=== PATIENT | male | born 1955 | race Caucasian/White ===

== ENCOUNTER → 2016-04-28 | Outpatient (CLI) | payer OTHER ==
[~2016-04-28] MED LIST: ASPI81TA28 PO; CHOL100010 PO; CYAN1LOZ2; METF-384 PO; RAMI10CA; SIMV-150; VTMB12
--- NOTE | 2016-04-28 14:16 | DIAGNOSTIC IMAGING REPORT ---
RIGHT UPPER EXTREMITY ULTRASOUND CLINICAL HISTORY: Right upper extremity mass. COMPARISON STUDY: Right upper extremity ultrasound January 06, 2014. FINDINGS: Note is made of an echogenic subcutaneous mass of the lateral aspect of the right upper arm which measures 5.1 x 1.4 x 4.2 cm. When allowing for measurement variability, this is similar to exam of January 06, 2014. The previously described adjacent lesion is not visualized on this examination. IMPRESSION: 5.1 x 1.4 x 4.2 cm echogenic subcutaneous mass of the right upper arm which is similar to exam of January 06, 2014. 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 Clinical follow up to ensure stability is recommended. Electronically signed by: Guevara Johnson M.D. 04/28/2016 2:15 PM Dictated Date/Time: 04/28/2016 2:12 PM
== END | disposition home or self-care (01) ==
LOC: C.ULTR 13:48
PROVIDERS: ATTEND Family Medicine
DX: R22.9 Localized swelling, mass and lump, unspecified (principal)

== ENCOUNTER → 2016-08-28 | Outpatient (CLI) | payer OTHER ==
[2016-08-28 13:48] LABS: ESTIMATED AVERAGE GLUCOSE 117 mg/dl; HA1C FLAG Normal (Normal)
[2016-08-28 14:05] LABS: ALT/SGPT 39 U/L (12-78); BLOOD UREA NITROGEN 15 mg/dl (7-18); BUN/CREATININE RATIO 15.7 (10-20); CARBON DIOXIDE 31 mmol/L (21-32); CHLORIDE 101 mmol/L (98-107); CHOLESTEROL 119 mg/dl (0-200); CREATININE 0.98 mg/dl (0.60-1.40); GLUCOSE 121 mg/dl (70-99); POTASSIUM 3.8 mmol/L (3.5-5.1); SODIUM 138 mmol/L (136-145); TRIGLYCERIDES 123 mg/dl (0-150); VERY LOW DENSITY LIPOPROT CALC 25 mg/dl
[2016-08-28 14:09] LABS: ALB/GLOB RATIO 1.3 (0.9-2); ALKALINE PHOSPHATASE 68 U/L (45-117); AST/SGOT 28 U/L (15-37); CHOLESTEROL/HDL RATIO 3.1; HDL CHOLESTEROL 38 mg/dl; LDL CHOLESTEROL CALCULATED 56 mg/dl
[2016-08-28 14:28] LABS: RATIO 8.8 mcg/mg (0-30.0)
--- NOTE | 2016-09-02 09:36 | CODING QUERY MEDICAL NECESSITY ---
SUPPORTING DIAGNOSIS NEEDED A supporting diagnosis is required for the test/procedure performed on this patient in order for us to be reimbursed by the patient's insurance. Please provide a supporting diagnosis for the following test/procedure listed below next to the test name along with your signature. *If there is no additional diagnosis for this patient that would support the following test/procedure please document that below next to the test/procedure. Test(s)/Procedure(s) that require a supporting diagnosis: * VITAMIN B12 DIAGNOSIS: Provider Signature: Date: Thank you Ellen [email or web address] Information [employer] Once completed, please kindly fax back to [phone] For questions please call [phone]
== END | disposition home or self-care (01) ==
LOC: C.LAB1850 11:41
PROVIDERS: ATTEND Internal Medicine
DX: E11.9 Type 2 diabetes mellitus without complications (principal); Z11.59 Encounter for screening for other viral diseases; Z12.5 Encounter for screening for malignant neoplasm of prostate; R80.9 Proteinuria, unspecified; E78.5 Hyperlipidemia, unspecified

== ENCOUNTER 2021-02-23 16:59 | Inpatient (IN) ==
[~2021-02-23 16:59] MED LIST changes: -ASPI81TA28 PO; +ASPIRIN 300 MG SUPP PR ONE; -CHOL100010 PO; -CYAN1LOZ2; -METF-384 PO; -RAMI10CA; -SIMV-150; -VTMB12
[2021-02-23] MEDS ORDERED: AMIODARONE 360MG / 200ML D5W IV ONE (17:05)
[2021-02-23] MEDS ORDERED: PROPOFOL IV EMULSION 10 MG/ML 100 ML VIAL IV ONE (17:06)
[2021-02-23] MEDS ORDERED: MIDAZOLAM HCL 1 MG/ML 2ML VIAL ONE (17:06)
[2021-02-23] MEDS ORDERED: HEPARIN (PORCINE) 1000 UNIT/ML 10 ML (CATH LAB USE ONLY) ONE (17:06)
[2021-02-23] MEDS ORDERED: niCARdipine HCL INJ 2.5 MG/ML 10 ML AMP ONE (17:06)
[2021-02-23] MEDS ORDERED: fentaNYL citrate 100 MCG/2 ML VIAL ONE (17:06)
[2021-02-23] MEDS ORDERED: NITROGLYCERIN/D5W 100MCG/ML 20ML SYR ONE (17:07)
[2021-02-23] MEDS ORDERED: STAT IV Infusion **Titration per Protocol STA ×4 (17:07→21:09)
[2021-02-23] MEDS ORDERED: AMIODARONE / D5W 360 MG/200 ML BAG IV SCH (17:15)
[2021-02-23] MEDS ORDERED: SODIUM CHLORIDE 0.9% 1000ML 1,000 ML IV ONE (17:17)
[2021-02-23 17:26] LABS: Basophils # (auto) 0.02 K/uL (0-0.2); Basophils % (auto) 0.2 %; Eosinophils # (auto) 0.24 K/uL (0-0.5); Eosinophils % (auto) 1.9 %; Hematocrit (blood only) 40.6 % (42-52); Hemoglobin 14.2 g/dL (14.0-18.0); Immature Granulocytes # (auto) 0.05 K/uL (0.00-0.02); Immature Granulocytes % (auto) 0.4 %; Lymphocytes # (auto) 3.17 K/uL (1.2-3.4); Lymphocytes % (auto) 25.7 %; Mean Corpuscular Hemoglobin 30.4 pg (25-34); Mean Corpuscular Volume 86.9 fL (80-100); Mean Platelet Volume 10.8 fL (7.4-10.4); Monocytes # (auto) 0.56 K/uL (0.11-0.59); Monocytes % (auto) 4.5 %; Neutrophils % (auto) 67.3 %; Platelet Count 296 K/uL (130-400); RDW Coefficient of Variation 12.6 % (11.5-14.5); Red Blood Count 4.67 M/uL (4.7-6.1); White Blood Count 12.34 K/uL (4.8-10.8)
[2021-02-23] MEDS ORDERED: OPTIRAY 320 125ml IV ONE (17:37)
[2021-02-23 17:41] LABS: Partial Thromboplastin Ratio 0.9; Partial Thromboplastin Time 23.2 Seconds (21.0-31.0); Prothrombin Time 10.3 Seconds (9.0-12.0)
--- NOTE | 2021-02-23 17:41 | XRay Report ---
SINGLE VIEW CHEST CLINICAL HISTORY: Atypical chest pain. FINDINGS: 2 AP, portable, supine chest radiographs are obtained. No prior studies are available for c omparison at the time of dictation. An endotracheal tube has been placed. This projects 4.5 cm above the anish on the second image. The heart is enlarged. The pulmonary vasculature is noncongested. The re is elevation of the right hemidiaphragm and bibasilar atelectasis. No airspace consolidation or la rge pleural effusion is identified. No pneumothorax is seen. The bony thorax is grossly intact. IMPRESSION: 1. An endotracheal tube has been placed as above. 2. Cardiomegaly without radiographic evidence of congestive failure. 3. No airspace consolidation or large pleural effusion is identified. ACT 112: Negative or not required by law. Electronically signed by: Nakul Jones M.D. 02/23/2021 5:39 PM
--- NOTE | 2021-02-23 17:43 | CT Scan Report ---
CT SCAN OF THE BRAIN WITHOUT IV CONTRAST CLINICAL HISTORY: Cardiac arrest. COMPARISON STUDY: No priors. TECHNIQUE: Unenhanced axial CT scan of the brain is performed from the vertex to the skull base. A d ose lowering technique was utilized adhering to the principles of ALARA. CT DOSE: 1464.58 mGy.cm FINDINGS: Brain parenchyma: The brain parenchyma is normal in appearance. There is no hemorrhage, mass effect, or evidence of acute territorial ischemia by CT criteria. Esteves-white matter differentiation is preser vazquez. No extra-axial fluid collection is seen. Ventricles, sulci, cisterns: Normal in configuration. Intracranial vasculature: There is atherosclerotic calcification of the cavernous carotid arteries. Calvarium: Unremarkable. Sinuses and mastoids: There is trace fluid within the sphenoid sinuses. Trace mucosal thickening is n oted in the frontal and ethmoid sinuses. The mastoid air cells are well pneumatized. Orbits: The bony orbits are grossly intact. IMPRESSION: There is no hemorrhage, mass effect, or evidence of acute territorial ischemia by CT vikki martell. ACT 112: Negative or not required by law. Electronically signed by: Nakul Jones M.D. 02/23/2021 5:42 PM
--- NOTE | 2021-02-23 17:44 | Emergency Department Note ---
Impression & Plan Cardiac arrest, Ventricular tachycardia, Acute hyperglycemia, Metabolic acidosis, Respiratory arrest, Abnormal EKG ED Provider Note NAME: RAMIN BENITES AGE: 65 SEX: M : 1955 ARRIVES VIA: Ambulance INFORMANT: EMS, the patient's sister ED PROVIDER(S): Yao Michel DO CHIEF COMPLAINT: Cardiac arrest HPI: The patient is a 65-year-old male who presented to the emergency department after having a full cardiac arrest. The patient was on the phone with his sister. She was on her way to pick him up. The patient had a full cardiac arrest which occurred unwitnessed. The patient's sister arrived and found him outside by a dumpster and he was not breathing. The patient's sister was going to pick him up to take him to [place] with her. A neighbor did see the patient and called 911. The patient received CPR by bystanders and also received defibrillation by the police. Upon arrival the EMS personnel intubated the radha ent. He received further CPR and advanced airway placement but then had spontaneous return of circulation. There was a witnessed episode of ventricular tachycardia for which the patient received a bolus of amiodarone. The patient arrived at the emergency department. He did have pulses and had a blood pressure. The patient was not able to give any history at all. His sister states that he was in his normal state of health and had no complaints of chest pain headache difficulty breathing or trauma. The patient has a history of hyperlipidemia as well as hypertension. According to his sister he was compliant with his outpatient medication regimen. He had multiple EKGs prior to arrival that did reveal diffuse ST segment abnormalities consistent with ischemia. He was made a heart alert prior to arrival. The patient's GCS was reportedly 3 by the prehospital personnel prior to intubation. ROS: See above HPI for pertinent positives & negatives. A total of 10 systems reviewed and were otherwise negative. PAST MEDICAL HISTORY: See Below PAST SURGICAL HISTORY: See Below FAMILY HISTORY: See Below SOCIAL HISTORY: See Below HOME MEDICATIONS: See Below ALLERGIES: See Below VITALS: See Below PHYSICAL EXAMINATION: GENERAL: The patient is intubated prior to arrival. He does not respond to verbal commands. EYES: The conjunctivae are clear. The pupils are midsize but minimally reactive. EARS, NOSE, MOUTH AND THROAT: The nose is without any evidence of any deformity. Endotracheal tube is in place. NECK: The neck is nontender and supple. RESPIRATORY: Respirations were noted with bagging only. The patient did have some spontaneous respirations which were ineffective and shallow. Diffuse rhonchi were noted throughout. CARDIOVASCULAR: Regular rate and rhythm noted there no murmurs rubs or gallops normal S1 normal S2. GASTROINTESTINAL: The abdomen is soft. Abdomen is nontender. MUSCULOSKELETAL/EXTREMITIES: There is no evidence of gross deformity full range of motion is noted in the hips and shoulders. SKIN: The skin was warm and dry. Pedal pulses were symmetric. NEUROLOGIC: The patient is not able to answer questions but does not follow c ommands. He does not localize pain at this time. GCS is 3 intubated. MEDICAL DECISION MAKING: The patient is a 65-year-old male who presented to the emergency department for an evaluation of cardiac arrest. The patient had [id number] cardiac arrest. He was attended to by bystanders as well as police. He did receive initial defibrillation by the police. Upon arrival the EMS personnel found the patient to be obtunded and not awake or alert. He did have a pulse. He had an episode of wide-complex tachycardia for which he received amiodarone. The patient was transported to our facility immediately. The patient was intubated prior to arrival. The patient had multiple prehospital EKGs which appear to be consistent with ischemia. He was made a heart alert prior to arrival. He was evaluated by the children's nursery assistant in the emergency department. He was felt to be a good candidate for post cardiac arrest cardiac catheterization. On route to the Visual Journalist he did have a CT of the head and chest. He was also given IV fluids and amiodarone drip and aspirin rectally in the emergency department. I discussed the patient's condition with his sister. She is aware how ill the patient is. Triage Nursing notes reviewed. Prior medical records reviewed Vital Signs: reviewed and remarkable for no significant abnormalities Differential diagnosis: Cardiac ischemia, aortic dissection, pulmonary embolism, electrolyte abnormality, acidosis, tension pneumothorax, hypothermia, hypovolemia, intracranial event, cardiac tamponade, as well as other pathologies. ER treatment provided: See below Diagnostics interpreted by me: ECG: EKG was obtained in the emergency department. My interpretation is sinus rhythm at 79 bpm. First-degree AV block was noted. Inferior and lateral ST depressions were noted. This is consistent with diffuse ischemia. No previous EKGs were available. Cardiac Monitoring: An order was placed for continuous cardiac monitoring. The monitor shows a rate of 77 bpm with sinus rhythm. Laboratory studies: As stated above and show below. Imaging studies: See below Consultation(s): I discussed this case with Dr. Jimenez who arrived to the emergency department to attend the patient for the cardiac heart alert. ED COURSE: Procedures: none PDMP:reviewed and no issues Critical Care: I have personally spent greater than 35 minutes of critical care time in the direct management of this patient. This includes bedside care, interpretation of diagnostic studies, and testing, discussion with consultants, patient, and family members, and other required patient management activities. This 35 minutes is in excess of all separately billable procedures. 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 Positive colorectal cancer screening using Cologuard test Positive colorectal cancer screening using Cologuard test Colonoscopy completed 2019- for follow-up/5 years recommended Schizophrenic disorder NO MEDS AT THIS TIME. 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 Surgical History History of colon surgery Hx of lipoma WITH REMOVAL FROM ARM Family History Father Hypertension Other Gallbladder disease Social History Smoking Status: Never smoker Second Hand Exposure: No; Hx Alcohol Use: No Hx Substance Use: No Preferred Language: Pakistani Communication Ability: Effective Oracle Erp Developer Required: No Beliefs That Will Affect Care: None marital status: Single Current Living Situation: Alone Current Living Situation Comment: [facility] current occupational status: unemployed Feels Safe at Home: Yes Seatbelt Use: always Assistive Devices: Glasses Allergies Allergies Allergy/AdvReac Type Severity Reaction Status Date / Time No Known Allergies Allergy Verified 02/23/21 17:21 Home Meds Home Medications Medication Instructions Recorded Confirmed aspirin 81 mg tablet,delayed 81 mg PO DAILY 08/16/18 02/23/21 release (Adult Aspirin Regimen) cholecalciferol (vitamin D3) 25 1,000 units PO DAILY 08/16/18 02/23/21 mcg (1,000 unit) capsule multivitamin 1 tab PO DAILY 12/08/18 02/23/21 Lactobacillus 1 cap PO .TAKE 1 CAPSULE Daily 06/17/19 02/23/21 acidophilus-Bifidobac.animalis 31 billion cell capsule Previous Rx's Medication Instructions Recorded mecobalamin (vitamin B12) 1,000 500 mcg SL DAILY #90 tab 04/27/20 mcg disintegrating tablet,sublingual lisinopril 40 mg tablet 40 mg PO DAILY #90 tab 05/08/20 simvastatin 10 mg tablet 10 mg PO DAILY #90 tab 05/21/20 amlodipine 5 mg tablet 5 mg PO DAILY #90 tab 12/11/20 metformin 1,000 mg tablet 1,000 mg PO BID #180 tab 12/12/20 lancets (OneTouch UltraSoft #300 ea 01/29/21 Lancets) Results & Data (ED) Vital Signs Vital Signs - 24 hr 02/23/21 16:52 02/23/21 17:06 02/23/21 17:09 Pulse Rate 82 78 Pulse Rate [Finger] Pulse Rate from SpO2 Sensor 75 Respiratory Rate 24 25 H Respiratory Depth Shallow Blood Pressure 155/83 H 155/83 H Blood Pressure [Right Arm] Blood Pressure Mean 107 107 Blood Pressure Mean [Right Arm] Pulse Oximetry 99 99 Oxygen Delivery Method Ambu-Bag Mechanical Vent Fraction of Inspired Oxygen Sepsis Recent Fever Within 48 Hours No Sepsis New/Unexplained Change in Mental Status N/A Sepsis Action Taken by Nursing No Action Required 02/23/21 17:10 02/23/21 17:15 02/23/21 17:20 Pulse Rate 79 75 Pulse Rate [Finger] 77 Pulse Rate from SpO2 Sensor 64 Respiratory Rate 23 25 H 20 Respiratory Depth Blood Pressure Blood Pressure [Right Arm] 123/60 Blood Pressure Mean Blood Pressure Mean [Right Arm] 81 Pulse Oximetry 98 99 96 Oxygen Delivery Method Mechanical Vent Fraction of Inspired Oxygen 60 Sepsis Recent Fever Within 48 Hours Sepsis New/Unexplained Change in Mental Status Sepsis Action Taken by Nursing 02/23/21 17:22 02/23/21 17:30 Pulse Rate Pulse Rate [Finger] Pulse Rate from SpO2 Sensor Respiratory Rate 14 Respiratory Depth Blood Pressure Blood Pressure [Right Arm] Blood Pressure Mean Blood Pressure Mean [Right Arm] Pulse Oximetry Oxygen Delivery Method Mechanical Vent Fraction of Inspired Oxygen Sepsis Recent Fever Within 48 Hours Sepsis New/Unexplained Change in Mental Status Sepsis Action Taken by [facility] Medications Current Medication List: was personally reviewed by me Laboratory Data Attestation: I reviewed the patient's lab results. Result diagrams: 02/23/21 16:55 02/23/21 16:55 Lab Results 02/23/21 02/23/21 02/23/21 Range/Units 16:55 16:55 16:55 WBC 12.34 H (4.8-10.8) K/uL RBC 4.67 L (4.7-6.1) M/uL Hgb 14.2 (14.0-18.0) g/dL Hct 40.6 L (42-52) % MCV 86.9 (80-100) fL MCH 30.4 (25-34) pg MCHC 35.0 (32-36) g/dL RDW Std Deviation 40.0 (36.4-46.3) fL RDW Coeff of Shanell 12.6 (11.5-14.5) % Plt Count 296 (130-400) K/uL MPV 10.8 H (7.4-10.4) fL Immature Gran % (Auto) 0.4 % Neut % (Auto) 67.3 % Lymph % (Auto) 25.7 % Stone % (Auto) 4.5 % Eos % (Auto) 1.9 % Baso % (Auto) 0.2 % Neut # (Auto) 8.30 H (1.4-6.5) K/uL Lymph # (Auto) 3.17 (1.2-3.4) K/uL Stone # (Auto) 0.56 (0.11-0.59) K/uL Eos # (Auto) 0.24 (0-0.5) K/uL Baso # (Auto) 0.02 (0-0.2) K/uL Immature Gran # (Auto) 0.05 H (0.00-0.02) K/uL PT 10.3 (9.0-12.0) Seconds INR 1.0 (0.9-1.1) APTT 23.2 (21.0-31.0) Seconds PTT Ratio 0.9 Sodium 136 (136-145) mmol/L Potassium 3.6 (3.5-5.1) mmol/L Chloride 100 (98-107) mmol/L Carbon Dioxide 19 L (21-32) mmol/L Anion Gap 17.0 H (3-11) BUN 22 H (7-18) mg/dl Creatinine 1.48 H (0.6-1.4) mg/dl Est Cr Clr Drug Dosing 53.8 ml/min Est GFR ( Amer) 55.9 ml/min Est GFR (Non-Af Amer) 48.3 ml/min BUN/Creatinine Ratio 14.8 (10-20) Glucose 355 H* (70-99) mg/dl Calcium 9.0 (8.5-10.1) mg/dl Total Bilirubin 0.9 (0.2-1) mg/dl AST 99 H (15-37) U/L ALT 109 H (12-78) Alkaline Phosphatase 87 (45-117) U/L Troponin I < 0.015 (0-0.045) ng/ml Total Protein 7.3 (6.4-8.2) gm/dl Albumin 3.8 (3.4-5.0) gm/dl Globulin 3.5 (2.5-4.0) gm/dl Albumin/Globulin Ratio 1.1 (0.9-2) Lipase 257 (73-393) U/L Beta-Hydroxybutyric Acd 2.26 (0.2-2.81) mg/dl SARS-CoV-2, RNA, NAAT (NEGATIVE) Blood Type Antibody Screen 02/23/21 02/23/21 Range/Units 16:55 17:20 WBC (4.8-10.8) K/uL RBC (4.7-6.1) M/uL Hgb (14.0-18.0) g/dL Hct (42-52) % MCV (80-100) fL MCH (25-34) pg MCHC (32-36) g/dL RDW Std Deviation (36.4-46.3) fL RDW Coeff of Shanell (11.5-14.5) % Plt Count (130-400) K/uL MPV (7.4-10.4) fL Immature Gran % (Auto) % Neut % (Auto) % Lymph % (Auto) % Stone % (Auto) % Eos % (Auto) % Baso % (Auto) % Neut # (Auto) (1.4-6.5) K/uL Lymph # (Auto) (1.2-3.4) K/uL Stone # (Auto) (0.11-0.59) K/uL Eos # (Auto) (0-0.5) K/uL Baso # (Auto) (0-0.2) K/uL Immature Gran # (Auto) (0.00-0.02) K/uL PT (9.0-12.0) Seconds INR (0.9-1.1) APTT (21.0-31.0) Seconds PTT Ratio Sodium (136-145) mmol/L Potassium (3.5-5.1) mmol/L Chloride (98-107) mmol/L Carbon Dioxide (21-32) mmol/L Anion Gap (3-11) BUN (7-18) mg/dl Creatinine (0.6-1.4) mg/dl Est Cr Clr Drug Dosing ml/min Est GFR ( Amer) ml/min Est GFR (Non-Af Amer) ml/min BUN/Creatinine Ratio (10-20) Glucose (70-99) mg/dl Calcium (8.5-10.1) mg/dl Total Bilirubin (0.2-1) mg/dl AST (15-37) U/L ALT (12-78) Alkaline Phosphatase (45-117) U/L Troponin I (0-0.045) ng/ml Total Protein (6.4-8.2) gm/dl Albumin (3.4-5.0) gm/dl Globulin (2.5-4.0) gm/dl Albumin/Globulin Ratio (0.9-2) Lipase (73-393) U/L Beta-Hydroxybutyric Acd (0.2-2.81) mg/dl SARS-CoV-2, RNA, NAAT NEGATIVE (NEGATIVE) Blood Type O Negative Antibody Screen NEGATIVE Administered Medications Discontinued Medications Ioversol (Optiray 320 125ml) 120 ml IV ONCE ONE Stop: 02/23/21 17:38 Last Admin: 02/23/21 17:37 Dose: 120 ml Documented by: [id number] Imaging Data Radiologist's Impression: Chest X-Ray 02/23/21 16:52 SINGLE VIEW CHEST CLINICAL HISTORY: Atypical chest pain. FINDINGS: 2 AP, portable, supine chest radiographs are obtained. No prior studies are available for comparison at the time of dictation. An endotracheal tube has been placed. This projects 4.5 cm above the anish on the second image. The heart is enlarged. The pulmonary vasculature is noncongested. There is elevation of the right hemidiaphragm and bibasilar atelectasis. No airspace consolidation or large pleural effusion is identified. No pneumothorax is seen. The bony thorax is grossly intact. IMPRESSION: 1. An endotracheal tube has been placed as above. 2. Cardiomegaly without radiographic evidence of congestive failure. 3. No airspace consolidation or large pleural effusion is identified. ACT 112: Negative or not required by law. Electronically signed by: Nakul Jones M.D. 02/23/2021 5:39 PM Chest CTA 02/23/21 17:03 CT ANGIOGRAM OF THE CHEST CLINICAL HISTORY: Cardiac arrest. COMPARISON STUDY: Chest x-ray dated 02/23/2021. TECHNIQUE: Following the IV administration of 120 cc of Optiray 320, CT angiogram of the chest was performed from the upper abdomen to the thoracic inlet utilizing the pulmonary embolus protocol. Images are reviewed in the axial, sagittal, and coronal planes. 3-D MIPS images are created and assessed. IV contrast was administered without complication. A dose lowering technique was utilized adhering to the principles of ALARA. The examination is compromised by motion artifact, as well as streak artifact from the arms which could not be elevated above the chest. FINDINGS: Thyroid: Normal in size and heterogeneous in attenuation. Thoracic aorta: The thoracic aorta is normal in caliber and demonstrates standard 3-vessel arch anatomy. No dissection is seen. Pulmonary vasculature: The pulmonary trunk is normal in caliber. There are no filling defects identified in main, lobar, or segmental pulmonary branches to suggest pulmonary embolus. Heart: The heart is mildly enlarged and without pericardial effusion. Lungs and pleural spaces: An endotracheal tube terminates above the anish. Minimal secretions are noted in the trachea. Right greater than left dependent consolidation likely represents segmental atelectasis. No pleural effusion is identified. There are scattered calcified granulomas. Mediastinum: A prevascular node measures up to 11 mm in short axis. Connie: Mildly enlarged hilar nodes measure up to 14 mm in short axis. Axillae: There is no axillary lymphadenopathy. Upper abdomen: There are numerous hepatic cysts which measure up to 3.8 cm. A 1.6 cm exophytic cyst arises from the upper pole of left kidney. Skeletal structures: No lytic or blastic bony lesions are seen. IMPRESSION: 1. Streak and motion compromised examination. 2. There is no evidence of pulmonary embolus in the main, lobar, or segmental pulmonary arteries. 3. Mild cardiomegaly. 4. Right greater than left dependent airspace consolidation likely represents segmental atelectasis. Correlate clinically for evidence of superimposed pneumonia. 5. Mildly enlarged mediastinal and hilar lymph nodes are nonspecific and may be reactive. 6. Additional findings as above. ACT 112: Negative or not required by law. Electronically signed by: Nakul Jones M.D. 02/23/2021 5:[address] 02/23/21 17:03 CT SCAN OF THE BRAIN WITHOUT IV CONTRAST CLINICAL HISTORY: Cardiac arrest. COMPARISON STUDY: No priors. TECHNIQUE: Unenhanced axial CT scan of the brain is performed from the vertex to the skull base. A dose lowering technique was utilized adhering to the principles of ALARA. CT DOSE: 1464.58 mGy.cm FINDINGS: Brain parenchyma: The brain parenchyma is normal in appearance. There is no hemorrhage, mass effect, or evidence of acute territorial ischemia by CT cri teria. Esteves-white matter differentiation is preserved. No extra-axial fluid collection is seen. Ventricles, sulci, cisterns: Normal in configuration. Intracranial vasculature: There is atherosclerotic calcification of the cavernous carotid arteries. Calvarium: Unremarkable. Sinuses and mastoids: There is trace fluid within the sphenoid sinuses. Trace mucosal thickening is noted in the frontal and ethmoid sinuses. The mastoid air cells are well pneumatized. Orbits: The bony orbits are grossly intact. IMPRESSION: There is no hemorrhage, mass effect, or evidence of acute territorial ischemia by CT criteria. ACT 112: Negative or not required by law. Electronically signed by: Nakul Jones M.D. 02/23/2021 5:42 PM Discharge Plan Visit Data Chief Complaint: Heart Alert ED Provider: [place] Discharge Problem: Cardiac arrest, Ventricular tachycardia, Acute hyperglycemia, Metabolic acidosis, Respiratory arrest, Abnormal EKG Discharge Instructions Interventions: ED Discharge Assessment Last Done: 02/23/21 17:30
--- NOTE | 2021-02-23 17:47 | Cardiology Consultation ---
Date of Consultation February 23, 2021 Assessment & Plan (1) Cardiac arrest: Patient here after out of hospital cardiac arrest with initial EKG suggestive of global ischemia. EKG changes resolved on arrival. Recommend further evaluation with cardiac catheterization to assess for obstructive CAD as potential etiology for arrest. No apparent contraindications to procedure. Discussed risks, benefits, alternatives of procedure with patient's sister. Further recommendations pending findings of coronary angiography. History of Present Illness History of Present Illness Mr. Maldonado is a 65year-old man seen in the ED after out of hospital arrest. Per report from patient's sister and Dr. Michel patient was in his usual state of health today and had been downtown drinking coffee. His sister called him on the phone before coming to pick him up to take him to mass. Endorsed no symptoms at that time. When she arrived (maybe 15 min later) he was lying on the ground outside. A bystander had already contacted EMS. Upon EMS arrival received defibrillation x1 and brief CPR before ROSC. Intubated in the field. En route ECGs showed sinus rhythm with diffuse ST depressions most notably inferiorly with subtle ST elevation in aVR, V1. ST segment changes resolved on hospital arrival. Hemodynamically stable off pressors. No response to command/painful stimuli. Noncontrast head CT unremarkable. Chest x-ray clear. Prior history remarkable for schizoaffective disorder with impaired ability to care for himself. Also with type 2 diabetes, dyslipidemia, hypertension and a history of premature CAD involving his father with an UT in his late 50s. Allergies Allergy/AdvReac Type Severity Reaction Status Date / Time No Known Allergies Allergy Verified 02/23/21 17:21 Home Medications Medication Instructions Recorded Confirmed Type aspirin 81 mg tablet,delayed 81 mg PO DAILY 08/16/18 02/23/21 History release (Adult Aspirin Regimen) cholecalciferol (vitamin D3) 25 1,000 units PO DAILY 08/16/18 02/23/21 History mcg (1,000 unit) capsule multivitamin 1 tab PO DAILY 12/08/18 02/23/21 History Lactobacillus 1 cap PO .TAKE 1 CAPSULE Daily 06/17/19 02/23/21 History acidophilus-Bifidobac.animalis 31 billion cell capsule mecobalamin (vitamin B12) 1,000 500 mcg SL DAILY #90 tab 04/27/20 02/23/21 Rx mcg disintegrating tablet,sublingual lisinopril 40 mg tablet 40 mg PO DAILY #90 tab 05/08/20 02/23/21 Rx simvastatin 10 mg tablet 10 mg PO DAILY #90 tab 05/21/20 02/23/21 Rx amlodipine 5 mg tablet 5 mg PO DAILY #90 tab 12/11/20 02/23/21 Rx metformin 1,000 mg tablet 1,000 mg PO BID #180 tab 12/12/20 02/23/21 Rx lancets (OneTouch UltraSoft #300 ea 01/29/21 02/23/21 Rx Lancets) Patient History Medical History (Updated 02/23/21 @ 18:28 by Yao Michel, DO) Diabetes mellitus NIDDM Foot pain Hyperlipidemia Hypertension Lt groin pain Not immune to hepatitis B virus Poor historian 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 Positive colorectal cancer screening using Cologuard test Positive colorectal cancer screening using Cologuard test Colonoscopy completed 2019- for follow-up/5 years recommended Schizophrenic disorder NO MEDS AT THIS TIME. 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 Surgical History History of colon surgery Hx of lipoma WITH REMOVAL FROM ARM Family History Father Hypertension Other Gallbladder disease Social History Smoking Status: Never smoker Second Hand Exposure: No; Hx Alcohol Use: No Hx Substance Use: No Preferred Language: Frisian Communication Ability: Effective Assistant Corporation Counsel Required: No Beliefs That Will Affect Care: None marital status: Single Current Living Situation: Alone Current [facility] Sit[facility] current occupational status: unemployed Feels Safe at Home: Yes Seatbelt Use: always Assistive Devices: Glasses Review of Systems Review of Systems: Unobtainable due to endotracheal tube Physical Exam Physical Exam: General: Intubated HEENT: Sclerae anicteric Lungs: Clear anteriorly Cardiac: Regular rate and rhythm, no murmurs. Vascular: 2+ radial Abdomen: Soft Extremities: Well perfused, no peripheral edema Neuro: No response to painful stimuli Results & Data ([facility]) Vital Signs (Past 12 Hours) Vital Signs Pulse Pulse Resp BP BP Pulse Ox 02/23/21 17:20 77 20 123/60 96 02/23/21 17:15 75 25 H 99 02/23/21 16:52 82 24 155/83 H 99 PG Care Time/CCT Total # of Minutes Spent Total Time Spent with Patient: Total time spent is greater than 50% in coordination of care (as documented) at patient's floor/unit and/or counseling patient: Coding Level of Care Code 18147 Initial Inpt Care Lvl 3 Diagnoses Cardiac arrest I46.9
--- NOTE | 2021-02-23 17:56 | CT Scan Report ---
CT ANGIOGRAM OF THE CHEST CLINICAL HISTORY: Cardiac arrest. COMPARISON STUDY: Chest x-ray dated 02/23/2021. TECHNIQUE: Following the IV administration of 120 cc of Optiray 320, CT angiogram of the chest was pe rformed from the upper abdomen to the thoracic inlet utilizing the pulmonary embolus protocol. Images are reviewed in the axial, sagittal, and coronal planes. 3-D MIPS images are created and assessed. I V contrast was administered without complication. A dose lowering technique was utilized adhering to the principles of ALARA. The examination is compromised by motion artifact, as well as streak artifa ct from the arms which could not be elevated above the chest. FINDINGS: Thyroid: Normal in size and heterogeneous in attenuation. Thoracic aorta: The thoracic aorta is normal in caliber and demonstrates standard 3-vessel arch anato my. No dissection is seen. Pulmonary vasculature: The pulmonary trunk is normal in caliber. There are no filling defects identif ied in main, lobar, or segmental pulmonary branches to suggest pulmonary embolus. Heart: The heart is mildly enlarged and without pericardial effusion. Lungs and pleural spaces: An endotracheal tube terminates above the anish. Minimal secretions are no linda in the trachea. Right greater than left dependent consolidation likely represents segmental atele ctasis. No pleural effusion is identified. There are scattered calcified granulomas. Mediastinum: A prevascular node measures up to 11 mm in short axis. Connie: Mildly enlarged hilar nodes measure up to 14 mm in short axis. Axillae: There is no axillary lymphadenopathy. Upper abdomen: There are numerous hepatic cysts which measure up to 3.8 cm. A 1.6 cm exophytic cyst a rises from the upper pole of left kidney. Skeletal structures: No lytic or blastic bony lesions are seen. IMPRESSION: 1. Streak and motion compromised examination. 2. There is no evidence of pulmonary embolus in the main, lobar, or segmental pulmonary arteries. 3. Mild cardiomegaly. 4. Right greater than left dependent airspace consolidation likely represents segmental atelectasis. Correlate clinically for evidence of superimposed pneumonia. 5. Mildly enlarged mediastinal and hilar lymph nodes are nonspecific and may be reactive. 6. Additional findings as above. ACT 112: Negative or not required by law. Electronically signed by: Nakul Jones M.D. 02/23/2021 5:55 PM
[2021-02-23 17:59] LABS: Alanine Aminotransferase 109 (12-78); Albumin Level 3.8 gm/dl (3.4-5.0); Aspartate Aminotransferase 99 U/L (15-37); BUN Creatinine Ratio 14.8 (10-20); Bilirubin,Total 0.9 mg/dl (0.2-1); Blood Urea Nitrogen 22 mg/dl (7-18); Carbon Dioxide 19 mmol/L (21-32); Chloride 100 mmol/L (98-107); Creatinine Clr Calc Pharmacy 53.8 ml/min; Est GFR (African American) 55.9 ml/min; Est GFR (Non-African American) 48.3 ml/min; Glucose 355 mg/dl (70-99); Lipase 257 U/L (73-393); Potassium 3.6 mmol/L (3.5-5.1); Sodium 136 mmol/L (136-145)
[2021-02-23 18:03] LABS: Albumin Globulin Ratio 1.1 (0.9-2); Alkaline Phosphatase 87 U/L (45-117); Globulin 3.5 gm/dl (2.5-4.0); Total Protein 7.3 gm/dl (6.4-8.2); Troponin I < 0.015 ng/ml (0-0.045)
[2021-02-23 18:10] LABS: Beta-Hydroxybutyrate 2.26 mg/dl (0.2-2.81)
[2021-02-23] MEDS ORDERED: ICU PROTOCOL FOR HYPERGLYCEMIA PRN (19:04)
--- NOTE | 2021-02-23 19:29 | Cardiac Catheterization ---
[facility] Data: Assistant Case Manager Cardiac Status Clinical evaluation leading to the procedure CAD Presenation: Sx unlikely to be ischemic Anginal Classification: No Symptoms Heart Failure: No Cardiogenic Shock within 24 Hours: No Cardiac Arrest within 24 Hours: Yes Imaging Studies Past 6 Months: No Stress Studies Past 6 Months: No Diagnostic Physicians Name: Jim Jimenez MD Status: Emergency Closure Device Percutaneous Entry Location: Radial Closure Device: Radial Band Recommendations: Medical Therapy and/or Counseling Intraprocedure Events Significant Disection: No Perforation: No Cardiac Cath Procedure Full Procedure Date February 23, 2021 Pre-Procedure Diagnosis Pre-Procedure Diagnosis: Cardiothoracic Symptom (Out of hospital cardiac arrest) AUC Score AUC Score: 8 Post-Procedure Diagnosis Post-Procedure Diagnosis: Moderate CAD and Normal Intracardiac Pressures Procedure(s) Performed Procedure(s) Performed: Coronary Angiography, Left Heart Cath, Ultrasound Guided Vascular Access, IVUS and Procedure (Central line placement (cooling catheter), radial A-line placement) Wastewater Treatment Operator Jim Jimenez MD Shift Foreman(s) Ivonne Estimated Blood Loss Estimated Blood Loss: 20 Medication(s) Medication(s): Heparin, Lidocaine 1%, Nicardipine and Nitroglycerin Medication(s): Propofol Summary of Findings Indication: Out of hospital cardiac arrest Access: 6 Fr right radial artery. Catheters: [place], pigtail, EBU 3.5 guide Findings: LM -normal caliber, no significant disease LAD -large caliber, 60% mid LAD stenosis, large distal vessel without significant disease and wraps around apex. JOE-3 flow throughout LAD Circumflex -medium caliber, gives off large high OM1 without significant disease. AV groove circumflex medium caliber without disease RCA -dominant, medium caliber, no significant disease LVEDP -13 LVEF 60% without wall motion abnormalities IVUS of mid LAD Left main cannulated with EBU 3.5 guide BMW wire passed across stenosis into distal LAD [place] IVUS catheter placed into latemid LAD Pullback of IVUS catheter revealed mildly calcified, 65% stenosis in mid LAD without significant associated thrombus. Wire and catheter removed. Post procedure angiography revealed no complications Arterial Closure: TR band Central line placement (cooling catheter) under ultrasound guidance to right common femoral vein. Radial A-line placed to left radial artery. Summary: 1. Moderate nonobstructive coronary artery disease -60 to 70% mid LAD stenosis with JOE-3 flow 2. Normal intracardiac filling pressure 3. Normal LV function Recommendations: Has borderline mid LAD disease but normal flow throughout coronary system. CAD unlikely to be cause of patient's out of hospital cardiac arrest. Trend troponin until peaks. Check echocardiogram in a.m. Pending clinical course may consider defibrillator Hemodynamics Rest Ao:: / Final Ao: /64 LV: 82/13 Recommendations Recommendations: Medical Therapy and/or Counseling Specimens Specimens: None Radiation Exposure (mGy) 908 Contrast (mls) 45 Fluids (cc crystalloids) Fluids (cc crystalloids): 350 Drains Drains: None Anesthesia Moderate 3927-7419 Procedural Complication(s) None Disposition ICU I attest to the content of the Intraoperative Record and any orders documented therein. Any exceptions are noted below. PicodeonG Card Cath Procedure Codes Cardiac Catheterization Procedure 1: Cardiovascular Cath Procedures: 23957 Coronaries and LHC (+/-LV) Therapeutic Services & Ancillary Proc Procedure 1: Cardiovascular Tx and Anc Procedures: 10835 IV Ultrasound (Coronary or Graft) Procedure 2: Cardiovascular Tx and Anc Procedures: 42879 Ultrasonic Guidance Vascular Access Procedure 3: Cardiovascular Tx and Anc Procedures: [address] Procedure 4: Cardiovascular Tx and Anc Procedures: 08164 Arterial Line Placement Moderate Sedation Procedure 1: Sedation/Anesthesia: 02606 Mod Sedation by the same physician;Init15 Min Child Age 5 & Up Procedure 2: Sedation/Anesthesia: 93120 Mod Sedation by the same physician; Ea [id number] Minutes PG Care Time/CCT Total # of Minutes Spent Total Time Spent with Patient: Total time spent is greater than 50% in coordination of care (as documented) at patient's floor/unit and/or counseling patient:
[2021-02-23] MEDS ORDERED: PHARMACY GLYCEMIC MGMT CONSULT PRN ×2 (19:34→20:08)
--- NOTE | 2021-02-23 19:39 | History & Physical Report ---
Date of Service February 23, 2021 Assessment & Plan (1) Cardiac arrest: Plan: 65 yo M Hx schizoaffective disorder, HTN, DM2, HLD admitted to ICU post-cardiac arrest. Cardiac arrest, ventricular tachycardia: With out of hospital arrest and ventricular tachycardia receiving brief CPR and defibrillation x1 before ROSC. Initial EKG with evidence of ischemia however with resolution of such by arrival to ER. Moderate nonobstructive disease on cardiac catheterization; no stents placed. Troponins to be trended; Cardiology to follow, and will consider stent should troponins continue to rise overnight. Echo in AM. Lipid panel and A1c in AM. Continue amiodarone drip. Anoxic brain injury: Poor neurological exam following ROSC after cardiac arrest. Currently on 24 hour hypothermia protocol. Will reevaluate neurological status once rewarmed. Intubated: Patient was intubated for airway support during cardiac arrest. Wean sedation and extubate as able. Transaminitis: AST and ALT with mild elevation on ER labs; moreso than on prior labwork. Suspect shock liver in the setting of cardiac arrest. Repeat CMP in AM. DM2: BSG range in mid-300s as of presentation to hospital. Normal BHB. Presented in metabolic acidosis, but suspected to be secondary to cardiac arrest. Holding outpatient metformin. A1c ordered. Insulin gtt with moderate stress dosing to be started now, with consideration for basal/bolus as patient's clinical condition improve. ICU hyperglycemia protocol initiated. HTN, HLD: Lipid panel ordered; LDL 29, total cholesterol 105. BP and HR on lower side at this time, holding antihypertensives. Schizoaffective disorder: History of, not on medications for such at home per EMR. Code Status: FULL CODE FEN/GI: NPO, daily IV PPI DVT ppx: SCDs Dispo: ICU (2) Schizoaffective disorder, bipolar type: (3) Hyperlipidemia: (4) Hypertension: (5) Diabetes mellitus: Admission and Anticipated Discharge Date Admission Date: February 23, 2021 History of Present Illness Chief Complaint: out of hospital cardiac arrest Primary Care Provider: Mariano Garcia MD 65 yo M Hx schizoaffective disorder, HTN, DM2, HLD presents following out of hospital arrest to ER. Patient was downtown at a local coffee shop and was waiting for pickup from his sister. On her arrival to pick him up, he was lying on the ground outside with EMS present. EMS performed defibrillation x1 and brief CPR before patient had ROSC. He was also intubated in the field. Initial EKG en route showed ST depressions with resolution of EKG changes on arrival to the ER. 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 Brought to ICU and hypothermia protocol was started. On my interview patient is not responsive to questions and is intubated. Allergies Allergy/AdvReac Type Severity Reaction Status Date / Time No Known Allergies Allergy Verified 02/23/21 17:21 Home Medications Medication Instructions Recorded Confirmed Type aspirin 81 mg tablet,delayed 81 mg PO DAILY 08/16/18 02/23/21 History release (Adult Aspirin Regimen) cholecalciferol (vitamin D3) 25 1,000 units PO DAILY 08/16/18 02/23/21 History mcg (1,000 unit) capsule multivitamin 1 tab PO DAILY 12/08/18 02/23/21 History Lactobacillus 1 cap PO .TAKE 1 CAPSULE Daily 06/17/19 02/23/21 History acidophilus-Bifidobac.animalis 31 billion cell capsule mecobalamin (vitamin B12) 1,000 500 mcg SL DAILY #90 tab 04/27/20 02/23/21 Rx mcg disintegrating tablet,sublingual lisinopril 40 mg tablet 40 mg PO DAILY #90 tab 05/08/20 02/23/21 Rx simvastatin 10 mg tablet 10 mg PO DAILY #90 tab 05/21/20 02/23/21 Rx amlodipine 5 mg tablet 5 mg PO DAILY #90 tab 12/11/20 02/23/21 Rx metformin 1,000 mg tablet 1,000 mg PO BID #180 tab 12/12/20 02/23/21 Rx lancets (OneTouch UltraSoft #300 ea 01/29/21 02/23/21 Rx Lancets) Past Med/Surg History Medical History Diabetes mellitus NIDDM Foot pain Hyperlipidemia Hypertension Lt groin pain Not immune to hepatitis B virus Poor historian 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 Positive colorectal cancer screening using Cologuard test Positive colorectal cancer screening using Cologuard test Colonoscopy completed 2019- for follow-up/5 years recommended Schizophrenic disorder NO MEDS AT THIS TIME. 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 marital status: Single Current Living Situation: Alone Current Living Situation Comment: Check-in's from [employer] reps, councilors, and family. current occupational status: unemployed Other Information That Helps Us Care for You: No Feels Safe at Home: Declines to Answer Seatbelt Use: always Assistive Devices: Oxygen - Continuous Review of Systems Review of Systems: Unobtainable due to cognitive status and Unobtainable due to endotracheal tube Physical Exam Constitutional: WD/WN, vitals as above Eyes: PERRL, conjunctivae normal, anicteric sclerae eye deviation upward and to the left ENMT: external ear and nose normal, oropharynx normal (intubated) Neck: thick neck Respiratory: normal respiratory effort, lungs clear to auscultation (intubated) Cardiovascular: RRR, no murmur, no edema Gastrointestinal (Abdomen): normal bowel sounds, soft, nondistended Musculoskeletal: no cyanosis or clubbing, extremities motor strength 5/5 Skin: no rashes, warm and dry Neurologic: The patient is intubated and sedated. Unable to assess speech, mood, memory, mentation. Patient's eye exam reveals deviation upward and to the left. Pupils equally round and reactive to light. Intermittent myoclonic-like jerks noted. Patient does not localize to pain, decerebrate posture. GCS 4. Results & Data Results & Data ([facility]) Vital Signs (Past 12 Hours) Vital Signs Pulse Pulse Resp BP BP Pulse Ox 02/23/21 17:22 14 12/18/21 17:20 77 20 123/60 96 02/23/21 17:15 75 25 H 99 02/23/21 17:10 79 23 98 02/23/21 17:06 78 25 H 155/83 H 99 02/23/21 16:52 82 24 155/83 H 99 Code Status & VTE Plan VTE Prophylaxis Plan VTE Prophylaxis will be ordered: Yes Critical Care Time 50 minutes Supervising Physician Co-Signing Physician Notes Attending addendum: I have physically seen this patient, have supervised the medical residents activities, and agree with the H&P unless as otherwise noted. Assessment and Plan: Cardiac arrest- Admission to ICU Ventilator settings and adjustment per ICU Serial CBC with differential, chemistry profile, troponins and ABG Hypothermic protocol 2D echocardiogram with Dopplers in the a.m. Continue amiodarone drip Consult cardiology Consult facility practice specialist Remaining orders and notations as noted Resident Activity Tracking Resident Involvement: Resident Care Provided Care Provided: Adult Hospital Medicine
[2021-02-23] MEDS ORDERED: ACETAMINOPHEN 650 MG SUPP PR PRN (19:45)
[2021-02-23] MEDS ORDERED: busPIRone 15 MG TAB NG PRN (19:45)
[2021-02-23] MEDS: PROPOFOL BOLUS FROM BAG IV PRN ×2 (19:45→20:15)
--- NOTE | 2021-02-23 19:53 | Critical Care Consultation ---
Date of Consultation February 23, 2021 Assessment & Plan (1) Cardiac arrest: Reason Critically Ill: 65-year-old male presents to the ICU following cardiac arrest. Patient underwent cath without intervention. Neurological exam poor following ROSC and currently mechanically ventilated. Patient to undergo 24-hour period of therapeutic hypothermia following presumed anoxic injury. Neuro - Anoxic injurypatient with poor neurological exam following ROSC after cardiac arrest. Prognosis currently guarded from neurological standpoint. -CT head without acute intracranial finding -We will proceed with 24-hour therapeutic hypothermia protocol. Will reevaluate neurological status once rewarmed. Schizoaffective disorder, bipolar disorderhold home meds for now Cardiac - Cardiac arrestpatient with ventricular dysrhythmia with cardiac arrest and received CPR by bystander and shock x1 by paramedics before ROSC achieved. -Currently hemodynamically stable without need for vasopressors or inotropes. -ST depressions on EKG and underwent emergent cardiac cath. Found to have 60 to 70% mid LAD stenosis but thought to be nonculprit and no intervention. Will trend troponins and EKGs. -Follow-up echo in a.m. -Continue amiodarone drip -Defibrillation pads on patient, continuous monitoring on telemetry. -Cardiology consulted, will follow recommendations HTN, HLDwe will hold home medications for now Respiratory - Mechanically ventilatedno significant hypoxia or acid-base disorder. Patient intubated for airway support following cardiac arrest. -Chest x-ray and ABG post intubation pending -Continuous CO2 and end-tidal CO2 monitor -No history of pulmonary disease -We will wean vent as tolerated GI - N.p.o. PPI Transaminitismild following cardiac arrest, suspect shock liver. Trend for now RENAL/LYTES - AKIcreatinine 1.48 with prior baseline 0.97. Suspect this is prerenal/ATN following cardiac arrest -Continue to trend creatinine and monitor BMPs every 6 hours per therapeutic hypothermia protocol. No electrolyte abnormalities as of now -Maintain maps greater than 65 -Avoid nephrotoxins and renally adjust medications -Monitor - Foleystrict I's and O's ENDO - DM type IIholding home Metformin. Currently on insulin drip -hemoglobin A1c pending -ICU hyperglycemic protocol HEME - H&H stable, monitor routine CBCs ID - Mild leukocytosis likely reactionary following cardiac arrest. No clear indication for antibiotics at this time. Monitor LINES/IV ACCESS - Cooling catheter right femoral vein, ET tube, OG tube DVT PROPHYLAXIS - SCDs I have personally spent 55 minutes of critical care time in the direct management of this patient. This is a life/limb threatening event. This includes time spent evaluating patient, direct bedside care, chart review, placing orders, interpretation of diagnostic studies, discussion with consultants, patient, and family members, as well as other required patient management activities. This time is exclusive of all separately billable procedures, and teaching time and separate from and in addition to any other critical care service time. Thank you for allowing us to participate in the care of this patient. Please refer to my attending physician's documentation for any further recommendations. (2) Anoxic brain injury: (3) Ventricular tachycardia: (4) Metabolic acidosis: (5) Schizoaffective disorder, bipolar type: (6) Hyperlipidemia: (7) Hypertension: (8) Diabetes mellitus: History of Present Illness Attending Physician: West Gamez MD History of Present Illness Patient is a 65-year-old male with past medical history of schizoaffective disorder, HTN, DM type II, HLD who presented to the emergency department earlier this evening following a cardiac arrest. Patient received CPR by bystander until EMS arrived and received defibrillation x1 with AED with achievement of ROSC. Patient was neurologically unresponsive following ROSC and was intubated in field. On arrival to the hospital his EKG showed ST depressions and he went for cardiac catheterization where he was found to have nonobstructive stenosis of the LAD, thought to be nonculprit and without intervention. CT head without acute intracranial findings. He is transferred to the ICU mechanically ventilated and to undergo therapeutic hypothermia as his neurological exam is poor and suspect he has significant anoxic brain injury. We will proceed with further management in ICU for now. Allergies Allergy/AdvReac Type Severity Reaction Status Date / Time No Known Allergies Allergy Verified 02/23/21 17:21 Home Medications Medication Instructions Recorded Confirmed Type aspirin 81 mg tablet,delayed 81 mg PO DAILY 08/16/18 02/23/21 History release (Adult Aspirin Regimen) cholecalciferol (vitamin D3) 25 1,000 units PO DAILY 08/16/18 02/23/21 History mcg (1,000 unit) capsule multivitamin 1 tab PO DAILY 12/08/18 02/23/21 History Lactobacillus 1 cap PO .TAKE 1 CAPSULE Daily 06/17/19 02/23/21 History acidophilus-Bifidobac.animalis 31 billion cell capsule mecobalamin (vitamin B12) 1,000 500 mcg SL DAILY #90 tab 04/27/20 02/23/21 Rx mcg disintegrating tablet,sublingual lisinopril 40 mg tablet 40 mg PO DAILY #90 tab 05/08/20 02/23/21 Rx simvastatin 10 mg tablet 10 mg PO DAILY #90 tab 05/21/20 02/23/21 Rx amlodipine 5 mg tablet 5 mg PO DAILY #90 tab 12/11/20 02/23/21 Rx metformin 1,000 mg tablet 1,000 mg PO BID #180 tab 12/12/20 02/23/21 Rx lancets (OneTouch UltraSoft #300 ea 01/29/21 02/23/21 Rx Lancets) Patient History Medical History Diabetes mellitus NIDDM Foot pain Hyperlipidemia Hypertension Lt groin pain Not immune to hepatitis B virus Poor historian 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 Positive colorectal cancer screening using Cologuard test Positive colorectal cancer screening using Cologuard test Colonoscopy completed 2019- for follow-up/5 years recommended Schizophrenic disorder NO MEDS AT THIS TIME. 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 ENMT: external ear and nose normal, oropharynx normal Neck: trachea midline, no thyromegaly Respiratory: normal respiratory effort, lungs clear to auscultation Symmetrical chest wall movement. Cardiovascular: RRR, no murmur, no edema Heart Sounds: normal S1 and normal S2; no murmur Vessels: no JVD Extremities: no edema Gastrointestinal (Abdomen): normal bowel sounds, soft, nontender, no hepatosplenomegaly Skin: no rashes, warm and dry Neurologic: Exam limited due to endotracheal tube. Patient is currently nonlocalizing to painful stimuli and questionable decerebrate posturing intermittently. Does not follow commands or display meaningful response. Cough gag corneal intact. PERRLA, upward deviated gaze. Has episodes of myoclonic jerking/convulsions. Psychiatric: Unable to assess Genitourinary: Indwelling Garcia catheter Results & Data Results & Data ([facility]) Vital Signs (Past 12 Hours) Vital Signs Pulse Pulse Resp BP BP Pulse Ox 02/23/21 17:22 14 02/23/21 17:20 77 20 123/60 96 02/23/21 17:15 75 25 H 99 02/23/21 17:10 79 23 98 02/23/21 17:06 78 25 H 155/83 H 99 02/23/21 16:52 82 24 155/83 H 99 Coding Level of Care Code Critical Care 1st 30-74 mins Diagnoses Anoxic brain injury G93.1 Cardiac arrest I46.9 Ventricular tachycardia I47.2 Metabolic acidosis E87.2 Schizoaffective disorder, bipolar type F25.0 Hyperlipidemia E78.5 Hypertension I10 Diabetes mellitus E11.9
[2021-02-23] MEDS ORDERED: CARBOHYDRATES FOR HYPOGLYCEMIA PO PRN (20:00)
[2021-02-23] MEDS ORDERED: GLUCOSE 40% GEL 15 GM TUBE PO PRN (20:00)
[2021-02-23] MEDS ORDERED: DEXTROSE 50% 50 ML SYRINGE IV PRN (20:00)
[2021-02-23] MEDS ORDERED: SEVERE STRESS LEVEL ONE (20:00)
[2021-02-23] MEDS ORDERED: GLUCOSE 10 TABS/TUBE PO PRN (20:00)
[2021-02-23] MEDS ORDERED: INSULIN REGULAR 250 UNITS in SODIUM CHLORIDE 0.9% 247.5 ML IV SCH (20:00)
[2021-02-23] MEDS ORDERED: INSULIN PROTOCOL GOAL RANGE ONE (20:00)
[2021-02-23] MEDS ORDERED: GLUCAGON FOR INJ 1 MG VIAL IM PRN (20:00)
[2021-02-23] MEDS ORDERED: MODERATE STRESS LEVEL ONE (20:08)
[2021-02-23 20:12] LABS: Chol HDL Ratio 3; Cholesterol 105 mg/dl (0-200); Creatine Kinase 267 U/L (39-308); HDL Cholesterol 36 mg/dl; LDL Cholesterol Calculated 29 mg/dl; Triglycerides 201 mg/dl (0-150); VLDL Cholesterol 40 mg/dl
[2021-02-23] MEDS ORDERED: NovoLIN-R BOLUS FROM BAG IV ONE ×2 (20:15→20:30)
--- NOTE | 2021-02-23 20:33 | XRay Report ---
SINGLE VIEW CHEST CLINICAL HISTORY: Enteric tube placement. FINDINGS: 2 AP, portable, semierect chest radiographs are compared to chest x-ray and chest CT perfor med earlier the same day 02/23/2021. An endotracheal tube is unchanged in position. An enteric tube h as been placed. The tip projects below the diaphragm over the mid stomach. The heart is enlarged. The re is mild pulmonary vascular congestion. Airspace opacities are seen at the lung bases. No large ple ural effusion or pneumothorax is seen. The bony thorax is grossly intact. IMPRESSION: 1. Lines and tubes as above. 2. Cardiomegaly. Mild pulmonary vascular congestion is new from previous. 3. Airspace opacities are now seen at the lung bases. This could present atelectasis versus a develop ing infectious/inflammatory pneumonitis. Clinical correlation will be required. ACT 112: Negative or not required by law. Electronically signed by: Nakul Jones M.D. 02/23/2021 8:32 PM
[2021-02-23] MEDS ORDERED: LORazepam 4 MG/8 ML VIAL IV STA (20:36)
[2021-02-23] MEDS ORDERED: LORazepam 2 MG/4 ML VIAL ONE (20:38)
[2021-02-23] MEDS: propofoL 1,000 MG/100 ML VIAL IV SCH (20:51)
[2021-02-23 21:13] LABS: iSTAT Art Bld Gas pCO2 Correct 47 mmHg (35-46); iSTAT Art Bld Gas pH Corrected 7.287 (7.35-7.45); iSTAT Arterial Blood Gas HCO3 23 meg/L (19-24); iSTAT Arterial Blood Gas pCO2 52 mmHg (35-46); iSTAT Arterial Blood Gas pH 7.25 (7.35-7.45); iSTAT Arterial Blood Gas pO2 131 mmHg (80-95); iSTAT Arterial Blood Gas pO2 C 117; iSTAT Carbon Dioxide 24 mmol/L (24-31); iSTAT FiO2 60 %; iSTAT Hematocrit 39 % (42-52); iSTAT Hemoglobin 13.3 g/dl (14.0-18.0); iSTAT Site R Brachial; iSTAT Sodium 137 mmol/L (135-144)
[2021-02-23] MEDS: INSULIN ASPART PER UNIT SC SCH (21:13)
[2021-02-23] MEDS: MIDAZOLAM HCL 1 MG/ML 2ML VIAL IV PRN (21:21)
[2021-02-23] MEDS: fentaNYL citrate 2,500 MCG/250 ML BAG IV SCH (21:21)
[2021-02-23] MEDS ORDERED: CALCIUM GLUCONATE 10% 1,000 MG in SODIUM CHLORIDE 0.9% 50 ML IV ONE (21:49)
[2021-02-23] MEDS: NORMOSOL-R 1,000 ML IV SCH (21:59)
[2021-02-23 22:07] LABS: Basophils # (auto) 0.02 K/uL (0-0.2); Basophils % (auto) 0.1 %; Eosinophils # (auto) 0.01 K/uL (0-0.5); Eosinophils % (auto) 0.1 %; Hematocrit (blood only) 38.7 % (42-52); Hemoglobin 13.3 g/dL (14.0-18.0); Immature Granulocytes # (auto) 0.06 K/uL (0.00-0.02); Immature Granulocytes % (auto) 0.4 %; Lymphocytes # (auto) 0.86 K/uL (1.2-3.4); Lymphocytes % (auto) 5.1 %; Mean Corpuscular Hemoglobin 29.8 pg (25-34); Mean Corpuscular Hgb Conc 34.4 g/dL (32-36); Mean Corpuscular Volume 86.8 fL (80-100); Mean Platelet Volume 10.7 fL (7.4-10.4); Monocytes % (auto) 4.8 %; Neutrophils # (auto) 15.06 K/uL (1.4-6.5); Neutrophils % (auto) 89.5 %; Platelet Count 259 K/uL (130-400); RDW Coefficient of Variation 12.5 % (11.5-14.5); RDW Standard Deviation 40.1 fL (36.4-46.3); Red Blood Count 4.46 M/uL (4.7-6.1); White Blood Count 16.81 K/uL (4.8-10.8)
[2021-02-23 23:22] LABS: Calcium 8.3 mg/dl (8.5-10.1); Creatinine Clr Calc Pharmacy 61.6 ml/min; Est GFR (African American) 66.7 ml/min; Est GFR (Non-African American) 57.5 ml/min; Magnesium 1.8 mg/dl (1.8-2.4); Phosphorus 3.8 mg/dl (2.5-4.9); Potassium 4.4 mmol/L (3.5-5.1)
[2021-02-23 23:33] LABS: Beta-Hydroxybutyrate 5.36 mg/dl (0.2-2.81)
[2021-02-24] MEDS: propofoL 1,000 MG/100 ML VIAL IV SCH ×9 (00:35→23:43)
[2021-02-24] MEDS: MEPERIDINE HCL 25 MG/ML CARP/VIAL IV PRN ×2 (00:35→03:51)
[2021-02-24] MEDS: AMIODARONE / D5W 360 MG/200 ML BAG IV SCH ×3 (00:36→22:37)
[2021-02-24 00:41] LABS: Troponin I 0.344 ng/ml (0-0.045)
[2021-02-24 02:22] LABS: Basophils # (auto) 0.01 K/uL (0-0.2); Basophils % (auto) 0.1 %; Hematocrit (blood only) 38.3 % (42-52); Hemoglobin 13.1 g/dL (14.0-18.0); Immature Granulocytes # (auto) 0.03 K/uL (0.00-0.02); Immature Granulocytes % (auto) 0.3 %; Lymphocytes # (auto) 0.37 K/uL (1.2-3.4); Lymphocytes % (auto) 3.9 %; Mean Corpuscular Hgb Conc 34.2 g/dL (32-36); Mean Corpuscular Volume 87.8 fL (80-100); Mean Platelet Volume 10.4 fL (7.4-10.4); Monocytes # (auto) 0.35 K/uL (0.11-0.59); Monocytes % (auto) 3.7 %; Platelet Count 187 K/uL (130-400); RDW Coefficient of Variation 12.8 % (11.5-14.5); Red Blood Count 4.36 M/uL (4.7-6.1); White Blood Count 9.56 K/uL (4.8-10.8)
[2021-02-24 02:38] LABS: INR 1.1 (0.9-1.1); Partial Thromboplastin Time 25.5 Seconds (21.0-31.0); Prothrombin Time 10.7 Seconds (9.0-12.0)
[2021-02-24 02:40] LABS: Albumin Level 3.5 gm/dl (3.4-5.0); BUN Creatinine Ratio 19.8 (10-20); Calcium 8.6 mg/dl (8.5-10.1); Creatinine Clr Calc Pharmacy 72.3 ml/min; Est GFR (Non-African American) 69.9 ml/min; Magnesium 1.8 mg/dl (1.8-2.4); Potassium 4.6 mmol/L (3.5-5.1)
[2021-02-24 02:52] LABS: Albumin Globulin Ratio 1.1 (0.9-2); Bilirubin Direct 0.2 mg/dl (0-0.2); Bilirubin,Total 0.6 mg/dl (0.2-1); Globulin 3.1 gm/dl (2.5-4.0); Phosphorus 2.9 mg/dl (2.5-4.9); Total Protein 6.6 gm/dl (6.4-8.2)
[2021-02-24 03:23] LABS: iSTAT Allen Test Pass; iSTAT Art Bld Gas pCO2 Correct 38 mmHg (35-46); iSTAT Arterial Blood Gas HCO3 25 meg/L (19-24); iSTAT Arterial Blood Gas pCO2 47 mmHg (35-46); iSTAT Arterial Blood Gas pH 7.33 (7.35-7.45); iSTAT Arterial Blood Gas pO2 99 mmHg (80-95); iSTAT Arterial Blood Gas pO2 C 74; iSTAT Carbon Dioxide 26 mmol/L (24-31); iSTAT FiO2 40 %; iSTAT Hematocrit 35 % (42-52); iSTAT Hemoglobin 11.9 g/dl (14.0-18.0); iSTAT Potassium 4.1 mmol/L (3.3-5.0); iSTAT Site R Brachial; iSTAT Sodium 139 mmol/L (135-144)
[2021-02-24] MEDS: PROPOFOL BOLUS FROM BAG IV PRN ×6 (03:50→23:12)
[2021-02-24] MEDS: MIDAZOLAM HCL 1 MG/ML 2ML VIAL IV PRN ×3 (05:00→22:39)
[2021-02-24] MEDS: NORMOSOL-R 1,000 ML IV SCH ×3 (05:06→21:00)
--- NOTE | 2021-02-24 06:48 | Electrocardiogram Report ---
Test Reason : Blood Pressure : / mmHG Vent. Rate : 079 BPM Atrial Rate : 079 BPM P-R Int : 228 ms QRS Dur : 072 ms QT Int : 308 ms P-R-T Axes : 000 001 262 degrees QTc Int : 353 ms Poor data quality, interpretation may be adversely affected Sinus rhythm with 1st degree A-V block Nonspecific ST and T wave abnormality Abnormal ECG No previous ECGs available Confirmed by Alex Norwood ([id number]) on 02/24/2021 6:48:08 AM Referred By: REFERRED SELF Confirmed By:Alex Norwood
--- NOTE | 2021-02-24 06:57 | Electrocardiogram Report ---
Test Reason : Blood Pressure : / mmHG Vent. Rate : 057 BPM Atrial Rate : 057 BPM P-R Int : 220 ms QRS Dur : 086 ms QT Int : 374 ms P-R-T Axes : 067 000 -48 degrees QTc Int : 364 ms Sinus bradycardia with 1st degree A-V block with Premature atrial complexes Nonspecific T wave abnormality Abnormal ECG When compared with ECG of 23-FEB-2021 17:09, ST no longer depressed in Inferior leads Premature atrial complexes are now Present Confirmed by Alex Norwood ([id number]) on 02/24/2021 6:56:52 AM Referred By: REFERRED SELF Confirmed By:Alex Norwood
--- NOTE | 2021-02-24 07:12 | Hospitalist Progress Note ---
Date of Service February 24, 2021 Assessment & Plan (1) Cardiac arrest: Plan: 65 yo M Hx schizoaffective disorder, HTN, DM2, HLD admitted to ICU post-cardiac arrest. Cardiac arrest, ventricular tachycardia: -Initial EKG with evidence of ischemia however with resolution of such by arrival to ER. -Moderate nonobstructive disease on cardiac catheterization; no stents placed. -Ischemia possibly due to heart block vs QT prolongation vs other etiology. -Troponin 0.344 last night, 0.177 this AM; Cardiology consulted. -Echo 02/24: EF 55-60%, mild pulmonary hypertension, trace pericardial effusion, left atrium mildly dilated. -Triglycerides 201 otherwise lipid panel within normal limits, A1c pending. -Continue amiodarone drip. Anoxic brain injury: -Poor neurological exam following ROSC after cardiac arrest. -Patient with fasciculations resolved with propofol bolus. -Likely seizures 2/2 anoxic brain injury. -EEG ordered. -24 hour hypothermia protocol upon admission to ICU. Rewarming started. -Continue to monitor neurologic function. Intubated: -Patient was intubated for airway support during cardiac arrest. -Wean sedation for spontaneous trials of breathing as able. Transaminitis: -AST and ALT with mild elevation on ER labs; more so than on prior labwork. -Suspect shock liver in the setting of cardiac arrest. -Repeat CMP in AM. DM2: -BSG range in mid-300s as of presentation to hospital. BHB mildly elevated. Presented in metabolic acidosis, but suspected to be secondary to cardiac arrest. -Holding outpatient metformin. -A1c pending. -Insulin gtt with moderate stress dosing started upon admission, with consideration for basal/bolus as patient's clinical condition improve. -ICU hyperglycemia protocol initiated. Pharmacy consulted. HTN, HLD: -LDL 29, total cholesterol 105, triglycerides 201. -BP and HR on lower side at this time, holding antihypertensives. Schizoaffective disorder: -History of, not on medications for such at home per EMR. Code Status: FULL CODE FEN/GI: NPO, daily IV PPI DVT ppx: SCDs Dispo: ICU (2) Schizoaffective disorder, bipolar type: (3) Hyperlipidemia: (4) Hypertension: (5) Diabetes mellitus: Admission and Anticipated Discharge Date Admission Date: February 23, 2021 Supervising Physician Co-Signing Physician Notes Resident Physician Supervision Note: I independently interviewed and examined the patient and verified the mack history and physical, reviewed labs and image studies and agree with resident Dr. Verma findings and care plan. Subjective Patient seen at bedside this morning. Intubated and sedated. Physical Exam Constitutional: + ill appearing and + mechanically ventilated Respiratory: On mechanical ventilation, clear to auscultation bilaterally. Cardiovascular: RRR, no murmur, no edema Gastrointestinal (Abdomen): normal bowel sounds, soft, nontender, no hepatosplenomegaly Results & Data Results & Data ([facility]) Vital Signs (Past 12 Hours) Vital Signs Temp Temp Pulse Pulse Resp BP BP 02/24/21 06:30 32.1 C L 50 L 17 96/54 L 02/24/21 06:15 32.1 C L 46 L 17 100/58 L 02/24/21 06:00 32.1 C L 32.1 C L 46 L 20 102/62 02/24/21 05:45 32.3 C L 44 L 18 95/63 L 02/24/21 05:30 32.3 C L 46 L 17 97/64 L 02/24/21 05:15 32.4 C L 47 L 18 94/59 L 02/24/21 05:00 32.4 C L 32.4 C L 50 L 18 104/65 02/24/21 04:45 32.4 C L 54 L 19 105/82 02/24/21 04:30 32.4 C L 62 14 120/55 L 02/24/21 04:15 32.4 C L 53 L 21 113/64 02/24/21 04:00 32.3 C L 32.3 C L 52 L 18 111/63 02/24/21 03:45 32.1 C L 53 L 17 02/24/21 03:30 32.1 C L 46 L 18 105/65 02/24/21 03:15 32.1 C L 48 L 18 99/53 L 02/24/21 03:00 32.1 C L 32.1 C L 46 L 17 96/63 L 02/24/21 02:48 47 L 20 02/24/21 02:45 32.1 C L 46 L 18 96/62 L 02/24/21 02:30 32.1 C L 47 L 17 97/62 L 02/24/21 02:15 32.1 C L 46 L 20 98/59 L 02/24/21 02:00 32.1 C L 32.1 C L 47 L 18 104/61 02/24/21 01:45 32.2 C L 49 L 17 102/66 02/24/21 01:30 32.2 C L 52 L 21 113/65 02/24/21 01:15 32.3 C L 49 L 18 102/64 02/24/21 01:00 32.4 C L 32.1 C L 53 L 18 109/70 02/24/21 00:50 32.4 C L 52 L 20 106/66 02/24/21 00:40 32.5 C L 52 L 20 02/24/21 00:30 32.6 C L 54 L 18 102/63 02/24/21 00:20 32.8 C L 55 L 20 99/69 L 02/24/21 00:10 32.9 C L 53 L 20 02/24/21 00:00 33.0 C L 33 C L 52 L 17 104/61 02/23/21 23:50 33.0 C L 55 L 20 106/65 02/23/21 23:40 33.2 C L 56 L 20 02/23/21 23:30 33.2 C L 57 L 18 108/69 02/23/21 23:20 33.3 C L 56 L 20 02/23/21 23:15 33.4 C L 58 L 18 115/64 02/23/21 23:05 20 02/23/21 23:00 33.5 C L 33.5 C L 58 L 18 114/66 02/23/21 22:45 33.6 C L 63 24 125/65 02/23/21 22:30 33.8 C L 65 24 122/69 02/23/21 22:15 34.0 C L 70 20 125/71 02/23/21 22:00 34.2 C L 34 C L 71 20 116/76 02/23/21 21:45 34.4 C L 72 22 110/64 02/23/21 21:44 36.0 C L 60 12 140/79 02/23/21 21:30 34.5 C L 105 H 39 H 119/93 02/23/21 21:15 34.4 C L 96 H 35 H 134/91 02/23/21 21:06 20 02/23/21 21:00 34.6 C L 34.6 C L 81 31 H 124/74 02/23/21 20:45 34.8 C L 76 21 126/73 02/23/21 20:30 35.2 C L 69 24 141/73 H 02/23/21 20:15 35.5 C L 63 26 H 124/88 02/23/21 20:00 35.5 C L 36 C L 64 24 152/76 H 152/76 H 02/23/21 19:45 68 30 H 141/71 H 02/23/21 19:30 61 18 02/23/21 19:16 52 L 21 140/79 Pulse Ox 02/24/21 06:30 100 02/24/21 06:15 100 02/24/21 06:00 100 02/24/21 05:45 100 02/24/21 05:30 100 02/24/21 05:15 100 02/24/21 05:00 100 02/24/21 04:45 100 02/24/21 04:30 100 02/24/21 04:15 100 02/24/21 04:00 100 02/24/21 03:45 100 02/24/21 03:30 100 02/24/21 03:15 100 02/24/21 03:00 100 02/24/21 02:48 94 02/24/21 02:45 100 02/24/21 02:30 100 02/24/21 02:15 100 02/24/21 02:00 100 02/24/21 01:45 99 02/24/21 01:30 100 02/24/21 01:15 100 02/24/21 01:00 100 02/24/21 00:50 100 02/24/21 00:40 100 02/24/21 00:30 99 02/24/21 00:20 98 02/24/21 00:10 99 02/24/21 00:00 99 02/23/21 23:50 98 02/23/21 23:40 99 02/23/21 23:30 98 02/23/21 23:20 98 02/23/21 23:15 98 02/23/21 23:05 95 02/23/21 23:00 98 02/23/21 22:45 98 02/23/21 22:30 98 02/23/21 22:15 97 02/23/21 22:00 95 02/23/21 21:45 98 02/23/21 21:44 97 02/23/21 21:30 92 02/23/21 21:15 92 02/23/21 21:06 02/23/21 21:00 100 02/23/21 20:45 100 02/23/21 20:30 96 02/23/21 20:15 100 02/23/21 20:00 96 02/23/21 19:45 96 02/23/21 19:30 98 02/23/21 19:16 97 Resident Activity Tracking Resident Involvement: Resident Care Provided Care Provided: Adult Hospital Medicine
[2021-02-24] MEDS: levETIRAcetam 500 MG in 0.9 % SODIUM CHLORIDE 100 ML IV SCH ×2 (07:43→21:00)
[2021-02-24] MEDS: INSULIN ASPART PER UNIT SC SCH ×4 (07:43→21:01)
[2021-02-24 08:30] LABS: Hematocrit (blood only) 36.8 % (42-52); Hemoglobin 12.7 g/dL (14.0-18.0); Immature Granulocytes # (auto) 0.01 K/uL (0.00-0.02); Immature Granulocytes % (auto) 0.1 %; Lymphocytes % (auto) 8.4 %; Mean Corpuscular Hemoglobin 30.1 pg (25-34); Mean Corpuscular Hgb Conc 34.5 g/dL (32-36); Mean Corpuscular Volume 87.2 fL (80-100); Mean Platelet Volume 10.4 fL (7.4-10.4); Monocytes # (auto) 0.22 K/uL (0.11-0.59); Monocytes % (auto) 2.1 %; Neutrophils # (auto) 9.58 K/uL (1.4-6.5); Neutrophils % (auto) 89.4 %; Platelet Count 186 K/uL (130-400); RDW Coefficient of Variation 12.7 % (11.5-14.5); RDW Standard Deviation 40.7 fL (36.4-46.3); Red Blood Count 4.22 M/uL (4.7-6.1); White Blood Count 10.71 K/uL (4.8-10.8)
[2021-02-24 08:40] LABS: Partial Thromboplastin Time 26.2 Seconds (21.0-31.0); Prothrombin Time 10.5 Seconds (9.0-12.0)
--- NOTE | 2021-02-24 08:42 | Critical Care Progress Note ---
Date of Service February 24, 2021 Assessment & Plan (1) Cardiac arrest: (2) Anoxic brain injury: (3) Ventricular tachycardia: (4) Metabolic acidosis: (5) Status epilepticus: Plan: Impression: 65-year-old male presents to the ICU following cardiac arrest. Patient underwent cath without intervention. Neurological exam poor following ROSC and currently mechanically ventilated. Patient to undergo 24-hour period of therapeutic hypothermia following presumed anoxic injury. 24-hour events: Patient suffered an unwitnessed cardiac arrest. Initially we were told that this was witnessed and that his downtime was less than 10 minutes however on review of his entire chart it appears that this was an unwitnessed arrest and his downtime was unknown. Cardiac catheterization was completed showing nonobstructive coronary disease. Based on the initial information available that this was a witnessed cardiac arrest with a short downtime, the patient was initiated on therapeutic temperature management. He has had decorticate and decerebrate posturing overnight and this morning is having rhythmic fasciculations and muscle twitching which resolved with bolus of propofol, highly suggestive of underlying seizure activity. Recommendations Neuro -probable anoxic injury due to out of hospital cardiac arrest. His initial CT was unrevealing. Given that this was an unwitnessed event and that the patient appears to be having signs consistent with poor neurological outcome, there is no indication for continuing targeted temperature management the patient will be rewarmed at this point time. We will increase his propofol. We will request spot EEG. Continue Keppra. If the patient is manifesting a seizure activity in the setting of a cardiac arrest, this is a very poor prognostic indicator. Neurology consultation not available until Thursday morning. Cardiac -out of hospital cardiac arrest. Unclear if [employer] or QT prolongation could have been contributing. Hemodynamically stable currently. Await formal echocardiogram. Additional recommendations per cardiology. Given his the severity of illness, may be reasonable to not pursue additional CPR or ACLS in the event of an additional cardiac arrest. Attempted to contact sister by phone but went to voicemail. Respiratory -continue mechanical ventilation pending discussions with family or improvement in the patient's neurological status. GI -maintain n.p.o. status. PPI in place. Trend liver function test RENAL/LYTES -patient presented with mixed metabolic and respiratory acidosis. Follow-up labs pending this morning. Urine output has improved overnight - Foleystrict I's and O's ENDO -glycemic control per ICU protocol HEME - H&H stable, monitor routine CBCs ID - Mild leukocytosis likely reactionary following cardiac arrest. No clear indication for antibiotics at this time. Monitor LINES/IV ACCESS - Cooling catheter right femoral vein, ET tube, OG tube DVT PROPHYLAXIS - SCDs Attempted to contact sister by phone this morning but only went to voicemail. I think additional CPR is unlikely to be beneficial in this patient manifesting signs of anoxic brain injury. We will try and update them later this morning. I have personally spent 50 minutes of critical care time in the direct management of this patient. This is a life/limb threatening event. This includes time spent evaluating patient, direct bedside care, chart review, placing orders, interpretation of diagnostic studies, discussion with consultants, patient, and family members, as well as other required patient management activities. This time is exclusive of all separately billable procedures, and teaching time and separate from and in addition to any other critical care service time. Admission and Anticipated Discharge Date Admission Date: February 23, 2021 Subjective intubated and sedated Review of Systems Review of Systems: Unobtainable due to endotracheal tube Physical Exam Constitutional: Intubated and sedated. The patient has rhythmic movements of the quadriceps muscles bilaterally which resolved with bolus of propofol highly suggestive of seizure activity Neck: trachea midline, no thyromegaly Respiratory: normal respiratory effort, lungs clear to auscultation Cardiovascular: RRR, no murmur, no edema Gastrointestinal (Abdomen): normal bowel sounds, soft, nontender, no hepatosplenomegaly Musculoskeletal: Extremities: extremities normal to inspection Skin: no rashes, warm and dry Neurologic: Pupils are pinpoint bilaterally. He sedated but does not have response to verbal tactile or painful stimulus. Lymphatic: no cervical lymphadenopathy Results & Data Results & Data ([facility]) Vital Signs (Past 12 Hours) Vital Signs Temp Temp Pulse Pulse Resp BP BP 02/24/21 06:30 32.1 C L 50 L 17 96/54 L 02/24/21 06:15 32.1 C L 46 L 17 100/58 L 02/24/21 06:00 32.1 C L 32.1 C L 46 L 20 102/62 02/24/21 05:45 32.3 C L 44 L 18 95/63 L 02/24/21 05:30 32.3 C L 46 L 17 97/64 L 02/24/21 05:15 32.4 C L 47 L 18 94/59 L 02/24/21 05:00 32.4 C L 32.4 C L 50 L 18 104/65 02/24/21 04:45 32.4 C L 54 L 19 105/82 02/24/21 04:30 32.4 C L 62 14 120/55 L 02/24/21 04:15 32.4 C L 53 L 21 113/64 02/24/21 04:00 32.3 C L 32.3 C L 52 L 18 111/63 02/24/21 03:45 32.1 C L 53 L 17 02/24/21 03:30 32.1 C L 46 L 18 105/65 02/24/21 03:15 32.1 C L 48 L 18 99/53 L 02/24/21 03:00 32.1 C L 32.1 C L 46 L 17 96/63 L 02/24/21 02:48 47 L 20 02/24/21 02:45 32.1 C L 46 L 18 96/62 L 02/24/21 02:30 32.1 C L 47 L 17 97/62 L 02/24/21 02:15 32.1 C L 46 L 20 98/59 L 02/24/21 02:00 32.1 C L 32.1 C L 47 L 18 104/61 02/24/21 01:45 32.2 C L 49 L 17 102/66 02/24/21 01:30 32.2 C L 52 L 21 113/65 02/24/21 01:15 32.3 C L 49 L 18 102/64 02/24/21 01:00 32.4 C L 32.1 C L 53 L 18 109/70 02/24/21 00:50 32.4 C L 52 L 20 106/66 02/24/21 00:40 32.5 C L 52 L 20 02/24/21 00:30 32.6 C L 54 L 18 102/63 02/24/21 00:20 32.8 C L 55 L 20 99/69 L 02/24/21 00:10 32.9 C L 53 L 20 02/24/21 00:00 33.0 C L 33 C L 52 L 17 104/61 02/23/21 23:50 33.0 C L 55 L 20 106/65 02/23/21 23:40 33.2 C L 56 L 20 02/23/21 23:30 33.2 C L 57 L 18 108/69 02/23/21 23:20 33.3 C L 56 L 20 02/23/21 23:15 33.4 C L 58 L 18 115/64 02/23/21 23:05 20 02/23/21 23:00 33.5 C L 33.5 C L 58 L 18 114/66 02/23/21 22:45 33.6 C L 63 24 125/65 02/23/21 22:30 33.8 C L 65 24 122/69 02/23/21 22:15 34.0 C L 70 20 125/71 02/23/21 22:00 34.2 C L 34 C L 71 20 116/76 02/23/21 21:45 34.4 C L 72 22 110/64 02/23/21 21:44 36.0 C L 60 12 140/79 02/23/21 21:30 34.5 C L 105 H 39 H 119/93 02/23/21 21:15 34.4 C L 96 H 35 H 134/91 02/23/21 21:06 20 02/23/21 21:00 34.6 C L 34.6 C L 81 31 H 124/74 02/23/21 20:45 34.8 C L 76 21 126/73 Pulse Ox 02/24/21 06:30 100 02/24/21 06:15 100 02/24/21 06:00 100 02/24/21 05:45 100 02/24/21 05:30 100 02/24/21 05:15 100 02/24/21 05:00 100 02/24/21 04:45 100 02/24/21 04:30 100 02/24/21 04:15 100 02/24/21 04:00 100 02/24/21 03:45 100 02/24/21 03:30 100 02/24/21 03:15 100 02/24/21 03:00 100 02/24/21 02:48 94 02/24/21 02:45 100 02/24/21 02:30 100 02/24/21 02:15 100 02/24/21 02:00 100 02/24/21 01:45 99 02/24/21 01:30 100 02/24/21 01:15 100 02/24/21 01:00 100 02/24/21 00:50 100 02/24/21 00:40 100 02/24/21 00:30 99 02/24/21 00:20 98 02/24/21 00:10 99 02/24/21 00:00 99 02/23/21 23:50 98 02/23/21 23:40 99 02/23/21 23:30 98 02/23/21 23:20 98 02/23/21 23:15 98 02/23/21 23:05 95 02/23/21 23:00 98 02/23/21 22:45 98 02/23/21 22:30 98 02/23/21 22:15 97 02/23/21 22:00 95 02/23/21 21:45 98 02/23/21 21:44 97 02/23/21 21:30 92 02/23/21 21:15 92 02/23/21 21:06 02/23/21 21:00 100 02/23/21 20:45 100 Critical Care Results & Data Vital Signs (Past 12 Hours) Vital Signs Temp Temp Pulse Pulse Resp BP BP 02/24/21 06:30 32.1 C L 50 L 17 96/54 L 02/24/21 06:15 32.1 C L 46 L 17 100/58 L 02/24/21 06:00 32.1 C L 32.1 C L 46 L 20 102/62 02/24/21 05:45 32.3 C L 44 L 18 95/63 L 02/24/21 05:30 32.3 C L 46 L 17 97/64 L 02/24/21 05:15 32.4 C L 47 L 18 94/59 L 02/24/21 05:00 32.4 C L 32.4 C L 50 L 18 104/65 02/24/21 04:45 32.4 C L 54 L 19 105/82 02/24/21 04:30 32.4 C L 62 14 120/55 L 02/24/21 04:15 32.4 C L 53 L 21 113/64 02/24/21 04:00 32.3 C L 32.3 C L 52 L 18 111/63 02/24/21 03:45 32.1 C L 53 L 17 02/24/21 03:30 32.1 C L 46 L 18 105/65 02/24/21 03:15 32.1 C L 48 L 18 99/53 L 02/24/21 03:00 32.1 C L 32.1 C L 46 L 17 96/63 L 02/24/21 02:48 47 L 20 02/24/21 02:45 32.1 C L 46 L 18 96/62 L 02/24/21 02:30 32.1 C L 47 L 17 97/62 L 02/24/21 02:15 32.1 C L 46 L 20 98/59 L 02/24/21 02:00 32.1 C L 32.1 C L 47 L 18 104/61 02/24/21 01:45 32.2 C L 49 L 17 102/66 02/24/21 01:30 32.2 C L 52 L 21 113/65 02/24/21 01:15 32.3 C L 49 L 18 102/64 02/24/21 01:00 32.4 C L 32.1 C L 53 L 18 109/70 02/24/21 00:50 32.4 C L 52 L 20 106/66 02/24/21 00:40 32.5 C L 52 L 20 02/24/21 00:30 32.6 C L 54 L 18 102/63 02/24/21 00:20 32.8 C L 55 L 20 99/69 L 02/24/21 00:10 32.9 C L 53 L 20 02/24/21 00:00 33.0 C L 33 C L 52 L 17 104/61 02/23/21 23:50 33.0 C L 55 L 20 106/65 02/23/21 23:40 33.2 C L 56 L 20 02/23/21 23:30 33.2 C L 57 L 18 108/69 02/23/21 23:20 33.3 C L 56 L 20 02/23/21 23:15 33.4 C L 58 L 18 115/64 02/23/21 23:05 20 02/23/21 23:00 33.5 C L 33.5 C L 58 L 18 114/66 02/23/21 22:45 33.6 C L 63 24 125/65 02/23/21 22:30 33.8 C L 65 24 122/69 02/23/21 22:15 34.0 C L 70 20 125/71 02/23/21 22:00 34.2 C L 34 C L 71 20 116/76 02/23/21 21:45 34.4 C L 72 22 110/64 02/23/21 21:44 36.0 C L 60 12 140/79 02/23/21 21:30 34.5 C L 105 H 39 H 119/93 02/23/21 21:15 34.4 C L 96 H 35 H 134/91 02/23/21 21:06 20 02/23/21 21:00 34.6 C L 34.6 C L 81 31 H 124/74 02/23/21 20:45 34.8 C L 76 21 126/73 Pulse Ox 02/24/21 06:30 100 02/24/21 06:15 100 02/24/21 06:00 100 02/24/21 05:45 100 02/24/21 05:30 100 02/24/21 05:15 100 02/24/21 05:00 100 02/24/21 04:45 100 02/24/21 04:30 100 02/24/21 04:15 100 02/24/21 04:00 100 02/24/21 03:45 100 02/24/21 03:30 100 02/24/21 03:15 100 02/24/21 03:00 100 02/24/21 02:48 94 02/24/21 02:45 100 02/24/21 02:30 100 02/24/21 02:15 100 02/24/21 02:00 100 02/24/21 01:45 99 02/24/21 01:30 100 02/24/21 01:15 100 02/24/21 01:00 100 02/24/21 00:50 100 02/24/21 00:40 100 02/24/21 00:30 99 02/24/21 00:20 98 02/24/21 00:10 99 02/24/21 00:00 99 02/23/21 23:50 98 02/23/21 23:40 99 02/23/21 23:30 98 02/23/21 23:20 98 02/23/21 23:15 98 02/23/21 23:05 95 02/23/21 23:00 98 02/23/21 22:45 98 02/23/21 22:30 98 02/23/21 22:15 97 02/23/21 22:00 95 02/23/21 21:45 98 02/23/21 21:44 97 02/23/21 21:30 92 02/23/21 21:15 92 02/23/21 21:06 02/23/21 21:00 100 02/23/21 20:45 100 Lab & Micro Results (Past 24 Hours) RBC 4.22 M/uL (4.7-6.1) L 02/24/21 WBC 10.71 K/uL (4.8-10.8) 02/24/21 Hgb 12.7 g/dL (14.0-18.0) L 02/24/21 Hct 36.8 % (42-52) L 02/24/21 MCV 87.2 fL (80-100) 02/24/21 MCH 30.1 pg (25-34) 02/24/21 MCHC 34.5 g/dL (32-36) 02/24/21 RDW Standard Deviation 40.7 fL (36.4-46.3) 02/24/21 RDW Coefficient of Variation 12.7 % (11.5-14.5) 02/24/21 Plt Count 186 K/uL (130-400) 02/24/21 MPV 10.4 fL (7.4-10.4) 02/24/21 Neutrophils (%) (Auto) 89.4 % 02/24/21 Lymphocytes (%) (Auto) 8.4 % 02/24/21 Monocytes # (Auto) 0.22 K/uL (0.11-0.59) 02/24/21 Eosinophils # (Auto) 0.00 K/uL (0-0.5) 02/24/21 Immature Granulocyte % (Auto) 0.1 % 02/24/21 Neutrophils # (Auto) 9.58 K/uL (1.4-6.5) H 02/24/21 Lymphocytes # (Auto) 0.90 K/uL (1.2-3.4) L 02/24/21 Monocytes # (Auto) 0.22 K/uL (0.11-0.59) 02/24/21 Eosinophils # (Auto) 0.00 K/uL (0-0.5) 02/24/21 Basophils # (Auto) 0.00 K/uL (0-0.2) 02/24/21 Immature Granulocyte # (Auto) 0.01 K/uL (0.00-0.02) 02/24/21 Na 137 mmol/L (136-145) 02/24/21 K 4.6 mmol/L (3.5-5.1) 02/24/21 Cl 105 mmol/L (98-107) 02/24/21 CO2 28 mmol/L (21-32) 02/24/21 Anion Gap 4.0 (3-11) 02/24/21 BUN 22 mg/dl (7-18) H 02/24/21 Creatinine 1.09 mg/dl (0.6-1.4) 02/24/21 Estimated GFR ( Amer) 81.0 ml/min 02/24/21 Estimated GFR (Non-Af Amer) 69.9 ml/min 02/24/21 BUN/Creatinine Ratio 19.8 (10-20) 02/24/21 Glu 215 mg/dl (70-99) H 02/24/21 Ca 8.6 mg/dl (8.5-10.1) 02/24/21 Phosphorus Level 2.9 mg/dl (2.5-4.9) 02/24/21 Total Bilirubin 0.6 mg/dl (0.2-1) 02/24/21 Direct Bilirubin 0.2 mg/dl (0-0.2) 02/24/21 AST 65 U/L (15-37) H 02/24/21 ALT 101 (12-78) H 02/24/21 Alkaline Phosphatase 65 U/L (45-117) 02/24/21 TP 6.6 gm/dl (6.4-8.2) 02/24/21 Albumin 3.5 gm/dl (3.4-5.0) 02/24/21 Globulin 3.1 gm/dl (2.5-4.0) 02/24/21 Albumin/Globulin Ratio 1.1 (0.9-2) 12/19/21 Mg 1.8 mg/dl (1.8-2.4) 02/24/21 02:07 02/24/21 Calcium Level 8.6 mg/dl (8.5-10.1) 02/24/21 02:07 02/24/21 Ionized Calcium 1.13 mmol/L (1.12-1.32) 02/24/21 02:07 02/24/21 Prothromb Time International Ratio 1.1 (0.9-1.1) 02/24/21 02:07 02/24/21 Refugio Test Pass 02/24/21 03:10 02/24/21 Diagnostic Findings (Past 24 Hours) Chest X-Ray 02/23/21 16:52 SINGLE VIEW CHEST CLINICAL HISTORY: Atypical chest pain. FINDINGS: 2 AP, portable, supine chest radiographs are obtained. No prior studies are available for comparison at the time of dictation. An endotracheal tube has been placed. This projects 4.5 cm above the anish on the second image. The heart is enlarged. The pulmonary vasculature is noncongested. There is elevation of the right hemidiaphragm and bibasilar atelectasis. No airspace co nsolidation or large pleural effusion is identified. No pneumothorax is seen. The bony thorax is grossly intact. IMPRESSION: 1. An endotracheal tube has been placed as above. 2. Cardiomegaly without radiographic evidence of congestive failure. 3. No airspace consolidation or large pleural effusion is identified. ACT 112: Negative or not required by law. Electronically signed by: Nakul Jones M.D. 02/23/2021 5:39 PM Chest CTA 02/23/21 17:03 CT ANGIOGRAM OF THE CHEST CLINICAL HISTORY: Cardiac arrest. COMPARISON STUDY: Chest x-ray dated 02/23/2021. TECHNIQUE: Following the IV administration of 120 cc of Optiray 320, CT angiogram of the chest was performed from the upper abdomen to the thoracic inlet utilizing the pulmonary embolus protocol. Images are reviewed in the axial, sagittal, and coronal planes. 3-D MIPS images are created and assessed. IV contrast was administered without complication. A dose lowering technique was utilized adhering to the principles of ALARA. The examination is compromised by motion artifact, as well as streak artifact from the arms which could not be elevated above the chest. FINDINGS: Thyroid: Normal in size and heterogeneous in attenuation. Thoracic aorta: The thoracic aorta is normal in caliber and demonstrates standard 3-vessel arch anatomy. No dissection is seen. Pulmonary vasculature: The pulmonary trunk is normal in caliber. There are no filling defects identified in main, lobar, or segmental pulmonary branches to suggest pulmonary embolus. Heart: The heart is mildly enlarged and without pericardial effusion. Lungs and pleural spaces: An endotracheal tube terminates above the anish. Minimal secretions are noted in the trachea. Right greater than left dependent consolidation likely represents segmental atelectasis. No pleural effusion is identified. There are scattered calcified granulomas. Mediastinum: A prevascular node measures up to 11 mm in short axis. Connie: Mildly enlarged hilar nodes measure up to 14 mm in short axis. Axillae: There is no axillary lymphadenopathy. Upper abdomen: There are numerous hepatic cysts which measure up to 3.8 cm. A 1.6 cm exophytic cyst arises from the upper pole of left kidney. Skeletal structures: No lytic or blastic bony lesions are seen. IMPRESSION: 1. Streak and motion compromised examination. 2. There is no evidence of pulmonary embolus in the main, lobar, or segmental pulmonary arteries. 3. Mild cardiomegaly. 4. Right greater than left dependent airspace consolidation likely represents segmental atelectasis. Correlate clinically for evidence of superimposed pneumonia. 5. Mildly enlarged mediastinal and hilar lymph nodes are nonspecific and may be reactive. 6. Additional findings as above. ACT 112: Negative or not required by law. Electronically signed by: Nakul Jones M.D. 02/23/2021 5:[address] 02/23/21 17:03 CT SCAN OF THE BRAIN WITHOUT IV CONTRAST CLINICAL HISTORY: Cardiac arrest. COMPARISON STUDY: No priors. TECHNIQUE: Unenhanced axial CT scan of the brain is performed from the vertex to the skull base. A dose lowering technique was utilized adhering to the principles of ALARA. CT DOSE: 1464.58 mGy.cm FINDINGS: Brain parenchyma: The brain parenchyma is normal in appearance. There is no he morrhage, mass effect, or evidence of acute territorial ischemia by CT criteria. Esteves-white matter differentiation is preserved. No extra-axial fluid collection is seen. Ventricles, sulci, cisterns: Normal in configuration. Intracranial vasculature: There is atherosclerotic calcification of the cavernous carotid arteries. Calvarium: Unremarkable. Sinuses and mastoids: There is trace fluid within the sphenoid sinuses. Trace mucosal thickening is noted in the frontal and ethmoid sinuses. The mastoid air cells are well pneumatized. Orbits: The bony orbits are grossly intact. IMPRESSION: There is no hemorrhage, mass effect, or evidence of acute territorial ischemia by CT criteria. ACT 112: Negative or not required by law. Electronically signed by: Nakul Jones M.D. 02/23/2021 5:42 PM Chest X-Ray 02/23/21 19:52 SINGLE VIEW CHEST CLINICAL HISTORY: Enteric tube placement. FINDINGS: 2 AP, portable, semierect chest radiographs are compared to chest x- ray and chest CT performed earlier the same day 02/23/2021. An endotracheal tube is unchanged in position. An enteric tube has been placed. The tip projects below the diaphragm over the mid stomach. The heart is enlarged. There is mild pulmonary vascular congestion. Airspace opacities are seen at the lung bases. No large pleural effusion or pneumothorax is seen. The bony thorax is grossly intact. IMPRESSION: 1. Lines and tubes as above. 2. Cardiomegaly. Mild pulmonary vascular congestion is new from previous. 3. Airspace opacities are now seen at the lung bases. This could present atelectasis versus a developing infectious/inflammatory pneumonitis. Clinical correlation will be required. ACT 112: Negative or not required by law. Electronically signed by: Nakul Jones M.D. 02/23/2021 8:32 PM I & O Totals 24 Hours 02/23/21 02/24/21 02/25/21 06:59 06:59 06:59 Intake Total 1857.885 / 1857.885 2.513 / 2.513 Output Total 1675 / 1675 Balance 182.885 / 182.885 2.513 / 2.513 Cumulative 02/23/21 16:44 thru 02/24/21 07:44 Intake Total 1860.398 Output Total 1675 Balance 185.398 RT Ventilator Mngmt (Last Documented) Ventilator Ordered Settings Ventilator Support Mode Assist Control 02/24/21 04:00 Respiratory Rate 17 02/24/21 06:30 Ventilator Tidal Volume 500 02/24/21 04:00 Setting Minute Ventilation 10 02/24/21 02:48 Ventilator Positive Pressure 10 02/23/21 19:10 Support Setting Positive End Expiratory 5 02/24/21 04:00 Pressure Fraction of Inspired Oxygen 40 02/24/21 05:15 Machine Comment RN titrated fio2 down to 40% 02/24/21 02:48 Ventilator - PT Measurements Respiratory Rate 17 Exhaled Tidal Volume 500 Minute Ventilation 10 Peak Inspiratory Airway 17 Pressure Plateau Pressure 14 Respiratory Cycle Inspiratory: 1:3.0 Expiratory Ratio Inspiratory Phase Time 0.85 End-Tidal CO2 34 Static Lung Compliance 55.67 Dynamic Lung Compliance 41.67 Normal Static Lung Compliance 48.00 Patient Measurements Comment patient shivering Coding Level of Care Code Critical Care 1st 30-74 mins Diagnoses Cardiac arrest I46.9 Anoxic brain injury G93.1 Ventricular tachycardia I47.2 Metabolic acidosis E87.2 Status epilepticus G40.901 Time Spent (min) 50
[2021-02-24 09:03] LABS: BUN Creatinine Ratio 19.4 (10-20); Calcium 8.3 mg/dl (8.5-10.1); Creatinine Clr Calc Pharmacy 78.1 ml/min; Est GFR (African American) 88.8 ml/min; Est GFR (Non-African American) 76.6 ml/min; Phosphorus 3.4 mg/dl (2.5-4.9); Potassium 4.2 mmol/L (3.5-5.1)
[2021-02-24 09:33] LABS: iSTAT Allen Test Pass; iSTAT Art Bld Gas pCO2 Correct 33 mmHg (35-46); iSTAT Art Bld Gas pH Corrected 7.487 (7.35-7.45); iSTAT Arterial Blood Gas HCO3 26 meg/L (19-24); iSTAT Arterial Blood Gas pCO2 40 mmHg (35-46); iSTAT Arterial Blood Gas pH 7.42 (7.35-7.45); iSTAT Arterial Blood Gas pO2 85 mmHg (80-95); iSTAT Arterial Blood Gas pO2 C 63; iSTAT Carbon Dioxide 27 mmol/L (24-31); iSTAT FiO2 30 %; iSTAT Hematocrit 33 % (42-52); iSTAT Hemoglobin 11.2 g/dl (14.0-18.0); iSTAT Potassium 3.7 mmol/L (3.3-5.0); iSTAT Site L Radial; iSTAT Sodium 138 mmol/L (135-144)
[2021-02-24] MEDS: PANTOprazole 40 MG in SYRINGE 0 ML IV SCH (10:54)
--- NOTE | 2021-02-24 12:47 | Pharmacy Report ---
Pharmacy Glycemic Short Note 2 - Date of Service February 24, 2021 - Glycemic Short BSG Results (Last 24 hours): 02/23/21 02/23/21 02/23/21 16:55 19:52 22:15 Glucose 355 H* POC Glucose 362 H* POC Glucose (other) 330 H 02/23/21 02/23/21 02/24/21 22:21 23:12 00:13 Glucose 320 H* POC Glucose POC Glucose (other) 306 H 284 H 02/24/21 02/24/21 02/24/21 01:11 02:07 02:14 Glucose 215 H POC Glucose POC Glucose (other) 257 H 219 H 02/24/21 02/24/21 02/24/21 03:16 04:14 05:13 Glucose POC Glucose POC Glucose (other) 191 H 168 H 137 H 02/24/21 02/24/21 02/24/21 06:19 07:29 07:59 Glucose POC Glucose POC Glucose (other) 122 H 103 H 179 H 02/24/21 02/24/21 02/24/21 08:12 09:03 10:11 Glucose 154 H POC Glucose POC Glucose (other) 140 H 152 H 02/24/21 02/24/21 11:14 12:02 Glucose POC Glucose POC Glucose (other) 133 H 121 H OUTPATIENT ANTIDIABETIC REGIMEN: * metformin 1 gm PO BID ASSESSMENT: * Mr Nieevs is a 65 y/o M with a PMH of T2DM on one oral medication who presents s/p unwitnessed cardiac arrest. * Patient was undergoing hypothermia protocol but this has been discontinued. * Patient initiated on insulin infusion due to critical illness. Will continue this for now. PLAN FOR INPATIENT GLYCEMIC CONTROL: * Insulin infusion per protocol PLAN FOR DISCHARGE: * TBD
--- NOTE | 2021-02-24 13:12 | Electroencephalogram ---
EEG Procedure Note Date of Service February 24, 2021 Start / End Times Start Time: 1010 End Time: [address] Jones History Post cardiac arrest and hypothermia now emerging from code [place] with occasional twitching movements of extremities question seizures Home Medication List Medication Instructions Recorded Confirmed Type aspirin 81 mg tablet,delayed 81 mg PO DAILY 08/16/18 02/23/21 History release (Adult Aspirin Regimen) cholecalciferol (vitamin D3) 25 1,000 units PO DAILY 08/16/18 02/23/21 History mcg (1,000 unit) capsule multivitamin 1 tab PO DAILY 12/08/18 02/23/21 History Lactobacillus 1 cap PO .TAKE 1 CAPSULE Daily 06/17/19 02/23/21 History acidophilus-Bifidobac.animalis 31 billion cell capsule mecobalamin (vitamin B12) 1,000 500 mcg SL DAILY #90 tab 04/27/20 02/23/21 Rx mcg disintegrating tablet,sublingual lisinopril 40 mg tablet 40 mg PO DAILY #90 tab 05/08/20 02/23/21 Rx simvastatin 10 mg tablet 10 mg PO DAILY #90 tab 05/21/20 02/23/21 Rx amlodipine 5 mg tablet 5 mg PO DAILY #90 tab 12/11/20 02/23/21 Rx metformin 1,000 mg tablet 1,000 mg PO BID #180 tab 12/12/20 02/23/21 Rx lancets (OneTouch UltraSoft #300 ea 01/29/21 02/23/21 Rx Lancets) Inpatient Medication List Buspirone HCl (Buspirone 15 Mg Tab) 60 mg NG ONCE PRN PRN Reason: For Shivering x 1 dose Stop: 03/25/21 19:44 Last Admin: 02/23/21 21:22 Dose: 60 mg Documented by: [id number] Dextrose (Dextrose 50% 50 Ml Syringe) 25 - 50 ml IV UD PRN; Protocol PRN Reason: Hypoglycemia Protocol Stop: 03/25/21 19:59 Last Admin: 02/24/21 07:43 Dose: 25 ml Documented by: [id number] Fentanyl Citrate (Fentanyl Bolus From Bag) 50 mcg IV Q60M PRN PRN Reason: Pain or Agitation Stop: 03/09/21 21:08 Last Admin: 02/24/21 05:01 Dose: 50 mcg Documented by: [id number] Admin: 02/23/21 21:30 Dose: 50 mcg Documented by: [id number] Amiodarone HCl/Dextrose (Nexterone / D5w) 360 mg in 200 mls @ 16.667 mls/hr IV .Q12H [facility] Stop: 03/25/21 23:14 Last Admin: 02/24/21 10:54 Dose: 0.5 mg/min, 16.7 mls/hr Documented by: [id number] Cosigned by: [id number] Infusion: 02/24/21 10:54 Dose: 0.5 mg/min, 16.7 mls/hr Documented by: [id number] Cosigned by: [id number] Infusion: 02/24/21 06:46 Dose: 0.5 mg/min, 16.7 mls/hr Documented by: [id number] Cosigned by: [id number] Admin: 02/24/21 00:36 Dose: 0.5 mg/min, 16.7 mls/hr Documented by: [id number] Cosigned by: [id number] Propofol (Diprivan) 1,000 mg in 100 mls @ 28.17 mls/hr IV .Q3H33M [facility]; Protocol Stop: 02/26/21 17:14 Last Titration: 02/24/21 11:15 Dose: 50 mcg/kg/min, 28.2 mls/hr Documented by: [id number] Admin: 02/24/21 11:00 Dose: Not Given Documented by: [id number] Cosigned by: [id number] Admin: 02/24/21 10:54 Dose: 25 mcg/kg/min, 14.1 mls/hr Documented by: [id number] Cosigned by: [id number] Titration: 02/24/21 10:54 Dose: 30 mcg/kg/min, 16.9 mls/hr Documented by: [id number] Cosigned by: [id number] Titration: 02/24/21 09:39 Dose: 30 mcg/kg/min, 16.9 mls/hr Documented by: [id number] Titration: 02/24/21 08:30 Dose: 40 mcg/kg/min, 22.5 mls/hr Documented by: [id number] Titration: 02/24/21 06:46 Dose: 30 mcg/kg/min, 16.9 mls/hr Documented by: [id number] Cosigned by: [id number] Admin: 02/24/21 06:23 Dose: 30 mcg/kg/min, 16.9 mls/hr Documented by: [id number] Cosigned by: [id number] Titration: 02/24/21 05:06 Dose: 40 mcg/kg/min, 22.5 mls/hr Documented by: [id number] Cosigned by: [id number] Titration: 02/24/21 03:50 Dose: 40 mcg/kg/min, 22.5 mls/hr Documented by: [id number] Titration: 02/24/21 03:26 Dose: 30 mcg/kg/min, 16.9 mls/hr Documented by: [id number] Titration: 02/24/21 00:43 Dose: 40 mcg/kg/min, 22.5 mls/hr Documented by: [id number] Admin: 02/24/21 00:35 Dose: 50 mcg/kg/min, 28.2 mls/hr Documented by: [id number] Cosigned by: [id number] Titration: 02/24/21 00:24 Dose: 50 mcg/kg/min, 28.2 mls/hr Documented by: [id number] Cosigned by: [id number] Admin: 02/23/21 20:51 Dose: 50 mcg/kg/min, 28.2 mls/hr Documented by: [id number] Cosigned by: [id number] Pantoprazole Sodium 40 mg/ (Syringe) 10 mls @ 5 mls/min IV DAILY@1100 [facility] Stop: 03/26/21 10:59 Last Admin: 02/24/21 10:54 Dose: 5 mls/min Documented by: [id number] Insulin Human Regular 250 (units/ Sodium Chloride) 250 mls @ 1 mls/hr IV .Q24H [facility]; Protocol Stop: 03/25/21 19:59 Last Titration: 02/24/21 12:00 Dose: 1 units/hr, 1 mls/hr Documented by: [id number] Cosigned by: [id number] Titration: 02/24/21 11:00 Dose: 1.3 units/hr, 1.3 mls/hr Documented by: [id number] Cosigned by: [id number] Titration: 02/24/21 10:00 Dose: 1.6 units/hr, 1.6 mls/hr Documented by: [id number] Cosigned by: [id number] Titration: 02/24/21 09:00 Dose: 1.6 units/hr, 1.6 mls/hr Documented by: [id number] Cosigned by: [id number] Titration: 02/24/21 08:00 Dose: 2 units/hr, 2 mls/hr Documented by: [id number] Cosigned by: [id number] Titration: 02/24/21 07:44 Dose: 0 units/hr, 0 mls/hr Documented by: [id number] Cosigned by: [id number] Titration: 02/24/21 06:46 Dose: 2.6 units/hr, 2.6 mls/hr Documented by: [id number] Cosigned by: [id number] Titration: 02/24/21 06:15 Dose: 2.6 units/hr, 2.6 mls/hr Documented by: [id number] Cosigned by: [id number] Titration: 02/24/21 05:10 Dose: 3.3 units/hr, 3.3 mls/hr Documented by: [id number] Cosigned by: [id number] Titration: 02/24/21 04:10 Dose: 4.1 units/hr, 4.1 mls/hr Documented by: [id number] Cosigned by: [id number] Titration: 02/24/21 03:10 Dose: 4.1 units/hr, 4.1 mls/hr Documented by: [id number] Cosigned by: [id number] Titration: 02/24/21 02:10 Dose: 4.1 units/hr, 4.1 mls/hr Documented by: [id number] Cosigned by: [id number] Titration: 02/24/21 01:10 Dose: 4.1 units/hr, 4.1 mls/hr Documented by: [id number] Cosigned by: [id number] Titration: 02/24/21 00:15 Dose: 4.1 units/hr, 4.1 mls/hr Documented by: [id number] Cosigned by: [id number] Titration: 02/23/21 23:15 Dose: 3.4 units/hr, 3.4 mls/hr Documented by: [id number] Cosigned by: [id number] Titration: 02/23/21 22:15 Dose: 2.8 units/hr, 2.8 mls/hr Documented by: [id number] Cosigned by: [id number] Admin: 02/23/21 20:46 Dose: 2.3 units/hr, 2.3 mls/hr Documented by: [id number] Cosigned by: [id number] Levetiracetam 500 mg/ Sodium (Chloride) 105 mls @ 420 mls/hr IV Q12H [facility] Stop: 03/26/21 08:59 Last Infusion: 02/24/21 08:42 Dose: 0 mls/hr Documented by: [id number] Admin: 02/24/21 07:43 Dose: 420 mls/hr Documented by: [id number] Fentanyl Citrate (Fentanyl Citrate) 2,500 mcg in 250 mls @ 2.5 mls/hr IV .Q96H [facility]; Protocol Stop: 03/09/21 21:14 Last Titration: 02/24/21 09:39 Dose: 25 mcg/hr, 2.5 mls/hr Documented by: [id number] Cosigned by: [id number] Titration: 02/24/21 06:46 Dose: 75 mcg/hr, 7.5 mls/hr Documented by: [id number] Cosigned by: [id number] Titration: 02/24/21 05:01 Dose: 75 mcg/hr, 7.5 mls/hr Documented by: [id number] Cosigned by: [id number] Titration: 02/23/21 22:00 Dose: 50 mcg/hr, 5 mls/hr Documented by: [id number] Cosigned by: [id number] Admin: 02/23/21 21:21 Dose: 25 mcg/hr, 2.5 mls/hr Documented by: [id number] Cosigned by: [id number] Parenteral Electrolytes (Normosol-R) 1,000 mls @ 125 mls/hr IV .Q8H [facility] Stop: 03/25/21 21:44 Last Admin: 02/24/21 12:52 Dose: 125 mls/hr Documented by: [id number] Infusion: 02/24/21 12:52 Dose: 125 mls/hr Documented by: [id number] Admin: 02/24/21 05:06 Dose: 125 mls/hr Documented by: [id number] Infusion: 02/24/21 05:06 Dose: 125 mls/hr Documented by: [id number] Admin: 02/23/21 21:59 Dose: 125 mls/hr Documented by: [id number] Insulin Aspart (Insulin Aspart Per Unit) 0 units SC ACHS [facility] Stop: 03/25/21 20:59 Last Admin: 02/24/21 10:55 Dose: Not Given Documented by: [id number] Cosigned by: [id number] Admin: 02/24/21 07:43 Dose: Not Given Documented by: [id number] Cosigned by: [id number] Admin: 02/23/21 21:13 Dose: Not Given Documented by: [id number] Midazolam HCl (Midazolam Hcl 1 Mg/Ml 2ml Vial) 2 mg IV Q2H PRN PRN Reason: Agitation Stop: 03/25/21 21:08 Last Admin: 02/24/21 11:15 Dose: 2 mg Documented by: [id number] Admin: 02/24/21 05:00 Dose: 2 mg Documented by: [id number] Admin: 02/23/21 21:21 Dose: 2 mg Documented by: [id number] Propofol (Propofol Bolus From Bag) 20 mg IV Q5M PRN PRN Reason: Sedation Stop: 02/26/21 17:06 Last Admin: 02/24/21 03:50 Dose: 20 mg Documented by: [id number] Cosigned by: [id number] Admin: 02/23/21 20:15 Dose: 20 mg Documented by: [id number] Cosigned by: [id number] Admin: 02/23/21 19:45 Dose: 20 mg Documented by: [id number] Cosigned by: [id number] Discontinued Medications Amiodarone HCl/Dextrose (Amiodarone 360mg / 200ml D5w) Confirm Administered Dose 360 mg IV .STK-MED ONE Stop: 02/23/21 17:06 Last Admin: 02/23/21 21:12 Dose: Not Given Documented by: [id number] Aspirin (Aspirin 300 Mg Supp) 300 mg [place] ONE ONE Stop: 02/23/21 16:55 Last Admin: 02/23/21 21:26 Dose: 300 mg Documented by: [id number] Fentanyl Citrate (Fentanyl Citrate 100 Mcg/2 Ml Vial) Confirm Administered Dose 100 mcg .ROUTE .STK-MED ONE Stop: 02/23/21 17:07 Last Admin: 02/23/21 20:13 Dose: Not Given Documented by: [id number] Heparin Sodium (Porcine) (Heparin (Porcine) 1000 Unit/Ml 10 Ml (Sandblast Operator Use Only)) Confirm Administered Dose 10,000 units .ROUTE .STK-MED ONE Stop: 02/23/21 17:07 Last Admin: 02/23/21 20:23 Dose: Not Given Documented by: [id number] Heparin Sodium/Sodium Chloride (Heparin In Nss Infusion 1000 Unit/500 Ml (2 U/Ml) Bag) Confirm Administered Dose 3,000 units IV .STK-MED ONE Stop: 02/23/21 17:08 Last Admin: 02/23/21 20:24 Dose: Not Given Documented by: [id number] Amiodarone HCl/Dextrose (Nexterone / D5w) 360 mg in 200 mls @ 33.333 mls/hr IV .Q6H [facility] Stop: 02/23/21 23:14 Last Infusion: 02/24/21 00:36 Dose: 0 mg/min, 0 mls/hr Documented by: [id number] Cosigned by: [id number] Admin: 02/23/21 20:52 Dose: 1 mg/min, 33.3 mls/hr Documented by: [id number] Cosigned by: [id number] Sodium Chloride (Nss 1000ml) 1,000 mls @ 999 mls/hr IV .Q1H1M ONE Stop: 02/23/21 18:17 Last Admin: 02/23/21 20:26 Dose: Not Given Documented by: [id number] Lorazepam (Ativan) 4 mg in 8 mls @ 4 mls/min IV NOW STA Stop: 02/23/21 20:37 Last Admin: 02/23/21 21:13 Dose: Not Given Documented by: [id number] Levetiracetam 2,000 mg/ Sodium (Chloride) 270 mls @ 999 mls/hr IV NOW STA Stop: 02/23/21 21:24 Last Infusion: 02/23/21 21:37 Dose: 0 mls/hr Documented by: [id number] Admin: 02/23/21 21:20 Dose: 999 mls/hr Documented by: [id number] Calcium Gluconate 1,000 mg/ (Sodium Chloride) 60 mls @ 240 mls/hr IV NOW ONE Stop: 02/23/21 22:03 Last Infusion: 02/23/21 22:29 Dose: 0 mls/hr Documented by: [id number] Admin: 02/23/21 22:14 Dose: 240 mls/hr Documented by: [id number] Insulin Human Regular (Novolin-R Bolus From Bag) 2.5 units IV ONE ONE Stop: 02/23/21 20:31 Last Admin: 02/23/21 20:53 Dose: 2.5 units Documented by: [id number] Cosigned by: [id number] Ioversol (Optiray 320 125ml) 120 ml IV ONCE ONE Stop: 02/23/21 17:38 Last Admin: 02/23/21 17:37 Dose: 120 ml Documented by: [id number] Lorazepam (Lorazepam 2 Mg/4 Ml Vial) Confirm Administered Dose 4 mg .ROUTE .STK- MED ONE Stop: 02/23/21 20:39 Last Admin: 02/23/21 20:50 Dose: 4 mg Documented by: [id number] Meperidine HCl (Meperidine Hcl 25 Mg/Ml Carp/Vial) 25 mg IV Q2H PRN PRN Reason: Shivering Stop: 03/09/21 19:44 Last Admin: 02/24/21 03:51 Dose: 25 mg Documented by: [id number] Admin: 02/24/21 00:35 Dose: 25 mg Documented by: [id number] Midazolam HCl (Midazolam Hcl 1 Mg/Ml 2ml Vial) Confirm Administered Dose 2 mg .ROUTE .STK-MED ONE Stop: 02/23/21 17:07 Last Admin: 02/23/21 20:23 Dose: Not Given Documented by: [id number] Miscellaneous (Stat Iv Infusion Titration Per Protocol) 1 ea N/A NOW STA Stop: 02/23/21 17:08 Last Admin: 02/23/21 20:25 Dose: Not Given Documented by: [id number] Misrayaneous (Insulin Protocol Goal Range ) 1 ea N/A ONE ONE Stop: 02/23/21 20:01 Last Admin: 02/23/21 21:12 Dose: 1 ea Documented by: [id number] Miscellaneous (Moderate Stress Level ) 1 ea N/A ONE ONE Stop: 02/23/21 20:09 Last Admin: 02/23/21 21:13 Dose: 1 ea Documented by: [id number] Nicardipine HCl (Nicardipine Hcl Inj 2.5 Mg/Ml 10 Ml Amp) Confirm Administered Dose 25 mg .ROUTE .STK-MED ONE Stop: 02/23/21 17:07 Last Admin: 02/23/21 20:23 Dose: Not Given Documented by: [id number] Nitroglycerin/Dextrose (Nitroglycerin/D5w 100mcg/Ml 20ml Syr) Confirm Administered Dose 2,000 mcg .ROUTE .STK-MED ONE Stop: 02/23/21 17:08 Last Admin: 02/23/21 20:24 Dose: Not Given Documented by: [id number] Propofol (Propofol Iv Emulsion 10 Mg/Ml 100 Ml Vial) Confirm Administered Dose 1,000 mg IV .STK-MED ONE Stop: 02/23/21 17:07 Last Admin: 02/23/21 20:24 Dose: Not Given Documented by: [id number] Description This is a 21 electrode EEG with a single channel dedicated to limited EKG. The electrodes were placed in accordance with the International 10-20 system. This is an abnormal EEG revealing evidence for very low amplitude monotonous background rhythm of very high frequency which is seen of all head regions, does not react to external stimuli, and is not associated with any paroxysmal discharges in the theta delta range and without any paroxysmal sharp waves or indeed any other significant abnormalities which would suggest underlying brain irritability Interpretation This is a severely abnormal EEG with very low amplitude unreactive cerebral activity and no evidence for spontaneous potentially epileptogenic discharges or any other pattern suggestive of post anoxic encephalopathy Clinical Correlation This EEG suggests evidence for a severe generalized disorder of cortical neuronal function and likely structure and is not truely isoelectric but is approaching this status If clinically indicated a repeat EEG in 24 hours may be of more prognostic value but the current study would suggest 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
[2021-02-24 14:03] LABS: Basophils # (auto) 0.01 K/uL (0-0.2); Basophils % (auto) 0.1 %; Eosinophils # (auto) 0.01 K/uL (0-0.5); Eosinophils % (auto) 0.1 %; Hematocrit (blood only) 32.7 % (42-52); Hemoglobin 11.4 g/dL (14.0-18.0); Immature Granulocytes # (auto) 0.01 K/uL (0.00-0.02); Immature Granulocytes % (auto) 0.1 %; Lymphocytes # (auto) 0.37 K/uL (1.2-3.4); Mean Corpuscular Hemoglobin 29.7 pg (25-34); Mean Corpuscular Hgb Conc 34.9 g/dL (32-36); Mean Corpuscular Volume 85.2 fL (80-100); Mean Platelet Volume 10.5 fL (7.4-10.4); Monocytes # (auto) 0.34 K/uL (0.11-0.59); Monocytes % (auto) 4.6 %; Neutrophils % (auto) 90.1 %; Platelet Count 165 K/uL (130-400); RDW Coefficient of Variation 12.5 % (11.5-14.5); RDW Standard Deviation 38.4 fL (36.4-46.3); Red Blood Count 3.84 M/uL (4.7-6.1); White Blood Count 7.44 K/uL (4.8-10.8)
[2021-02-24 14:14] LABS: Partial Thromboplastin Ratio 0.9; Partial Thromboplastin Time 23.4 Seconds (21.0-31.0); Prothrombin Time 10.3 Seconds (9.0-12.0)
--- NOTE | 2021-02-24 14:18 | Electrocardiogram Report ---
Test Reason : Blood Pressure : / mmHG Vent. Rate : 057 BPM Atrial Rate : 065 BPM P-R Int : 000 ms QRS Dur : 076 ms QT Int : 422 ms P-R-T Axes : 000 -24 103 degrees QTc Int : 410 ms Poor data quality, interpretation may be adversely affected Sinus bradycardia with a first degree AVB RSR' or QR pattern in V1 suggests right ventricular conduction delay Nonspecific T wave abnormality Abnormal ECG When compared with ECG of 23-FEB-2021 19:10, (unconfirmed) Nonspecific T wave abnormality, worse in Lateral leads Confirmed by Gurinder Lunsford ([id number]) on 02/24/2021 2:18:04 PM Referred By: REFERRED SELF Confirmed By:Gurinder Lunsford
--- NOTE | 2021-02-24 14:21 | Electrocardiogram Report ---
Test Reason : Blood Pressure : / mmHG Vent. Rate : 053 BPM Atrial Rate : 047 BPM P-R Int : 000 ms QRS Dur : 100 ms QT Int : 414 ms P-R-T Axes : 000 -14 108 degrees QTc Int : 388 ms Poor data quality, interpretation may be adversely affected Sinus bradycardia with a first degree AVB RSR' or QR pattern in V1 suggests right ventricular conduction delay Nonspecific ST and T wave abnormality Abnormal ECG When compared with ECG of 24-FEB-2021 00:05, (unconfirmed) No significant change was found Confirmed by Gurinder Lunsford ([id number]) on 02/24/2021 2:20:44 PM Referred By: REFERRED SELF Confirmed By:Gurinder Lunsford
--- NOTE | 2021-02-24 14:25 | Electrocardiogram Report ---
Test Reason : Blood Pressure : / mmHG Vent. Rate : 050 BPM Atrial Rate : 049 BPM P-R Int : 000 ms QRS Dur : 092 ms QT Int : 430 ms P-R-T Axes : 000 -03 -45 degrees QTc Int : 392 ms Poor data quality, interpretation may be adversely affected Sinus bradycardia with a First degree AVB Nonspecific T wave abnormality Abnormal ECG When compared with ECG of 24-FEB-2021 04:04, (unconfirmed) No significant change was found Confirmed by Gurinder Lunsford ([id number]) on 02/24/2021 2:25:09 PM Referred By: REFERRED SELF Confirmed By:Gurinder Lunsford
[2021-02-24 15:04] LABS: BUN Creatinine Ratio 18.1 (10-20); Calcium 7.8 mg/dl (8.5-10.1); Creatinine Clr Calc Pharmacy 80.4 ml/min; Est GFR (African American) 92.1 ml/min; Est GFR (Non-African American) 79.5 ml/min; Magnesium 1.8 mg/dl (1.8-2.4); Potassium 3.4 mmol/L (3.5-5.1)
[2021-02-24 15:05] LABS: Phosphorus 2.6 mg/dl (2.5-4.9)
[2021-02-24 15:27] LABS: iSTAT Allen Test Pass; iSTAT Art Bld Gas pCO2 Correct 37 mmHg (35-46); iSTAT Art Bld Gas pH Corrected 7.433 (7.35-7.45); iSTAT Arterial Blood Gas HCO3 25 meg/L (19-24); iSTAT Arterial Blood Gas pCO2 40 mmHg (35-46); iSTAT Arterial Blood Gas pH 7.41 (7.35-7.45); iSTAT Arterial Blood Gas pO2 64 mmHg (80-95); iSTAT Arterial Blood Gas pO2 C 57; iSTAT Carbon Dioxide 26 mmol/L (24-31); iSTAT FiO2 30 %; iSTAT Hematocrit 32 % (42-52); iSTAT Hemoglobin 10.9 g/dl (14.0-18.0); iSTAT Potassium 3.8 mmol/L (3.3-5.0); iSTAT Site L Radial; iSTAT Sodium 137 mmol/L (135-144)
--- NOTE | 2021-02-24 21:48 | Billing Data ---
Date of Service February 24, 2021 Coding Level of Care Code Critical Care 1st - mins
[2021-02-25] MEDS: propofoL 1,000 MG/100 ML VIAL IV SCH ×8 (00:04→21:50)
[2021-02-25] MEDS: INSULIN ASPART PER UNIT SC SCH ×6 (00:06→20:04)
[2021-02-25] MEDS: ACETAMINOPHEN 1,000 MG/100 ML VIAL IV PRN ×3 (00:36→18:14)
[2021-02-25 04:00] LABS: iSTAT Allen Test Pass; iSTAT Arterial Blood Gas HCO3 24 meg/L (19-24); iSTAT Arterial Blood Gas pCO2 36 mmHg (35-46); iSTAT Arterial Blood Gas pH 7.43 (7.35-7.45); iSTAT Arterial Blood Gas pO2 74 mmHg (80-95); iSTAT Carbon Dioxide 25 mmol/L (24-31); iSTAT FiO2 30 %; iSTAT Site R Brachial
[2021-02-25] MEDS: NORMOSOL-R 1,000 ML IV SCH ×3 (04:35→20:10)
[2021-02-25] MEDS: PROPOFOL BOLUS FROM BAG IV PRN ×5 (04:55→16:25)
[2021-02-25 05:19] LABS: Prothrombin Time 10.4 Seconds (9.0-12.0)
[2021-02-25 05:26] LABS: Eosinophils # (auto) 0.02 K/uL (0-0.5); Eosinophils % (auto) 0.2 %; Hematocrit (blood only) 37.2 % (42-52); Hemoglobin 12.4 g/dL (14.0-18.0); Immature Granulocytes # (auto) 0.01 K/uL (0.00-0.02); Immature Granulocytes % (auto) 0.1 %; Lymphocytes # (auto) 0.98 K/uL (1.2-3.4); Lymphocytes % (auto) 9.8 %; Mean Corpuscular Hemoglobin 29.6 pg (25-34); Mean Corpuscular Hgb Conc 33.3 g/dL (32-36); Mean Corpuscular Volume 88.8 fL (80-100); Mean Platelet Volume 10.7 fL (7.4-10.4); Monocytes # (auto) 0.76 K/uL (0.11-0.59); Monocytes % (auto) 7.6 %; Neutrophils # (auto) 8.27 K/uL (1.4-6.5); Neutrophils % (auto) 82.3 %; Platelet Count 213 K/uL (130-400); RDW Standard Deviation 42.3 fL (36.4-46.3); Red Blood Count 4.19 M/uL (4.7-6.1); White Blood Count 10.04 K/uL (4.8-10.8)
[2021-02-25 05:35] LABS: Albumin Level 3.2 gm/dl (3.4-5.0); BUN Creatinine Ratio 13.9 (10-20); Creatinine Clr Calc Pharmacy 82.7 ml/min; Est GFR (African American) 94.4 ml/min; Est GFR (Non-African American) 81.5 ml/min; Potassium 3.8 mmol/L (3.5-5.1)
[2021-02-25 05:38] LABS: Albumin Globulin Ratio 1.1 (0.9-2); Bilirubin,Total 0.7 mg/dl (0.2-1); Globulin 2.9 gm/dl (2.5-4.0); Phosphorus 3.1 mg/dl (2.5-4.9); Total Protein 6.1 gm/dl (6.4-8.2)
[2021-02-25] MEDS ORDERED: POTASSIUM CHLORIDE / WTR 20 MEQ/100 ML PLCT IV ONE (06:45)
[2021-02-25 07:12] LABS: Estimated Average Glucose 174 mg/dl; Hemoglobin A1C 7.7 % (4.5-5.6)
--- NOTE | 2021-02-25 07:44 | Electroencephalogram ---
EEG Procedure Note Date of Service February 25, 2021 Start / End Times Start Time: 704 End Time: 724 Referring Physician JASMINE Bennett History 65-year-old post cardiopulmonary arrest (uncertain time ), now in unresponsive state on propofol. Home Medication List Medication Instructions Recorded Confirmed Type aspirin 81 mg tablet,delayed 81 mg PO DAILY 08/16/18 02/23/21 History release (Adult Aspirin Regimen) cholecalciferol (vitamin D3) 25 1,000 units PO DAILY 08/16/18 02/23/21 History mcg (1,000 unit) capsule multivitamin 1 tab PO DAILY 12/08/18 02/23/21 History Lactobacillus 1 cap PO .TAKE 1 CAPSULE Daily 06/17/19 02/23/21 History acidophilus-Bifidobac.animalis 31 billion cell capsule mecobalamin (vitamin B12) 1,000 500 mcg SL DAILY #90 tab 04/27/20 02/23/21 Rx mcg disintegrating tablet,sublingual lisinopril 40 mg tablet 40 mg PO DAILY #90 tab 05/08/20 02/23/21 Rx simvastatin 10 mg tablet 10 mg PO DAILY #90 tab 05/21/20 02/23/21 Rx amlodipine 5 mg tablet 5 mg PO DAILY #90 tab 12/11/20 02/23/21 Rx metformin 1,000 mg tablet 1,000 mg PO BID #180 tab 12/12/20 02/23/21 Rx lancets (OneTouch UltraSoft #300 ea 01/29/21 02/23/21 Rx Lancets) Inpatient Medication List Acetaminophen (Acetaminophen 650 Mg Supp) 650 mg MN ONE PRN PRN Reason: Rebound Hyperthermia x 1 dose Stop: 03/25/21 19:44 Last Admin: 02/24/21 21:00 Dose: 650 mg Documented by: [id number] Buspirone HCl (Buspirone 15 Mg Tab) 60 mg NG ONCE PRN PRN Reason: For Shivering x 1 dose Stop: 03/25/21 19:44 Last Admin: 02/23/21 21:22 Dose: 60 mg Documented by: [id number] Dextrose (Dextrose 50% 50 Ml Syringe) 25 - 50 ml IV UD PRN; Protocol PRN Reason: Hypoglycemia Protocol Stop: 03/25/21 19:59 Last Admin: 02/24/21 07:43 Dose: 25 ml Documented by: [id number] Fentanyl Citrate (Fentanyl Bolus From Bag) 50 mcg IV Q60M PRN PRN Reason: Pain or Agitation Stop: 03/09/21 21:08 Last Admin: 02/24/21 22:38 Dose: 50 mcg Documented by: [id number] Admin: 02/24/21 22:12 Dose: 50 mcg Documented by: [id number] Admin: 02/24/21 05:01 Dose: 50 mcg Documented by: [id number] Admin: 02/23/21 21:30 Dose: 50 mcg Documented by: [id number] Amiodarone HCl/Dextrose (Nexterone / D5w) 360 mg in 200 mls @ 16.667 mls/hr IV .Q12H JEYSON Stop: 03/25/21 23:14 Last Infusion: 02/25/21 07:16 Dose: 0.5 mg/min, 16.7 mls/hr Documented by: [id number] Cosigned by: [id number] Admin: 02/24/21 22:37 Dose: 0.5 mg/min, 16.7 mls/hr Documented by: [id number] Cosigned by: [id number] Infusion: 02/24/21 22:37 Dose: 0.5 mg/min, 16.7 mls/hr Documented by: [id number] Cosigned by: [id number] Infusion: 02/24/21 18:59 Dose: 0.5 mg/min, 16.7 mls/hr Documented by: [id number] Cosigned by: [id number] Admin: 02/24/21 10:54 Dose: 0.5 mg/min, 16.7 mls/hr Documented by: [id number] Cosigned by: [id number] Infusion: 02/24/21 10:54 Dose: 0.5 mg/min, 16.7 mls/hr Documented by: [id number] Cosigned by: [id number] Infusion: 02/24/21 06:46 Dose: 0.5 mg/min, 16.7 mls/hr Documented by: [id number] Cosigned by: [id number] Admin: 02/24/21 00:36 Dose: 0.5 mg/min, 16.7 mls/hr Documented by: [id number] Cosigned by: [id number] Propofol (Diprivan) 1,000 mg in 100 mls @ 28.17 mls/hr IV .Q3H33M JEYSON; Protocol Stop: 02/26/21 17:14 Last Titration: 02/25/21 07:16 Dose: 50 mcg/kg/min, 28.2 mls/hr Documented by: [id number] Cosigned by: [id number] Admin: 02/25/21 06:16 Dose: Not Given Documented by: [id number] Titration: 02/25/21 05:25 Dose: 50 mcg/kg/min, 28.2 mls/hr Documented by: [id number] Titration: 02/25/21 05:15 Dose: 40 mcg/kg/min, 22.5 mls/hr Documented by: [id number] Admin: 02/25/21 04:34 Dose: 30 mcg/kg/min, 16.9 mls/hr Documented by: [id number] Cosigned by: [id number] Titration: 02/25/21 04:34 Dose: 30 mcg/kg/min, 16.9 mls/hr Documented by: [id number] Cosigned by: [id number] Titration: 02/25/21 02:53 Dose: 30 mcg/kg/min, 16.9 mls/hr Documented by: [id number] Admin: 02/25/21 00:04 Dose: 40 mcg/kg/min, 22.5 mls/hr Documented by: [id number] Cosigned by: [id number] Titration: 02/25/21 00:04 Dose: 40 mcg/kg/min, 22.5 mls/hr Documented by: [id number] Cosigned by: [id number] Admin: 02/24/21 23:43 Dose: Not Given Documented by: [id number] Titration: 02/24/21 22:36 Dose: 40 mcg/kg/min, 22.5 mls/hr Documented by: [id number] Admin: 02/24/21 21:52 Dose: Not Given Documented by: [id number] Admin: 02/24/21 21:52 Dose: Not Given Documented by: [id number] Admin: 02/24/21 21:01 Dose: 30 mcg/kg/min, 16.9 mls/hr Documented by: [id number] Cosigned by: [id number] Titration: 02/24/21 18:59 Dose: 30 mcg/kg/min, 16.9 mls/hr Documented by: [id number] Cosigned by: [id number] Admin: 02/24/21 17:25 Dose: Not Given Documented by: [id number] Admin: 02/24/21 15:03 Dose: 50 mcg/kg/min, 28.2 mls/hr Documented by: [id number] Cosigned by: [id number] Titration: 02/24/21 14:38 Dose: 50 mcg/kg/min, 28.2 mls/hr Documented by: [id number] Cosigned by: [id number] Titration: 02/24/21 11:15 Dose: 50 mcg/kg/min, 28.2 mls/hr Documented by: [id number] Admin: 02/24/21 11:00 Dose: Not Given Documented by: [id number] Cosigned by: [id number] Admin: 02/24/21 10:54 Dose: 25 mcg/kg/min, 14.1 mls/hr Documented by: [id number] Cosigned by: [id number] Titration: 02/24/21 10:54 Dose: 30 mcg/kg/min, 16.9 mls/hr Documented by: [id number] Cosigned by: [id number] Titration: 02/24/21 09:39 Dose: 30 mcg/kg/min, 16.9 mls/hr Documented by: [id number] Titration: 02/24/21 08:30 Dose: 40 mcg/kg/min, 22.5 mls/hr Documented by: [id number] Titration: 02/24/21 06:46 Dose: 30 mcg/kg/min, 16.9 mls/hr Documented by: [id number] Cosigned by: [id number] Admin: 02/24/21 06:23 Dose: 30 mcg/kg/min, 16.9 mls/hr Documented by: [id number] Cosigned by: [id number] Titration: 02/24/21 05:06 Dose: 40 mcg/kg/min, 22.5 mls/hr Documented by: [id number] Cosigned by: [id number] Titration: 02/24/21 03:50 Dose: 40 mcg/kg/min, 22.5 mls/hr Documented by: [id number] Titration: 02/24/21 03:26 Dose: 30 mcg/kg/min, 16.9 mls/hr Documented by: [id number] Titration: 02/24/21 00:43 Dose: 40 mcg/kg/min, 22.5 mls/hr Documented by: [id number] Admin: 02/24/21 00:35 Dose: 50 mcg/kg/min, 28.2 mls/hr Documented by: [id number] Cosigned by: [id number] Titration: 02/24/21 00:24 Dose: 50 mcg/kg/min, 28.2 mls/hr Documented by: [id number] Cosigned by: [id number] Admin: 02/23/21 20:51 Dose: 50 mcg/kg/min, 28.2 mls/hr Documented by: [id number] Cosigned by: [id number] Pantoprazole Sodium 40 mg/ (Syringe) 10 mls @ 5 mls/min IV DAILY@1100 JEYSON Stop: 03/26/21 10:59 Last Admin: 02/24/21 10:54 Dose: 5 mls/min Documented by: [id number] Insulin Human Regular 250 (units/ Sodium Chloride) 250 mls @ 0 mls/hr IV .Q0M JEYSON; Protocol Stop: 03/25/21 19:59 Last Titration: 02/24/21 19:00 Dose: 0 units/hr, 0 mls/hr Documented by: [id number] Cosigned by: [id number] Titration: 02/24/21 18:59 Dose: 0 units/hr, 0 mls/hr Documented by: [id number] Cosigned by: [id number] Titration: 02/24/21 16:30 Dose: 0 units/hr, 0 mls/hr Documented by: [id number] Cosigned by: [id number] Titration: 02/24/21 15:00 Dose: 1.2 units/hr, 1.2 mls/hr Documented by: [id number] Cosigned by: [id number] Titration: 02/24/21 14:00 Dose: 1.2 units/hr, 1.2 mls/hr Documented by: [id number] Cosigned by: [id number] Titration: 02/24/21 13:00 Dose: 1 units/hr, 1 mls/hr Documented by: [id number] Cosigned by: [id number] Titration: 02/24/21 12:00 Dose: 1 units/hr, 1 mls/hr Documented by: [id number] Cosigned by: [id number] Titration: 02/24/21 11:00 Dose: 1.3 units/hr, 1.3 mls/hr Documented by: [id number] Cosigned by: [id number] Titration: 02/24/21 10:00 Dose: 1.6 units/hr, 1.6 mls/hr Documented by: [id number] Cosigned by: [id number] Titration: 02/24/21 09:00 Dose: 1.6 units/hr, 1.6 mls/hr Documented by: [id number] Cosigned by: [id number] Titration: 02/24/21 08:00 Dose: 2 units/hr, 2 mls/hr Documented by: [id number] Cosigned by: [id number] Titration: 02/24/21 07:44 Dose: 0 units/hr, 0 mls/hr Documented by: [id number] Cosigned by: [id number] Titration: 02/24/21 06:46 Dose: 2.6 units/hr, 2.6 mls/hr Documented by: [id number] Cosigned by: [id number] Titration: 02/24/21 06:15 Dose: 2.6 units/hr, 2.6 mls/hr Documented by: [id number] Cosigned by: [id number] Titration: 02/24/21 05:10 Dose: 3.3 units/hr, 3.3 mls/hr Documented by: [id number] Cosigned by: [id number] Titration: 02/24/21 04:10 Dose: 4.1 units/hr, 4.1 mls/hr Documented by: [id number] Cosigned by: [id number] Titration: 02/24/21 03:10 Dose: 4.1 units/hr, 4.1 mls/hr Documented by: [id number] Cosigned by: [id number] Titration: 02/24/21 02:10 Dose: 4.1 units/hr, 4.1 mls/hr Documented by: [id number] Cosigned by: [id number] Titration: 02/24/21 01:10 Dose: 4.1 units/hr, 4.1 mls/hr Documented by: [id number] Cosigned by: [id number] Titration: 02/24/21 00:15 Dose: 4.1 units/hr, 4.1 mls/hr Documented by: [id number] Cosigned by: [id number] Titration: 02/23/21 23:15 Dose: 3.4 units/hr, 3.4 mls/hr Documented by: [id number] Cosigned by: [id number] Titration: 02/23/21 22:15 Dose: 2.8 units/hr, 2.8 mls/hr Documented by: [id number] Cosigned by: [id number] Admin: 02/23/21 20:46 Dose: 2.3 units/hr, 2.3 mls/hr Documented by: [id number] Cosigned by: [id number] Levetiracetam 500 mg/ Sodium (Chloride) 105 mls @ 420 mls/hr IV Q12H JEYSON Stop: 03/26/21 08:59 Last Infusion: 02/24/21 21:15 Dose: 0 mls/hr Documented by: [id number] Admin: 02/24/21 21:00 Dose: 420 mls/hr Documented by: [id number] Infusion: 02/24/21 08:42 Dose: 0 mls/hr Documented by: [id number] Admin: 02/24/21 07:43 Dose: 420 mls/hr Documented by: [id number] Fentanyl Citrate (Fentanyl Citrate) 2,500 mcg in 250 mls @ 2.5 mls/hr IV .Q96H JEYSON; Protocol Stop: 03/09/21 21:14 Last Titration: 02/25/21 07:16 Dose: 75 mcg/hr, 7.5 mls/hr Documented by: [id number] Cosigned by: [id number] Titration: 02/24/21 22:38 Dose: 75 mcg/hr, 7.5 mls/hr Documented by: [id number] Cosigned by: [id number] Titration: 02/24/21 18:59 Dose: 50 mcg/hr, 5 mls/hr Documented by: [id number] Cosigned by: [id number] Titration: 02/24/21 09:39 Dose: 25 mcg/hr, 2.5 mls/hr Documented by: [id number] Cosigned by: [id number] Titration: 02/24/21 06:46 Dose: 75 mcg/hr, 7.5 mls/hr Documented by: [id number] Cosigned by: [id number] Titration: 02/24/21 05:01 Dose: 75 mcg/hr, 7.5 mls/hr Documented by: [id number] Cosigned by: [id number] Titration: 02/23/21 22:00 Dose: 50 mcg/hr, 5 mls/hr Documented by: [id number] Cosigned by: [id number] Admin: 02/23/21 21:21 Dose: 25 mcg/hr, 2.5 mls/hr Documented by: [id number] Cosigned by: [id number] Parenteral Electrolytes (Normosol-R) 1,000 mls @ 125 mls/hr IV .Q8H JEYSON Stop: 03/25/21 21:44 Last Admin: 02/25/21 04:35 Dose: 125 mls/hr Documented by: [id number] Infusion: 02/25/21 04:35 Dose: 125 mls/hr Documented by: [id number] Admin: 02/24/21 21:00 Dose: 125 mls/hr Documented by: [id number] Infusion: 02/24/21 20:52 Dose: 125 mls/hr Documented by: [id number] Admin: 02/24/21 12:52 Dose: 125 mls/hr Documented by: [id number] Infusion: 02/24/21 12:52 Dose: 125 mls/hr Documented by: [id number] Admin: 02/24/21 05:06 Dose: 125 mls/hr Documented by: [id number] Infusion: 02/24/21 05:06 Dose: 125 mls/hr Documented by: [id number] Admin: 02/23/21 21:59 Dose: 125 mls/hr Documented by: [id number] Acetaminophen (Ofirmev) 1,000 mg in 100 mls @ 400 mls/hr IV Q8H PRN PRN Reason: Fever Stop: 02/28/21 00:21 Last Infusion: 02/25/21 00:51 Dose: 0 mls/hr Documented by: [id number] Admin: 02/25/21 00:36 Dose: 400 mls/hr Documented by: [id number] Insulin Aspart (Insulin Aspart Per Unit) 0 units SC ACHS JEYSON Stop: 03/25/21 20:59 Last Admin: 02/24/21 21:01 Dose: Not Given Documented by: [id number] Admin: 02/24/21 15:03 Dose: Not Given Documented by: [id number] Cosigned by: [id number] Admin: 02/24/21 10:55 Dose: Not Given Documented by: [id number] Cosigned by: [id number] Admin: 02/24/21 07:43 Dose: Not Given Documented by: [id number] Cosigned by: [id number] Admin: 02/23/21 21:13 Dose: Not Given Documented by: [id number] Insulin Aspart (Insulin Aspart Per Unit) 0 units SC Q4 JEYSON Stop: 03/27/21 00:00 Last Admin: 02/25/21 04:35 Dose: Not Given Documented by: [id number] Admin: 02/25/21 00:06 Dose: Not Given Documented by: [id number] Midazolam HCl (Midazolam Hcl 1 Mg/Ml 2ml Vial) 2 mg IV Q2H PRN PRN Reason: Agitation Stop: 03/25/21 21:08 Last Admin: 02/24/21 22:39 Dose: 2 mg Documented by: [id number] Admin: 02/24/21 11:15 Dose: 2 mg Documented by: [id number] Admin: 02/24/21 05:00 Dose: 2 mg Documented by: [id number] Admin: 02/23/21 21:21 Dose: 2 mg Documented by: [id number] Propofol (Propofol Bolus From Bag) 20 mg IV Q5M PRN PRN Reason: Sedation Stop: 02/26/21 17:06 Last Admin: 02/25/21 05:36 Dose: 20 mg Documented by: [id number] Cosigned by: [id number] Admin: 02/25/21 05:05 Dose: 20 mg Documented by: [id number] Cosigned by: [id number] Admin: 02/25/21 04:55 Dose: 20 mg Documented by: [id number] Cosigned by: [id number] Admin: 02/24/21 23:12 Dose: 20 mg Documented by: [id number] Cosigned by: [id number] Admin: 02/24/21 22:38 Dose: 20 mg Documented by: [id number] Cosigned by: [id number] Admin: 02/24/21 22:14 Dose: 20 mg Documented by: [id number] Cosigned by: [id number] Admin: 02/24/21 22:05 Dose: 20 mg Documented by: [id number] Cosigned by: [id number] Admin: 02/24/21 22:00 Dose: 20 mg Documented by: [id number] Cosigned by: [id number] Admin: 02/24/21 03:50 Dose: 20 mg Documented by: [id number] Cosigned by: [id number] Admin: 02/23/21 20:15 Dose: 20 mg Documented by: [id number] Cosigned by: [id number] Admin: 02/23/21 19:45 Dose: 20 mg Documented by: [id number] Cosigned by: [id number] Discontinued Medications Amiodarone HCl/Dextrose (Amiodarone 360mg / 200ml D5w) Confirm Administered Dose 360 mg IV .STK-MED ONE Stop: 02/23/21 17:06 Last Admin: 02/23/21 21:12 Dose: Not Given Documented by: [id number] Aspirin (Aspirin 300 Mg Supp) 300 mg MN ONE ONE Stop: 02/23/21 16:55 Last Admin: 02/23/21 21:26 Dose: 300 mg Documented by: [id number] Fentanyl Citrate (Fentanyl Citrate 100 Mcg/2 Ml Vial) Confirm Administered Dose 100 mcg .ROUTE .STK-MED ONE Stop: 02/23/21 17:07 Last Admin: 02/23/21 20:13 Dose: Not Given Documented by: [id number] Heparin Sodium (Porcine) (Heparin (Porcine) 1000 Unit/Ml 10 Ml ([employer] Use Only)) Confirm Administered Dose 10,000 units .ROUTE .STK-MED ONE Stop: 02/23/21 17:07 Last Admin: 02/23/21 20:23 Dose: Not Given Documented by: [id number] Heparin Sodium/Sodium Chloride (Heparin In Nss Infusion 1000 Unit/500 Ml (2 U/Ml) Bag) Confirm Administered Dose 3,000 units IV .STK-MED ONE Stop: 02/23/21 17:08 Last Admin: 02/23/21 20:24 Dose: Not Given Documented by: [id number] Amiodarone HCl/Dextrose (Nexterone / D5w) 360 mg in 200 mls @ 33.333 mls/hr IV .Q6H JEYSON Stop: 02/23/21 23:14 Last Infusion: 02/24/21 00:36 Dose: 0 mg/min, 0 mls/hr Documented by: [id number] Cosigned by: [id number] Admin: 02/23/21 20:52 Dose: 1 mg/min, 33.3 mls/hr Documented by: [id number] Cosigned by: [id number] Sodium Chloride (Nss 1000ml) 1,000 mls @ 999 mls/hr IV .Q1H1M ONE Stop: 02/23/21 18:17 Last Admin: 02/23/21 20:26 Dose: Not Given Documented by: [id number] Lorazepam (Ativan) 4 mg in 8 mls @ 4 mls/min IV NOW STA Stop: 02/23/21 20:37 Last Admin: 02/23/21 21:13 Dose: Not Given Documented by: [id number] Levetiracetam 2,000 mg/ Sodium (Chloride) 270 mls @ 999 mls/hr IV NOW STA Stop: 02/23/21 21:24 Last Infusion: 02/23/21 21:37 Dose: 0 mls/hr Documented by: [id number] Admin: 02/23/21 21:20 Dose: 999 mls/hr Documented by: [id number] Calcium Gluconate 1,000 mg/ (Sodium Chloride) 60 mls @ 240 mls/hr IV NOW ONE Stop: 02/23/21 22:03 Last Infusion: 02/23/21 22:29 Dose: 0 mls/hr Documented by: [id number] Admin: 02/23/21 22:14 Dose: 240 mls/hr Documented by: [id number] Insulin Human Regular (Novolin-R Bolus From Bag) 2.5 units IV ONE ONE Stop: 02/23/21 20:31 Last Admin: 02/23/21 20:53 Dose: 2.5 units Documented by: [id number] Cosigned by: [id number] Ioversol (Optiray 320 125ml) 120 ml IV ONCE ONE Stop: 02/23/21 17:38 Last Admin: 02/23/21 17:37 Dose: 120 ml Documented by: [id number] Lorazepam (Lorazepam 2 Mg/4 Ml Vial) Confirm Administered Dose 4 mg .ROUTE .STK- MED ONE Stop: 02/23/21 20:39 Last Admin: 02/23/21 20:50 Dose: 4 mg Documented by: [id number] Meperidine HCl (Meperidine Hcl 25 Mg/Ml Carp/Vial) 25 mg IV Q2H PRN PRN Reason: Shivering Stop: 03/09/21 19:44 Last Admin: 02/24/21 03:51 Dose: 25 mg Documented by: [id number] Admin: 02/24/21 00:35 Dose: 25 mg Documented by: [id number] Midazolam HCl (Midazolam Hcl 1 Mg/Ml 2ml Vial) Confirm Administered Dose 2 mg .ROUTE .STK-MED ONE Stop: 02/23/21 17:07 Last Admin: 02/23/21 20:23 Dose: Not Given Documented by: [id number] Miscellaneous (Stat Iv Infusion Titration Per Protocol) 1 ea N/A NOW STA Stop: 02/23/21 17:08 Last Admin: 02/23/21 20:25 Dose: Not Given Documented by: [id number] Miscellaneous (Insulin Protocol Goal Range ) 1 ea N/A ONE ONE Stop: 02/23/21 20:01 Last Admin: 02/23/21 21:12 Dose: 1 ea Documented by: [id number] Miscellaneous (Moderate Stress Level ) 1 ea N/A ONE ONE Stop: 02/23/21 20:09 Last Admin: 02/23/21 21:13 Dose: 1 ea Documented by: [id number] Nicardipine HCl (Nicardipine Hcl Inj 2.5 Mg/Ml 10 Ml Amp) Confirm Administered Dose 25 mg .ROUTE .STK-MED ONE Stop: 02/23/21 17:07 Last Admin: 02/23/21 20:23 Dose: Not Given Documented by: [id number] Nitroglycerin/Dextrose (Nitroglycerin/D5w 100mcg/Ml 20ml Syr) Confirm Administered Dose 2,000 mcg .ROUTE .STK-MED ONE Stop: 02/23/21 17:08 Last Admin: 02/23/21 20:24 Dose: Not Given Documented by: [id number] Propofol (Propofol Iv Emulsion 10 Mg/Ml 100 Ml Vial) Confirm Administered Dose 1,000 mg IV .[employer]-MED ONE Stop: 02/23/21 17:07 Last Admin: 02/23/21 20:24 Dose: Not Given Documented by: [id number] Description This is a 21 electrode EEG with a single channel dedicated to limited EKG. The electrodes were placed in accordance with the International 10-20 system. Interpretation The predominant background activity consists of and alternating burst suppression pattern. there will be a medium amplitude sharply contorted waveform followed by some irregular 5-6 hertz activity of low to medium amplitude lasting anywhere from 0.5-2 seconds, followed by a generalized suppression of all background activity lasting anywhere from 0.5-1.5 seconds. This alternated consistently in an irregular fashion every 1-2 seconds throughout the entire recording. On some occasions there were some periods of higher amplitude more sharply contorted sharp waves but most of the time these sharp waves were of low to medium amplitude , and occurred as isolated transients (during the initial "burst" ) and always followed by some generalized slower activity. There were no spike and wave or repetitive potentially epileptogenic discharges seen. Photic stimulation was performed and elicited no change in the background activity and no abnormal responses were seen. Hyperventilation was not performed. There was no significant muscle, movement, or other artifact activity throughout this recording. In summary, this EEG was Severely abnormal and showed a generalized burst-suppression pattern, which can be typically seen after a post anoxic, ischemic event and carries a relatively poor prognosis. The sharply contoured waveforms are theoretically potentially epileptogenic, but this is not an EEG consistent with "status epilepticus". Clinical Correlation Since the sharply contorted waveforms are the erratically potentially epi leptogenic clinical correlation is necessary however with the presence of propofol no seizure activity clinically would be able to be noted. I spoke with the ICU physician, Dr. Nicole, and have recommended initiating a loading dose of valproic acid, in addition to the levetiracetam. The previous EEG recording of February 24 Revealed a severe generalized suppression of all background activity with no potentially epileptogenic discharges. This EEG show some burst suppression activity which, although carries a poor prognosis for, is actually an improvement compared to yesterday's recording. [facility] [place] Procedure Codes Indication for Procedure (1) Anoxic brain injury: Neurology Neurology: [id number] EEG include record awake & drowsy
--- NOTE | 2021-02-25 07:51 | Cardiology Progress Note ---
Date of Service February 25, 2021 Assessment & Plan (1) Cardiac arrest: Plan: There is concern for significant anoxic brain injury. Has remained hemodynamically and electrically stable. No signs of heart failure. LV function preserved on echo. Minimal troponin elevation. No apparent access site complications. From a cardiac standpoint continue supportive care. Fine to continue amiodarone infusion. Admission and Anticipated Discharge Date Admission Date: February 23, 2021 Subjective Patient has been rewarmed, intermittently febrile. Continues to posture with seizure-like activity. Hemodynamically stable off pressors. Telemetry reviewedno events Review of Systems Review of Systems: Unobtainable due to cognitive status and Unobtainable due to endotracheal tube Physical Exam Physical Exam: General: Intubated HEENT: Sclerae anicteric Lungs: Clear anteriorly Cardiac: Regular rate and rhythm, no murmurs. Vascular: 2+ radial Abdomen: Soft Extremities: Well perfused, no peripheral edema Neuro: No response to painful stimuli Results & Data ([facility]) Vital Signs (Past 12 Hours) Vital Signs Temp Pulse Resp BP Pulse Ox 02/25/21 06:00 101.1 F H 77 18 109/50 L 94 02/25/21 05:00 99.3 F 88 37 H 148/64 H 92 02/25/21 04:30 98.8 F 76 19 128/66 97 02/25/21 04:00 98.8 F 65 18 101/52 L 97 02/25/21 03:30 98.8 F 65 18 103/54 L 97 02/25/21 03:00 98.8 F 67 18 114/60 97 02/25/21 02:50 67 18 96 02/25/21 02:30 99.0 F 71 18 116/64 98 02/25/21 02:00 99.3 F 59 L 18 90/49 L 99 02/25/21 01:30 100.0 F H 61 18 87/48 L 97 02/25/21 01:00 100.4 F H 68 18 95/49 L 98 02/25/21 00:30 100.9 F H 72 18 106/55 L 97 02/25/21 00:00 100.9 F H 84 19 133/63 96 02/24/21 23:30 101.1 F H 88 25 H 145/77 H 95 02/24/21 23:15 100.4 F H 93 H 24 91 02/24/21 23:00 99.9 F H 97 H 23 149/80 H 84 L 02/24/21 22:45 100.0 F H 92 H 23 89 L 02/24/21 22:31 94 H 46 H 95 02/24/21 22:30 100.4 F H 90 27 H 139/93 100 02/24/21 22:15 101.3 F H 80 19 96 02/24/21 22:00 101.5 F H 86 19 149/75 H 96 02/24/21 21:45 101.3 F H 80 18 95 02/24/21 21:30 101.1 F H 81 18 145/71 H 96 02/24/21 21:15 100.9 F H 79 19 96 02/24/21 21:10 100.9 F H 83 19 95 02/24/21 21:00 100.9 F H 81 19 145/72 H 96 02/24/21 20:50 100.8 F H 82 22 96 02/24/21 20:40 100.4 F H 82 19 96 02/24/21 20:30 100.2 F H 82 18 96 02/24/21 20:20 100.2 F H 86 19 96 02/24/21 20:10 100.0 F H 84 16 94 02/24/21 20:00 99.9 F H 85 16 158/77 H 94 02/24/21 19:58 87 24 95 02/24/21 19:50 99.7 F H 85 20 93 PG Care Time/CCT Total # of Minutes Spent Total Time Spent with Patient: Total time spent is greater than 50% in coordination of care (as documented) at patient's floor/unit and/or counseling patient: Coding Level of Care Code 04047 Subseq Hosp Care Lvl 3 Diagnoses Cardiac arrest I46.9
[2021-02-25] MEDS ORDERED: VALPROIC ACID SOLN 500 MG/10 ML UDC PO ONE (08:00)
--- NOTE | 2021-02-25 08:14 | Hospitalist Progress Note ---
Date of Service February 25, 2021 Assessment & Plan (1) Cardiac arrest: Plan: 65 yo M Hx schizoaffective disorder, HTN, DM2, HLD admitted to ICU post-cardiac arrest. Cardiac arrest, ventricular tachycardia: -Initial EKG with evidence of ischemia however with resolution of such by arrival to ER. -Moderate nonobstructive disease on cardiac catheterization; no stents placed. -Ischemia possibly due to heart block vs QT prolongation vs other etiology. -Troponin 0.344 on admit, downtrending 0.177 -Echo 02/24: EF 55-60%, mild pulmonary hypertension, trace pericardial effusion, left atrium mildly dilated. -Triglycerides 201 otherwise lipid panel within normal limits, A1c 7.7. -Cardiology consulted, hemodynamically stable continue amiodarone drip Anoxic brain injury: -Poor neurological exam following ROSC after cardiac arrest. -Patient with fasciculations resolved with propofol bolus. -Likely seizures 2/2 anoxic brain injury. -24 hour hypothermia protocol upon admission to ICU. Rewarming started. -EEG ordered --> burst suppression pattern which goes with very poor prognosis likely from underlying anoxic brain injury Keppra increased to 1000 every 12 Depakote 1 g bolus followed by 250 mg every 6 hours. Given 1 dose Lasix -Continue to monitor neurologic function. -breathing trial on hold, continue propofol due to seizure-like activity -Palliative care consulted -patient's sister contacted, Ezequiel Kidd [phone], Code status updated to conditional DNR. Awaiting further discussion with family. Intubated: -Patient was intubated for airway support during cardiac arrest. -Wean sedation for spontaneous trials of breathing as able. -breathing trial on hold, continue propofol due to seizure-like activity Leukocytosis -likely reactive to cardiac arrest, WBC 10.04 -Patient is spiking fever this also seems to be central, max 38.7 C not responsive to tylenol Transaminitis: -AST and ALT with mild elevation on ER labs; moreso than on prior labwork. -Suspect shock liver in the setting of cardiac arrest. -downtrending, continue to monitor DM2: -BSG range in mid-300s as of presentation to hospital. BHB mildly elevated. Presented in metabolic acidosis, but suspected to be secondary to cardiac arrest. -Holding outpatient metformin. -A1c 7.7 -Insulin gtt with moderate stress dosing started upon admission, with consideration for basal/bolus as patient's clinical condition improve. -ICU hyperglycemia protocol initiated. Pharmacy consulted. HTN, HLD: -LDL 29, total cholesterol 105, triglycerides 201. -BP and HR on lower side at this time, holding antihypertensives. Schizoaffective disorder: -History of, not on medications for such at home per EMR. Code Status: conditional code DNR FEN/GI: NPO, daily IV PPI DVT ppx: SCDs Dispo: ICU (2) Schizoaffective disorder, bipolar type: (3) Hyperlipidemia: (4) Hypertension: (5) Diabetes mellitus: Admission and Anticipated Discharge Date Admission Date: February 23, 2021 Supervising Physician Co-Signing Physician Notes Patient seen and examined, chart reviewed, case discussed with Dr. Hernandez and I agree with the assessment and plan as above except as otherwise noted Patient is a 65-year-old male who presented with cardiac arrest, initially reported was observed but with unclear downtime prior on further history. EEG showing pattern consistent with an anoxic brain injury, extremely poor prognosis.? Fasciculations and evidence of seizure-like activity, propofol drip and valproic acid IV continued. Patient remains on amiodarone drip, Keppra, and rewarmed following hypothermia protocol under ICU care. palliative consulted. Per ICU discussion patient now conditional code, no additional chest compressions if additional cardiac arrest and further family discussions pending.No escalation of care at this time. At bedside assessment patient with regular rate and rhythm, obtunded, does not withdraw to thumb pinch, symmetrical chest rise. Subjective 65yo Male seen at bedside, intubated. Garcia present, rewarming. Review of Systems Review of Systems: Unobtainable due to reduced consciousness Physical Exam Constitutional: + mechanically ventilated Eyes: b/l eyes 2mm diameter pupils, left eye beat downwards regularly Respiratory: Auscultation: lungs clear to auscultation bilaterally Cardiovascular: RRR, no murmur, no edema Heart Sounds: normal S1 and normal S2 Gastrointestinal (Abdomen): normal bowel sounds, soft, nontender, no hepatosplenomegaly Musculoskeletal: b/l feet plantarflexed at regular beat Skin: no rashes, warm and dry Neurologic: Comatose Patient: + response to noxious stimuli absent Results & Data Results & Data ([place]) Vital Signs (Past 12 Hours) Vital Signs Temp Pulse Resp BP Pulse Ox 12/20/21 06:00 38.4 C H 77 18 109/50 L 94 02/25/21 05:00 37.4 C 88 37 H 148/64 H 92 02/25/21 04:30 37.1 C 76 19 128/66 97 02/25/21 04:00 37.1 C 65 18 101/52 L 97 02/25/21 03:30 37.1 C 65 18 103/54 L 97 02/25/21 03:00 37.1 C 67 18 114/60 97 02/25/21 02:50 67 18 96 02/25/21 02:30 37.2 C 71 18 116/64 98 02/25/21 02:00 37.4 C 59 L 18 90/49 L 99 02/25/21 01:30 37.8 C H 61 18 87/48 L 97 02/25/21 01:00 38.0 C H 68 18 95/49 L 98 02/25/21 00:30 38.3 C H 72 18 106/55 L 97 02/25/21 00:00 38.3 C H 84 19 133/63 96 02/24/21 23:30 38.4 C H 88 25 H 145/77 H 95 02/24/21 23:15 38.0 C H 93 H 24 91 02/24/21 23:00 37.7 C H 97 H 23 149/80 H 84 L 02/24/21 22:45 37.8 C H 92 H 23 89 L 02/24/21 22:31 94 H 46 H 95 02/24/21 22:30 38.0 C H 90 27 H 139/93 100 02/24/21 22:15 38.5 C H 80 19 96 02/24/21 22:00 38.6 C H 86 19 149/75 H 96 02/24/21 21:45 38.5 C H 80 18 95 02/24/21 21:30 38.4 C H 81 18 145/71 H 96 02/24/21 21:15 38.3 C H 79 19 96 02/24/21 21:10 38.3 C H 83 19 95 02/24/21 21:00 38.3 C H 81 19 145/72 H 96 02/24/21 20:50 38.2 C H 82 22 96 02/24/21 20:40 38.0 C H 82 19 96 02/24/21 20:30 37.9 C H 82 18 96 02/24/21 20:20 37.9 C H 86 19 96 Laboratory Results 02/25/21 02/25/21 02/25/21 Range/Units 12:06 08:24 04:58 WBC (4.8-10.8) K/uL RBC (4.7-6.1) M/uL Hgb (14.0-18.0) g/dL Hct (42-52) % MCV (80-100) fL MCH (25-34) pg MCHC (32-36) g/dL RDW Std Deviation (36.4-46.3) fL RDW Coeff of Shanell (11.5-14.5) % Plt Count (130-400) K/uL MPV (7.4-10.4) fL Immature Gran % (Auto) % Neut % (Auto) % Lymph % (Auto) % [place] % (Auto) % Eos % (Auto) % Baso % (Auto) % Neut # (Auto) (1.4-6.5) K/uL Lymph # (Auto) (1.2-3.4) K/uL [place] # (Auto) (0.11-0.59) K/uL Eos # (Auto) (0-0.5) K/uL Baso # (Auto) (0-0.2) K/uL Immature Gran # (Auto) (0.00-0.02) K/uL PT (9.0-12.0) Seconds INR (0.9-1.1) Sample Site POC pH (7.35-7.45) POC pCO2 (35-46) mmHg POC pO2 (80-95) mmHg POC HCO3 (19-24) tayla/L POC Total CO2 (24-31) mmol/L POC Base Excess (-9-1.8) tayla/L POC ABG O2 Sat (90-95) % Refugio Test O2 Delivery Device POC O2 Rate POC FiO2 % Tidal Volume PEEP Sodium 139 (136-145) mmol/L Potassium 3.8 (3.5-5.1) mmol/L Chloride 105 (98-107) mmol/L Carbon Dioxide 29 (21-32) mmol/L Anion Gap 5.0 (3-11) BUN 13 (7-18) mg/dl Creatinine 0.96 (0.6-1.4) mg/dl Est Cr Clr Drug Dosing 82.7 ml/min Est GFR ( Amer) 94.4 ml/min Est GFR (Non-Af Amer) 81.5 ml/min BUN/Creatinine Ratio 13.9 (10-20) Glucose 158 H (70-99) mg/dl POC Glucose 147 H 139 H (70-99) mg/dl Estimat Average Glucose mg/dl Hemoglobin A1c (4.5-5.6) % Calcium 8.0 L (8.5-10.1) mg/dl Phosphorus 3.1 (2.5-4.9) mg/dl Magnesium 2.0 (1.8-2.4) mg/dl Total Bilirubin 0.7 (0.2-1) mg/dl AST 57 H (15-37) U/L ALT 84 H (12-78) Alkaline Phosphatase 53 (45-117) U/L Total Protein 6.1 L (6.4-8.2) gm/dl Albumin 3.2 L (3.4-5.0) gm/dl Globulin 2.9 (2.5-4.0) gm/dl Albumin/Globulin Ratio 1.1 (0.9-2) 02/25/21 02/25/21 02/25/21 Range/Units 04:58 04:58 04:27 WBC 10.04 (4.8-10.8) K/uL RBC 4.19 L (4.7-6.1) M/uL Hgb 12.4 L (14.0-18.0) g/dL Hct 37.2 L (42-52) % MCV 88.8 (80-100) fL MCH 29.6 (25-34) pg MCHC 33.3 (32-36) g/dL RDW Std Deviation 42.3 (36.4-46.3) fL RDW Coeff of Shanell 13.0 (11.5-14.5) % Plt Count 213 (130-400) K/uL MPV 10.7 H (7.4-10.4) fL Immature Gran % (Auto) 0.1 % Neut % (Auto) 82.3 % Lymph % (Auto) 9.8 % [place] % (Auto) 7.6 % Eos % (Auto) 0.2 % Baso % (Auto) 0.0 % Neut # (Auto) 8.27 H (1.4-6.5) K/uL Lymph # (Auto) 0.98 L (1.2-3.4) K/uL [place] # (Auto) 0.76 H (0.11-0.59) K/uL Eos # (Auto) 0.02 (0-0.5) K/uL Baso # (Auto) 0.00 (0-0.2) K/uL Immature Gran # (Auto) 0.01 (0.00-0.02) K/uL PT 10.4 (9.0-12.0) Seconds INR 1.0 (0.9-1.1) Sample Site POC pH (7.35-7.45) POC pCO2 (35-46) mmHg POC pO2 (80-95) mmHg POC HCO3 (19-24) tayla/L POC Total CO2 (24-31) mmol/L POC Base Excess (-9-1.8) tayla/L POC ABG O2 Sat (90-95) % Refugio Test O2 Delivery Device POC O2 Rate POC FiO2 % Tidal Volume PEEP Sodium (136-145) mmol/L Potassium (3.5-5.1) mmol/L Chloride (98-107) mmol/L Carbon Dioxide (21-32) mmol/L Anion Gap (3-11) BUN (7-18) mg/dl Creatinine (0.6-1.4) mg/dl Est Cr Clr Drug Dosing ml/min Est GFR ( Amer) ml/min Est GFR (Non-Af Amer) ml/min BUN/Creatinine Ratio (10-20) Glucose (70-99) mg/dl POC Glucose 121 H (70-99) mg/dl Estimat Average Glucose mg/dl Hemoglobin A1c (4.5-5.6) % Calcium (8.5-10.1) mg/dl Phosphorus (2.5-4.9) mg/dl Magnesium (1.8-2.4) mg/dl Total Bilirubin (0.2-1) mg/dl AST (15-37) U/L ALT (12-78) Alkaline Phosphatase (45-117) U/L Total Protein (6.4-8.2) gm/dl Albumin (3.4-5.0) gm/dl Globulin (2.5-4.0) gm/dl Albumin/Globulin Ratio (0.9-2) 02/25/21 02/25/21 02/24/21 Range/Units 03:48 00:06 23:08 WBC (4.8-10.8) K/uL RBC (4.7-6.1) M/uL Hgb (14.0-18.0) g/dL Hct (42-52) % MCV (80-100) fL MCH (25-34) pg MCHC (32-36) g/dL RDW Std Deviation (36.4-46.3) fL RDW Coeff of Shanell (11.5-14.5) % Plt Count (130-400) K/uL MPV (7.4-10.4) fL Immature Gran % (Auto) % Neut % (Auto) % Lymph % (Auto) % [place] % (Auto) % Eos % (Auto) % Baso % (Auto) % Neut # (Auto) (1.4-6.5) K/uL Lymph # (Auto) (1.2-3.4) K/uL [place] # (Auto) (0.11-0.59) K/uL Eos # (Auto) (0-0.5) K/uL Baso # (Auto) (0-0.2) K/uL Immature Gran # (Auto) (0.00-0.02) K/uL PT (9.0-12.0) Seconds INR (0.9-1.1) Sample Site R Brachial POC pH 7.43 (7.35-7.45) POC pCO2 36 (35-46) mmHg POC pO2 74 L (80-95) mmHg POC HCO3 24 (19-24) tayla/L POC Total CO2 25 (24-31) mmol/L POC Base Excess -1.0 (-9-1.8) tayla/L POC ABG O2 Sat 95.0 (90-95) % Refugio Test Pass O2 Delivery Device Ventilator POC O2 Rate 18 POC FiO2 30 % Tidal Volume 500 PEEP 5 Sodium (136-145) mmol/L Potassium (3.5-5.1) mmol/L Chloride (98-107) mmol/L Carbon Dioxide (21-32) mmol/L Anion Gap (3-11) BUN (7-18) mg/dl Creatinine (0.6-1.4) mg/dl Est Cr Clr Drug Dosing ml/min Est GFR ( Amer) ml/min Est GFR (Non-Af Amer) ml/min BUN/Creatinine Ratio (10-20) Glucose (70-99) mg/dl POC Glucose 127 H 122 H (70-99) mg/dl Estimat Average Glucose mg/dl Hemoglobin A1c (4.5-5.6) % Calcium (8.5-10.1) mg/dl Phosphorus (2.5-4.9) mg/dl Magnesium (1.8-2.4) mg/dl Total Bilirubin (0.2-1) mg/dl AST (15-37) U/L ALT (12-78) Alkaline Phosphatase (45-117) U/L Total Protein (6.4-8.2) gm/dl Albumin (3.4-5.0) gm/dl Globulin (2.5-4.0) gm/dl Albumin/Globulin Ratio (0.9-2) 02/24/21 02/24/21 02/24/21 Range/Units 20:30 19:35 19:17 WBC (4.8-10.8) K/uL RBC (4.7-6.1) M/uL Hgb (14.0-18.0) g/dL Hct (42-52) % MCV (80-100) fL MCH (25-34) pg MCHC (32-36) g/dL RDW Std Deviation (36.4-46.3) fL RDW Coeff of Shanell (11.5-14.5) % Plt Count (130-400) K/uL MPV (7.4-10.4) fL Immature Gran % (Auto) % Neut % (Auto) % Lymph % (Auto) % [place] % (Auto) % Eos % (Auto) % Baso % (Auto) % Neut # (Auto) (1.4-6.5) K/uL Lymph # (Auto) (1.2-3.4) K/uL [place] # (Auto) (0.11-0.59) K/uL Eos # (Auto) (0-0.5) K/uL Baso # (Auto) (0-0.2) K/uL Immature Gran # (Auto) (0.00-0.02) K/uL PT (9.0-12.0) Seconds INR (0.9-1.1) Sample Site POC pH (7.35-7.45) POC pCO2 (35-46) mmHg POC pO2 (80-95) mmHg POC HCO3 (19-24) tayla/L POC Total CO2 (24-31) mmol/L POC Base Excess (-9-1.8) tayla/L POC ABG O2 Sat (90-95) % Refugio Test O2 Delivery Device POC O2 Rate POC FiO2 % Tidal Volume PEEP Sodium (136-145) mmol/L Potassium (3.5-5.1) mmol/L Chloride (98-107) mmol/L Carbon Dioxide (21-32) mmol/L Anion Gap (3-11) BUN (7-18) mg/dl Creatinine (0.6-1.4) mg/dl Est Cr Clr Drug Dosing ml/min Est GFR ( Amer) ml/min Est GFR (Non-Af Amer) ml/min BUN/Creatinine Ratio (10-20) Glucose (70-99) mg/dl POC Glucose 108 H 109 H 110 H (70-99) mg/dl Estimat Average Glucose mg/dl Hemoglobin A1c (4.5-5.6) % Calcium (8.5-10.1) mg/dl Phosphorus (2.5-4.9) mg/dl Magnesium (1.8-2.4) mg/dl Total Bilirubin (0.2-1) mg/dl AST (15-37) U/L ALT (12-78) Alkaline Phosphatase (45-117) U/L Total Protein (6.4-8.2) gm/dl Albumin (3.4-5.0) gm/dl Globulin (2.5-4.0) gm/dl Albumin/Globulin Ratio (0.9-2) 02/24/21 02/24/21 02/24/21 Range/Units 19:04 18:45 18:31 WBC (4.8-10.8) K/uL RBC (4.7-6.1) M/uL Hgb (14.0-18.0) g/dL Hct (42-52) % MCV (80-100) fL MCH (25-34) pg MCHC (32-36) g/dL RDW Std Deviation (36.4-46.3) fL RDW Coeff of Shanell (11.5-14.5) % Plt Count (130-400) K/uL MPV (7.4-10.4) fL Immature Gran % (Auto) % Neut % (Auto) % Lymph % (Auto) % [place] % (Auto) % Eos % (Auto) % Baso % (Auto) % Neut # (Auto) (1.4-6.5) K/uL Lymph # (Auto) (1.2-3.4) K/uL [place] # (Auto) (0.11-0.59) K/uL Eos # (Auto) (0-0.5) K/uL Baso # (Auto) (0-0.2) K/uL Immature Gran # (Auto) (0.00-0.02) K/uL PT (9.0-12.0) Seconds INR (0.9-1.1) Sample Site POC pH (7.35-7.45) POC pCO2 (35-46) mmHg POC pO2 (80-95) mmHg POC HCO3 (19-24) tayla/L POC Total CO2 (24-31) mmol/L POC Base Excess (-9-1.8) tayla/L POC ABG O2 Sat (90-95) % Refugio Test O2 Delivery Device POC O2 Rate POC FiO2 % Tidal Volume PEEP Sodium (136-145) mmol/L Potassium (3.5-5.1) mmol/L Chloride (98-107) mmol/L Carbon Dioxide (21-32) mmol/L Anion Gap (3-11) BUN (7-18) mg/dl Creatinine (0.6-1.4) mg/dl Est Cr Clr Drug Dosing ml/min Est GFR ( Amer) ml/min Est GFR (Non-Af Amer) ml/min BUN/Creatinine Ratio (10-20) Glucose (70-99) mg/dl POC Glucose 124 H 101 H 100 H (70-99) mg/dl Estimat Average Glucose mg/dl Hemoglobin A1c (4.5-5.6) % Calcium (8.5-10.1) mg/dl Phosphorus (2.5-4.9) mg/dl Magnesium (1.8-2.4) mg/dl Total Bilirubin (0.2-1) mg/dl AST (15-37) U/L ALT (12-78) Alkaline Phosphatase (45-117) U/L Total Protein (6.4-8.2) gm/dl Albumin (3.4-5.0) gm/dl Globulin (2.5-4.0) gm/dl Albumin/Globulin Ratio (0.9-2) 02/24/21 02/24/21 02/24/21 Range/Units 18:09 17:42 17:23 WBC (4.8-10.8) K/uL RBC (4.7-6.1) M/uL Hgb (14.0-18.0) g/dL Hct (42-52) % MCV (80-100) fL MCH (25-34) pg MCHC (32-36) g/dL RDW Std Deviation (36.4-46.3) fL RDW Coeff of Shanell (11.5-14.5) % Plt Count (130-400) K/uL MPV (7.4-10.4) fL Immature Gran % (Auto) % Neut % (Auto) % Lymph % (Auto) % [place] % (Auto) % Eos % (Auto) % Baso % (Auto) % Neut # (Auto) (1.4-6.5) K/uL Lymph # (Auto) (1.2-3.4) K/uL [place] # (Auto) (0.11-0.59) K/uL Eos # (Auto) (0-0.5) K/uL Baso # (Auto) (0-0.2) K/uL Immature Gran # (Auto) (0.00-0.02) K/uL PT (9.0-12.0) Seconds INR (0.9-1.1) Sample Site POC pH (7.35-7.45) POC pCO2 (35-46) mmHg POC pO2 (80-95) mmHg POC HCO3 (19-24) tayla/L POC Total CO2 (24-31) mmol/L POC Base Excess (-9-1.8) tayla/L POC ABG O2 Sat (90-95) % Refugio Test O2 Delivery Device POC O2 Rate POC FiO2 % Tidal Volume PEEP Sodium (136-145) mmol/L Potassium (3.5-5.1) mmol/L Chloride (98-107) mmol/L Carbon Dioxide (21-32) mmol/L Anion Gap (3-11) BUN (7-18) mg/dl Creatinine (0.6-1.4) mg/dl Est Cr Clr Drug Dosing ml/min Est GFR ( Amer) ml/min Est GFR (Non-Af Amer) ml/min BUN/Creatinine Ratio (10-20) Glucose (70-99) mg/dl POC Glucose 104 H 108 H 105 H (70-99) mg/dl Estimat Average Glucose mg/dl Hemoglobin A1c (4.5-5.6) % Calcium (8.5-10.1) mg/dl Phosphorus (2.5-4.9) mg/dl Magnesium (1.8-2.4) mg/dl Total Bilirubin (0.2-1) mg/dl AST (15-37) U/L ALT (12-78) Alkaline Phosphatase (45-117) U/L Total Protein (6.4-8.2) gm/dl Albumin (3.4-5.0) gm/dl Globulin (2.5-4.0) gm/dl Albumin/Globulin Ratio (0.9-2) 02/24/21 02/24/21 02/23/21 Range/Units 17:10 16:35 20:16 WBC (4.8-10.8) K/uL RBC (4.7-6.1) M/uL Hgb (14.0-18.0) g/dL Hct (42-52) % MCV (80-100) fL MCH (25-34) pg MCHC (32-36) g/dL RDW Std Deviation (36.4-46.3) fL RDW Coeff of Shanell (11.5-14.5) % Plt Count (130-400) K/uL MPV (7.4-10.4) fL Immature Gran % (Auto) % Neut % (Auto) % Lymph % (Auto) % [place] % (Auto) % Eos % (Auto) % Baso % (Auto) % Neut # (Auto) (1.4-6.5) K/uL Lymph # (Auto) (1.2-3.4) K/uL [place] # (Auto) (0.11-0.59) K/uL Eos # (Auto) (0-0.5) K/uL Baso # (Auto) (0-0.2) K/uL Immature Gran # (Auto) (0.00-0.02) K/uL PT (9.0-12.0) Seconds INR (0.9-1.1) Sample Site POC pH (7.35-7.45) POC pCO2 (35-46) mmHg POC pO2 (80-95) mmHg POC HCO3 (19-24) tayla/L POC Total CO2 (24-31) mmol/L POC Base Excess (-9-1.8) tayla/L POC ABG O2 Sat (90-95) % Refugio Test O2 Delivery Device POC O2 Rate POC FiO2 % Tidal Volume PEEP Sodium (136-145) mmol/L Potassium (3.5-5.1) mmol/L Chloride (98-107) mmol/L Carbon Dioxide (21-32) mmol/L Anion Gap (3-11) BUN (7-18) mg/dl Creatinine (0.6-1.4) mg/dl Est Cr Clr Drug Dosing ml/min Est GFR ( Amer) ml/min Est GFR (Non-Af Amer) ml/min BUN/Creatinine Ratio (10-20) Glucose (70-99) mg/dl POC Glucose 113 H 133 H (70-99) mg/dl Estimat Average Glucose 174 mg/dl Hemoglobin A1c 7.7 H (4.5-5.6) % Calcium (8.5-10.1) mg/dl Phosphorus (2.5-4.9) mg/dl Magnesium (1.8-2.4) mg/dl Total Bilirubin (0.2-1) mg/dl AST (15-37) U/L ALT (12-78) Alkaline Phosphatase (45-117) U/L Total Protein (6.4-8.2) gm/dl Albumin (3.4-5.0) gm/dl Globulin (2.5-4.0) gm/dl Albumin/Globulin Ratio (0.9-2) Diagnostic Findings Chest CTA 02/23/21 17:03 CT ANGIOGRAM OF THE CHEST CLINICAL HISTORY: Cardiac arrest. COMPARISON STUDY: Chest x-ray dated 02/23/2021. TECHNIQUE: Following the IV administration of 120 cc of Optiray 320, CT an giogram of the chest was performed from the upper abdomen to the thoracic inlet utilizing the pulmonary embolus protocol. Images are reviewed in the axial, sagittal, and coronal planes. 3-D MIPS images are created and assessed. IV contrast was administered without complication. A dose lowering technique was utilized adhering to the principles of ALARA. The examination is compromised by motion artifact, as well as streak artifact from the arms which could not be elevated above the chest. FINDINGS: Thyroid: Normal in size and heterogeneous in attenuation. Thoracic aorta: The thoracic aorta is normal in caliber and demonstrates standard 3-vessel arch anatomy. No dissection is seen. Pulmonary vasculature: The pulmonary trunk is normal in caliber. There are no filling defects identified in main, lobar, or segmental pulmonary branches to suggest pulmonary embolus. Heart: The heart is mildly enlarged and without pericardial effusion. Lungs and pleural spaces: An endotracheal tube terminates above the anish. Minimal secretions are noted in the trachea. Right greater than left dependent consolidation likely represents segmental atelectasis. No pleural effusion is identified. There are scattered calcified granulomas. Mediastinum: A prevascular node measures up to 11 mm in short axis. Connie: Mildly enlarged hilar nodes measure up to 14 mm in short axis. Axillae: There is no axillary lymphadenopathy. Upper abdomen: There are numerous hepatic cysts which measure up to 3.8 cm. A 1.6 cm exophytic cyst arises from the upper pole of left kidney. Skeletal structures: No lytic or blastic bony lesions are seen. IMPRESSION: 1. Streak and motion compromised examination. 2. There is no evidence of pulmonary embolus in the main, lobar, or segmental pulmonary arteries. 3. Mild cardiomegaly. 4. Right greater than left dependent airspace consolidation likely represents segmental atelectasis. Correlate clinically for evidence of superimposed pneumonia. 5. Mildly enlarged mediastinal and hilar lymph nodes are nonspecific and may be reactive. 6. Additional findings as above. ACT 112: Negative or not required by law. Electronically signed by: Nakul Jones M.D. 02/23/2021 5:[address] 02/23/21 17:03 CT SCAN OF THE BRAIN WITHOUT IV CONTRAST CLINICAL HISTORY: Cardiac arrest. COMPARISON STUDY: No priors. TECHNIQUE: Unenhanced axial CT scan of the brain is performed from the vertex to the skull base. A dose lowering technique was utilized adhering to the principles of ALARA. CT DOSE: 1464.58 mGy.cm FINDINGS: Brain parenchyma: The brain parenchyma is normal in appearance. There is no hemorrhage, mass effect, or evidence of acute territorial ischemia by CT criteria. Esteves-white matter differentiation is preserved. No extra-axial fluid collection is seen. Ventricles, sulci, cisterns: Normal in configuration. Intracranial vasculature: There is atherosclerotic calcification of the cav ernous carotid arteries. Calvarium: Unremarkable. Sinuses and mastoids: There is trace fluid within the sphenoid sinuses. Trace mucosal thickening is noted in the frontal and ethmoid sinuses. The mastoid air cells are well pneumatized. Orbits: The bony orbits are grossly intact. IMPRESSION: There is no hemorrhage, mass effect, or evidence of acute territorial ischemia by CT criteria. ACT 112: Negative or not required by law. Electronically signed by: Nakul Jones M.D. 02/23/2021 5:42 PM Chest X-Ray 02/25/21 07:00 XR chest 1V portable HISTORY: 65 years-old Male Resp failure acute respiratory failure COMPARISON: Chest radiograph 02/23/2021 TECHNIQUE: Portable AP view of the chest FINDINGS: Endotracheal tube overlies the midline, 2.4 cm superior to the anish. Enteric tube courses below the diaphragm with distal tip outside the [id number]. There is no pneumothorax. Trace pleural effusions with mild bibasilar opacities. Pulmonary vascular congestion. Degenerative changes of the shoulders and spine. IMPRESSION: 1. Lines and tubes as above. 2. Cardiomegaly with pulmonary vascular congestion and interstitial coarsening suggestive of pulmonary edema. 3. Trace pleural effusions with persistent bibasilar opacities. ACT 112: Negative or not required by law. The above report was generated using voice recognition software. It may contain grammatical, syntax or spelling errors. Electronically signed by: Junior Waterman M.D. 02/25/2021 8:30 AM Medications Administered Current Inpatient Medications Acetaminophen (Acetaminophen 650 Mg Supp) 650 mg [place] ONE PRN PRN Reason: Rebound Hyperthermia x 1 dose Stop: 03/25/21 19:44 Last Admin: 02/24/21 21:00 Dose: 650 mg Documented by: Buspirone HCl (Buspirone 15 Mg Tab) 60 mg NG ONCE PRN PRN Reason: For Shivering x 1 dose Stop: 03/25/21 19:44 Last Admin: 02/23/21 21:22 Dose: 60 mg Documented by: Dextrose (Dextrose 50% 50 Ml Syringe) 25 - 50 ml IV UD PRN; Protocol PRN Reason: Hypoglycemia Protocol Stop: 03/25/21 19:59 Last Admin: 02/24/21 07:43 Dose: 25 ml Documented by: Fentanyl Citrate (Fentanyl Bolus From Bag) 50 mcg IV Q60M PRN PRN Reason: Pain or Agitation Stop: 03/09/21 21:08 Last Admin: 02/24/21 22:38 Dose: 50 mcg Documented by: Fentanyl Citrate (Fentanyl Citrate 100 Mcg/2 Ml Vial) 50 mcg IV Q2H PRN PRN Reason: Pain Stop: 03/11/21 11:21 Glucagon (Glucagon For Inj 1 Mg Vial) 1 mg IM UD PRN; Protocol PRN Reason: Hypoglycemia Protocol Stop: 03/25/21 19:59 Glucose (Glucose 40% Gel 15 Gm Tube) 15 - 30 gm PO UD PRN; Protocol PRN Reason: Hypoglycemia Protocol Stop: 03/25/21 19:59 Glucose (Glucose 10 Tabs/Tube) 4 - 8 tabs PO UD PRN; Protocol PRN Reason: Hypoglycemia Protocol Stop: 03/25/21 19:59 Amiodarone HCl/Dextrose (Nexterone / D5w) 360 mg in 200 mls @ 16.667 mls/hr IV .Q12H JEYSON Stop: 03/25/21 23:14 Last Admin: 02/25/21 11:23 Dose: 0.5 mg/min, 16.7 mls/hr Documented by: Propofol (Diprivan) 1,000 mg in 100 mls @ 28.17 mls/hr IV .Q3H33M JEYSON; Protocol Stop: 02/26/21 17:14 Last Admin: 02/25/21 15:10 Dose: 50 mcg/kg/min, 28.2 mls/hr Documented by: Pantoprazole Sodium 40 mg/ (Syringe) 10 mls @ 5 mls/min IV DAILY@1100 JEYSON Stop: 03/26/21 10:59 Last Admin: 02/25/21 11:24 Dose: 5 mls/min Documented by: Insulin Human Regular 250 (units/ Sodium Chloride) 250 mls @ 0 mls/hr IV .Q0M JEYSON; Protocol Stop: 03/25/21 19:59 Last Titration: 02/24/21 19:00 Dose: Infused Documented by: Parenteral Electrolytes (Normosol-R) 1,000 mls @ 125 mls/hr IV .Q8H JEYSON Stop: 03/25/21 21:44 Last Admin: 02/25/21 12:43 Dose: 125 mls/hr Documented by: Acetaminophen (Ofirmev) 1,000 mg in 100 mls @ 400 mls/hr IV Q8H PRN PRN Reason: Fever Stop: 02/28/21 00:21 Last Infusion: 02/25/21 10:03 Dose: Infused Documented by: Levetiracetam 1,000 mg/ Sodium (Chloride) 110 mls @ 440 mls/hr IV Q12 [facility] Stop: 03/27/21 20:59 Valproic Acid 250 mg/ Dextrose 52.5 mls @ 55 mls/hr IV Q6H [facility] Stop: 03/27/21 15:59 Insulin Aspart (Insulin Aspart Per Unit) 0 units SC ACHS [facility] Stop: 03/25/21 20:59 Last Admin: 02/24/21 21:01 Dose: Not Given Documented by: Insulin Aspart (Insulin Aspart Per Unit) 0 units SC Q4 [facility] Stop: 03/27/21 00:00 Last Admin: 02/25/21 12:08 Dose: Not Given Documented by: Midazolam HCl (Midazolam Hcl 1 Mg/Ml 2ml Vial) 2 mg IV Q2H PRN PRN Reason: Agitation Stop: 03/25/21 21:08 Last Admin: 02/25/21 15:10 Dose: 2 mg Documented by: Miscellaneous (Icu Protocol For Hyperglycemia) 1 ea N/A PRN PRN; Protocol PRN Reason: Hyperglycemia Protocol Stop: 02/25/21 19:03 Miscellaneous (Carbohydrates For Hypoglycemia ) 15 - 30 gm PO UD PRN PRN Reason: Hypoglycemia Treatment Stop: 03/25/21 19:59 Miscellaneous Information (Pharmacy Glycemic Mgmt Consult) 1 ea N/A UD PRN PRN Reason: Consult Stop: 03/25/21 19:33 Propofol (Propofol Bolus From Bag) 20 mg IV Q5M PRN PRN Reason: Sedation Stop: 02/26/21 17:06 Last Admin: 02/25/21 05:36 Dose: 20 mg Documented by: Resident Activity Tracking Resident Involvement: Resident Care Provided Care Provided: Adult Hospital Medicine
--- NOTE | 2021-02-25 08:31 | XRay Report ---
XR chest 1V portable HISTORY: 65 years-old Male Resp failure acute respiratory failure COMPARISON: Chest radiograph 02/23/2021 TECHNIQUE: Portable AP view of the chest FINDINGS: Endotracheal tube overlies the midline, 2.4 cm superior to the anish. Enteric tube courses below the diaphragm with distal tip outside the [id number]. There is no pneumothorax. Trace pleural effusio ns with mild bibasilar opacities. Pulmonary vascular congestion. Degenerative changes of the shoulder s and spine. IMPRESSION: 1. Lines and tubes as above. 2. Cardiomegaly with pulmonary vascular congestion and interstitial coarsening suggestive of pulmonar y edema. 3. Trace pleural effusions with persistent bibasilar opacities. ACT 112: Negative or not required by law. The above report was generated using voice recognition software. It may contain grammatical, syntax o r spelling errors. Electronically signed by: Junior Waterman M.D. 02/25/2021 8:30 AM
[2021-02-25] MEDS: fentaNYL citrate 2,500 MCG/250 ML BAG IV SCH (08:35)
[2021-02-25] MEDS: levETIRAcetam 500 MG in 0.9 % SODIUM CHLORIDE 100 ML IV SCH (08:48)
[2021-02-25] MEDS ORDERED: FUROSEMIDE 40 MG/4 ML VIAL IV ONE (09:46)
[2021-02-25] MEDS ORDERED: fentaNYL citrate 100 MCG/2 ML VIAL IV PRN (11:22)
[2021-02-25] MEDS: AMIODARONE / D5W 360 MG/200 ML BAG IV SCH ×2 (11:23→21:51)
[2021-02-25] MEDS: PANTOprazole 40 MG in SYRINGE 0 ML IV SCH (11:24)
--- NOTE | 2021-02-25 11:53 | Critical Care Progress Note ---
Date of Service February 25, 2021 Assessment & Plan (1) Cardiac arrest: (2) Anoxic brain injury: (3) Ventricular tachycardia: (4) Metabolic acidosis: (5) Status epilepticus: Plan: Impression: 65-year-old male presents to the ICU following cardiac arrest. Patient underwent cath without intervention. Neurological exam poor following ROSC and currently mechanically ventilated. Patient to undergo 24-hour period of therapeutic hypothermia following presumed anoxic injury. 24-hour events: P patient had another EEG done today which showed burst suppression pattern. Patient seems to be having seizure-like activity. Recommendations Neuro - --Anoxic brain injury due to out of hospital cardiac arrest. Initial head CT was unrevealing EEG 02/25/2021 shows diffuse burst suppression pattern with generalized slowing going with anoxic brain injury --Seizure-like activity Secondary to above Cardiac - --Cardiac arrest out of hospital cardiac arrest. Status post cardiac cath, no intervention was done Hemodynamically stable currently. Continue with amiodarone drip Respiratory - -- VDRF Secondary to cardiac arrest Continue with ventilatory support GI - --Transaminitis Trending down Continue to monitor RENAL/LYTES - --NATHAN Improved Continue to monitor BUNs/creatinine - Foleystrict I's and O's ENDO -ICU hyperglycemia protocol HEME - H&H stable, monitor routine CBCs ID - Leukocytosis likely reactive to cardiac arrest Patient is spiking fever this also seems to be central --Prophylaxis VTE: Heparin GI: Protonix Lines: Right femoral cooling catheter, positive Garcia Diet: N.p.o. Plan: In/out: +2957, urine output 1405 EEG shows burst suppression pattern which goes with very poor prognosis likely from underlying anoxic brain injury Increase Keppra to 1000 every 12 We will start the patient on Depakote 1 g bolus followed by 250 mg every 6 hours. Case was discussed with Dr. Jefferson We will give him a dose of Lasix. Overall prognosis is very poor. I do think comfort measures should be pursued. We will get palliative care involved. Continue with amiodarone drip. Hold fentanyl. I would like to see if the patient is breathing over the vent but unfortunately as the patient is having continued seizure-like activity would like to continue with propofol. Patient Sister Eezquiel Kidd [phone] was called and updated regarding patient's poor prognosis. She understands and she is okay to have no more chest compression if there is future demise/cardiac arrest. Rest of the medical care we will continue till she has talk with the family and then decide to do course. I have personally spent 44 minutes of critical care time in the direct management of this patient. This is a life/limb threatening event. This includes time spent evaluating patient, direct bedside care, chart review, placing orders, interpretation of diagnostic studies, discussion with consultants, patient, and family members, as well as other required patient management activities. This time is exclusive of all separately billable procedures, and teaching time and separate from and in addition to any other critical care service time. Please note the above document was generated using voice recognition software. It may contain grammatical, syntax or spelling errors. Admission and Anticipated Discharge Date Admission Date: February 23, 2021 Subjective Patient seen and examined at bedside. Patient is actively having seizures. He is on propofol and fentanyl. Is also getting Keppra Patient is spiking fever T-max 38.4 Patient had EEG done today Review of Systems Review of Systems: Unobtainable due to endotracheal tube Physical Exam Physical Exam: Constitutional: No acute distress HEENT: PERRLA Respiratory system: Air entry bilaterally, no wheeze, no rhonchi, positive crackles bilateral CVS: S1-S2 positive, no murmurs or gallops Abdomen: Soft, nontender, nondistended, positive bowel sounds x4 Extremities: +2 pulses bilaterally radialis/ dorsalis pedis, no cyanosis, no edema Neuro: Actively seizing, breathing with the vent Psych: Unable to assess G/U: Positive Garcia Skin: no rashes, warm and dry Lymphatic: no cervical or axillary lymphadenopathy Results & Data Results & [facility]) Vital Signs (Past 12 Hours) Vital Signs Temp Pulse Resp BP Pulse Ox 02/25/21 10:35 63 18 97 02/25/21 10:30 38.4 C H 62 18 83/42 L 97 02/25/21 10:00 38.7 C H 66 18 80/38 L 96 02/25/21 09:30 38.7 C H 78 18 115/56 L 95 02/25/21 09:00 38.7 C H 84 18 139/69 95 02/25/21 08:30 38.3 C H 77 18 125/70 97 02/25/21 08:00 38.1 C H 67 18 114/60 98 02/25/21 07:45 73 19 97 02/25/21 07:30 38.0 C H 70 18 116/60 97 02/25/21 07:00 38.1 C H 66 18 106/49 L 96 02/25/21 06:00 38.4 C H 77 18 109/50 L 94 02/25/21 05:00 37.4 C 88 37 H 148/64 H 92 02/25/21 04:30 37.1 C 76 19 128/66 97 02/25/21 04:00 37.1 C 65 18 101/52 L 97 02/25/21 03:30 37.1 C 65 18 103/54 L 97 02/25/21 03:00 37.1 C 67 18 114/60 97 02/25/21 02:50 67 18 96 02/25/21 02:30 37.2 C 71 18 116/64 98 02/25/21 02:00 37.4 C 59 L 18 90/49 L 99 02/25/21 01:30 37.8 C H 61 18 87/48 L 97 02/25/21 01:00 38.0 C H 68 18 95/49 L 98 02/25/21 00:30 38.3 C H 72 18 106/55 L 97 02/25/21 00:00 38.3 C H 84 19 133/63 96 Coding Level of Care Code Critical Care 1st 30-74 mins Diagnoses Cardiac arrest I46.9 Anoxic brain injury G93.1 Ventricular tachycardia I47.2 Metabolic acidosis E87.2 Status epilepticus G40.901 Time Spent (min) 44
--- NOTE | 2021-02-25 12:50 | Palliative Care Consultation ---
Date of Consultation February 25, 2021 Assessment & Plan (1) Palliative care encounter: Mr. Nieves is a 65 year old male who presented to the ICU s/p cardiac arrest with unknown downtime. A heart catheterization was performed with any additional intervention performed. He underwent the therapeutic hypothermia protocol but has an anoxic brain injury. EEG was performed and he has active seizure like activity. Lengthy conversation held with family by the system technologist and ultimately he was changed to a DNR with no CPR. Palliative Medicine was consulted to discuss overall goals of care and likely transition to comfort measures. Patient is intubated and sedated with Propofol. He is not able to participate in any meaningful interaction or goals of care conversations. EEG 02/25/2021 shows diffuse burst suppression pattern with generalized slowing going with anoxic brain injury, which he has now had continuation of his Propofol and Keppra. I talked with the patients sister, Marti, at [phone] and reviewed her conversation with Dr. Nicole. She is understanding that his condition is likely futile. She explained that she has a lot of family to discuss this with and would like a day or two to get organized. For now, confirmed NO escalation in his care in the event of further decline, meaning no additional pressors, hemodialysis, CPR. Would like to continue current care for another 24-48 hours. Patient sister clear that she does not want [facility] to be involved, but understands the process and is willing to talk with them. Palliative will follow. (2) Anoxic brain injury: (3) Cardiac arrest: (4) Febrile: (5) Seizures: History of Present Illness Reason for Consultation: goals of care Requesting Physician: Dr. Nicole Attending Physician: Albino Cook MD History of Present Illness Mr. Nieves is a 65 year old male who presented to the ICU s/p cardiac arrest with unknown downtime. A heart catheterization was performed with any additional intervention performed. He underwent the therapeutic hypothermia protocol but has an anoxic brain injury. EEG was performed and he has active seizure like activity. Lengthy conversation held with family by the intensivit and ultimately he was changed to a DNR with no CPR. Palliative Medicine was consulted to discuss overall goals of care and likely transition to comfort measures. Please see A/P for further details. Thanks for involving palliative medicine with this patient. Allergies Allergy/AdvReac Type Severity Reaction Status Date / Time No Known Allergies Allergy Verified 02/23/21 17:21 Home Medications Medication Instructions Recorded Confirmed Type aspirin 81 mg tablet,delayed 81 mg PO DAILY 08/16/18 02/23/21 History release (Adult Aspirin Regimen) cholecalciferol (vitamin D3) 25 1,000 units PO DAILY 08/16/18 02/23/21 History mcg (1,000 unit) capsule multivitamin 1 tab PO DAILY 12/08/18 02/23/21 History Lactobacillus 1 cap PO .TAKE 1 CAPSULE Daily 06/17/19 02/23/21 History acidophilus-Bifidobac.animalis 31 billion cell capsule mecobalamin (vitamin B12) 1,000 500 mcg SL DAILY #90 tab 04/27/20 02/23/21 Rx mcg disintegrating tablet,sublingual lisinopril 40 mg tablet 40 mg PO DAILY #90 tab 05/08/20 02/23/21 Rx simvastatin 10 mg tablet 10 mg PO DAILY #90 tab 05/21/20 02/23/21 Rx amlodipine 5 mg tablet 5 mg PO DAILY #90 tab 12/11/20 02/23/21 Rx metformin 1,000 mg tablet 1,000 mg PO BID #180 tab 12/12/20 02/23/21 Rx lancets (OneTouch UltraSoft #300 ea 01/29/21 02/23/21 Rx Lancets) Patient History Medical History (Updated 02/25/21 @ 12:49 by JASMINE Eugene) Diabetes mellitus NIDDM Febrile Foot pain Hyperlipidemia Hypertension Lt groin pain 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 Positive colorectal cancer screening using Cologuard test Positive colorectal cancer screening using Cologuard test Colonoscopy completed 2019- for follow-up/5 years recommended Schizophrenic disorder NO MEDS AT THIS TIME. 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 marital status: Single Current Living Situation: Alone Current Living Situation Comment: Check-in's from [employer] reps, councilors, and family. current occupational status: unemployed Other Information That Helps Us Care for You: No Feels Safe at Home: Declines to Answer Seatbelt Use: always Assistive Devices: Oxygen - Continuous Review of Systems Review of Systems: Unobtainable due to endotracheal tube Physical Exam ENMT: Mouth: + dry oral mucous membranes Cardiovascular: Rate/Rhythm: regular rate and regular rhythm Extremities: normal capillary refill; no edema Gastrointestinal (Abdomen): Inspection/Auscultation: abdomen normal to inspection Neurologic: + obtunded Results & Data ([facility]) Vital Signs (Past 12 Hours) Vital Signs Temp Pulse Resp BP Pulse Ox 02/25/21 10:35 63 18 97 02/25/21 10:30 38.4 C H 62 18 83/42 L 97 02/25/21 10:00 38.7 C H 66 18 80/38 L 96 02/25/21 09:30 38.7 C H 78 18 115/56 L 95 02/25/21 09:00 38.7 C H 84 18 139/69 95 02/25/21 08:30 38.3 C H 77 18 125/70 97 02/25/21 08:00 38.1 C H 67 18 114/60 98 02/25/21 07:45 73 19 97 02/25/21 07:30 38.0 C H 70 18 116/60 97 02/25/21 07:00 38.1 C H 66 18 106/49 L 96 02/25/21 06:00 38.4 C H 77 18 109/50 L 94 02/25/21 05:00 37.4 C 88 37 H 148/64 H 92 02/25/21 04:30 37.1 C 76 19 128/66 97 02/25/21 04:00 37.1 C 65 18 101/52 L 97 02/25/21 03:30 37.1 C 65 18 103/54 L 97 02/25/21 03:00 37.1 C 67 18 114/60 97 02/25/21 02:50 67 18 96 02/25/21 02:30 37.2 C 71 18 116/64 98 02/25/21 02:00 37.4 C 59 L 18 90/49 L 99 02/25/21 01:30 37.8 C H 61 18 87/48 L 97 02/25/21 01:00 38.0 C H 68 18 95/49 L 98 PG Care Time/CCT Total # of Minutes Spent Total Time Spent with Patient: Total time spent is greater than 50% in coordination of care (as documented) at patient's floor/unit and/or counseling patient: 100 minutes Coding Level of Care Code 74760 Inpt Consult Level 3 Diagnoses Palliative care encounter Z51.5 Anoxic brain injury G93.1 Cardiac arrest I46.9 Febrile R50.9 Seizures R56.9 Time Spent (min) 100
[2021-02-25] MEDS ORDERED: DIVALPROEX EXTENDED RELEASE 250 MG TABCR PO SCH (14:00)
--- NOTE | 2021-02-25 14:01 | Pharmacy Report ---
Pharmacy Glycemic Short Note 2 - Date of Service February 25, 2021 - Glycemic Short BSG Results (Last 24 hours): 02/24/21 02/24/21 02/24/21 13:47 13:59 15:13 Glucose 176 H POC Glucose POC Glucose (other) 180 H 184 H 02/24/21 02/24/21 02/24/21 16:35 17:10 17:23 Glucose POC Glucose 133 H 113 H 105 H POC Glucose (other) 02/24/21 02/24/21 02/24/21 17:42 18:09 18:31 Glucose POC Glucose 108 H 104 H 100 H POC Glucose (other) 02/24/21 02/24/21 02/24/21 18:45 19:04 19:17 Glucose POC Glucose 101 H 124 H 110 H POC Glucose (other) 02/24/21 02/24/21 02/24/21 19:35 20:30 23:08 Glucose POC Glucose 109 H 108 H 122 H POC Glucose (other) 02/25/21 02/25/21 02/25/21 00:06 04:27 04:58 Glucose 158 H POC Glucose 127 H 121 H POC Glucose (other) 02/25/21 02/25/21 08:24 12:06 Glucose POC Glucose 139 H 147 H POC Glucose (other) OUTPATIENT ANTIDIABETIC REGIMEN: * metformin 1 gm PO BID ASSESSMENT: 02/25: * Patient was successfully transitioned off of insulin infusion and currently is maintained on novolog only. * Patient remains NPO 02/24 * Mr Nieves is a 65 y/o M with a PMH of T2DM on one oral medication who presents s/p unwitnessed cardiac arrest. * Patient was undergoing hypothermia protocol but this has been discontinued. * Patient initiated on insulin infusion due to critical illness. Will continue this for now. PLAN FOR INPATIENT GLYCEMIC CONTROL: * Correctional Insulin: Novolog Correction per scale q4 Goal Range: Low 120 mg/dL - High 150 mg/dL Correction Factor: 25 mg/dL/unit * Prandial insulin: Per carb ratio of 1 unit per 8 grams CHO consumed PLAN FOR DISCHARGE: * TBD
[2021-02-25] MEDS: MIDAZOLAM HCL 1 MG/ML 2ML VIAL IV PRN (15:10)
[2021-02-25] MEDS: VALPROATE SOD 250 MG in DEXTROSE 5% 50 ML IV SCH ×2 (17:14→21:49)
[2021-02-25] MEDS: levETIRAcetam 1,000 MG in 0.9 % SODIUM CHLORIDE 100 ML IV SCH (20:10)
[2021-02-26] MEDS: INSULIN ASPART PER UNIT SC SCH ×5 (00:01→18:04)
[2021-02-26] MEDS: ACETAMINOPHEN 1,000 MG/100 ML VIAL IV PRN ×3 (01:33→19:56)
[2021-02-26] MEDS: propofoL 1,000 MG/100 ML VIAL IV SCH ×9 (01:33→21:30)
[2021-02-26] MEDS: VALPROATE SOD 250 MG in DEXTROSE 5% 50 ML IV SCH ×2 (03:16→09:33)
[2021-02-26] MEDS: NORMOSOL-R 1,000 ML IV SCH ×3 (04:28→21:24)
[2021-02-26 04:52] LABS: iSTAT Art Bld Gas pCO2 Correct 33 mmHg (35-46); iSTAT Art Bld Gas pH Corrected 7.546 (7.35-7.45); iSTAT Arterial Blood Gas HCO3 29 meg/L (19-24); iSTAT Arterial Blood Gas pCO2 32 mmHg (35-46); iSTAT Arterial Blood Gas pH 7.56 (7.35-7.45); iSTAT Arterial Blood Gas pO2 80 mmHg (80-95); iSTAT Arterial Blood Gas pO2 C 86; iSTAT Carbon Dioxide 30 mmol/L (24-31); iSTAT FiO2 30 %; iSTAT Hematocrit 27 % (42-52); iSTAT Hemoglobin 9.2 g/dl (14.0-18.0); iSTAT Potassium 2.8 mmol/L (3.3-5.0); iSTAT Site L Brachial; iSTAT Sodium 138 mmol/L (135-144)
[2021-02-26 05:22] LABS: Eosinophils # (auto) 0.09 K/uL (0-0.5); Eosinophils % (auto) 1.1 %; Hematocrit (blood only) 34.3 % (42-52); Hemoglobin 11.6 g/dL (14.0-18.0); Immature Granulocytes # (auto) 0.01 K/uL (0.00-0.02); Immature Granulocytes % (auto) 0.1 %; Lymphocytes # (auto) 1.14 K/uL (1.2-3.4); Lymphocytes % (auto) 13.8 %; Mean Corpuscular Hgb Conc 33.8 g/dL (32-36); Mean Corpuscular Volume 88.6 fL (80-100); Mean Platelet Volume 10.6 fL (7.4-10.4); Monocytes # (auto) 0.58 K/uL (0.11-0.59); Neutrophils # (auto) 6.43 K/uL (1.4-6.5); Platelet Count 172 K/uL (130-400); RDW Coefficient of Variation 12.9 % (11.5-14.5); RDW Standard Deviation 41.2 fL (36.4-46.3); Red Blood Count 3.87 M/uL (4.7-6.1); White Blood Count 8.25 K/uL (4.8-10.8)
[2021-02-26 05:38] LABS: Prothrombin Time 10.6 Seconds (9.0-12.0)
[2021-02-26 05:50] LABS: Albumin Globulin Ratio 0.9 (0.9-2); Albumin Level 2.8 gm/dl (3.4-5.0); BUN Creatinine Ratio 10.9 (10-20); Bilirubin,Total 0.5 mg/dl (0.2-1); Calcium 7.9 mg/dl (8.5-10.1); Creatinine Clr Calc Pharmacy 84.5 ml/min; Est GFR (African American) 96.8 ml/min; Est GFR (Non-African American) 83.6 ml/min; Globulin 3.1 gm/dl (2.5-4.0); Magnesium 2.1 mg/dl (1.8-2.4); Phosphorus 2.5 mg/dl (2.5-4.9); Total Protein 5.9 gm/dl (6.4-8.2)
[2021-02-26] MEDS ORDERED: POTASSIUM CHLORIDE 20 MEQ/15 ML UDC PO STA (06:26)
--- NOTE | 2021-02-26 06:44 | Electrocardiogram Report ---
Test Reason : Blood Pressure : / mmHG Vent. Rate : 053 BPM Atrial Rate : 055 BPM P-R Int : 000 ms QRS Dur : 086 ms QT Int : 322 ms P-R-T Axes : 000 -08 -29 degrees QTc Int : 302 ms Poor data quality, interpretation may be adversely affected Cannot determine rhythm due to baseline artifact (sinus bradycardia vs junctional) Nonspecific ST and T wave abnormality Abnormal ECG When compared with ECG of 24-FEB-2021 07:58, No significant change Confirmed by Alex Norwood ([id number]) on 02/26/2021 6:44:46 AM Referred By: REFERRED SELF Confirmed By:Alex Norwood
[2021-02-26] MEDS: POTASSIUM CHLORIDE / WTR 20 MEQ/100 ML PLCT IV SCH ×2 (07:54→10:02)
--- NOTE | 2021-02-26 07:54 | XRay Report ---
XR chest 1V portable CLINICAL HISTORY: Resp failure TECHNIQUE: Single frontal radiograph of the chest was obtained. Comparison: Comparison is made to chest one view 02/25/2021 FINDINGS: Endotracheal tube has been withdrawn and is now 4 cm above the anish. Enteric tube is stable in posi tion. Cardiomegaly is noted. Bilateral lower lung predominant airspace opacities are seen. No evidenc e of pleural effusion or pneumothorax. IMPRESSION: 1. Bilateral lower lung predominant airspace opacities which may represent atelectasis, pneumonia, a nd/or aspiration. 2. Interval improvement in pulmonary edema. ACT 112: Negative or not required by law. Electronically signed by: Richie Hunter M.D. 02/26/2021 7:52 AM
[2021-02-26] MEDS: PROPOFOL BOLUS FROM BAG IV PRN (08:10)
[2021-02-26] MEDS: levETIRAcetam 1,000 MG in 0.9 % SODIUM CHLORIDE 100 ML IV SCH ×2 (08:14→20:13)
[2021-02-26] MEDS: MIDAZOLAM HCL 1 MG/ML 2ML VIAL IV PRN (08:32)
--- NOTE | 2021-02-26 09:49 | Electroencephalogram ---
EEG Procedure Note Date of Service February 26, 2021 Start / End Times Start Time: 843 End Time: 903 Referring Physician JASMINE Bennett History 65-year-old post cardiopulmonary arrest for uncertain amount of time now in an unresponsive state with seizure-like activity. Home Medication List Medication Instructions Recorded Confirmed Type aspirin 81 mg tablet,delayed 81 mg PO DAILY 08/16/18 02/23/21 History release (Adult Aspirin Regimen) cholecalciferol (vitamin D3) 25 1,000 units PO DAILY 08/16/18 02/23/21 History mcg (1,000 unit) capsule multivitamin 1 tab PO DAILY 12/08/18 02/23/21 History Lactobacillus 1 cap PO .TAKE 1 CAPSULE Daily 06/17/19 02/23/21 History acidophilus-Bifidobac.animalis 31 billion cell capsule mecobalamin (vitamin B12) 1,000 500 mcg SL DAILY #90 tab 04/27/20 02/23/21 Rx mcg disintegrating tablet,sublingual lisinopril 40 mg tablet 40 mg PO DAILY #90 tab 05/08/20 02/23/21 Rx simvastatin 10 mg tablet 10 mg PO DAILY #90 tab 05/21/20 02/23/21 Rx amlodipine 5 mg tablet 5 mg PO DAILY #90 tab 12/11/20 02/23/21 Rx metformin 1,000 mg tablet 1,000 mg PO BID #180 tab 12/12/20 02/23/21 Rx lancets (OneTouch UltraSoft #300 ea 01/29/21 02/23/21 Rx Lancets) Inpatient Medication List Acetaminophen (Acetaminophen 650 Mg Supp) 650 mg [place] ONE PRN PRN Reason: Rebound Hyperthermia x 1 dose Stop: 03/25/21 19:44 Last Admin: 02/24/21 21:00 Dose: 650 mg Documented by: [id number] Buspirone HCl (Buspirone 15 Mg Tab) 60 mg NG ONCE PRN PRN Reason: For Shivering x 1 dose Stop: 03/25/21 19:44 Last Admin: 02/23/21 21:22 Dose: 60 mg Documented by: [id number] Dextrose (Dextrose 50% 50 Ml Syringe) 25 - 50 ml IV UD PRN; Protocol PRN Reason: Hypoglycemia Protocol Stop: 03/25/21 19:59 Last Admin: 02/24/21 07:43 Dose: 25 ml Documented by: [id number] Fentanyl Citrate (Fentanyl Bolus From Bag) 50 mcg IV Q60M PRN PRN Reason: Pain or Agitation Stop: 03/09/21 21:08 Last Admin: 02/24/21 22:38 Dose: 50 mcg Documented by: [id number] Admin: 02/24/21 22:12 Dose: 50 mcg Documented by: [id number] Admin: 02/24/21 05:01 Dose: 50 mcg Documented by: [id number] Admin: 02/23/21 21:30 Dose: 50 mcg Documented by: [id number] Amiodarone HCl/Dextrose (Nexterone / D5w) 360 mg in 200 mls @ 16.667 mls/hr IV .Q12H [facility] Stop: 03/25/21 23:14 Last Infusion: 02/26/21 07:14 Dose: 0.5 mg/min, 16.7 mls/hr Documented by: [id number] Cosigned by: [id number] Admin: 02/25/21 21:51 Dose: 0.5 mg/min, 16.7 mls/hr Documented by: [id number] Cosigned by: [id number] Infusion: 02/25/21 21:51 Dose: 0.5 mg/min, 16.7 mls/hr Documented by: [id number] Cosigned by: [id number] Infusion: 02/25/21 19:06 Dose: 0.5 mg/min, 16.7 mls/hr Documented by: [id number] Cosigned by: [id number] Admin: 02/25/21 11:23 Dose: 0.5 mg/min, 16.7 mls/hr Documented by: [id number] Cosigned by: [id number] Infusion: 02/25/21 10:36 Dose: 0.5 mg/min, 16.7 mls/hr Documented by: [id number] Cosigned by: [id number] Infusion: 02/25/21 07:16 Dose: 0.5 mg/min, 16.7 mls/hr Documented by: [id number] Cosigned by: [id number] Admin: 02/24/21 22:37 Dose: 0.5 mg/min, 16.7 mls/hr Documented by: [id number] Cosigned by: [id number] Infusion: 02/24/21 22:37 Dose: 0.5 mg/min, 16.7 mls/hr Documented by: [id number] Cosigned by: [id number] Infusion: 02/24/21 18:59 Dose: 0.5 mg/min, 16.7 mls/hr Documented by: [id number] Cosigned by: [id number] Admin: 02/24/21 10:54 Dose: 0.5 mg/min, 16.7 mls/hr Documented by: [id number] Cosigned by: [id number] Infusion: 02/24/21 10:54 Dose: 0.5 mg/min, 16.7 mls/hr Documented by: [id number] Cosigned by: [id number] Infusion: 02/24/21 06:46 Dose: 0.5 mg/min, 16.7 mls/hr Documented by: [id number] Cosigned by: [id number] Admin: 02/24/21 00:36 Dose: 0.5 mg/min, 16.7 mls/hr Documented by: [id number] Cosigned by: [id number] Propofol (Diprivan) 1,000 mg in 100 mls @ 22.536 mls/hr IV .Q4H27M [facility]; Protocol Stop: 02/26/21 17:14 Last Titration: 02/26/21 07:14 Dose: 40 mcg/kg/min, 22.5 mls/hr Documented by: [id number] Cosigned by: [id number] Admin: 02/26/21 07:10 Dose: Not Given Documented by: [id number] Admin: 02/26/21 07:10 Dose: Not Given Documented by: [id number] Admin: 02/26/21 07:09 Dose: Not Given Documented by: [id number] Admin: 02/26/21 07:09 Dose: Not Given Documented by: [id number] Admin: 02/26/21 07:09 Dose: Not Given Documented by: [id number] Admin: 02/26/21 07:09 Dose: Not Given Documented by: [id number] Admin: 02/26/21 07:09 Dose: Not Given Documented by: [id number] Admin: 02/26/21 05:22 Dose: 40 mcg/kg/min, 22.5 mls/hr Documented by: [id number] Cosigned by: [id number] Titration: 02/26/21 05:17 Dose: 40 mcg/kg/min, 22.5 mls/hr Documented by: [id number] Cosigned by: [id number] Titration: 02/26/21 04:23 Dose: 40 mcg/kg/min, 22.5 mls/hr Documented by: [id number] Admin: 02/26/21 01:33 Dose: 50 mcg/kg/min, 28.2 mls/hr Documented by: [id number] Cosigned by: [id number] Titration: 02/26/21 01:23 Dose: 50 mcg/kg/min, 28.2 mls/hr Documented by: [id number] Cosigned by: [id number] Admin: 02/25/21 21:50 Dose: 50 mcg/kg/min, 28.2 mls/hr Documented by: [id number] Cosigned by: [id number] Titration: 02/25/21 21:48 Dose: 50 mcg/kg/min, 28.2 mls/hr Documented by: [id number] Cosigned by: [id number] Titration: 02/25/21 19:06 Dose: 50 mcg/kg/min, 28.2 mls/hr Documented by: [id number] Cosigned by: [id number] Admin: 02/25/21 18:15 Dose: 50 mcg/kg/min, 28.2 mls/hr Documented by: [id number] Cosigned by: [id number] Titration: 02/25/21 18:15 Dose: 50 mcg/kg/min, 28.2 mls/hr Documented by: [id number] Cosigned by: [id number] Admin: 02/25/21 15:10 Dose: 50 mcg/kg/min, 28.2 mls/hr Documented by: [id number] Cosigned by: [id number] Titration: 02/25/21 14:59 Dose: 50 mcg/kg/min, 28.2 mls/hr Documented by: [id number] Cosigned by: [id number] Admin: 02/25/21 11:26 Dose: 50 mcg/kg/min, 28.2 mls/hr Documented by: [id number] Cosigned by: [id number] Titration: 02/25/21 11:26 Dose: 50 mcg/kg/min, 28.2 mls/hr Documented by: [id number] Cosigned by: [id number] Admin: 02/25/21 08:40 Dose: 50 mcg/kg/min, 28.2 mls/hr Documented by: [id number] Cosigned by: [id number] Titration: 02/25/21 08:26 Dose: 50 mcg/kg/min, 28.2 mls/hr Documented by: [id number] Cosigned by: [id number] Titration: 02/25/21 07:16 Dose: 50 mcg/kg/min, 28.2 mls/hr Documented by: [id number] Cosigned by: [id number] Admin: 02/25/21 06:16 Dose: Not Given Documented by: [id number] Titration: 02/25/21 05:25 Dose: 50 mcg/kg/min, 28.2 mls/hr Documented by: [id number] Titration: 02/25/21 05:15 Dose: 40 mcg/kg/min, 22.5 mls/hr Documented by: [id number] Admin: 02/25/21 04:34 Dose: 30 mcg/kg/min, 16.9 mls/hr Documented by: [id number] Cosigned by: [id number] Titration: 02/25/21 04:34 Dose: 30 mcg/kg/min, 16.9 mls/hr Documented by: [id number] Cosigned by: [id number] Titration: 02/25/21 02:53 Dose: 30 mcg/kg/min, 16.9 mls/hr Documented by: [id number] Admin: 02/25/21 00:04 Dose: 40 mcg/kg/min, 22.5 mls/hr Documented by: [id number] Cosigned by: [id number] Titration: 02/25/21 00:04 Dose: 40 mcg/kg/min, 22.5 mls/hr Documented by: [id number] Cosigned by: [id number] Admin: 02/24/21 23:43 Dose: Not Given Documented by: [id number] Titration: 02/24/21 22:36 Dose: 40 mcg/kg/min, 22.5 mls/hr Documented by: [id number] Admin: 02/24/21 21:52 Dose: Not Given Documented by: [id number] Admin: 02/24/21 21:52 Dose: Not Given Documented by: [id number] Admin: 02/24/21 21:01 Dose: 30 mcg/kg/min, 16.9 mls/hr Documented by: [id number] Cosigned by: [id number] Titration: 02/24/21 18:59 Dose: 30 mcg/kg/min, 16.9 mls/hr Documented by: [id number] Cosigned by: [id number] Admin: 02/24/21 17:25 Dose: Not Given Documented by: [id number] Admin: 02/24/21 15:03 Dose: 50 mcg/kg/min, 28.2 mls/hr Documented by: [id number] Cosigned by: [id number] Titration: 02/24/21 14:38 Dose: 50 mcg/kg/min, 28.2 mls/hr Documented by: [id number] Cosigned by: [id number] Titration: 02/24/21 11:15 Dose: 50 mcg/kg/min, 28.2 mls/hr Documented by: [id number] Admin: 02/24/21 11:00 Dose: Not Given Documented by: [id number] Cosigned by: [id number] Admin: 02/24/21 10:54 Dose: 25 mcg/kg/min, 14.1 mls/hr Documented by: [id number] Cosigned by: [id number] Titration: 02/24/21 10:54 Dose: 30 mcg/kg/min, 16.9 mls/hr Documented by: [id number] Cosigned by: [id number] Titration: 02/24/21 09:39 Dose: 30 mcg/kg/min, 16.9 mls/hr Documented by: [id number] Titration: 02/24/21 08:30 Dose: 40 mcg/kg/min, 22.5 mls/hr Documented by: [id number] Titration: 02/24/21 06:46 Dose: 30 mcg/kg/min, 16.9 mls/hr Documented by: [id number] Cosigned by: [id number] Admin: 02/24/21 06:23 Dose: 30 mcg/kg/min, 16.9 mls/hr Documented by: [id number] Cosigned by: [id number] Titration: 02/24/21 05:06 Dose: 40 mcg/kg/min, 22.5 mls/hr Documented by: [id number] Cosigned by: [id number] Titration: 02/24/21 03:50 Dose: 40 mcg/kg/min, 22.5 mls/hr Documented by: [id number] Titration: 02/24/21 03:26 Dose: 30 mcg/kg/min, 16.9 mls/hr Documented by: [id number] Titration: 02/24/21 00:43 Dose: 40 mcg/kg/min, 22.5 mls/hr Documented by: [id number] Admin: 02/24/21 00:35 Dose: 50 mcg/kg/min, 28.2 mls/hr Documented by: [id number] Cosigned by: [id number] Titration: 02/24/21 00:24 Dose: 50 mcg/kg/min, 28.2 mls/hr Documented by: [id number] Cosigned by: [id number] Admin: 02/23/21 20:51 Dose: 50 mcg/kg/min, 28.2 mls/hr Documented by: [id number] Cosigned by: [id number] Pantoprazole Sodium 40 mg/ (Syringe) 10 mls @ 5 mls/min IV DAILY@1100 [facility] Stop: 03/26/21 10:59 Last Admin: 02/25/21 11:24 Dose: 5 mls/min Documented by: [id number] Admin: 02/24/21 10:54 Dose: 5 mls/min Documented by: [id number] Parenteral Electrolytes (Normosol-R) 1,000 mls @ 125 mls/hr IV .Q8H [facility] Stop: 03/25/21 21:44 Last Admin: 02/26/21 04:28 Dose: 125 mls/hr Documented by: [id number] Infusion: 02/26/21 04:10 Dose: 125 mls/hr Documented by: [id number] Admin: 02/25/21 20:10 Dose: 125 mls/hr Documented by: [id number] Infusion: 02/25/21 20:10 Dose: 125 mls/hr Documented by: [id number] Infusion: 02/25/21 19:06 Dose: 125 mls/hr Documented by: [id number] Admin: 02/25/21 12:43 Dose: 125 mls/hr Documented by: [id number] Infusion: 02/25/21 12:35 Dose: 125 mls/hr Documented by: [id number] Admin: 02/25/21 04:35 Dose: 125 mls/hr Documented by: [id number] Infusion: 02/25/21 04:35 Dose: 125 mls/hr Documented by: [id number] Admin: 02/24/21 21:00 Dose: 125 mls/hr Documented by: [id number] Infusion: 02/24/21 20:52 Dose: 125 mls/hr Documented by: [id number] Admin: 02/24/21 12:52 Dose: 125 mls/hr Documented by: [id number] Infusion: 02/24/21 12:52 Dose: 125 mls/hr Documented by: [id number] Admin: 02/24/21 05:06 Dose: 125 mls/hr Documented by: [id number] Infusion: 02/24/21 05:06 Dose: 125 mls/hr Documented by: [id number] Admin: 02/23/21 21:59 Dose: 125 mls/hr Documented by: [id number] Acetaminophen (Ofirmev) 1,000 mg in 100 mls @ 400 mls/hr IV Q8H PRN PRN Reason: Fever Stop: 02/28/21 00:21 Last Infusion: 02/26/21 01:48 Dose: 0 mls/hr Documented by: [id number] Admin: 02/26/21 01:33 Dose: 400 mls/hr Documented by: [id number] Infusion: 02/25/21 18:41 Dose: 0 mls/hr Documented by: [id number] Admin: 02/25/21 18:14 Dose: 400 mls/hr Documented by: [id number] Infusion: 02/25/21 10:03 Dose: 0 mls/hr Documented by: [id number] Admin: 02/25/21 08:54 Dose: 400 mls/hr Documented by: [id number] Infusion: 02/25/21 00:51 Dose: 0 mls/hr Documented by: [id number] Admin: 02/25/21 00:36 Dose: 400 mls/hr Documented by: [id number] Levetiracetam 1,000 mg/ Sodium (Chloride) 110 mls @ 440 mls/hr IV Q12 [facility] Stop: 03/27/21 20:59 Last Infusion: 02/26/21 08:37 Dose: 0 mls/hr Documented by: [id number] Admin: 02/26/21 08:14 Dose: 440 mls/hr Documented by: [id number] Infusion: 02/25/21 20:25 Dose: 0 mls/hr Documented by: [id number] Admin: 02/25/21 20:10 Dose: 440 mls/hr Documented by: [id number] Valproic Acid 250 mg/ Dextrose 52.5 mls @ 55 mls/hr IV Q6H [facility] Stop: 03/27/21 15:59 Last Infusion: 12/21/21 04:14 Dose: 0 mls/hr Documented by: [id number] Admin: 02/26/21 03:16 Dose: 55 mls/hr Documented by: [id number] Infusion: 02/25/21 22:47 Dose: 0 mls/hr Documented by: [id number] Admin: 02/25/21 21:49 Dose: 55 mls/hr Documented by: [id number] Infusion: 02/25/21 18:30 Dose: 0 mls/hr Documented by: [id number] Admin: 02/25/21 17:14 Dose: 55 mls/hr Documented by: [id number] Potassium Chloride (K Florian / Wtr) 20 meq in 100 mls @ 50 mls/hr IV Q2H [facility]; Protocol Stop: 02/26/21 10:59 Last Admin: 02/26/21 07:54 Dose: 50 mls/hr Documented by: [id number] Insulin Aspart (Insulin Aspart Per Unit) 0 units SC ACHS [facility] Stop: 03/25/21 20:59 Last Admin: 02/24/21 21:01 Dose: Not Given Documented by: [id number] Admin: 02/24/21 15:03 Dose: Not Given Documented by: [id number] Cosigned by: [id number] Admin: 02/24/21 10:55 Dose: Not Given Documented by: [id number] Cosigned by: [id number] Admin: 02/24/21 07:43 Dose: Not Given Documented by: [id number] Cosigned by: [id number] Admin: 02/23/21 21:13 Dose: Not Given Documented by: [id number] Insulin Aspart (Insulin Aspart Per Unit) 0 units SC Q4 [facility] Stop: 03/27/21 00:00 Last Admin: 02/26/21 08:12 Dose: Not Given Documented by: [id number] Cosigned by: [id number] Admin: 02/26/21 04:23 Dose: Not Given Documented by: [id number] Admin: 02/26/21 00:01 Dose: Not Given Documented by: [id number] Admin: 02/25/21 20:04 Dose: Not Given Documented by: [id number] Admin: 02/25/21 16:24 Dose: Not Given Documented by: [id number] Cosigned by: [id number] Admin: 02/25/21 12:08 Dose: Not Given Documented by: [id number] Cosigned by: [id number] Admin: 02/25/21 08:34 Dose: Not Given Documented by: [id number] Cosigned by: [id number] Admin: 02/25/21 04:35 Dose: Not Given Documented by: [id number] Admin: 02/25/21 00:06 Dose: Not Given Documented by: [id number] Midazolam HCl (Midazolam Hcl 1 Mg/Ml 2ml Vial) 2 mg IV Q2H PRN PRN Reason: Agitation Stop: 03/25/21 21:08 Last Admin: 02/26/21 08:32 Dose: 2 mg Documented by: [id number] Admin: 02/25/21 15:10 Dose: 2 mg Documented by: [id number] Admin: 02/24/21 22:39 Dose: 2 mg Documented by: [id number] Admin: 02/24/21 11:15 Dose: 2 mg Documented by: [id number] Admin: 02/24/21 05:00 Dose: 2 mg Documented by: [id number] Admin: 02/23/21 21:21 Dose: 2 mg Documented by: [id number] Propofol (Propofol Bolus From Bag) 20 mg IV Q5M PRN PRN Reason: Sedation Stop: 02/26/21 17:06 Last Admin: 02/25/21 16:25 Dose: 20 mg Documented by: [id number] Cosigned by: [id number] Admin: 02/25/21 08:30 Dose: 20 mg Documented by: [id number] Cosigned by: [id number] Admin: 02/25/21 05:36 Dose: 20 mg Documented by: [id number] Cosigned by: [id number] Admin: 02/25/21 05:05 Dose: 20 mg Documented by: [id number] Cosigned by: [id number] Admin: 02/25/21 04:55 Dose: 20 mg Documented by: [id number] Cosigned by: [id number] Admin: 02/24/21 23:12 Dose: 20 mg Documented by: [id number] Cosigned by: [id number] Admin: 02/24/21 22:38 Dose: 20 mg Documented by: [id number] Cosigned by: [id number] Admin: 02/24/21 22:14 Dose: 20 mg Documented by: [id number] Cosigned by: [id number] Admin: 02/24/21 22:05 Dose: 20 mg Documented by: [id number] Cosigned by: [id number] Admin: 02/24/21 22:00 Dose: 20 mg Documented by: [id number] Cosigned by: [id number] Admin: 02/24/21 03:50 Dose: 20 mg Documented by: [id number] Cosigned by: [id number] Admin: 02/23/21 20:15 Dose: 20 mg Documented by: [id number] Cosigned by: [id number] Admin: 02/23/21 19:45 Dose: 20 mg Documented by: [id number] Cosigned by: [id number] Discontinued Medications Amiodarone HCl/Dextrose (Amiodarone 360mg / 200ml D5w) Confirm Administered Dose 360 mg IV .STK-MED ONE Stop: 02/23/21 17:06 Last Admin: 02/23/21 21:12 Dose: Not Given Documented by: [id number] Aspirin (Aspirin 300 Mg Supp) 300 mg [place] ONE ONE Stop: 02/23/21 16:55 Last Admin: 02/23/21 21:26 Dose: 300 mg Documented by: [id number] Fentanyl Citrate (Fentanyl Citrate 100 Mcg/2 Ml Vial) Confirm Administered Dose 100 mcg .ROUTE .STK-MED ONE Stop: 02/23/21 17:07 Last Admin: 02/23/21 20:13 Dose: Not Given Documented by: [id number] Furosemide (Furosemide 40 Mg/4 Ml Vial) 40 mg IV ONE ONE Stop: 02/25/21 09:47 Last Admin: 02/25/21 11:24 Dose: 40 mg Documented by: [id number] Heparin Sodium (Porcine) (Heparin (Porcine) 1000 Unit/Ml 10 Ml (Vending Machine Filler Use Only)) Confirm Administered Dose 10,000 units .ROUTE .STK-MED ONE Stop: 02/23/21 17:07 Last Admin: 02/23/21 20:23 Dose: Not Given Documented by: [id number] Heparin Sodium/Sodium Chloride (Heparin In Nss Infusion 1000 Unit/500 Ml (2 U/Ml) Bag) Confirm Administered Dose 3,000 units IV .STK-MED ONE Stop: 02/23/21 17:08 Last Admin: 02/23/21 20:24 Dose: Not Given Documented by: [id number] Amiodarone HCl/Dextrose (Nexterone / D5w) 360 mg in 200 mls @ 33.333 mls/hr IV .Q6H [facility] Stop: 02/23/21 23:14 Last Infusion: 12/19/21 00:36 Dose: 0 mg/min, 0 mls/hr Documented by: [id number] Cosigned by: [id number] Admin: 02/23/21 20:52 Dose: 1 mg/min, 33.3 mls/hr Documented by: [id number] Cosigned by: [id number] Sodium Chloride (Nss 1000ml) 1,000 mls @ 999 mls/hr IV .Q1H1M ONE Stop: 02/23/21 18:17 Last Admin: 02/23/21 20:26 Dose: Not Given Documented by: [id number] Insulin Human Regular 250 (units/ Sodium Chloride) 250 mls @ 0 mls/hr IV .Q0M [facility]; Protocol Stop: 03/25/21 19:59 Last Titration: 02/24/21 19:00 Dose: 0 units/hr, 0 mls/hr Documented by: [id number] Cosigned by: [id number] Titration: 02/24/21 18:59 Dose: 0 units/hr, 0 mls/hr Documented by: [id number] Cosigned by: [id number] Titration: 02/24/21 16:30 Dose: 0 units/hr, 0 mls/hr Documented by: [id number] Cosigned by: [id number] Titration: 02/24/21 15:00 Dose: 1.2 units/hr, 1.2 mls/hr Documented by: [id number] Cosigned by: [id number] Titration: 02/24/21 14:00 Dose: 1.2 units/hr, 1.2 mls/hr Documented by: [id number] Cosigned by: [id number] Titration: 02/24/21 13:00 Dose: 1 units/hr, 1 mls/hr Documented by: [id number] Cosigned by: [id number] Titration: 02/24/21 12:00 Dose: 1 units/hr, 1 mls/hr Documented by: [id number] Cosigned by: [id number] Titration: 02/24/21 11:00 Dose: 1.3 units/hr, 1.3 mls/hr Documented by: [id number] Cosigned by: [id number] Titration: 02/24/21 10:00 Dose: 1.6 units/hr, 1.6 mls/hr Documented by: [id number] Cosigned by: [id number] Titration: 02/24/21 09:00 Dose: 1.6 units/hr, 1.6 mls/hr Documented by: [id number] Cosigned by: [id number] Titration: 02/24/21 08:00 Dose: 2 units/hr, 2 mls/hr Documented by: [id number] Cosigned by: [id number] Titration: 02/24/21 07:44 Dose: 0 units/hr, 0 mls/hr Documented by: [id number] Cosigned by: [id number] Titration: 02/24/21 06:46 Dose: 2.6 units/hr, 2.6 mls/hr Documented by: [id number] Cosigned by: [id number] Titration: 02/24/21 06:15 Dose: 2.6 units/hr, 2.6 mls/hr Documented by: [id number] Cosigned by: [id number] Titration: 02/24/21 05:10 Dose: 3.3 units/hr, 3.3 mls/hr Documented by: [id number] Cosigned by: [id number] Titration: 02/24/21 04:10 Dose: 4.1 units/hr, 4.1 mls/hr Documented by: [id number] Cosigned by: [id number] Titration: 02/24/21 03:10 Dose: 4.1 units/hr, 4.1 mls/hr Documented by: [id number] Cosigned by: [id number] Titration: 02/24/21 02:10 Dose: 4.1 units/hr, 4.1 mls/hr Documented by: [id number] Cosigned by: [id number] Titration: 02/24/21 01:10 Dose: 4.1 units/hr, 4.1 mls/hr Documented by: [id number] Cosigned by: [id number] Titration: 02/24/21 00:15 Dose: 4.1 units/hr, 4.1 mls/hr Documented by: [id number] Cosigned by: [id number] Titration: 02/23/21 23:15 Dose: 3.4 units/hr, 3.4 mls/hr Documented by: [id number] Cosigned by: [id number] Titration: 02/23/21 22:15 Dose: 2.8 units/hr, 2.8 mls/hr Documented by: [id number] Cosigned by: [id number] Admin: 02/23/21 20:46 Dose: 2.3 units/hr, 2.3 mls/hr Documented by: [id number] Cosigned by: [id number] Lorazepam (Ativan) 4 mg in 8 mls @ 4 mls/min IV NOW STA Stop: 02/23/21 20:37 Last Admin: 02/23/21 21:13 Dose: Not Given Documented by: [id number] Levetiracetam 2,000 mg/ Sodium (Chloride) 270 mls @ 999 mls/hr IV NOW STA Stop: 02/23/21 21:24 Last Infusion: 02/23/21 21:37 Dose: 0 mls/hr Documented by: [id number] Admin: 02/23/21 21:20 Dose: 999 mls/hr Documented by: [id number] Levetiracetam 500 mg/ Sodium (Chloride) 105 mls @ 420 mls/hr IV Q12H [facility] Stop: 03/26/21 08:59 Last Infusion: 02/25/21 09:30 Dose: 0 mls/hr Documented by: [id number] Admin: 02/25/21 08:48 Dose: 420 mls/hr Documented by: [id number] Infusion: 02/24/21 21:15 Dose: 0 mls/hr Documented by: [id number] Admin: 02/24/21 21:00 Dose: 420 mls/hr Documented by: [id number] Infusion: 02/24/21 08:42 Dose: 0 mls/hr Documented by: [id number] Admin: 02/24/21 07:43 Dose: 420 mls/hr Documented by: [id number] Fentanyl Citrate (Fentanyl Citrate) 2,500 mcg in 250 mls @ 2.5 mls/hr IV .Q96H [facility]; Protocol Stop: 03/09/21 21:14 Last Titration: 02/25/21 10:00 Dose: 0 mcg/hr, 0 mls/hr Documented by: [id number] Cosigned by: [id number] Admin: 02/25/21 08:35 Dose: 75 mcg/hr, 7.5 mls/hr Documented by: [id number] Cosigned by: [id number] Titration: 02/25/21 08:35 Dose: 75 mcg/hr, 7.5 mls/hr Documented by: [id number] Cosigned by: [id number] Titration: 02/25/21 07:16 Dose: 75 mcg/hr, 7.5 mls/hr Documented by: [id number] Cosigned by: [id number] Titration: 02/24/21 22:38 Dose: 75 mcg/hr, 7.5 mls/hr Documented by: [id number] Cosigned by: [id number] Titration: 02/24/21 18:59 Dose: 50 mcg/hr, 5 mls/hr Documented by: [id number] Cosigned by: [id number] Titration: 02/24/21 09:39 Dose: 25 mcg/hr, 2.5 mls/hr Documented by: [id number] Cosigned by: [id number] Titration: 02/24/21 06:46 Dose: 75 mcg/hr, 7.5 mls/hr Documented by: [id number] Cosigned by: [id number] Titration: 02/24/21 05:01 Dose: 75 mcg/hr, 7.5 mls/hr Documented by: [id number] Cosigned by: [id number] Titration: 02/23/21 22:00 Dose: 50 mcg/hr, 5 mls/hr Documented by: [id number] Cosigned by: [id number] Admin: 02/23/21 21:21 Dose: 25 mcg/hr, 2.5 mls/hr Documented by: [id number] Cosigned by: [id number] Calcium Gluconate 1,000 mg/ (Sodium Chloride) 60 mls @ 240 mls/hr IV NOW ONE Stop: 02/23/21 22:03 Last Infusion: 02/23/21 22:29 Dose: 0 mls/hr Documented by: [id number] Admin: 02/23/21 22:14 Dose: 240 mls/hr Documented by: [id number] Potassium Chloride (K Florian / Wtr) 20 meq in 100 mls @ 50 mls/hr IV ONE ONE; Protocol Stop: 02/25/21 08:44 Last Infusion: 02/25/21 10:34 Dose: 0 mls/hr Documented by: [id number] Admin: 02/25/21 08:34 Dose: 50 mls/hr Documented by: [id number] Insulin Human Regular (Novolin-R Bolus From Bag) 2.5 units IV ONE ONE Stop: 02/23/21 20:31 Last Admin: 02/23/21 20:53 Dose: 2.5 units Documented by: [id number] Cosigned by: [id number] Ioversol (Optiray 320 125ml) 120 ml IV ONCE ONE Stop: 02/23/21 17:38 Last Admin: 02/23/21 17:37 Dose: 120 ml Documented by: [id number] Lorazepam (Lorazepam 2 Mg/4 Ml Vial) Confirm Administered Dose 4 mg .ROUTE .STK- MED ONE Stop: 02/23/21 20:39 Last Admin: 02/23/21 20:50 Dose: 4 mg Documented by: [id number] Meperidine HCl (Meperidine Hcl 25 Mg/Ml Carp/Vial) 25 mg IV Q2H PRN PRN Reason: Shivering Stop: 03/09/21 19:44 Last Admin: 02/24/21 03:51 Dose: 25 mg Documented by: [id number] Admin: 02/24/21 00:35 Dose: 25 mg Documented by: [id number] Midazolam HCl (Midazolam Hcl 1 Mg/Ml 2ml Vial) Confirm Administered Dose 2 mg . ROUTE .STK-MED ONE Stop: 02/23/21 17:07 Last Admin: 02/23/21 20:23 Dose: Not Given Documented by: [id number] Misrayaneous (Stat Iv Infusion Titration Per Protocol) 1 ea N/A NOW STA Stop: 02/23/21 17:08 Last Admin: 02/23/21 20:25 Dose: Not Given Documented by: [id number] Monserrat (Insulin Protocol Goal Range ) 1 ea N/A ONE ONE Stop: 02/23/21 20:01 Last Admin: 02/23/21 21:12 Dose: 1 ea Documented by: [id number] Miscellaneous (Moderate Stress Level ) 1 ea N/A ONE ONE Stop: 02/23/21 20:09 Last Admin: 02/23/21 21:13 Dose: 1 ea Documented by: [id number] Nicardipine HCl (Nicardipine Hcl Inj 2.5 Mg/Ml 10 Ml Amp) Confirm Administered Dose 25 mg .ROUTE .STK-MED ONE Stop: 02/23/21 17:07 Last Admin: 02/23/21 20:23 Dose: Not Given Documented by: [id number] Nitroglycerin/Dextrose (Nitroglycerin/D5w 100mcg/Ml 20ml Syr) Confirm Administered Dose 2,000 mcg .ROUTE .STK-MED ONE Stop: 02/23/21 17:08 Last Admin: 02/23/21 20:24 Dose: Not Given Documented by: [id number] Potassium Chloride (Potassium Chloride 20 Meq/15 Ml Udc) 40 meq PO NOW STA Stop: 02/26/21 06:27 Last Admin: 02/26/21 07:54 Dose: 40 meq Documented by: [id number] Propofol (Propofol Iv Emulsion 10 Mg/Ml 100 Ml Vial) Confirm Administered Dose 1,000 mg IV .STK-MED ONE Stop: 02/23/21 17:07 Last Admin: 02/23/21 20:24 Dose: Not Given Documented by: [id number] Valproic Acid (Valproic Acid Soln 500 Mg/10 Ml Udc) 1,000 mg PO 0800 ONE Stop: 02/25/21 08:01 Last Admin: 02/25/21 08:56 Dose: 1,000 mg Documented by: [id number] Description This is a 21 electrode EEG with a single channel dedicated to limited EKG. The electrodes were placed in accordance with the International 10-20 system. Interpretation The predominant background activity consists of an irregular burst-suppression patterned activity. The suppression episodes were less than of 2nd and occurred every 1-5 seconds. The burst activity lasted anywhere from 1 second to 5 seconds and consisted of an irregular low to medium amplitude 5-6 hertz activity. there were sharply contoured waveforms initiating the bursts with a bifrontal maximum. This burst suppression activity is overall of low to medium amplitude. Patient had considerable jerking movements of the head and body. Photic stimulation and hyperventilation were not performed. A minimal amount of muscle and movement artifact activity contaminated the recording and did not hinder interpretation to any significant degree. Throughout this recording, I did not see any discrete focal abnormalities (the slowing was generalized) or any repetitive / pattern spike and wave discharges. This study is severely abnormal and shows a burst suppression activity similar to the EEG recording of February 25 but of a little more irregular nature and a little lower amplitude. Also the pattern of frequent sharp waves and clinical jerking suggest a form of status epilepticus. Clinical Correlation The sharply contoured waveforms are theoretically potentially epileptogenic. Overall this pattern signifies a relatively poor prognosis. [facility] EEG Procedure Codes Indication for Procedure (1) Status epilepticus: (2) Anoxic brain injury: Neurology Neurology: 52884 EEG include record awake & drowsy
--- NOTE | 2021-02-26 09:54 | Hospitalist Progress Note ---
Date of Service February 26, 2021 Assessment & Plan (1) Cardiac arrest: Plan: 65 yo M Hx schizoaffective disorder, HTN, DM2, HLD admitted to ICU post-cardiac arrest. Cardiac arrest, ventricular tachycardia: -Initial EKG with evidence of ischemia however with resolution of such by arrival to ER. -Moderate nonobstructive disease on cardiac catheterization; no stents placed. -Ischemia possibly due to heart block vs QT prolongation vs other etiology. -Troponin 0.344 on admit, downtrending 0.177 -Echo 02/24: EF 55-60%, mild pulmonary hypertension, trace pericardial effusion, left atrium mildly dilated. -Triglycerides 201 otherwise lipid panel within normal limits, A1c 7.7. -Cardiology consulted, hemodynamically stable continue amiodarone drip Anoxic brain injury: -Poor neurological exam following ROSC after cardiac arrest. -Patient with fasciculations resolved with propofol bolus. -Likely seizures 2/2 anoxic brain injury. -24 hour hypothermia protocol upon admission to ICU. Rewarming started. -EEG ordered --> burst suppression pattern which goes with very poor prognosis likely from underlying anoxic brain injury Keppra increased to 1000 every 12 Depakote 1 g bolus followed by 250 mg every 6 hours. Given 1 dose Lasix -Continue to monitor neurologic function. -breathing trial on hold, continue propofol due to seizure-like activity -Palliative care consulted -Neurology consulted, found patient in Status Epilepticus, awaiting Depakote level, Keppra level -patient's sister contacted, Marti, Ezequiel [phone], Code status updated to conditional DNR. Family denied gift of life. Awaiting further discussion with family. -tube feeding started 02/26 Intubated: -Patient was intubated for airway support during cardiac arrest. -Wean sedation for spontaneous trials of breathing as able. -breathing trial on hold, continue propofol due to seizure-like activity Leukocytosis -likely reactive to cardiac arrest, WBC 10.04 -Patient is spiking fever this also seems to be central, max 38.7 C not responsive to tylenol Transaminitis: -AST and ALT with mild elevation on ER labs; moreso than on prior labwork. -Suspect shock liver in the setting of cardiac arrest. -downtrending, continue to monitor DM2: -BSG range in mid-300s as of presentation to hospital. BHB mildly elevated. Presented in metabolic acidosis, but suspected to be secondary to cardiac arrest. -Holding outpatient metformin. -A1c 7.7 -Insulin gtt with moderate stress dosing started upon admission, with consideration for basal/bolus should patient's clinical condition improve. -ICU hyperglycemia protocol initiated. Pharmacy consulted. HTN, HLD: -LDL 29, total cholesterol 105, triglycerides 201. -BP and HR on lower side at this time, holding antihypertensives. Schizoaffective disorder: -History of, not on medications for such at home per EMR. Code Status: conditional code DNR FEN/GI: feeding tube, daily IV PPI DVT ppx: SCDs, Lovenox Dispo: ICU (2) Schizoaffective disorder, bipolar type: (3) Hyperlipidemia: (4) Hypertension: (5) Diabetes mellitus: Admission and Anticipated Discharge Date Admission Date: February 23, 2021 Supervising Physician Co-Signing Physician Notes Patient seen and examined, chart reviewed, case discussed with Dr. Hernandez and I agree with the assessment and plan as above except as otherwise noted Patient is a 65-year-old male who presented with cardiac arrest, initially reported was observed but with unclear downtime prior on further history. At bedside patient is obtunded, ventilated with symmetrical chest rise, warm to the touch, and appears chronically ill. Radial pulse intact, regular rate. Showing pattern consistent with an anoxic brain injury, extremely poor prognosis. Remains on propofol, valproic acid, Keppra. EEG with burst pattern poor prognosis, ?underlyin status epilepticus. valproic acid level low goal [id number] being followed by neurology. Breathing over the vent but with increasing oxygen requirements. Family discussing goals of care, however do not want escalation of care and no additional pressors/dialysis/CPR. Subjective 65yo Male seen at bedside, intubated, arrived post cardiac arrest resuscitation. PMH schizoaffective disorder, HTN, DM2, HLD. Garcia present. Patient unresponsive to name or noxious stimuli. Review of Systems Review of Systems: Unobtainable due to reduced consciousness Physical Exam Constitutional: + mechanically ventilated Respiratory: + tachypneic Auscultation: lungs clear to auscultation bilaterally Cardiovascular: RRR, no murmur, no edema Heart Sounds: normal S1 and normal S2 Gastrointestinal (Abdomen): normal bowel sounds, soft, nontender, no hepatosplenomegaly Skin: no rashes, warm and dry Neurologic: Comatose Patient: + response to noxious stimuli absent Results & Data Results & Data ([facility]) Vital Signs (Past 12 Hours) Vital Signs Temp Pulse Resp BP Pulse Ox 02/26/21 08:03 71 30 H 93 02/26/21 06:00 38.4 C H 68 29 H 128/64 92 02/26/21 05:30 38.4 C H 69 30 H 128/64 89 L 02/26/21 05:00 38.1 C H 75 31 H 135/63 91 02/26/21 04:30 37.9 C H 59 L 14 125/60 98 02/26/21 04:00 37.9 C H 60 18 98 02/26/21 03:48 64 18 98 02/26/21 03:30 38.1 C H 59 L 18 117/56 L 98 02/26/21 03:00 38.3 C H 60 18 116/55 L 98 02/26/21 02:30 38.4 C H 63 18 98 02/26/21 02:00 38.5 C H 66 18 111/53 L 97 02/26/21 01:30 38.5 C H 63 18 97 02/26/21 01:00 38.5 C H 64 18 119/57 L 97 02/26/21 00:30 38.4 C H 65 18 97 02/26/21 00:00 38.4 C H 63 18 115/53 L 97 02/25/21 23:30 38.3 C H 62 18 97 02/25/21 23:14 65 02/25/21 23:03 65 18 97 02/25/21 23:00 38.1 C H 65 16 131/69 98 02/25/21 22:30 37.8 C H 65 16 131/68 98 02/25/21 22:00 37.8 C H 58 L 18 101/48 L 97 Laboratory Results 02/26/21 02/26/21 02/26/21 Range/Units 11:47 11:47 10:56 WBC (4.8-10.8) K/uL RBC (4.7-6.1) M/uL Hgb (14.0-18.0) g/dL POC Hgb (14.0-18.0) g/dl Hct (42-52) % POC Hct (42-52) % MCV (80-100) fL MCH (25-34) pg MCHC (32-36) g/dL RDW Std Deviation (36.4-46.3) fL RDW Coeff of Shanell (11.5-14.5) % Plt Count (130-400) K/uL MPV (7.4-10.4) fL Immature Gran % (Auto) % Neut % (Auto) % Lymph % (Auto) % Labette % (Auto) % Eos % (Auto) % Baso % (Auto) % Neut # (Auto) (1.4-6.5) K/uL Lymph # (Auto) (1.2-3.4) K/uL Labette # (Auto) (0.11-0.59) K/uL Eos # (Auto) (0-0.5) K/uL Baso # (Auto) (0-0.2) K/uL Immature Gran # (Auto) (0.00-0.02) K/uL PT (9.0-12.0) Seconds INR (0.9-1.1) Sample Site POC pH (7.35-7.45) POC pCO2 (35-46) mmHg POC pO2 (80-95) mmHg POC HCO3 (19-24) tayla/L POC Total CO2 (24-31) mmol/L POC Base Excess (-9-1.8) tayla/L ABG pH (Temp Correct) (7.35-7.45) ABG pCO2 (Temp Corrct (35-46) mmHg POC ABG pO2 at Pt Temp POC ABG O2 Sat (90-95) % Refugio Test O2 Delivery Device POC O2 Rate Minute Ventilation POC FiO2 % Tidal Volume PEEP POC Sodium (135-144) mmol/L Sodium (136-145) mmol/L POC Potassium (3.3-5.0) mmol/L Potassium (3.5-5.1) mmol/L Chloride (98-107) mmol/L Carbon Dioxide (21-32) mmol/L Anion Gap (3-11) BUN (7-18) mg/dl Creatinine (0.6-1.4) mg/dl Est Cr Clr Drug Dosing ml/min Est GFR ( Amer) ml/min Est GFR (Non-Af Amer) ml/min BUN/Creatinine Ratio (10-20) Glucose (70-99) mg/dl POC Glucose 146 H (70-99) mg/dl Calcium (8.5-10.1) mg/dl Phosphorus (2.5-4.9) mg/dl Magnesium (1.8-2.4) mg/dl Total Bilirubin (0.2-1) mg/dl AST (15-37) U/L ALT (12-78) Alkaline Phosphatase (45-117) U/L Total Protein (6.4-8.2) gm/dl Albumin (3.4-5.0) gm/dl Globulin (2.5-4.0) gm/dl Albumin/Globulin Ratio (0.9-2) Valproic Acid 48 L (50-100) mcg/ml Levetiracetam Pending 02/26/21 02/26/21 02/26/21 Range/Units 09:54 08:11 05:04 WBC (4.8-10.8) K/uL RBC (4.7-6.1) M/uL Hgb (14.0-18.0) g/dL POC Hgb (14.0-18.0) g/dl Hct (42-52) % POC Hct (42-52) % MCV (80-100) fL MCH (25-34) pg MCHC (32-36) g/dL RDW Std Deviation (36.4-46.3) fL RDW Coeff of Shanell (11.5-14.5) % Plt Count (130-400) K/uL MPV (7.4-10.4) fL Immature Gran % (Auto) % Neut % (Auto) % Lymph % (Auto) % Labette % (Auto) % Eos % (Auto) % Baso % (Auto) % Neut # (Auto) (1.4-6.5) K/uL Lymph # (Auto) (1.2-3.4) K/uL Labette # (Auto) (0.11-0.59) K/uL Eos # (Auto) (0-0.5) K/uL Baso # (Auto) (0-0.2) K/uL Immature Gran # (Auto) (0.00-0.02) K/uL PT (9.0-12.0) Seconds INR (0.9-1.1) Sample Site POC pH (7.35-7.45) POC pCO2 (35-46) mmHg POC pO2 (80-95) mmHg POC HCO3 (19-24) tayla/L POC Total CO2 (24-31) mmol/L POC Base Excess (-9-1.8) tayla/L ABG pH (Temp Correct) (7.35-7.45) ABG pCO2 (Temp Corrct (35-46) mmHg POC ABG pO2 at Pt Temp POC ABG O2 Sat (90-95) % Refugio Test O2 Delivery Device POC O2 Rate Minute Ventilation POC FiO2 % Tidal Volume PEEP POC Sodium (135-144) mmol/L Sodium 140 (136-145) mmol/L POC Potassium (3.3-5.0) mmol/L Potassium 3.0 L D (3.5-5.1) mmol/L Chloride 104 (98-107) mmol/L Carbon Dioxide 30 (21-32) mmol/L Anion Gap 6.0 (3-11) BUN 10 (7-18) mg/dl Creatinine 0.94 (0.6-1.4) mg/dl Est Cr Clr Drug Dosing 84.5 ml/min Est GFR ( Amer) 96.8 ml/min Est GFR (Non-Af Amer) 83.6 ml/min BUN/Creatinine Ratio 10.9 (10-20) Glucose 122 H (70-99) mg/dl POC Glucose 129 H (70-99) mg/dl Calcium 7.9 L (8.5-10.1) mg/dl Phosphorus 2.5 (2.5-4.9) mg/dl Magnesium 2.1 (1.8-2.4) mg/dl Total Bilirubin 0.5 (0.2-1) mg/dl AST 38 H (15-37) U/L ALT 57 (12-78) Alkaline Phosphatase 50 (45-117) U/L Total Protein 5.9 L (6.4-8.2) gm/dl Albumin 2.8 L (3.4-5.0) gm/dl Globulin 3.1 (2.5-4.0) gm/dl Albumin/Globulin Ratio 0.9 (0.9-2) Valproic Acid 42 L (50-100) mcg/ml Levetiracetam 1202/26/21 02/26/21 Range/Units 05:04 05:04 04:21 WBC 8.25 (4.8-10.8) K/uL RBC 3.87 L (4.7-6.1) M/uL Hgb 11.6 L (14.0-18.0) g/dL POC Hgb (14.0-18.0) g/dl Hct 34.3 L (42-52) % POC Hct (42-52) % MCV 88.6 (80-100) fL MCH 30.0 (25-34) pg MCHC 33.8 (32-36) g/dL RDW Std Deviation 41.2 (36.4-46.3) fL RDW Coeff of Shanell 12.9 (11.5-14.5) % Plt Count 172 (130-400) K/uL MPV 10.6 H (7.4-10.4) fL Immature Gran % (Auto) 0.1 % Neut % (Auto) 78.0 % Lymph % (Auto) 13.8 % Labette % (Auto) 7.0 % Eos % (Auto) 1.1 % Baso % (Auto) 0.0 % Neut # (Auto) 6.43 (1.4-6.5) K/uL Lymph # (Auto) 1.14 L (1.2-3.4) K/uL Labette # (Auto) 0.58 (0.11-0.59) K/uL Eos # (Auto) 0.09 (0-0.5) K/uL Baso # (Auto) 0.00 (0-0.2) K/uL Immature Gran # (Auto) 0.01 (0.00-0.02) K/uL PT 10.6 (9.0-12.0) Seconds INR 1.0 (0.9-1.1) Sample Site POC pH (7.35-7.45) POC pCO2 (35-46) mmHg POC pO2 (80-95) mmHg POC HCO3 (19-24) tayla/L POC Total CO2 (24-31) mmol/L POC Base Excess (-9-1.8) tayla/L ABG pH (Temp Correct) (7.35-7.45) ABG pCO2 (Temp Corrct (35-46) mmHg POC ABG pO2 at Pt Temp POC ABG O2 Sat (90-95) % Refugio Test O2 Delivery Device POC O2 Rate Minute Ventilation POC FiO2 % Tidal Volume PEEP POC Sodium (135-144) mmol/L Sodium (136-145) mmol/L POC Potassium (3.3-5.0) mmol/L Potassium (3.5-5.1) mmol/L Chloride (98-107) mmol/L Carbon Dioxide (21-32) mmol/L Anion Gap (3-11) BUN (7-18) mg/dl Creatinine (0.6-1.4) mg/dl Est Cr Clr Drug Dosing ml/min Est GFR ( Amer) ml/min Est GFR (Non-Af Amer) ml/min BUN/Creatinine Ratio (10-20) Glucose (70-99) mg/dl POC Glucose 105 H (70-99) mg/dl Calcium (8.5-10.1) mg/dl Phosphorus (2.5-4.9) mg/dl Magnesium (1.8-2.4) mg/dl Total Bilirubin (0.2-1) mg/dl AST (15-37) U/L ALT (12-78) Alkaline Phosphatase (45-117) U/L Total Protein (6.4-8.2) gm/dl Albumin (3.4-5.0) gm/dl Globulin (2.5-4.0) gm/dl Albumin/Globulin Ratio (0.9-2) Valproic Acid (50-100) mcg/ml Levetiracetam 02/26/21 02/26/21 02/25/21 Range/Units 04:05 04:03 23:58 WBC (4.8-10.8) K/uL RBC (4.7-6.1) M/uL Hgb (14.0-18.0) g/dL POC Hgb 9.2 L (14.0-18.0) g/dl Hct (42-52) % POC Hct 27 L (42-52) % MCV (80-100) fL MCH (25-34) pg MCHC (32-36) g/dL RDW Std Deviation (36.4-46.3) fL RDW Coeff of Shanell (11.5-14.5) % Plt Count (130-400) K/uL MPV (7.4-10.4) fL Immature Gran % (Auto) % Neut % (Auto) % Lymph % (Auto) % Labette % (Auto) % Eos % (Auto) % Baso % (Auto) % Neut # (Auto) (1.4-6.5) K/uL Lymph # (Auto) (1.2-3.4) K/uL Labette # (Auto) (0.11-0.59) K/uL Eos # (Auto) (0-0.5) K/uL Baso # (Auto) (0-0.2) K/uL Immature Gran # (Auto) (0.00-0.02) K/uL PT (9.0-12.0) Seconds INR (0.9-1.1) Sample Site L Brachial POC pH 7.56 H* (7.35-7.45) POC pCO2 32 L (35-46) mmHg POC pO2 80 (80-95) mmHg POC HCO3 29 H (19-24) tayla/L POC Total CO2 30 (24-31) mmol/L POC Base Excess 6.0 H (-9-1.8) tayla/L ABG pH (Temp Correct) 7.546 H* (7.35-7.45) ABG pCO2 (Temp Corrct 33 L (35-46) mmHg POC ABG pO2 at Pt Temp 86 POC ABG O2 Sat 97.0 H (90-95) % Refugio Test NA O2 Delivery Device Ventilator POC O2 Rate 18 Minute Ventilation 9.0 POC FiO2 30 % Tidal Volume 500 PEEP 5 POC Sodium 138 (135-144) mmol/L Sodium (136-145) mmol/L POC Potassium 2.8 L (3.3-5.0) mmol/L Potassium (3.5-5.1) mmol/L Chloride (98-107) mmol/L Carbon Dioxide (21-32) mmol/L Anion Gap (3-11) BUN (7-18) mg/dl Creatinine (0.6-1.4) mg/dl Est Cr Clr Drug Dosing ml/min Est GFR ( Amer) ml/min Est GFR (Non-Af Amer) ml/min BUN/Creatinine Ratio (10-20) Glucose (70-99) mg/dl POC Glucose 112 H 89 (70-99) mg/dl Calcium (8.5-10.1) mg/dl Phosphorus (2.5-4.9) mg/dl Magnesium (1.8-2.4) mg/dl Total Bilirubin (0.2-1) mg/dl AST (15-37) U/L ALT (12-78) Alkaline Phosphatase (45-117) U/L Total Protein (6.4-8.2) gm/dl Albumin (3.4-5.0) gm/dl Globulin (2.5-4.0) gm/dl Albumin/Globulin Ratio (0.9-2) Valproic Acid (50-100) mcg/ml Levetiracetam 02/25/21 Range/Units 20:03 WBC (4.8-10.8) K/uL RBC (4.7-6.1) M/uL Hgb (14.0-18.0) g/dL POC Hgb (14.0-18.0) g/dl Hct (42-52) % POC Hct (42-52) % MCV (80-100) fL MCH (25-34) pg MCHC (32-36) g/dL RDW Std Deviation (36.4-46.3) fL RDW Coeff of Shanell (11.5-14.5) % Plt Count (130-400) K/uL MPV (7.4-10.4) fL Immature Gran % (Auto) % Neut % (Auto) % Lymph % (Auto) % Labette % (Auto) % Eos % (Auto) % Baso % (Auto) % Neut # (Auto) (1.4-6.5) K/uL Lymph # (Auto) (1.2-3.4) K/uL Labette # (Auto) (0.11-0.59) K/uL Eos # (Auto) (0-0.5) K/uL Baso # (Auto) (0-0.2) K/uL Immature Gran # (Auto) (0.00-0.02) K/uL PT (9.0-12.0) Seconds INR (0.9-1.1) Sample Site POC pH (7.35-7.45) POC pCO2 (35-46) mmHg POC pO2 (80-95) mmHg POC HCO3 (19-24) tayla/L POC Total CO2 (24-31) mmol/L POC Base Excess (-9-1.8) tayla/L ABG pH (Temp Correct) (7.35-7.45) ABG pCO2 (Temp Corrct (35-46) mmHg POC ABG pO2 at Pt Temp POC ABG O2 Sat (90-95) % Refugio Test O2 Delivery Device POC O2 Rate Minute Ventilation POC FiO2 % Tidal Volume PEEP POC Sodium (135-144) mmol/L Sodium (136-145) mmol/L POC Potassium (3.3-5.0) mmol/L Potassium (3.5-5.1) mmol/L Chloride (98-107) mmol/L Carbon Dioxide (21-32) mmol/L Anion Gap (3-11) BUN (7-18) mg/dl Creatinine (0.6-1.4) mg/dl Est Cr Clr Drug Dosing ml/min Est GFR ( Amer) ml/min Est GFR (Non-Af Amer) ml/min BUN/Creatinine Ratio (10-20) Glucose (70-99) mg/dl POC Glucose 137 H (70-99) mg/dl Calcium (8.5-10.1) mg/dl Phosphorus (2.5-4.9) mg/dl Magnesium (1.8-2.4) mg/dl Total Bilirubin (0.2-1) mg/dl AST (15-37) U/L ALT (12-78) Alkaline Phosphatase (45-117) U/L Total Protein (6.4-8.2) gm/dl Albumin (3.4-5.0) gm/dl Globulin (2.5-4.0) gm/dl Albumin/Globulin Ratio (0.9-2) Valproic Acid (50-100) mcg/ml Levetiracetam Diagnostic Findings Chest CTA 02/23/21 17:03 CT ANGIOGRAM OF THE CHEST CLINICAL HISTORY: Cardiac arrest. COMPARISON STUDY: Chest x-ray dated 02/23/2021. TECHNIQUE: Following the IV administration of 120 cc of Optiray 320, CT angiogram of the chest was performed from the upper abdomen to the thoracic inlet utilizing the pulmonary embolus protocol. Images are reviewed in the axial, sagittal, and coronal planes. 3-D MIPS images are created and assessed. IV contrast was administered without complication. A dose lowering technique was utilized adhering to the principles of ALARA. The examination is compromised by motion artifact, as well as streak artifact from the arms which could not be elevated above the chest. FINDINGS: Thyroid: Normal in size and heterogeneous in attenuation. Thoracic aorta: The thoracic aorta is normal in caliber and demonstrates standard 3-vessel arch anatomy. No dissection is seen. Pulmonary vasculature: The pulmonary trunk is normal in caliber. There are no filling defects identified in main, lobar, or segmental pulmonary branches to suggest pulmonary embolus. Heart: The heart is mildly enlarged and without pericardial effusion. Lungs and pleural spaces: An endotracheal tube terminates above the anish. Minimal secretions are noted in the trachea. Right greater than left dependent consolidation likely represents segmental atelectasis. No pleural effusion is identified. There are scattered calcified granulomas. Mediastinum: A prevascular node measures up to 11 mm in short axis. Connie: Mildly enlarged hilar nodes measure up to 14 mm in short axis. Axillae: There is no axillary lymphadenopathy. Upper abdomen: There are numerous hepatic cysts which measure up to 3.8 cm. A 1.6 cm exophytic cyst arises from the upper pole of left kidney. Skeletal structures: No lytic or blastic bony lesions are seen. IMPRESSION: 1. Streak and motion compromised examination. 2. There is no evidence of pulmonary embolus in the main, lobar, or segmental pulmonary arteries. 3. Mild cardiomegaly. 4. Right greater than left dependent airspace consolidation likely represents segmental atelectasis. Correlate clinically for evidence of superimposed pneumonia. 5. Mildly enlarged mediastinal and hilar lymph nodes are nonspecific and may be reactive. 6. Additional findings as above. ACT 112: Negative or not required by law. Electronically signed by: Nakul Jones M.D. 02/23/2021 5:[address] 02/23/21 17:03 CT SCAN OF THE BRAIN WITHOUT IV CONTRAST CLINICAL HISTORY: Cardiac arrest. COMPARISON STUDY: No priors. TECHNIQUE: Unenhanced axial CT scan of the brain is performed from the vertex to the skull base. A dose lowering technique was utilized adhering to the principles of ALARA. CT DOSE: 1464.58 mGy.cm FINDINGS: Brain parenchyma: The brain parenchyma is normal in appearance. There is no hemorrhage, mass effect, or evidence of acute territorial ischemia by CT criteria. Esteves-white matter differentiation is preserved. No extra-axial fluid collection is seen. Ventricles, sulci, cisterns: Normal in configuration. Intracranial vasculature: There is atherosclerotic calcification of the cavernous carotid arteries. Calvarium: Unremarkable. Sinuses and mastoids: There is trace fluid within the sphenoid sinuses. Trace mucosal thickening is noted in the frontal and ethmoid sinuses. The mastoid air cells are well pneumatized. Orbits: The bony orbits are grossly intact. IMPRESSION: There is no hemorrhage, mass effect, or evidence of acute territorial ischemia by CT criteria. ACT 112: Negative or not required by law. Electronically signed by: Nakul Jones M.D. 02/23/2021 5:42 PM Chest X-Ray 02/26/21 07:00 XR chest 1V portable CLINICAL HISTORY: Resp failure TECHNIQUE: Single frontal radiograph of the chest was obtained. Comparison: Comparison is made to chest one view 02/25/2021 FINDINGS: Endotracheal tube has been withdrawn and is now 4 cm above the anish. Enteric tube is stable in position. Cardiomegaly is noted. Bilateral lower lung predominant airspace opacities are seen. No evidence of pleural effusion or pneumothorax. IMPRESSION: 1. Bilateral lower lung predominant airspace opacities which may represent atelectasis, pneumonia, and/or aspiration. 2. Interval improvement in pulmonary edema. ACT 112: Negative or not required by law. Electronically signed by: Richie Hunter M.D. 02/26/2021 7:52 AM Medications Administered Current Inpatient Medications Acetaminophen (Acetaminophen 650 Mg Supp) 650 mg NV ONE PRN PRN Reason: Rebound Hyperthermia x 1 dose Stop: 03/25/21 19:44 Last Admin: 02/24/21 21:00 Dose: 650 mg Documented by: Buspirone HCl (Buspirone 15 Mg Tab) 60 mg NG ONCE PRN PRN Reason: For Shivering x 1 dose Stop: 03/25/21 19:44 Last Admin: 02/23/21 21:22 Dose: 60 mg Documented by: Dextrose (Dextrose 50% 50 Ml Syringe) 25 - 50 ml IV UD PRN; Protocol PRN Reason: Hypoglycemia Protocol Stop: 03/25/21 19:59 Last Admin: 02/24/21 07:43 Dose: 25 ml Documented by: Enoxaparin Sodium (Enoxaparin Inj 40 Mg/0.4 Ml Syr) 40 mg SQ QAM JEYSON Stop: 03/28/21 09:59 Last Admin: 02/26/21 10:45 Dose: 40 mg Documented by: Fentanyl Citrate (Fentanyl Bolus From Bag) 50 mcg IV Q60M PRN PRN Reason: Pain or Agitation Stop: 03/09/21 21:08 Last Admin: 02/24/21 22:38 Dose: 50 mcg Documented by: Fentanyl Citrate (Fentanyl Citrate 100 Mcg/2 Ml Vial) 50 mcg IV Q2H PRN PRN Reason: Pain Stop: 03/11/21 11:21 Last Admin: 02/26/21 09:29 Dose: 50 mcg Documented by: Glucagon (Glucagon For Inj 1 Mg Vial) 1 mg IM UD PRN; Protocol PRN Reason: Hypoglycemia Protocol Stop: 03/25/21 19:59 Glucose (Glucose 40% Gel 15 Gm Tube) 15 - 30 gm PO UD PRN; Protocol PRN Reason: Hypoglycemia Protocol Stop: 03/25/21 19:59 Glucose (Glucose 10 Tabs/Tube) 4 - 8 tabs PO UD PRN; Protocol PRN Reason: Hypoglycemia Protocol Stop: 03/25/21 19:59 Amiodarone HCl/Dextrose (Nexterone / D5w) 360 mg in 200 mls @ 16.667 mls/hr IV .Q12H [facility] Stop: 03/25/21 23:14 Last Admin: 02/26/21 10:21 Dose: 0.5 mg/min, 16.7 mls/hr Documented by: Propofol (Diprivan) 1,000 mg in 100 mls @ 28.17 mls/hr IV .Q3H33M [facility]; Protocol Stop: 02/26/21 17:14 Last Admin: 02/26/21 13:54 Dose: 50 mcg/kg/min, 28.2 mls/hr Documented by: Pantoprazole Sodium 40 mg/ (Syringe) 10 mls @ 5 mls/min IV DAILY@1100 [facility] Stop: 03/26/21 10:59 Last Admin: 02/26/21 10:20 Dose: 5 mls/min Documented by: Parenteral Electrolytes (Normosol-R) 1,000 mls @ 125 mls/hr IV .Q8H [facility] Stop: 03/25/21 21:44 Last Admin: 02/26/21 13:38 Dose: 125 mls/hr Documented by: Acetaminophen (Ofirmev) 1,000 mg in 100 mls @ 400 mls/hr IV Q8H PRN PRN Reason: Fever Stop: 02/28/21 00:21 Last Infusion: 02/26/21 10:54 Dose: Infused Documented by: Levetiracetam 1,000 mg/ Sodium (Chloride) 110 mls @ 440 mls/hr IV Q12 [facility] Stop: 03/27/21 20:59 Last Infusion: 02/26/21 08:37 Dose: Infused Documented by: Valproic Acid 500 mg/ Dextrose 55 mls @ 55 mls/hr IV Q6 [facility] Stop: 03/28/21 17:59 Insulin Aspart (Insulin Aspart Per Unit) 0 units SC ACHS [facility] Stop: 03/25/21 20:59 Last Admin: 02/24/21 21:01 Dose: Not Given Documented by: Insulin Aspart (Insulin Aspart Per Unit) 0 units SC Q6 [facility] Stop: 03/28/21 11:59 Last Admin: 02/26/21 10:56 Dose: Not Given Documented by: Midazolam HCl (Midazolam Hcl 1 Mg/Ml 2ml Vial) 2 mg IV Q2H PRN PRN Reason: Agitation Stop: 03/25/21 21:08 Last Admin: 02/26/21 08:32 Dose: 2 mg Documented by: Miscellaneous (Carbohydrates For Hypoglycemia ) 15 - 30 gm PO UD PRN PRN Reason: Hypoglycemia Treatment Stop: 03/25/21 19:59 Miscellaneous (Icu Electrolyte Replacement Protocol) 1 ea N/A BID@06,18 [facility]; Protocol Stop: 03/05/21 17:59 Miscellaneous Information (Pharmacy Glycemic Mgmt Consult) 1 ea N/A UD PRN PRN Reason: Consult Stop: 03/25/21 19:33 Nutritional Formula (Peptamen Intense Vhp 1.0 Saurabh 1,000 Ml Bag) 1,000 ml OG UD [facility]; Protocol Stop: 03/28/21 10:59 Last Admin: 02/26/21 13:36 Dose: 1,000 ml Documented by: Propofol (Propofol Bolus From Bag) 20 mg IV Q5M PRN PRN Reason: Sedation Stop: 02/26/21 17:06 Last Admin: 02/26/21 08:10 Dose: 20 mg Documented by: Sterile Water (Tube Feeding Water Flush) 150 ml OG Q4H [facility] Stop: 03/28/21 10:59 Last Admin: 02/26/21 14:49 Dose: 150 ml Documented by: Resident Activity Tracking Resident Involvement: Resident Care Provided Care Provided: Adult Hospital Medicine
[2021-02-26] MEDS: PANTOprazole 40 MG in SYRINGE 0 ML IV SCH (10:20)
[2021-02-26] MEDS: AMIODARONE / D5W 360 MG/200 ML BAG IV SCH ×2 (10:21→22:56)
[2021-02-26] MEDS: ENOXAPARIN INJ 40 MG/0.4 ML SYR SQ SCH (10:45)
--- NOTE | 2021-02-26 10:56 | Neurology Consultation ---
Date of Consultation February 26, 2021 Assessment & Plan (1) Status epilepticus: (2) Anoxic brain injury: Patient is post cardiac arrest being without pressure or pulse for uncertain amount of time. He was resuscitated. I believe he has suffered severe generalized anoxic brain injury and currently is in a form of status epilepticus. The burst suppression EEG pattern carries a poor prognosis. Recommendations: 1. obtain a stat Depakote level at noon today. I will adjust his Depakote to try and get his level somewhere between 100-120. 2. Obtain a Keppra level ( which will not come back for some time). 3. will make additional recommendations pending on his clinical course. Overall, I spent a total of 60 minutes with this case including review of records and direct evaluation the bedside. I have also discussed the case with the RN at bedside and Dr. Nicole. History of Present Illness Reason for Consultation: Patient is a 65-year-old, who I was asked to see at the request of Dr. Nicole, neurologic consultation regarding unresponsive state with status epilepticus. Requesting Physician: Dr. Nicole Attending Physician: Albino Cook MD History of Present Illness This patient has a history of hypertension, dyslipidemia, and type 2 diabetes. he also carries a diagnosis of schizoaffective disorder and depression. Apparently he no longer sees a psychiatrist. He has been followed closely by Dr. Hitchcock, last seeing him in September of this year and he was doing fairly well. Apparently his [place] (had talked to him on the phone earlier on the and he was fine) and found him outside unresponsive but dumpster. He was given CPR and the police did defibrillation. The EMS intubated him and did CPR. Gait witnessed V-tach and was given amiodarone. It is uncertain how long he was without pressure or pulse. He was taken to the emergency room and was not responsive to pain or voice. Pupils were midsize and had decreased reaction. CT scan of the head was unremarkable and labs were largely unremarkable. Cardiac catheterization by Dr. Jimenez showed moderate nonobstructive coronary artery disease He has been on propofol, intubated and this having twitching movements of the limbs and trunk. EEGs have been done on each day that he has been in the hospital. Yesterday and today he has had burst suppression activity with sharply contoured waveforms initiating the bursts. These burst suppression episodes are irregular and of variable duration. He has no focal abnormalities. Allergies Allergy/AdvReac Type Severity Reaction Status Date / Time No Known Allergies Allergy Verified 02/23/21 17:21 Home Medications Medication Instructions Recorded Confirmed Type aspirin 81 mg tablet,delayed 81 mg PO DAILY 08/16/18 02/23/21 History release (Adult Aspirin Regimen) cholecalciferol (vitamin D3) 25 1,000 units PO DAILY 08/16/18 02/23/21 History mcg (1,000 unit) capsule multivitamin 1 tab PO DAILY 12/08/18 02/23/21 History Lactobacillus 1 cap PO .TAKE 1 CAPSULE Daily 06/17/19 02/23/21 History acidophilus-Bifidobac.animalis 31 billion cell capsule mecobalamin (vitamin B12) 1,000 500 mcg SL DAILY #90 tab 04/27/20 02/23/21 Rx mcg disintegrating tablet,sublingual lisinopril 40 mg tablet 40 mg PO DAILY #90 tab 05/08/20 02/23/21 Rx simvastatin 10 mg tablet 10 mg PO DAILY #90 tab 05/21/20 02/23/21 Rx amlodipine 5 mg tablet 5 mg PO DAILY #90 tab 12/11/20 02/23/21 Rx metformin 1,000 mg tablet 1,000 mg PO BID #180 tab 12/12/20 02/23/21 Rx lancets (OneTouch UltraSoft #300 ea 01/29/21 02/23/21 Rx Lancets) Patient History Medical History Diabetes mellitus NIDDM Febrile Foot pain Hyperlipidemia Hypertension Lt groin pain Not immune to hepatitis B virus Palliative care encounter Poor historian 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 Positive colorectal cancer screening using Cologuard test Positive colorectal cancer screening using Cologuard test Colonoscopy completed 2019- for follow-up/5 years recommended Schizophrenic disorder NO MEDS AT THIS TIME. 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 marital status: Single Current Living Situation: Alone Current Living Situation Comment: Check-in's from [employer] reps, councilors, and family. current occupational status: unemployed Other Information That Helps Us Care for You: No Feels Safe at Home: Declines to Answer Seatbelt Use: always Assistive Devices: Oxygen - Continuous Review of Systems Review of Systems: Unobtainable due to cognitive status Patient is intubated and on propofol and is unable to answer questions. Exam (Neuro) Physical Exam: He is breathing at a rapid rate of approximately 40. His O2 saturation was 71 and on increasing the FiO2 and suctioning his O2 sat increase to the low 90s. Temperature was 38.4 blood pressure was 128/64. Pulse has been in the 70s. He takes vague Respiratory breaths, creating movement of the entire chest. There is abduction movements of the arms and legs during inspiration as well. He has no response to voice or pain and his limbs are flaccid with decreased tone. Pupils are 3 millimeters bilaterally and questionably reactive to light. Eyes are front. Results & Data ([facility]) Vital Signs (Past 12 Hours) Vital Signs Temp Pulse Resp BP Pulse Ox 02/26/21 08:03 71 30 H 93 02/26/21 06:00 38.4 C H 68 29 H 128/64 92 02/26/21 05:30 38.4 C H 69 30 H 128/64 89 L 02/26/21 05:00 38.1 C H 75 31 H 135/63 91 02/26/21 04:30 37.9 C H 59 L 14 125/60 98 02/26/21 04:00 37.9 C H 60 18 98 02/26/21 03:48 64 18 98 02/26/21 03:30 38.1 C H 59 L 18 117/56 L 98 02/26/21 03:00 38.3 C H 60 18 116/55 L 98 02/26/21 02:30 38.4 C H 63 18 98 02/26/21 02:00 38.5 C H 66 18 111/53 L 97 02/26/21 01:30 38.5 C H 63 18 97 02/26/21 01:00 38.5 C H 64 18 119/57 L 97 02/26/21 00:30 38.4 C H 65 18 97 02/26/21 00:00 38.4 C H 63 18 115/53 L 97 02/25/21 23:30 38.3 C H 62 18 97 02/25/21 23:14 65 02/25/21 23:03 65 18 97 02/25/21 23:00 38.1 C H 65 16 131/69 98 PG Care Time/CCT Total # of Minutes Spent Total Time Spent with Patient: Total time spent is greater than 50% in coordination of care (as documented) at patient's floor/unit and/or counseling patient: Coding Level of Care Code 28724 Inpt Consult Level 5 Diagnoses Status epilepticus G40.901 Anoxic brain injury G93.1 Time Spent (min) 60
[2021-02-26] MEDS ORDERED: PEPTAMEN INTENSE VHP 1.0 CAL 1,000 ML BAG OG SCH (11:00)
--- NOTE | 2021-02-26 11:44 | Critical Care Progress Note ---
Date of Service February 26, 2021 Assessment & Plan (1) Cardiac arrest: (2) Anoxic brain injury: (3) Ventricular tachycardia: (4) Metabolic acidosis: (5) Status epilepticus: Plan: Impression: 65-year-old male presents to the ICU following cardiac arrest. Patient underwent cath without intervention. Neurological exam poor following ROSC and currently mechanically ventilated. Patient to undergo 24-hour period of therapeutic hypothermia following presumed anoxic injury. 24-hour events: P patient had another EEG done today which showed burst suppression pattern. Patient seems to be having seizure-like activity. Recommendations Neuro - --Anoxic brain injury due to out of hospital cardiac arrest. Initial head CT was unrevealing EEG 02/25/2021 shows diffuse burst suppression pattern with generalized slowing going with anoxic brain injury Neurology on board. Will follow recommendations --Seizure-like activity Secondary to above Cardiac - --Cardiac arrest out of hospital cardiac arrest. Status post cardiac cath, no intervention was done Hemodynamically stable currently. Continue with amiodarone drip Respiratory - -- VDRF Secondary to cardiac arrest Continue with ventilatory support GI - --Transaminitis Trending down Continue to monitor RENAL/LYTES - --NATHAN Improved Continue to monitor BUNs/creatinine - Foleystrict I's and O's ENDO -ICU hyperglycemia protocol HEME - H&H stable, monitor routine CBCs ID - Leukocytosis likely reactive to cardiac arrest Patient is spiking fever this also seems to be central --Prophylaxis VTE: Lovenox GI: Protonix Lines: Right femoral cooling catheter, positive Garcia Diet: Tube feeds Plan: In/out: Positive 460, urine output 4320 AB.56/32/80 with tidal volume 500, PEEP of 5 and respirate of 18 Patient is breathing over the vent in the rate of 29. I went down tidal volume to 450. I think patient has central fever along with central tachypneic episodes. Continue with amiodarone drip. We will start the patient on tube feeds DVT prophylaxis with Lovenox Hypokalemia being replaced Patient Sister Ezequiel Kidd [phone] I have personally spent 36 minutes of critical care time in the direct management of this patient. This is a life/limb threatening event. This includes time spent evaluating patient, direct bedside care, chart review, placing orders, interpretation of diagnostic studies, discussion with consultants, patient, and family members, as well as other required patient management activities. This time is exclusive of all separately billable procedures, and teaching time and separate from and in addition to any other critical care service time. Please note the above document was generated using voice recognition software. It may contain grammatical, syntax or spelling errors. Admission and Anticipated Discharge Date Admission Date: February 23, 2021 Subjective Patient seen and family bedside. No acute distress, no results overnight Patient is still having bouts of seizures He is on propofol. He has been getting midazolam pushes Still spiking fever T-max 38.5 Whenever patient is started on cooling from the cooling catheter his seizure activity worsens Review of Systems Review of Systems: Unobtainable due to endotracheal tube Physical Exam Physical Exam: Constitutional: No acute distress HEENT: PERRLA, positive corneal. Respiratory system: Good air entry bilaterally, no wheeze, no rhonchi, positive crackles bilateral CVS: S1-S2 positive, no murmurs or gallops Abdomen: Soft, nontender, nondistended, positive bowel sounds x4 Extremities: +2 pulses bilaterally radialis/ dorsalis pedis, no cyanosis, no edema Neuro: Breathing over the vent, positive corneal, positive pupillary, no gag Psych: Unable to assess G/U: Positive Garcia Skin: no rashes, warm and dry Lymphatic: no cervical or axillary lymphadenopathy Results & Data Results & Data ([facility]) Vital Signs (Past 12 Hours) Vital Signs Temp Pulse Resp BP Pulse Ox 02/26/21 11:23 88 34 H 92 02/26/21 08:03 71 30 H 93 02/26/21 06:00 38.4 C H 68 29 H 128/64 92 02/26/21 05:30 38.4 C H 69 30 H 128/64 89 L 02/26/21 05:00 38.1 C H 75 31 H 135/63 91 02/26/21 04:30 37.9 C H 59 L 14 125/60 98 02/26/21 04:00 37.9 C H 60 18 98 02/26/21 03:48 64 18 98 02/26/21 03:30 38.1 C H 59 L 18 117/56 L 98 02/26/21 03:00 38.3 C H 60 18 116/55 L 98 02/26/21 02:30 38.4 C H 63 18 98 02/26/21 02:00 38.5 C H 66 18 111/53 L 97 02/26/21 01:30 38.5 C H 63 18 97 02/26/21 01:00 38.5 C H 64 18 119/57 L 97 02/26/21 00:30 38.4 C H 65 18 97 02/26/21 00:00 38.4 C H 63 18 115/53 L 97 02/26/21 05:04 02/26/21 05:04 Coding Level of Care Code Critical Care 1st 30-74 mins Diagnoses Cardiac arrest I46.9 Anoxic brain injury G93.1 Ventricular tachycardia I47.2 Metabolic acidosis E87.2 Status epilepticus G40.901 Time Spent (min) 36
--- NOTE | 2021-02-26 11:55 | Palliative Care Progress Note ---
Date of Service February 26, 2021 Assessment & Plan (1) Palliative care encounter: Plan: Patient continues to be intubated and sedated with Propofol. He is not able to participate in any meaningful interaction or goals of care conversations. EEG 02/25/2021 shows diffuse burst suppression pattern with generalized slowing going with anoxic brain injury, which he has now had continuation of his Propofol and Keppra. A repeat EEG was performed today and shows worsening epilepticus. I did call the patients sister, Marti at [phone] and left a VM initially, but was able to talk with her at length later in the day. Ultimately, the patient is now receiving an increased FIO2, now at 100%. As of yesterday, she was understanding that his condition is likely futile. She was hopeful to talk with her family and discuss overall goals of care. For now, continue with NO escalation in his care in the event of further decline, meaning no additional pressors, hemodialysis, CPR. Patient sister clear that she does not want [facility] to be involved, but understands the process and is willing to talk with them. When talking with the sister, she wants 'him to live until [place]'. I was clear that he is declining and has little to no chance of meaningful recovery. She said that she just wants to wait a few more days. I think it would be helpful to have Dr. Nicole discuss with her. I advised that we may end up doing more harm than good with continuing care. For now, continue with current treatment. Palliative will follow. (2) Anoxic brain injury: (3) Cardiac arrest: (4) Febrile: (5) Seizures: Admission and Anticipated Discharge Date Admission Date: February 23, 2021 Subjective Pt remains intubated and sedated for seizures. FiO2 worsened, now at 100% intermittently throughout the day related to seizures. Continued conversation with patient sister and POA necessary with an eventual plan to withdraw care. Review of Systems Review of Systems: Unobtainable due to endotracheal tube Physical Exam ENMT: Mouth: + dry oral mucous membranes Cardiovascular: Rate/Rhythm: regular rate and regular rhythm Extremities: normal capillary refill; no edema Gastrointestinal (Abdomen): Inspection/Auscultation: abdomen normal to inspection Neurologic: + obtunded Results & Data ([facility]) Vital Signs (Past 12 Hours) Vital Signs Temp Pulse Resp BP Pulse Ox 02/26/21 11:23 88 34 H 92 02/26/21 08:03 71 30 H 93 02/26/21 06:00 38.4 C H 68 29 H 128/64 92 02/26/21 05:30 38.4 C H 69 30 H 128/64 89 L 02/26/21 05:00 38.1 C H 75 31 H 135/63 91 02/26/21 04:30 37.9 C H 59 L 14 125/60 98 02/26/21 04:00 37.9 C H 60 18 98 02/26/21 03:48 64 18 98 02/26/21 03:30 38.1 C H 59 L 18 117/56 L 98 02/26/21 03:00 38.3 C H 60 18 116/55 L 98 02/26/21 02:30 38.4 C H 63 18 98 02/26/21 02:00 38.5 C H 66 18 111/53 L 97 02/26/21 01:30 38.5 C H 63 18 97 02/26/21 01:00 38.5 C H 64 18 119/57 L 97 02/26/21 00:30 38.4 C H 65 18 97 02/26/21 00:00 38.4 C H 63 18 115/53 L 97 PG Care Time/CCT Total # of Minutes Spent Total Time Spent with Patient: Total time spent is greater than 50% in coordination of care (as documented) at patient's floor/unit and/or counseling patient: 35 minutes Coding Level of Care Code 74395 Subseq Hosp Care Lvl 3 Diagnoses Palliative care encounter Z51.5 Anoxic brain injury G93.1 Cardiac arrest I46.9 Febrile R50.9 Seizures R56.9 Time Spent (min) 35
[2021-02-26] MEDS: TUBE FEEDING WATER FLUSH OG SCH ×3 (13:38→19:15)
[2021-02-26] MEDS ORDERED: VALPROATE SOD 500 MG in DEXTROSE 5% 50 ML IV STA (14:22)
[2021-02-26] MEDS ORDERED: VALPROATE SOD 500 MG in DEXTROSE 5% 50 ML IV SCH (16:00)
--- NOTE | 2021-02-26 16:41 | Billing Data ---
Date of Service February 26, 2021 Coding Level of Care Code 83458 Subseq Hosp Care Lvl 1
--- NOTE | 2021-02-26 16:41 | Billing Data ---
Date of Service February 25, 2021 Coding Level of Care Code 23568 Subseq Hosp Care Lvl 1
[2021-02-26] MEDS: VALPROATE SOD 500 MG in DEXTROSE 5% 50 ML IV SCH (17:59)
[2021-02-26] MEDS: ICU ELECTROLYTE REPLACEMENT PROTOCOL SCH (18:05)
[2021-02-26] MEDS ORDERED: PROPOFOL BOLUS FROM BAG IV PRN (21:29)
[2021-02-26] MEDS ORDERED: STAT IV Infusion **Titration per Protocol STA (21:29)
[2021-02-26] MEDS ORDERED: PROPOFOL IV EMULSION 10 MG/ML 100 ML VIAL IV ONE (21:38)
[2021-02-27] MEDS: propofoL 1,000 MG/100 ML VIAL IV SCH ×6 (00:40→21:48)
[2021-02-27] MEDS: VALPROATE SOD 500 MG in DEXTROSE 5% 50 ML IV SCH ×3 (00:41→06:49)
[2021-02-27] MEDS: TUBE FEEDING WATER FLUSH OG SCH ×7 (00:46→22:13)
[2021-02-27] MEDS: INSULIN ASPART PER UNIT SC SCH ×5 (00:46→23:27)
[2021-02-27] MEDS: NORMOSOL-R 1,000 ML IV SCH ×3 (04:26→21:50)
[2021-02-27 04:40] LABS: iSTAT Allen Test Pass; iSTAT Art Bld Gas pCO2 Correct 47 mmHg (35-46); iSTAT Art Bld Gas pH Corrected 7.404 (7.35-7.45); iSTAT Arterial Blood Gas HCO3 29 meg/L (19-24); iSTAT Arterial Blood Gas pCO2 46 mmHg (35-46); iSTAT Arterial Blood Gas pH 7.41 (7.35-7.45); iSTAT Arterial Blood Gas pO2 49 mmHg (80-95); iSTAT Arterial Blood Gas pO2 C 49; iSTAT Carbon Dioxide 31 mmol/L (24-31); iSTAT FiO2 70 %; iSTAT Hematocrit 32 % (42-52); iSTAT Hemoglobin 10.9 g/dl (14.0-18.0); iSTAT Site R Radial; iSTAT Sodium 138 mmol/L (135-144)
[2021-02-27 05:58] LABS: Eosinophils # (auto) 0.01 K/uL (0-0.5); Eosinophils % (auto) 0.2 %; Hematocrit (blood only) 33.3 % (42-52); Hemoglobin 11.2 g/dL (14.0-18.0); Lymphocytes # (auto) 0.45 K/uL (1.2-3.4); Lymphocytes % (auto) 8.4 %; Mean Corpuscular Hemoglobin 29.6 pg (25-34); Mean Corpuscular Hgb Conc 33.6 g/dL (32-36); Mean Corpuscular Volume 87.9 fL (80-100); Mean Platelet Volume 10.6 fL (7.4-10.4); Monocytes # (auto) 0.22 K/uL (0.11-0.59); Monocytes % (auto) 4.1 %; Neutrophils % (auto) 87.3 %; Platelet Count 151 K/uL (130-400); RDW Standard Deviation 41.8 fL (36.4-46.3); Red Blood Count 3.79 M/uL (4.7-6.1); White Blood Count 5.38 K/uL (4.8-10.8)
--- NOTE | 2021-02-27 06:07 | Electrocardiogram Report ---
Test Reason : Blood Pressure : / mmHG Vent. Rate : 079 BPM Atrial Rate : 079 BPM P-R Int : 216 ms QRS Dur : 072 ms QT Int : 376 ms P-R-T Axes : 063 -09 234 degrees QTc Int : 431 ms Sinus rhythm with 1st degree A-V block Abnormal ECG When compared with ECG of 24-FEB-2021 11:59, Vent. rate has increased BY 26 BPM T wave inversion now evident in Anterolateral leads Confirmed by Alex Norwood ([id number]) on 02/27/2021 6:07:15 AM Referred By: REFERRED SELF Confirmed By:Alex Norwood
[2021-02-27 06:37] LABS: BUN Creatinine Ratio 16.5 (10-20); Calcium 7.9 mg/dl (8.5-10.1); Creatinine Clr Calc Pharmacy 110.3 ml/min; Est GFR (African American) 111.9 ml/min; Est GFR (Non-African American) 96.5 ml/min; Magnesium 2.3 mg/dl (1.8-2.4); Phosphorus 2.3 mg/dl (2.5-4.9); Potassium 3.8 mmol/L (3.5-5.1)
[2021-02-27] MEDS: ICU ELECTROLYTE REPLACEMENT PROTOCOL SCH ×2 (06:47→18:24)
--- NOTE | 2021-02-27 07:40 | Hospitalist Progress Note ---
Date of Service February 27, 2021 Assessment & Plan (1) Cardiac arrest: Plan: 65 yo M Hx schizoaffective disorder, HTN, DM2, HLD admitted to ICU post-cardiac arrest. Cardiac arrest, ventricular tachycardia: -Initial EKG with evidence of ischemia however with resolution of such by arrival to ER. -Moderate nonobstructive disease on cardiac catheterization; no stents placed. -Ischemia possibly due to heart block vs QT prolongation vs other etiology. -Troponin 0.344 on admit, downtrending 0.177 -Echo 02/24: EF 55-60%, mild pulmonary hypertension, trace pericardial effusion, left atrium mildly dilated. -Triglycerides 201 otherwise lipid panel within normal limits, A1c 7.7. -Cardiology consulted, hemodynamically stable continue amiodarone drip. Given Lasix. -repleting hypophosphatemia Anoxic brain injury: -Poor neurological exam following ROSC after cardiac arrest. -Patient with fasciculations resolved with propofol bolus. -Likely seizures 2/2 anoxic brain injury. -24 hour hypothermia protocol upon admission to ICU. Rewarming started. -EEG ordered --> burst suppression pattern which goes with very poor prognosis likely from underlying anoxic brain injury repeat EEG 02/27: There is frontally predominant 3 to 4-1/2 Hz spike wave activity seen throughout the study suggestive of status epilepticus. There is general suppression of the background rhythm. Generally unchanged from yesterday. -tube feeding started 02/26 -breathing trial on hold -Palliative care consulted -Neurology consulted, recommends increasing valproic acid, fentanyl, -patient's sister contacted, MartiEzequiel lugo [phone], Code status updated to conditional DNR. Family denied gift of life. Wants patient to live until [place], understands patient is unlikely to recover. -Continue to monitor neurologic function. -Patient spiking fever likely central since 02/24, also tachypnic since 02/26 Intubated: -Patient was intubated for airway support during cardiac arrest. -Wean sedation for spontaneous trials of breathing as able. -breathing trial on hold Leukocytosis -likely reactive to cardiac arrest, WBC 10.04 -Patient is spiking fever this also seems to be central, max 38.7 C not responsive to tylenol Transaminitis: -AST and ALT with mild elevation on ER labs; moreso than on prior labwork. -Suspect shock liver in the setting of cardiac arrest. -downtrending, continue to monitor DM2: -BSG range in mid-300s as of presentation to hospital. BHB mildly elevated. Presented in metabolic acidosis, but suspected to be secondary to cardiac arrest. -Holding outpatient metformin. -A1c 7.7 -Insulin gtt with moderate stress dosing started upon admission, with consideration for basal/bolus should patient's clinical condition improve. -ICU hyperglycemia protocol initiated. Pharmacy consulted. HTN, HLD: -LDL 29, total cholesterol 105, triglycerides 201. -BP and HR on lower side at this time, holding antihypertensives. Schizoaffective disorder: -History of, not on medications for such at home per EMR. Code Status: conditional code DNR FEN/GI: feeding tube, daily IV PPI DVT ppx: SCDs, Lovenox Dispo: ICU (2) Schizoaffective disorder, bipolar type: (3) Hyperlipidemia: (4) Hypertension: (5) Diabetes mellitus: Admission and Anticipated Discharge Date Admission Date: February 23, 2021 Supervising Physician Co-Signing Physician Notes Patient seen and examined, chart reviewed, case discussed with Dr. Hernandez and I agree with the assessment and plan as above except as otherwise noted Patient is a 65-year-old male who presented with cardiac arrest, initially reported was observed but with unclear downtime prior on further history. At bedside patient is obtunded, extubated, breathing spontaneously. Case discussed with family in ICU. extended discussion was had regarding goals of care. Family reports that they understand that Radhika has had permanent anoxic brain damage, and has not had an improvement in neurologic status. Repeat EEGs consistent with potential status epilepticus or for suppression with severe anoxic brain injury. Reports her goals of care are for Radhika to be comfortable, and understand that he could easily have a seizure in the past. Report they feel they have done everything to give him the best chance, but also understand that "it is in the Lord's hands." They agree with movement to comfort measures and transfer for comfort oriented care with discontinuation of medications not immediately related to his comfort. On review of his medications they would like his seizure medications continued and treatment with pain/anxiety medications as needed to maintain comfort even if these shorten his life at the cost of comfort. We did discuss at length his nutrition and IV fluids. They are aware that he has had a OG reduced previously receiving feeds, and currently with a femoral line in place. Family is adamant that they do not want hydration or nutrition stopped at this time. They recognize that Radhika may continue to spontaneously breathe and not wake up, and that artificial nutrition/fluids may prolong his life but not improve the quality of his life. Discussed that in the setting of critical illness the patient is not likely to experience hunger or thirst, and that these interventions would also not assist with this if he wants. Family reports that for taoism reasons they do not want to stop, and are adamant they should be continued and would like to talk with their waste water worker further before withdrawing these. Discussed that while he has a short-term central femoral catheter, this is not able to be left in long-term and TPN requires a central catheter, and tube feeds would likely require a procedure such as a PEG tube in order to be further pursued. In either case such nutrition is unlikely to improve his outcome, and would require a procedure in order to be pursued. Family stresses understanding of this, but also verbalizes that they would consider having this done even if patient were to stabilize without returning to consciousness and even if that required mcfp placement should he not pass from his acute illness. Report that they are comfortable with moving to comfort oriented goals otherwise and having patient moved out of the ICU, and will discuss with their family and waste water worker regarding artificial nutrition. If this was pursued PICC placement is an option and also for antiseizure medications as below. 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 Continue Keppra and valproic acid, defer labs with the exception of valproic acid level trough to monitor for toxicity. If level greater than 100 decreased to 250-500 mg IV every 6 hours Converted from fentanyl to morphine for floor analgesia May use Versed 2 mg up to every 30 minutes as needed for breakthrough seizures Subjective 65yo Male seen at bedside, intubated, arrived post cardiac arrest resuscitation. PMH schizoaffective disorder, HTN, DM2, HLD. Garcia present. Patient unresponsive to name or noxious stimuli. Condition unchanged from yesterday. Review of Systems Review of Systems: Unobtainable due to reduced consciousness Physical Exam Constitutional: + mechanically ventilated Respiratory: + tachypneic Auscultation: lungs clear to auscultation bilaterally Cardiovascular: RRR, no murmur, no edema Heart Sounds: normal S1 and normal S2 Gastrointestinal (Abdomen): normal bowel sounds, soft, nontender, no hepatosplenomegaly Skin: no rashes, warm and dry Neurologic: Comatose Patient: + response to noxious stimuli absent Results & Data Results & Data ([facility]) Vital Signs (Past 12 Hours) Vital Signs Temp Pulse Resp BP Pulse Ox 02/27/21 04:00 37.0 C 69 34 H 148/84 H 86 L 02/27/21 03:29 62 29 H 98 02/27/21 03:00 37.0 C 60 30 H 109/53 L 99 02/27/21 02:00 37.3 C 66 29 H 110/58 L 99 02/27/21 01:00 37.7 C H 74 32 H 123/63 98 02/27/21 00:00 37.7 C H 82 32 H 149/68 H 93 02/26/21 23:00 37.4 C 86 34 H 158/76 H 89 L 02/26/21 22:34 78 31 H 94 02/26/21 22:00 37.7 C H 85 31 H 142/65 H 94 02/26/21 21:00 38.5 C H 96 H 34 H 92 02/26/21 20:00 38.7 C H 102 H 36 H 91 Laboratory Results 02/27/21 02/27/21 02/27/21 Range/Units 11:55 06:17 05:08 WBC 5.38 (4.8-10.8) K/uL RBC 3.79 L (4.7-6.1) M/uL Hgb 11.2 L (14.0-18.0) g/dL POC Hgb (14.0-18.0) g/dl Hct 33.3 L (42-52) % POC Hct (42-52) % MCV 87.9 (80-100) fL MCH 29.6 (25-34) pg MCHC 33.6 (32-36) g/dL RDW Std Deviation 41.8 (36.4-46.3) fL RDW Coeff of Shanell 13.0 (11.5-14.5) % Plt Count 151 (130-400) K/uL MPV 10.6 H (7.4-10.4) fL Immature Gran % (Auto) 0.0 % Neut % (Auto) 87.3 % Lymph % (Auto) 8.4 % [place] % (Auto) 4.1 % Eos % (Auto) 0.2 % Baso % (Auto) 0.0 % Neut # (Auto) 4.70 (1.4-6.5) K/uL Lymph # (Auto) 0.45 L (1.2-3.4) K/uL Nome # (Auto) 0.22 (0.11-0.59) K/uL Eos # (Auto) 0.01 (0-0.5) K/uL Baso # (Auto) 0.00 (0-0.2) K/uL Immature Gran # (Auto) 0.00 (0.00-0.02) K/uL Sample Site POC pH (7.35-7.45) POC pCO2 (35-46) mmHg POC pO2 (80-95) mmHg POC HCO3 (19-24) tayla/L POC Total CO2 (24-31) mmol/L POC Base Excess (-9-1.8) tayla/L ABG pH (Temp Correct) (7.35-7.45) ABG pCO2 (Temp Corrct (35-46) mmHg POC ABG pO2 at Pt Temp POC ABG O2 Sat (90-95) % Refugio Test O2 Delivery Device POC O2 Rate Minute Ventilation POC FiO2 % Tidal Volume PEEP POC Sodium (135-144) mmol/L Sodium (136-145) mmol/L POC Potassium (3.3-5.0) mmol/L Potassium (3.5-5.1) mmol/L Chloride (98-107) mmol/L Carbon Dioxide (21-32) mmol/L Anion Gap (3-11) BUN (7-18) mg/dl Creatinine (0.6-1.4) mg/dl Est Cr Clr Drug Dosing ml/min Est GFR ( Amer) ml/min Est GFR (Non-Af Amer) ml/min BUN/Creatinine Ratio (10-20) Glucose (70-99) mg/dl POC Glucose 163 H 154 H (70-99) mg/dl Calcium (8.5-10.1) mg/dl Phosphorus (2.5-4.9) mg/dl Magnesium (1.8-2.4) mg/dl Valproic Acid (50-100) mcg/ml 02/27/21 02/27/21 02/27/21 Range/Units 05:08 05:08 04:20 WBC (4.8-10.8) K/uL RBC (4.7-6.1) M/uL Hgb (14.0-18.0) g/dL POC Hgb 10.9 L (14.0-18.0) g/dl Hct (42-52) % POC Hct 32 L (42-52) % MCV (80-100) fL MCH (25-34) pg MCHC (32-36) g/dL RDW Std Deviation (36.4-46.3) fL RDW Coeff of Shanell (11.5-14.5) % Plt Count (130-400) K/uL MPV (7.4-10.4) fL Immature Gran % (Auto) % Neut % (Auto) % Lymph % (Auto) % [place] % (Auto) % Eos % (Auto) % Baso % (Auto) % Neut # (Auto) (1.4-6.5) K/uL Lymph # (Auto) (1.2-3.4) K/uL Nome # (Auto) (0.11-0.59) K/uL Eos # (Auto) (0-0.5) K/uL Baso # (Auto) (0-0.2) K/uL Immature Gran # (Auto) (0.00-0.02) K/uL Sample Site R Radial POC pH 7.41 (7.35-7.45) POC pCO2 46 (35-46) mmHg POC pO2 49 L (80-95) mmHg POC HCO3 29 H (19-24) tayla/L POC Total CO2 31 (24-31) mmol/L POC Base Excess 5.0 H (-9-1.8) tayla/L ABG pH (Temp Correct) 7.404 (7.35-7.45) ABG pCO2 (Temp Corrct 47 H (35-46) mmHg POC ABG pO2 at Pt Temp 49 POC ABG O2 Sat 84.0 L (90-95) % Refugio Test Pass O2 Delivery Device Ventilator POC O2 Rate 14 Minute Ventilation 16 POC FiO2 70 % Tidal Volume 450 PEEP 5 POC Sodium 138 (135-144) mmol/L Sodium 139 (136-145) mmol/L POC Potassium 4.0 (3.3-5.0) mmol/L Potassium 3.8 D (3.5-5.1) mmol/L Chloride 104 (98-107) mmol/L Carbon Dioxide 30 (21-32) mmol/L Anion Gap 5.0 (3-11) BUN 12 (7-18) mg/dl Creatinine 0.72 (0.6-1.4) mg/dl Est Cr Clr Drug Dosing 110.3 ml/min Est GFR ( Amer) 111.9 ml/min Est GFR (Non-Af Amer) 96.5 ml/min BUN/Creatinine Ratio 16.5 (10-20) Glucose 175 H (70-99) mg/dl POC Glucose (70-99) mg/dl Calcium 7.9 L (8.5-10.1) mg/dl Phosphorus 2.3 L (2.5-4.9) mg/dl Magnesium 2.3 (1.8-2.4) mg/dl Valproic Acid 64 (50-100) mcg/ml 02/27/21 02/26/21 02/26/21 Range/Units 00:41 23:30 17:40 WBC (4.8-10.8) K/uL RBC (4.7-6.1) M/uL Hgb (14.0-18.0) g/dL POC Hgb (14.0-18.0) g/dl Hct (42-52) % POC Hct (42-52) % MCV (80-100) fL MCH (25-34) pg MCHC (32-36) g/dL RDW Std Deviation (36.4-46.3) fL RDW Coeff of Shanell (11.5-14.5) % Plt Count (130-400) K/uL MPV (7.4-10.4) fL Immature Gran % (Auto) % Neut % (Auto) % Lymph % (Auto) % [place] % (Auto) % Eos % (Auto) % Baso % (Auto) % Neut # (Auto) (1.4-6.5) K/uL Lymph # (Auto) (1.2-3.4) K/uL [place] # (Auto) (0.11-0.59) K/uL Eos # (Auto) (0-0.5) K/uL Baso # (Auto) (0-0.2) K/uL Immature Gran # (Auto) (0.00-0.02) K/uL Sample Site POC pH (7.35-7.45) POC pCO2 (35-46) mmHg POC pO2 (80-95) mmHg POC HCO3 (19-24) tayla/L POC Total CO2 (24-31) mmol/L POC Base Excess (-9-1.8) tayla/L ABG pH (Temp Correct) (7.35-7.45) ABG pCO2 (Temp Corrct (35-46) mmHg POC ABG pO2 at Pt Temp POC ABG O2 Sat (90-95) % Refugio Test O2 Delivery Device POC O2 Rate Minute Ventilation POC FiO2 % Tidal Volume PEEP POC Sodium (135-144) mmol/L Sodium (136-145) mmol/L POC Potassium (3.3-5.0) mmol/L Potassium (3.5-5.1) mmol/L Chloride (98-107) mmol/L Carbon Dioxide (21-32) mmol/L Anion Gap (3-11) BUN (7-18) mg/dl Creatinine (0.6-1.4) mg/dl Est Cr Clr Drug Dosing ml/min Est GFR ( Amer) ml/min Est GFR (Non-Af Amer) ml/min BUN/Creatinine Ratio (10-20) Glucose (70-99) mg/dl POC Glucose 195 H 157 H (70-99) mg/dl Calcium (8.5-10.1) mg/dl Phosphorus (2.5-4.9) mg/dl Magnesium (1.8-2.4) mg/dl Valproic Acid 62 (50-100) mcg/ml Diagnostic Findings Chest CTA 02/23/21 17:03 CT ANGIOGRAM OF THE CHEST CLINICAL HISTORY: Cardiac arrest. COMPARISON STUDY: Chest x-ray dated 02/23/2021. TECHNIQUE: Following the IV administration of 120 cc of Optiray 320, CT angiogram of the chest was performed from the upper abdomen to the thoracic inlet utilizing the pulmonary embolus protocol. Images are reviewed in the axial, sagittal, and coronal planes. 3-D MIPS images are created and assessed. IV contrast was administered without complication. A dose lowering technique was utilized adhering to the principles of ALARA. The examination is compromised by motion artifact, as well as streak artifact from the arms which could not be elevated above the chest. FINDINGS: Thyroid: Normal in size and heterogeneous in attenuation. Thoracic aorta: The thoracic aorta is normal in caliber and demonstrates standard 3-vessel arch anatomy. No dissection is seen. Pulmonary vasculature: The pulmonary trunk is normal in caliber. There are no filling defects identified in main, lobar, or segmental pulmonary branches to suggest pulmonary embolus. Heart: The heart is mildly enlarged and without pericardial effusion. Lungs and pleural spaces: An endotracheal tube terminates above the anish. Minimal secretions are noted in the trachea. Right greater than left dependent consolidation likely represents segmental atelectasis. No pleural effusion is identified. There are scattered calcified granulomas. Mediastinum: A prevascular node measures up to 11 mm in short axis. Connie: Mildly enlarged hilar nodes measure up to 14 mm in short axis. Axillae: There is no axillary lymphadenopathy. Upper abdomen: There are numerous hepatic cysts which measure up to 3.8 cm. A 1.6 cm exophytic cyst arises from the upper pole of left kidney. Skeletal structures: No lytic or blastic bony lesions are seen. IMPRESSION: 1. Streak and motion compromised examination. 2. There is no evidence of pulmonary embolus in the main, lobar, or segmental pulmonary arteries. 3. Mild cardiomegaly. 4. Right greater than left dependent airspace consolidation likely represents segmental atelectasis. Correlate clinically for evidence of superimposed pneumonia. 5. Mildly enlarged mediastinal and hilar lymph nodes are nonspecific and may be reactive. 6. Additional findings as above. ACT 112: Negative or not required by law. Electronically signed by: Nakul Jones M.D. 02/23/2021 5:[address] 02/23/21 17:03 CT SCAN OF THE BRAIN WITHOUT IV CONTRAST CLINICAL HISTORY: Cardiac arrest. COMPARISON STUDY: No priors. TECHNIQUE: Unenhanced axial CT scan of the brain is performed from the vertex to the skull base. A dose lowering technique was utilized adhering to the principles of ALARA. CT DOSE: 1464.58 mGy.cm FINDINGS: Brain parenchyma: The brain parenchyma is normal in appearance. There is no hemorrhage, mass effect, or evidence of acute territorial ischemia by CT criteria. Esteves-white matter differentiation is preserved. No extra-axial fluid collection is seen. Ventricles, sulci, cisterns: Normal in configuration. Intracranial vasculature: There is atherosclerotic calcification of the cavernous carotid arteries. Calvarium: Unremarkable. Sinuses and mastoids: There is trace fluid within the sphenoid sinuses. Trace mucosal thickening is noted in the frontal and ethmoid sinuses. The mastoid air cells are well pneumatized. Orbits: The bony orbits are grossly intact. IMPRESSION: There is no hemorrhage, mass effect, or evidence of acute territorial ischemia by CT criteria. ACT 112: Negative or not required by law. Electronically signed by: Nakul Jones M.D. 02/23/2021 5:42 PM Chest X-Ray 02/27/21 07:00 XR chest 1V portable CLINICAL HISTORY: Resp failure TECHNIQUE: Single frontal radiograph of the chest was obtained. Comparison: Comparison is made to chest one view 02/26/2021 FINDINGS: Lines and tubes are stable. The cardiomediastinal silhouette is stable. Bilateral lower lung predominant airspace opacities are seen. Small right and possible left pleural effusion. IMPRESSION: 1. Bilateral lower lung predominant airspace opacities which may represent atelectasis, pneumonia, and/or aspiration. These are increased from prior exam. 2. Small right and possible left pleural effusions. ACT 112: Negative or not required by law. Electronically signed by: Richie Hunter M.D. 02/27/2021 7:55 AM Medications Administered Current Inpatient Medications Acetaminophen (Acetaminophen 650 Mg Supp) 650 mg IL ONE PRN PRN Reason: Rebound Hyperthermia x 1 dose Stop: 03/25/21 19:44 Last Admin: 02/24/21 21:00 Dose: 650 mg Documented by: Buspirone HCl (Buspirone 15 Mg Tab) 60 mg NG ONCE PRN PRN Reason: For Shivering x 1 dose Stop: 03/25/21 19:44 Last Admin: 02/23/21 21:22 Dose: 60 mg Documented by: Dextrose (Dextrose 50% 50 Ml Syringe) 25 - 50 ml IV UD PRN; Protocol PRN Reason: Hypoglycemia Protocol Stop: 03/25/21 19:59 Last Admin: 02/24/21 07:43 Dose: 25 ml Documented by: Enoxaparin Sodium (Enoxaparin Inj 40 Mg/0.4 Ml Syr) 40 mg SQ QAM JEYSON Stop: 03/28/21 09:59 Last Admin: 02/27/21 08:07 Dose: 40 mg Documented by: Fentanyl Citrate (Fentanyl Bolus From Bag) 50 mcg IV Q60M PRN PRN Reason: Pain or Agitation Stop: 03/09/21 21:08 Last Admin: 02/24/21 22:38 Dose: 50 mcg Documented by: Fentanyl Citrate (Fentanyl Citrate 100 Mcg/2 Ml Vial) 50 mcg IV Q2H PRN PRN Reason: Pain Stop: 03/11/21 11:21 Last Admin: 02/26/21 09:29 Dose: 50 mcg Documented by: Fentanyl Citrate (Fentanyl Bolus From Bag) 50 mcg IV Q60M PRN PRN Reason: Pain or Agitation Stop: 03/13/21 11:16 Glucagon (Glucagon For Inj 1 Mg Vial) 1 mg IM UD PRN; Protocol PRN Reason: Hypoglycemia Protocol Stop: 03/25/21 19:59 Glucose (Glucose 40% Gel 15 Gm Tube) 15 - 30 gm PO UD PRN; Protocol PRN Reason: Hypoglycemia Protocol Stop: 03/25/21 19:59 Glucose (Glucose 10 Tabs/Tube) 4 - 8 tabs PO UD PRN; Protocol PRN Reason: Hypoglycemia Protocol Stop: 03/25/21 19:59 Amiodarone HCl/Dextrose (Nexterone / D5w) 360 mg in 200 mls @ 16.667 mls/hr IV .Q12H JEYSON Stop: 03/25/21 23:14 Last Admin: 02/27/21 10:47 Dose: 0.5 mg/min, 16.7 mls/hr Documented by: Parenteral Electrolytes (Normosol-R) 1,000 mls @ 125 mls/hr IV .Q8H JEYSON Stop: 03/25/21 21:44 Last Admin: 02/27/21 12:54 Dose: 125 mls/hr Documented by: Acetaminophen (Ofirmev) 1,000 mg in 100 mls @ 400 mls/hr IV Q8H PRN PRN Reason: Fever Stop: 02/28/21 00:21 Last Infusion: 02/27/21 14:35 Dose: Infused Documented by: Propofol (Diprivan) 1,000 mg in 100 mls @ 28.203 mls/hr IV .Q3H33M JEYSON; Protocol Stop: 03/01/21 21:29 Last Admin: 02/27/21 16:27 Dose: 35 mcg/kg/min, 19.6 mls/hr Documented by: Fentanyl Citrate (Fentanyl Citrate) 2,500 mcg in 250 mls @ 2.5 mls/hr IV .Q96H [facility]; Protocol Stop: 03/13/21 11:29 Last Admin: 02/27/21 13:39 Dose: 25 mcg/hr, 2.5 mls/hr Documented by: Levetiracetam 1,500 mg/ Sodium (Chloride) 115 mls @ 460 mls/hr IV Q12H [facility] Stop: 03/29/21 20:59 Valproic Acid 750 mg/ Dextrose 57.5 mls @ 57.5 mls/hr IV Q6H [facility] Stop: 03/29/21 17:59 Insulin Aspart (Insulin Aspart Per Unit) 0 units SC Q6 [facility] Stop: 03/28/21 11:59 Last Admin: 02/27/21 12:07 Dose: 1 units Documented by: Lansoprazole (Lansoprazole 30 Mg Soltab) 30 mg NG DAILY [facility] Stop: 03/29/21 10:59 Last Admin: 02/27/21 11:44 Dose: 30 mg Documented by: Midazolam HCl (Midazolam Hcl 1 Mg/Ml 2ml Vial) 2 mg IV Q2H PRN PRN Reason: Agitation Stop: 03/25/21 21:08 Last Admin: 02/26/21 08:32 Dose: 2 mg Documented by: Miscellaneous (Carbohydrates For Hypoglycemia ) 15 - 30 gm PO UD PRN PRN Reason: Hypoglycemia Treatment Stop: 03/25/21 19:59 Miscellaneous (Icu Electrolyte Replacement Protocol) 1 ea N/A BID@06,18 [facility]; Protocol Stop: 03/05/21 17:59 Last Admin: 02/27/21 06:47 Dose: 1 ea Documented by: Miscellaneous Information (Pharmacy Glycemic Mgmt Consult) 1 ea N/A UD PRN PRN Reason: Consult Stop: 03/25/21 19:33 Nutritional Formula (Peptamen Intense Vhp 1.0 Saurabh 1,000 Ml Bag) 1,000 ml OG UD [facility]; Protocol Stop: 03/28/21 10:59 Last Admin: 02/26/21 13:36 Dose: 1,000 ml Documented by: Propofol (Propofol Bolus From Bag) 20 mg IV Q5M PRN PRN Reason: Sedation Stop: 03/01/21 21:28 Sterile Water (Tube Feeding Water Flush) 150 ml OG Q4H JEYSON Stop: 03/28/21 10:59 Last Admin: 02/27/21 14:36 Dose: 150 ml Documented by: Resident Activity Tracking Resident Involvement: Resident Care Provided Care Provided: Adult Hospital Medicine
--- NOTE | 2021-02-27 07:56 | XRay Report ---
XR chest 1V portable CLINICAL HISTORY: Resp failure TECHNIQUE: Single frontal radiograph of the chest was obtained. Comparison: Comparison is made to chest one view 02/26/2021 FINDINGS: Lines and tubes are stable. The cardiomediastinal silhouette is stable. Bilateral lower lung predomin ant airspace opacities are seen. Small right and possible left pleural effusion. IMPRESSION: 1. Bilateral lower lung predominant airspace opacities which may represent atelectasis, pneumonia, a nd/or aspiration. These are increased from prior exam. 2. Small right and possible left pleural effusions. ACT 112: Negative or not required by law. Electronically signed by: Richie Hunter M.D. 02/27/2021 7:55 AM
[2021-02-27] MEDS: POTASSIUM CHLORIDE 20 MEQ/15 ML UDC NG SCH ×2 (08:06→10:44)
[2021-02-27] MEDS: ENOXAPARIN INJ 40 MG/0.4 ML SYR SQ SCH (08:07)
[2021-02-27] MEDS: levETIRAcetam 1,000 MG in 0.9 % SODIUM CHLORIDE 100 ML IV SCH (08:10)
[2021-02-27] MEDS ORDERED: FUROSEMIDE 40 MG/4 ML VIAL IV ONE (08:14)
[2021-02-27] MEDS: AMIODARONE / D5W 360 MG/200 ML BAG IV SCH ×2 (10:47→21:48)
[2021-02-27] MEDS ORDERED: POT PHOSPHATE MONOBASIC W/ SOD TAB PO ONE (11:00)
--- NOTE | 2021-02-27 11:04 | Critical Care Progress Note ---
Date of Service February 27, 2021 Assessment & Plan (1) Cardiac arrest: (2) Anoxic brain injury: (3) Ventricular tachycardia: (4) Metabolic acidosis: (5) Status epilepticus: Plan: Impression: 65-year-old male presents to the ICU following cardiac arrest. Patient underwent cath without intervention. Neurological exam poor following ROSC and currently mechanically ventilated. Patient to undergo 24-hour period of therapeutic hypothermia following presumed anoxic injury. 24-hour events: P patient had another EEG done today which showed burst suppression pattern. Patient seems to be having seizure-like activity. Recommendations Neuro - --Anoxic brain injury due to out of hospital cardiac arrest. Initial head CT was unrevealing EEG 02/25/2021 shows diffuse burst suppression pattern with generalized slowing going with anoxic brain injury Neurology on board. Will follow recommendations --Seizure-like activity Secondary to above Cardiac - --Cardiac arrest out of hospital cardiac arrest. Status post cardiac cath --> borderline mid LAD disease, no intervention was done Hemodynamically stable currently. Continue with amiodarone drip Respiratory - -- VDRF Secondary to cardiac arrest Continue with ventilatory support GI - --Transaminitis Trending down Continue to monitor RENAL/LYTES - --NATHAN Improved Continue to monitor BUNs/creatinine - Foleystrict I's and O's ENDO -ICU hyperglycemia protocol HEME - H&H stable, monitor routine CBCs ID - Leukocytosis likely reactive to cardiac arrest Patient is spiking fever this also seems to be central --Prophylaxis VTE: Lovenox GI: Protonix Lines: Right femoral cooling catheter, positive Garcia Diet: Tube feeds Plan: In/out: +2.3 L, urine output 2415 I will get EEG again to make sure patient is not having active seizures. Patient's valproic acid level was 64. Neurology wanted the level around 100. I will give a bolus of 750 mg of valproic acid on the next due dose and then continue with 5 mg every 6 Lasix 40 mg given to the patient Start fentanyl drip and try to titrate down propofol gradually Hypophosphatemia being replaced. Patient Sister Ezequiel Kidd [phone] was called and updated regarding patient's status I have personally spent 35 minutes of critical care time in the direct management of this patient. This is a life/limb threatening event. This includes time spent evaluating patient, direct bedside care, chart review, placing orders, interpretation of diagnostic studies, discussion with consultants, patient, and family members, as well as other required patient management activities. This time is exclusive of all separately billable procedures, and teaching time and separate from and in addition to any other critical care service time. Please note the above document was generated using voice recognition software. It may contain grammatical, syntax or spelling errors. Admission and Anticipated Discharge Date Admission Date: February 23, 2021 Subjective Patient seen and examined at bedside. No acute distress. Patient did not have any generalized tonic-clonic seizures since yesterday afternoon. He still spiking fever. He is breathing over the vent. Review of Systems Review of Systems: All systems reviewed & are unremarkable except as noted in Subjective Physical Exam Physical Exam: Constitutional: No acute distress HEENT: PERRLA Respiratory system: Good air entry bilaterally, no wheeze, no rhonchi, positive crackles bilateral CVS: S1-S2 positive, no murmurs or gallops Abdomen: Soft, nontender, nondistended, positive bowel sounds x4 Extremities: +2 pulses bilaterally radialis/ dorsalis pedis, no cyanosis, +1 edema bilateral lower extremity Neuro: Breathing over the vent, positive corneal, positive pupillary, no gag Psych: Unable to assess G/U: Positive Garcia Skin: no rashes, warm and dry Lymphatic: no cervical or axillary lymphadenopathy Results & Data Results & Data ([facility]) Vital Signs (Past 12 Hours) Vital Signs Temp Pulse Resp BP Pulse Ox 02/27/21 09:30 38.0 C H 68 30 H 133/63 91 02/27/21 09:00 37.6 C H 67 33 H 133/62 96 02/27/21 08:30 37.6 C H 63 28 H 115/57 L 96 02/27/21 08:00 37.5 C 73 19 94 02/27/21 07:45 64 31 H 96 02/27/21 07:30 38.0 C H 64 21 102/53 L 99 02/27/21 07:00 38.1 C H 68 26 H 118/57 L 98 02/27/21 04:00 37.0 C 69 34 H 148/84 H 86 L 02/27/21 03:29 62 29 H 98 02/27/21 03:00 37.0 C 60 30 H 109/53 L 99 02/27/21 02:00 37.3 C 66 29 H 110/58 L 99 02/27/21 01:00 37.7 C H 74 32 H 123/63 98 02/27/21 00:00 37.7 C H 82 32 H 149/68 H 93 02/26/21 23:00 37.4 C 86 34 H 158/76 H 89 L 02/27/21 05:08 02/27/21 05:08 Coding Level of Care Code Critical Care 1st 30-74 mins Diagnoses Cardiac arrest I46.9 Anoxic brain injury G93.1 Ventricular tachycardia I47.2 Metabolic acidosis E87.2 Status epilepticus G40.901 Time Spent (min) 35
[2021-02-27] MEDS ORDERED: STAT IV Infusion **Titration per Protocol STA (11:17)
[2021-02-27] MEDS ORDERED: fentaNYL citrate 2,500 MCG/250 ML BAG IV SCH (11:30)
[2021-02-27] MEDS: LANSOPRAZOLE 30 MG SOLTAB NG SCH (11:44)
[2021-02-27] MEDS ORDERED: VALPROATE SOD 750 MG in DEXTROSE 5% 50 ML IV ONE (12:00)
--- NOTE | 2021-02-27 12:00 | Electroencephalogram ---
EEG Procedure Note Date of Service February 27, 2021 Start / End Times Start Time: 11:13 AM End Time: 11:33 AM Referring Physician Noemy Nicole MD History Anoxic encephalopathy seizure-like activity Home Medication List Medication Instructions Recorded Confirmed Type aspirin 81 mg tablet,delayed 81 mg PO DAILY 08/16/18 02/23/21 History release (Adult Aspirin Regimen) cholecalciferol (vitamin D3) 25 1,000 units PO DAILY 08/16/18 02/23/21 History mcg (1,000 unit) capsule multivitamin 1 tab PO DAILY 12/08/18 02/23/21 History Lactobacillus 1 cap PO .TAKE 1 CAPSULE Daily 06/17/19 02/23/21 History acidophilus-Bifidobac.animalis 31 billion cell capsule mecobalamin (vitamin B12) 1,000 500 mcg SL DAILY #90 tab 04/27/20 02/23/21 Rx mcg disintegrating tablet,sublingual lisinopril 40 mg tablet 40 mg PO DAILY #90 tab 05/08/20 02/23/21 Rx simvastatin 10 mg tablet 10 mg PO DAILY #90 tab 05/21/20 02/23/21 Rx amlodipine 5 mg tablet 5 mg PO DAILY #90 tab 12/11/20 02/23/21 Rx metformin 1,000 mg tablet 1,000 mg PO BID #180 tab 12/12/20 02/23/21 Rx lancets (OneTouch UltraSoft #300 ea 01/29/21 02/23/21 Rx Lancets) Inpatient Medication List Acetaminophen (Acetaminophen 650 Mg Supp) 650 mg WA ONE PRN PRN Reason: Rebound Hyperthermia x 1 dose Stop: 03/25/21 19:44 Last Admin: 02/24/21 21:00 Dose: 650 mg Documented by: [id number] Buspirone HCl (Buspirone 15 Mg Tab) 60 mg NG ONCE PRN PRN Reason: For Shivering x 1 dose Stop: 03/25/21 19:44 Last Admin: 02/23/21 21:22 Dose: 60 mg Documented by: [id number] Dextrose (Dextrose 50% 50 Ml Syringe) 25 - 50 ml IV UD PRN; Protocol PRN Reason: Hypoglycemia Protocol Stop: 03/25/21 19:59 Last Admin: 02/24/21 07:43 Dose: 25 ml Documented by: [id number] Enoxaparin Sodium (Enoxaparin Inj 40 Mg/0.4 Ml Syr) 40 mg SQ QAM JEYSON Stop: 03/28/21 09:59 Last Admin: 02/27/21 08:07 Dose: 40 mg Documented by: [id number] Admin: 02/26/21 10:45 Dose: 40 mg Documented by: [id number] Fentanyl Citrate (Fentanyl Bolus From Bag) 50 mcg IV Q60M PRN PRN Reason: Pain or Agitation Stop: 03/09/21 21:08 Last Admin: 02/24/21 22:38 Dose: 50 mcg Documented by: [id number] Admin: 02/24/21 22:12 Dose: 50 mcg Documented by: [id number] Admin: 02/24/21 05:01 Dose: 50 mcg Documented by: [id number] Admin: 02/23/21 21:30 Dose: 50 mcg Documented by: [id number] Fentanyl Citrate (Fentanyl Citrate 100 Mcg/2 Ml Vial) 50 mcg IV Q2H PRN PRN Reason: Pain Stop: 03/11/21 11:21 Last Admin: 02/26/21 09:29 Dose: 50 mcg Documented by: [id number] Amiodarone HCl/Dextrose (Nexterone / D5w) 360 mg in 200 mls @ 16.667 mls/hr IV .Q12H [facility] Stop: 03/25/21 23:14 Last Admin: 02/27/21 10:47 Dose: 0.5 mg/min, 16.7 mls/hr Documented by: [id number] Cosigned by: [id number] Infusion: 02/27/21 10:47 Dose: 0.5 mg/min, 16.7 mls/hr Documented by: [id number] Cosigned by: [id number] Admin: 02/26/21 22:56 Dose: 0.5 mg/min, 16.7 mls/hr Documented by: [id number] Cosigned by: [id number] Infusion: 02/26/21 22:20 Dose: 0.5 mg/min, 16.7 mls/hr Documented by: [id number] Cosigned by: [id number] Infusion: 02/26/21 19:08 Dose: 0.5 mg/min, 16.7 mls/hr Documented by: [id number] Cosigned by: [id number] Admin: 02/26/21 10:21 Dose: 0.5 mg/min, 16.7 mls/hr Documented by: [id number] Cosigned by: [id number] Infusion: 02/26/21 09:50 Dose: 0.5 mg/min, 16.7 mls/hr Documented by: [id number] Cosigned by: [id number] Infusion: 02/26/21 07:14 Dose: 0.5 mg/min, 16.7 mls/hr Documented by: [id number] Cosigned by: [id number] Admin: 02/25/21 21:51 Dose: 0.5 mg/min, 16.7 mls/hr Documented by: [id number] Cosigned by: [id number] Infusion: 02/25/21 21:51 Dose: 0.5 mg/min, 16.7 mls/hr Documented by: [id number] Cosigned by: [id number] Infusion: 02/25/21 19:06 Dose: 0.5 mg/min, 16.7 mls/hr Documented by: [id number] Cosigned by: [id number] Admin: 02/25/21 11:23 Dose: 0.5 mg/min, 16.7 mls/hr Documented by: [id number] Cosigned by: [id number] Infusion: 02/25/21 10:36 Dose: 0.5 mg/min, 16.7 mls/hr Documented by: [id number] Cosigned by: [id number] Infusion: 02/25/21 07:16 Dose: 0.5 mg/min, 16.7 mls/hr Documented by: [id number] Cosigned by: [id number] Admin: 02/24/21 22:37 Dose: 0.5 mg/min, 16.7 mls/hr Documented by: [id number] Cosigned by: [id number] Infusion: 02/24/21 22:37 Dose: 0.5 mg/min, 16.7 mls/hr Documented by: [id number] Cosigned by: [id number] Infusion: 02/24/21 18:59 Dose: 0.5 mg/min, 16.7 mls/hr Documented by: [id number] Cosigned by: [id number] Admin: 02/24/21 10:54 Dose: 0.5 mg/min, 16.7 mls/hr Documented by: [id number] Cosigned by: [id number] Infusion: 02/24/21 10:54 Dose: 0.5 mg/min, 16.7 mls/hr Documented by: [id number] Cosigned by: [id number] Infusion: 02/24/21 06:46 Dose: 0.5 mg/min, 16.7 mls/hr Documented by: [id number] Cosigned by: [id number] Admin: 02/24/21 00:36 Dose: 0.5 mg/min, 16.7 mls/hr Documented by: [id number] Cosigned by: [id number] Parenteral Electrolytes (Normosol-R) 1,000 mls @ 125 mls/hr IV .Q8H [facility] Stop: 03/25/21 21:44 Last Admin: 02/27/21 04:26 Dose: 125 mls/hr Documented by: [id number] Infusion: 02/27/21 04:26 Dose: 125 mls/hr Documented by: [id number] Admin: 02/26/21 21:24 Dose: 125 mls/hr Documented by: [id number] Infusion: 02/26/21 21:24 Dose: 125 mls/hr Documented by: [id number] Infusion: 02/26/21 19:08 Dose: 125 mls/hr Documented by: [id number] Admin: 02/26/21 13:38 Dose: 125 mls/hr Documented by: [id number] Infusion: 02/26/21 12:28 Dose: 125 mls/hr Documented by: [id number] Admin: 02/26/21 04:28 Dose: 125 mls/hr Documented by: [id number] Infusion: 02/26/21 04:10 Dose: 125 mls/hr Documented by: [id number] Admin: 02/25/21 20:10 Dose: 125 mls/hr Documented by: [id number] Infusion: 02/25/21 20:10 Dose: 125 mls/hr Documented by: [id number] Infusion: 02/25/21 19:06 Dose: 125 mls/hr Documented by: [id number] Admin: 02/25/21 12:43 Dose: 125 mls/hr Documented by: [id number] Infusion: 02/25/21 12:35 Dose: 125 mls/hr Documented by: [id number] Admin: 02/25/21 04:35 Dose: 125 mls/hr Documented by: [id number] Infusion: 02/25/21 04:35 Dose: 125 mls/hr Documented by: [id number] Admin: 02/24/21 21:00 Dose: 125 mls/hr Documented by: [id number] Infusion: 02/24/21 20:52 Dose: 125 mls/hr Documented by: [id number] Admin: 02/24/21 12:52 Dose: 125 mls/hr Documented by: [id number] Infusion: 02/24/21 12:52 Dose: 125 mls/hr Documented by: [id number] Admin: 02/24/21 05:06 Dose: 125 mls/hr Documented by: [id number] Infusion: 02/24/21 05:06 Dose: 125 mls/hr Documented by: [id number] Admin: 02/23/21 21:59 Dose: 125 mls/hr Documented by: [id number] Acetaminophen (Ofirmev) 1,000 mg in 100 mls @ 400 mls/hr IV Q8H PRN PRN Reason: Fever Stop: 02/28/21 00:21 Last Infusion: 02/26/21 20:12 Dose: 0 mls/hr Documented by: [id number] Admin: 02/26/21 19:56 Dose: 400 mls/hr Documented by: [id number] Infusion: 02/26/21 10:54 Dose: 0 mls/hr Documented by: [id number] Admin: 02/26/21 10:21 Dose: 400 mls/hr Documented by: [id number] Infusion: 02/26/21 01:48 Dose: 0 mls/hr Documented by: [id number] Admin: 02/26/21 01:33 Dose: 400 mls/hr Documented by: [id number] Infusion: 02/25/21 18:41 Dose: 0 mls/hr Documented by: [id number] Admin: 02/25/21 18:14 Dose: 400 mls/hr Documented by: [id number] Infusion: 02/25/21 10:03 Dose: 0 mls/hr Documented by: [id number] Admin: 02/25/21 08:54 Dose: 400 mls/hr Documented by: [id number] Infusion: 02/25/21 00:51 Dose: 0 mls/hr Documented by: [id number] Admin: 02/25/21 00:36 Dose: 400 mls/hr Documented by: [id number] Levetiracetam 1,000 mg/ Sodium (Chloride) 110 mls @ 440 mls/hr IV Q12 JEYSON Stop: 03/27/21 20:59 Last Infusion: 02/27/21 08:52 Dose: 0 mls/hr Documented by: [id number] Admin: 02/27/21 08:10 Dose: 440 mls/hr Documented by: [id number] Infusion: 02/26/21 22:18 Dose: 0 mls/hr Documented by: [id number] Admin: 02/26/21 20:13 Dose: 440 mls/hr Documented by: [id number] Infusion: 02/26/21 08:37 Dose: 0 mls/hr Documented by: [id number] Admin: 02/26/21 08:14 Dose: 440 mls/hr Documented by: [id number] Infusion: 02/25/21 20:25 Dose: 0 mls/hr Documented by: [id number] Admin: 02/25/21 20:10 Dose: 440 mls/hr Documented by: [id number] Valproic Acid 500 mg/ Dextrose 55 mls @ 55 mls/hr IV Q6 [facility] Stop: 03/28/21 17:59 Last Infusion: 02/27/21 08:07 Dose: 0 mls/hr Documented by: [id number] Admin: 02/27/21 06:49 Dose: 55 mls/hr Documented by: [id number] Infusion: 02/27/21 02:38 Dose: 0 mls/hr Documented by: [id number] Admin: 02/27/21 00:41 Dose: 55 mls/hr Documented by: [id number] Infusion: 02/26/21 19:23 Dose: 0 mls/hr Documented by: [id number] Admin: 02/26/21 17:59 Dose: 55 mls/hr Documented by: [id number] Propofol (Diprivan) 1,000 mg in 100 mls @ 28.203 mls/hr IV .Q3H33M JEYSON; Protocol Stop: 03/01/21 21:29 Last Admin: 02/27/21 11:02 Dose: 50.38 mcg/kg/min, 28.2 mls/hr Documented by: [id number] Cosigned by: [id number] Titration: 02/27/21 11:02 Dose: 50.38 mcg/kg/min, 28.2 mls/hr Documented by: [id number] Cosigned by: [id number] Admin: 02/27/21 08:09 Dose: 50.38 mcg/kg/min, 28.2 mls/hr Documented by: [id number] Cosigned by: [id number] Titration: 02/27/21 07:59 Dose: 50.38 mcg/kg/min, 28.2 mls/hr Documented by: [id number] Cosigned by: [id number] Titration: 02/27/21 07:08 Dose: 50.38 mcg/kg/min, 28.2 mls/hr Documented by: [id number] Cosigned by: [id number] Admin: 02/27/21 04:26 Dose: 50.38 mcg/kg/min, 28.2 mls/hr Documented by: [id number] Cosigned by: [id number] Titration: 02/27/21 04:13 Dose: 50.38 mcg/kg/min, 28.2 mls/hr Documented by: [id number] Cosigned by: [id number] Admin: 02/27/21 00:40 Dose: 50.38 mcg/kg/min, 28.2 mls/hr Documented by: [id number] Cosigned by: [id number] Titration: 02/27/21 00:40 Dose: 50.38 mcg/kg/min, 28.2 mls/hr Documented by: [id number] Cosigned by: [id number] Titration: 02/26/21 21:45 Dose: 50.38 mcg/kg/min, 28.2 mls/hr Documented by: [id number] Admin: 02/26/21 21:30 Dose: 20 mcg/kg/min, 11.2 mls/hr Documented by: [id number] Cosigned by: [id number] Valproic Acid 750 mg/ Dextrose 57.5 mls @ 55 mls/hr IV ONCE ONE Stop: 02/27/21 13:02 Last Admin: 02/27/21 11:44 Dose: 55 mls/hr Documented by: [id number] Insulin Aspart (Insulin Aspart Per Unit) 0 units SC ACHS JEYSON Stop: 03/25/21 20:59 Last Admin: 02/24/21 21:01 Dose: Not Given Documented by: [id number] Admin: 02/24/21 15:03 Dose: Not Given Documented by: [id number] Cosigned by: [id number] Admin: 02/24/21 10:55 Dose: Not Given Documented by: [id number] Cosigned by: [id number] Admin: 02/24/21 07:43 Dose: Not Given Documented by: [id number] Cosigned by: [id number] Admin: 02/23/21 21:13 Dose: Not Given Documented by: [id number] Insulin Aspart (Insulin Aspart Per Unit) 0 units SC Q6 [facility] Stop: 03/28/21 11:59 Last Admin: 02/27/21 06:47 Dose: 1 units Documented by: [id number] Cosigned by: [id number] Admin: 02/27/21 00:46 Dose: 2 units Documented by: [id number] Cosigned by: [id number] Admin: 02/26/21 18:04 Dose: Not Given Documented by: [id number] Cosigned by: [id number] Admin: 02/26/21 10:56 Dose: Not Given Documented by: [id number] Cosigned by: [id number] Lansoprazole (Lansoprazole 30 Mg Soltab) 30 mg NG DAILY [facility] Stop: 03/29/21 10:59 Last Admin: 02/27/21 11:44 Dose: 30 mg Documented by: [id number] Midazolam HCl (Midazolam Hcl 1 Mg/Ml 2ml Vial) 2 mg IV Q2H PRN PRN Reason: Agitation Stop: 03/25/21 21:08 Last Admin: 02/26/21 08:32 Dose: 2 mg Documented by: [id number] Admin: 02/25/21 15:10 Dose: 2 mg Documented by: [id number] Admin: 02/24/21 22:39 Dose: 2 mg Documented by: [id number] Admin: 02/24/21 11:15 Dose: 2 mg Documented by: [id number] Admin: 02/24/21 05:00 Dose: 2 mg Documented by: [id number] Admin: 02/23/21 21:21 Dose: 2 mg Documented by: [id number] Miscellaneous (Icu Electrolyte Replacement Protocol) 1 ea N/A BID@ [facility]; Protocol Stop: 03/05/21 17:59 Last Admin: 02/27/21 06:47 Dose: 1 ea Documented by: [id number] Admin: 02/26/21 18:05 Dose: Not Given Documented by: [id number] Nutritional Formula (Peptamen Intense Vhp 1.0 Saurabh 1,000 Ml Bag) 1,000 ml OG UD [facility]; Protocol Stop: 03/28/21 10:59 Last Admin: 02/26/21 13:36 Dose: 1,000 ml Documented by: [id number] Sterile Water (Tube Feeding Water Flush) 150 ml OG Q4H [facility] Stop: 03/28/21 10:59 Last Admin: 02/27/21 10:44 Dose: 150 ml Documented by: [id number] Admin: 02/27/21 08:06 Dose: 150 ml Documented by: [id number] Admin: 02/27/21 04:27 Dose: 150 ml Documented by: [id number] Admin: 02/27/21 00:46 Dose: 150 ml Documented by: [id number] Admin: 02/26/21 19:15 Dose: 150 ml Documented by: [id number] Admin: 02/26/21 14:49 Dose: 150 ml Documented by: [id number] Admin: 02/26/21 13:38 Dose: 150 ml Documented by: [id number] Discontinued Medications Amiodarone HCl/Dextrose (Amiodarone 360mg / 200ml D5w) Confirm Administered Dose 360 mg IV .STK-MED ONE Stop: 02/23/21 17:06 Last Admin: 02/23/21 21:12 Dose: Not Given Documented by: [id number] Aspirin (Aspirin 300 Mg Supp) 300 mg WA ONE ONE Stop: 02/23/21 16:55 Last Admin: 02/23/21 21:26 Dose: 300 mg Documented by: [id number] Fentanyl Citrate (Fentanyl Citrate 100 Mcg/2 Ml Vial) Confirm Administered Dose 100 mcg .ROUTE .STK-MED ONE Stop: 02/23/21 17:07 Last Admin: 02/23/21 20:13 Dose: Not Given Documented by: [id number] Furosemide (Furosemide 40 Mg/4 Ml Vial) 40 mg IV ONE ONE Stop: 02/25/21 09:47 Last Admin: 02/25/21 11:24 Dose: 40 mg Documented by: [id number] Furosemide (Furosemide 40 Mg/4 Ml Vial) 40 mg IV ONE ONE Stop: 02/27/21 08:15 Last Admin: 02/27/21 08:52 Dose: 40 mg Documented by: [id number] Heparin Sodium (Porcine) (Heparin (Porcine) 1000 Unit/Ml 10 Ml ([employer] Use Only)) Confirm Administered Dose 10,000 units .ROUTE .STK-MED ONE Stop: 02/23/21 17:07 Last Admin: 02/23/21 20:23 Dose: Not Given Documented by: [id number] Heparin Sodium/Sodium Chloride (Heparin In Nss Infusion 1000 Unit/500 Ml (2 U/Ml) Bag) Confirm Administered Dose 3,000 units IV .STK-MED ONE Stop: 02/23/21 17:08 Last Admin: 02/23/21 20:24 Dose: Not Given Documented by: [id number] Amiodarone HCl/Dextrose (Nexterone / D5w) 360 mg in 200 mls @ 33.333 mls/hr IV .Q6H [facility] Stop: 02/23/21 23:14 Last Infusion: 02/24/21 00:36 Dose: 0 mg/min, 0 mls/hr Documented by: [id number] Cosigned by: [id number] Admin: 02/23/21 20:52 Dose: 1 mg/min, 33.3 mls/hr Documented by: [id number] Cosigned by: [id number] Propofol (Diprivan) 1,000 mg in 100 mls @ 28.17 mls/hr IV .Q3H33M [facility]; Protocol Stop: 02/26/21 17:14 Last Titration: 02/26/21 22:31 Dose: 0 mcg/kg/min, 0 mls/hr Documented by: [id number] Titration: 02/26/21 19:08 Dose: 50 mcg/kg/min, 28.2 mls/hr Documented by: [id number] Cosigned by: [id number] Admin: 02/26/21 17:35 Dose: 50 mcg/kg/min, 28.2 mls/hr Documented by: [id number] Cosigned by: [id number] Titration: 02/26/21 17:27 Dose: 50 mcg/kg/min, 28.2 mls/hr Documented by: [id number] Cosigned by: [id number] Admin: 02/26/21 13:54 Dose: 50 mcg/kg/min, 28.2 mls/hr Documented by: [id number] Cosigned by: [id number] Titration: 02/26/21 13:50 Dose: 50 mcg/kg/min, 28.2 mls/hr Documented by: [id number] Cosigned by: [id number] Admin: 02/26/21 10:54 Dose: Not Given Documented by: [id number] Admin: 02/26/21 10:17 Dose: 50 mcg/kg/min, 28.2 mls/hr Documented by: [id number] Cosigned by: [id number] Titration: 02/26/21 09:46 Dose: 50 mcg/kg/min, 28.2 mls/hr Documented by: [id number] Cosigned by: [id number] Titration: 02/26/21 09:34 Dose: 50 mcg/kg/min, 28.2 mls/hr Documented by: [id number] Titration: 02/26/21 09:00 Dose: 40 mcg/kg/min, 22.5 mls/hr Documented by: [id number] Titration: 02/26/21 07:14 Dose: 40 mcg/kg/min, 22.5 mls/hr Documented by: [id number] Cosigned by: [id number] Admin: 02/26/21 07:10 Dose: Not Given Documented by: [id number] Admin: 02/26/21 07:10 Dose: Not Given Documented by: [id number] Admin: 02/26/21 07:09 Dose: Not Given Documented by: [id number] Admin: 02/26/21 07:09 Dose: Not Given Documented by: [id number] Admin: 02/26/21 07:09 Dose: Not Given Documented by: [id number] Admin: 02/26/21 07:09 Dose: Not Given Documented by: [id number] Admin: 02/26/21 07:09 Dose: Not Given Documented by: [id number] Admin: 02/26/21 05:22 Dose: 40 mcg/kg/min, 22.5 mls/hr Documented by: [id number] Cosigned by: [id number] Titration: 02/26/21 05:17 Dose: 40 mcg/kg/min, 22.5 mls/hr Documented by: [id number] Cosigned by: [id number] Titration: 02/26/21 04:23 Dose: 40 mcg/kg/min, 22.5 mls/hr Documented by: [id number] Admin: 02/26/21 01:33 Dose: 50 mcg/kg/min, 28.2 mls/hr Documented by: [id number] Cosigned by: [id number] Titration: 02/26/21 01:23 Dose: 50 mcg/kg/min, 28.2 mls/hr Documented by: [id number] Cosigned by: [id number] Admin: 02/25/21 21:50 Dose: 50 mcg/kg/min, 28.2 mls/hr Documented by: [id number] Cosigned by: [id number] Titration: 02/25/21 21:48 Dose: 50 mcg/kg/min, 28.2 mls/hr Documented by: [id number] Cosigned by: [id number] Titration: 02/25/21 19:06 Dose: 50 mcg/kg/min, 28.2 mls/hr Documented by: [id number] Cosigned by: [id number] Admin: 02/25/21 18:15 Dose: 50 mcg/kg/min, 28.2 mls/hr Documented by: [id number] Cosigned by: [id number] Titration: 02/25/21 18:15 Dose: 50 mcg/kg/min, 28.2 mls/hr Documented by: [id number] Cosigned by: [id number] Admin: 02/25/21 15:10 Dose: 50 mcg/kg/min, 28.2 mls/hr Documented by: [id number] Cosigned by: [id number] Titration: 02/25/21 14:59 Dose: 50 mcg/kg/min, 28.2 mls/hr Documented by: [id number] Cosigned by: [id number] Admin: 02/25/21 11:26 Dose: 50 mcg/kg/min, 28.2 mls/hr Documented by: [id number] Cosigned by: [id number] Titration: 02/25/21 11:26 Dose: 50 mcg/kg/min, 28.2 mls/hr Documented by: [id number] Cosigned by: [id number] Admin: 02/25/21 08:40 Dose: 50 mcg/kg/min, 28.2 mls/hr Documented by: [id number] Cosigned by: [id number] Titration: 02/25/21 08:26 Dose: 50 mcg/kg/min, 28.2 mls/hr Documented by: [id number] Cosigned by: [id number] Titration: 02/25/21 07:16 Dose: 50 mcg/kg/min, 28.2 mls/hr Documented by: [id number] Cosigned by: [id number] Admin: 02/25/21 06:16 Dose: Not Given Documented by: [id number] Titration: 02/25/21 05:25 Dose: 50 mcg/kg/min, 28.2 mls/hr Documented by: [id number] Titration: 02/25/21 05:15 Dose: 40 mcg/kg/min, 22.5 mls/hr Documented by: [id number] Admin: 02/25/21 04:34 Dose: 30 mcg/kg/min, 16.9 mls/hr Documented by: [id number] Cosigned by: [id number] Titration: 02/25/21 04:34 Dose: 30 mcg/kg/min, 16.9 mls/hr Documented by: [id number] Cosigned by: [id number] Titration: 02/25/21 02:53 Dose: 30 mcg/kg/min, 16.9 mls/hr Documented by: [id number] Admin: 02/25/21 00:04 Dose: 40 mcg/kg/min, 22.5 mls/hr Documented by: [id number] Cosigned by: [id number] Titration: 02/25/21 00:04 Dose: 40 mcg/kg/min, 22.5 mls/hr Documented by: [id number] Cosigned by: [id number] Admin: 02/24/21 23:43 Dose: Not Given Documented by: [id number] Titration: 02/24/21 22:36 Dose: 40 mcg/kg/min, 22.5 mls/hr Documented by: [id number] Admin: 02/24/21 21:52 Dose: Not Given Documented by: [id number] Admin: 02/24/21 21:52 Dose: Not Given Documented by: [id number] Admin: 02/24/21 21:01 Dose: 30 mcg/kg/min, 16.9 mls/hr Documented by: [id number] Cosigned by: [id number] Titration: 02/24/21 18:59 Dose: 30 mcg/kg/min, 16.9 mls/hr Documented by: [id number] Cosigned by: [id number] Admin: 02/24/21 17:25 Dose: Not Given Documented by: [id number] Admin: 02/24/21 15:03 Dose: 50 mcg/kg/min, 28.2 mls/hr Documented by: [id number] Cosigned by: [id number] Titration: 02/24/21 14:38 Dose: 50 mcg/kg/min, 28.2 mls/hr Documented by: [id number] Cosigned by: [id number] Titration: 02/24/21 11:15 Dose: 50 mcg/kg/min, 28.2 mls/hr Documented by: [id number] Admin: 02/24/21 11:00 Dose: Not Given Documented by: [id number] Cosigned by: [id number] Admin: 02/24/21 10:54 Dose: 25 mcg/kg/min, 14.1 mls/hr Documented by: [id number] Cosigned by: [id number] Titration: 02/24/21 10:54 Dose: 30 mcg/kg/min, 16.9 mls/hr Documented by: [id number] Cosigned by: [id number] Titration: 02/24/21 09:39 Dose: 30 mcg/kg/min, 16.9 mls/hr Documented by: [id number] Titration: 02/24/21 08:30 Dose: 40 mcg/kg/min, 22.5 mls/hr Documented by: [id number] Titration: 02/24/21 06:46 Dose: 30 mcg/kg/min, 16.9 mls/hr Documented by: [id number] Cosigned by: [id number] Admin: 02/24/21 06:23 Dose: 30 mcg/kg/min, 16.9 mls/hr Documented by: [id number] Cosigned by: [id number] Titration: 02/24/21 05:06 Dose: 40 mcg/kg/min, 22.5 mls/hr Documented by: [id number] Cosigned by: [id number] Titration: 02/24/21 03:50 Dose: 40 mcg/kg/min, 22.5 mls/hr Documented by: [id number] Titration: 02/24/21 03:26 Dose: 30 mcg/kg/min, 16.9 mls/hr Documented by: [id number] Titration: 02/24/21 00:43 Dose: 40 mcg/kg/min, 22.5 mls/hr Documented by: [id number] Admin: 02/24/21 00:35 Dose: 50 mcg/kg/min, 28.2 mls/hr Documented by: [id number] Cosigned by: [id number] Titration: 02/24/21 00:24 Dose: 50 mcg/kg/min, 28.2 mls/hr Documented by: [id number] Cosigned by: [id number] Admin: 02/23/21 20:51 Dose: 50 mcg/kg/min, 28.2 mls/hr Documented by: [id number] Cosigned by: [id number] Sodium Chloride (Nss 1000ml) 1,000 mls @ 999 mls/hr IV .Q1H1M ONE Stop: 02/23/21 18:17 Last Admin: 02/23/21 20:26 Dose: Not Given Documented by: [id number] Pantoprazole Sodium 40 mg/ (Syringe) 10 mls @ 5 mls/min IV DAILY@1100 [facility] Stop: 03/26/21 10:59 Last Admin: 02/26/21 10:20 Dose: 5 mls/min Documented by: [id number] Admin: 02/25/21 11:24 Dose: 5 mls/min Documented by: [id number] Admin: 02/24/21 10:54 Dose: 5 mls/min Documented by: [id number] Insulin Human Regular 250 (units/ Sodium Chloride) 250 mls @ 0 mls/hr IV .Q0M [facility]; Protocol Stop: 03/25/21 19:59 Last Titration: 02/24/21 19:00 Dose: 0 units/hr, 0 mls/hr Documented by: [id number] Cosigned by: [id number] Titration: 02/24/21 18:59 Dose: 0 units/hr, 0 mls/hr Documented by: [id number] Cosigned by: [id number] Titration: 02/24/21 16:30 Dose: 0 units/hr, 0 mls/hr Documented by: [id number] Cosigned by: [id number] Titration: 02/24/21 15:00 Dose: 1.2 units/hr, 1.2 mls/hr Documented by: [id number] Cosigned by: [id number] Titration: 02/24/21 14:00 Dose: 1.2 units/hr, 1.2 mls/hr Documented by: [id number] Cosigned by: [id number] Titration: 02/24/21 13:00 Dose: 1 units/hr, 1 mls/hr Documented by: [id number] Cosigned by: [id number] Titration: 02/24/21 12:00 Dose: 1 units/hr, 1 mls/hr Documented by: [id number] Cosigned by: [id number] Titration: 02/24/21 11:00 Dose: 1.3 units/hr, 1.3 mls/hr Documented by: [id number] Cosigned by: [id number] Titration: 02/24/21 10:00 Dose: 1.6 units/hr, 1.6 mls/hr Documented by: [id number] Cosigned by: [id number] Titration: 02/24/21 09:00 Dose: 1.6 units/hr, 1.6 mls/hr Documented by: [id number] Cosigned by: [id number] Titration: 02/24/21 08:00 Dose: 2 units/hr, 2 mls/hr Documented by: [id number] Cosigned by: [id number] Titration: 02/24/21 07:44 Dose: 0 units/hr, 0 mls/hr Documented by: [id number] Cosigned by: [id number] Titration: 02/24/21 06:46 Dose: 2.6 units/hr, 2.6 mls/hr Documented by: [id number] Cosigned by: [id number] Titration: 02/24/21 06:15 Dose: 2.6 units/hr, 2.6 mls/hr Documented by: [id number] Cosigned by: [id number] Titration: 02/24/21 05:10 Dose: 3.3 units/hr, 3.3 mls/hr Documented by: [id number] Cosigned by: [id number] Titration: 02/24/21 04:10 Dose: 4.1 units/hr, 4.1 mls/hr Documented by: [id number] Cosigned by: [id number] Titration: 02/24/21 03:10 Dose: 4.1 units/hr, 4.1 mls/hr Documented by: [id number] Cosigned by: [id number] Titration: 02/24/21 02:10 Dose: 4.1 units/hr, 4.1 mls/hr Documented by: [id number] Cosigned by: [id number] Titration: 02/24/21 01:10 Dose: 4.1 units/hr, 4.1 mls/hr Documented by: [id number] Cosigned by: [id number] Titration: 02/24/21 00:15 Dose: 4.1 units/hr, 4.1 mls/hr Documented by: [id number] Cosigned by: [id number] Titration: 02/23/21 23:15 Dose: 3.4 units/hr, 3.4 mls/hr Documented by: [id number] Cosigned by: [id number] Titration: 02/23/21 22:15 Dose: 2.8 units/hr, 2.8 mls/hr Documented by: [id number] Cosigned by: [id number] Admin: 02/23/21 20:46 Dose: 2.3 units/hr, 2.3 mls/hr Documented by: [id number] Cosigned by: [id number] Lorazepam (Ativan) 4 mg in 8 mls @ 4 mls/min IV NOW STA Stop: 02/23/21 20:37 Last Admin: 02/23/21 21:13 Dose: Not Given Documented by: [id number] Levetiracetam 2,000 mg/ Sodium (Chloride) 270 mls @ 999 mls/hr IV NOW STA Stop: 02/23/21 21:24 Last Infusion: 02/23/21 21:37 Dose: 0 mls/hr Documented by: [id number] Admin: 02/23/21 21:20 Dose: 999 mls/hr Documented by: [id number] Levetiracetam 500 mg/ Sodium (Chloride) 105 mls @ 420 mls/hr IV Q12H [facility] Stop: 03/26/21 08:59 Last Infusion: 02/25/21 09:30 Dose: 0 mls/hr Documented by: [id number] Admin: 02/25/21 08:48 Dose: 420 mls/hr Documented by: [id number] Infusion: 02/24/21 21:15 Dose: 0 mls/hr Documented by: [id number] Admin: 02/24/21 21:00 Dose: 420 mls/hr Documented by: [id number] Infusion: 02/24/21 08:42 Dose: 0 mls/hr Documented by: [id number] Admin: 02/24/21 07:43 Dose: 420 mls/hr Documented by: [id number] Fentanyl Citrate (Fentanyl Citrate) 2,500 mcg in 250 mls @ 2.5 mls/hr IV .Q96H [facility]; Protocol Stop: 03/09/21 21:14 Last Titration: 02/25/21 10:00 Dose: 0 mcg/hr, 0 mls/hr Documented by: [id number] Cosigned by: [id number] Admin: 02/25/21 08:35 Dose: 75 mcg/hr, 7.5 mls/hr Documented by: [id number] Cosigned by: [id number] Titration: 02/25/21 08:35 Dose: 75 mcg/hr, 7.5 mls/hr Documented by: [id number] Cosigned by: [id number] Titration: 02/25/21 07:16 Dose: 75 mcg/hr, 7.5 mls/hr Documented by: [id number] Cosigned by: [id number] Titration: 02/24/21 22:38 Dose: 75 mcg/hr, 7.5 mls/hr Documented by: [id number] Cosigned by: [id number] Titration: 02/24/21 18:59 Dose: 50 mcg/hr, 5 mls/hr Documented by: [id number] Cosigned by: [id number] Titration: 02/24/21 09:39 Dose: 25 mcg/hr, 2.5 mls/hr Documented by: [id number] Cosigned by: [id number] Titration: 02/24/21 06:46 Dose: 75 mcg/hr, 7.5 mls/hr Documented by: [id number] Cosigned by: [id number] Titration: 02/24/21 05:01 Dose: 75 mcg/hr, 7.5 mls/hr Documented by: [id number] Cosigned by: [id number] Titration: 02/23/21 22:00 Dose: 50 mcg/hr, 5 mls/hr Documented by: [id number] Cosigned by: [id number] Admin: 02/23/21 21:21 Dose: 25 mcg/hr, 2.5 mls/hr Documented by: [id number] Cosigned by: [id number] Calcium Gluconate 1,000 mg/ (Sodium Chloride) 60 mls @ 240 mls/hr IV NOW ONE Stop: 02/23/21 22:03 Last Infusion: 02/23/21 22:29 Dose: 0 mls/hr Documented by: [id number] Admin: 02/23/21 22:14 Dose: 240 mls/hr Documented by: [id number] Potassium Chloride (K Florian / Wtr) 20 meq in 100 mls @ 50 mls/hr IV ONE ONE; Protocol Stop: 02/25/21 08:44 Last Infusion: 02/25/21 10:34 Dose: 0 mls/hr Documented by: [id number] Admin: 02/25/21 08:34 Dose: 50 mls/hr Documented by: [id number] Valproic Acid 250 mg/ Dextrose 52.5 mls @ 55 mls/hr IV Q6H JEYSON Stop: 03/27/21 15:59 Last Infusion: 02/26/21 10:58 Dose: 0 mls/hr Documented by: [id number] Admin: 02/26/21 09:33 Dose: 55 mls/hr Documented by: [id number] Infusion: 02/26/21 04:14 Dose: 0 mls/hr Documented by: [id number] Admin: 02/26/21 03:16 Dose: 55 mls/hr Documented by: [id number] Infusion: 02/25/21 22:47 Dose: 0 mls/hr Documented by: [id number] Admin: 02/25/21 21:49 Dose: 55 mls/hr Documented by: [id number] Infusion: 02/25/21 18:30 Dose: 0 mls/hr Documented by: [id number] Admin: 02/25/21 17:14 Dose: 55 mls/hr Documented by: [id number] Potassium Chloride (K Florian / Wtr) 20 meq in 100 mls @ 50 mls/hr IV Q2H JEYSON; Protocol Stop: 02/26/21 10:59 Last Infusion: 02/26/21 13:52 Dose: 0 mls/hr Documented by: [id number] Admin: 02/26/21 10:02 Dose: 50 mls/hr Documented by: [id number] Infusion: 02/26/21 09:54 Dose: 50 mls/hr Documented by: [id number] Admin: 02/26/21 07:54 Dose: 50 mls/hr Documented by: [id number] Valproic Acid 500 mg/ Dextrose 55 mls @ 55 mls/hr IV ONCE STA Stop: 02/26/21 15:21 Last Infusion: 02/26/21 16:00 Dose: 0 mls/hr Documented by: [id number] Admin: 02/26/21 14:49 Dose: 55 mls/hr Documented by: [id number] Insulin Aspart (Insulin Aspart Per Unit) 0 units SC Q4 JEYSON Stop: 03/27/21 00:00 Last Admin: 02/26/21 08:12 Dose: Not Given Documented by: [id number] Cosigned by: [id number] Admin: 02/26/21 04:23 Dose: Not Given Documented by: [id number] Admin: 02/26/21 00:01 Dose: Not Given Documented by: [id number] Admin: 02/25/21 20:04 Dose: Not Given Documented by: [id number] Admin: 02/25/21 16:24 Dose: Not Given Documented by: [id number] Cosigned by: [id number] Admin: 02/25/21 12:08 Dose: Not Given Documented by: [id number] Cosigned by: [id number] Admin: 02/25/21 08:34 Dose: Not Given Documented by: [id number] Cosigned by: [id number] Admin: 02/25/21 04:35 Dose: Not Given Documented by: [id number] Admin: 02/25/21 00:06 Dose: Not Given Documented by: [id number] Insulin Human Regular (Novolin-R Bolus From Bag) 2.5 units IV ONE ONE Stop: 02/23/21 20:31 Last Admin: 02/23/21 20:53 Dose: 2.5 units Documented by: [id number] Cosigned by: [id number] Ioversol (Optiray 320 125ml) 120 ml IV ONCE ONE Stop: 02/23/21 17:38 Last Admin: 02/23/21 17:37 Dose: 120 ml Documented by: [id number] Lorazepam (Lorazepam 2 Mg/4 Ml Vial) Confirm Administered Dose 4 mg .ROUTE .STK- MED ONE Stop: 02/23/21 20:39 Last Admin: 02/23/21 20:50 Dose: 4 mg Documented by: [id number] Meperidine HCl (Meperidine Hcl 25 Mg/Ml Carp/Vial) 25 mg IV Q2H PRN PRN Reason: Shivering Stop: 03/09/21 19:44 Last Admin: 02/24/21 03:51 Dose: 25 mg Documented by: [id number] Admin: 02/24/21 00:35 Dose: 25 mg Documented by: [id number] Midazolam HCl (Midazolam Hcl 1 Mg/Ml 2ml Vial) Confirm Administered Dose 2 mg .ROUTE .STK-MED ONE Stop: 02/23/21 17:07 Last Admin: 02/23/21 20:23 Dose: Not Given Documented by: [id number] Miscellaneous (Stat Iv Infusion Titration Per Protocol) 1 ea N/A NOW STA Stop: 02/23/21 17:08 Last Admin: 02/23/21 20:25 Dose: Not Given Documented by: [id number] Miscellaneous (Insulin Protocol Goal Range ) 1 ea N/A ONE ONE Stop: 02/23/21 20:01 Last Admin: 02/23/21 21:12 Dose: 1 ea Documented by: [id number] Miscellaneous (Moderate Stress Level ) 1 ea N/A ONE ONE Stop: 02/23/21 20:09 Last Admin: 02/23/21 21:13 Dose: 1 ea Documented by: [id number] Nicardipine HCl (Nicardipine Hcl Inj 2.5 Mg/Ml 10 Ml Amp) Confirm Administered Dose 25 mg .ROUTE .STK-MED ONE Stop: 02/23/21 17:07 Last Admin: 02/23/21 20:23 Dose: Not Given Documented by: [id number] Nitroglycerin/Dextrose (Nitroglycerin/D5w 100mcg/Ml 20ml Syr) Confirm Administered Dose 2,000 mcg .ROUTE .STK-MED ONE Stop: 02/23/21 17:08 Last Admin: 02/23/21 20:24 Dose: Not Given Documented by: [id number] Potassium Chloride (Potassium Chloride 20 Meq/15 Ml Udc) 40 meq PO NOW STA Stop: 02/26/21 06:27 Last Admin: 02/26/21 07:54 Dose: 40 meq Documented by: [id number] Potassium Chloride (Potassium Chloride 20 Meq/15 Ml Udc) 20 meq NG Q4H JEYSON Stop: 02/27/21 10:46 Last Admin: 02/27/21 10:44 Dose: 20 meq Documented by: [id number] Admin: 02/27/21 08:06 Dose: 20 meq Documented by: [id number] Propofol (Propofol Iv Emulsion 10 Mg/Ml 100 Ml Vial) Confirm Administered Dose 1,000 mg IV .STK-MED ONE Stop: 02/23/21 17:07 Last Admin: 02/23/21 20:24 Dose: Not Given Documented by: [id number] Propofol (Propofol Bolus From Bag) 20 mg IV Q5M PRN PRN Reason: Sedation Stop: 02/26/21 17:06 Last Admin: 02/26/21 08:10 Dose: 20 mg Documented by: [id number] Cosigned by: [id number] Admin: 02/25/21 16:25 Dose: 20 mg Documented by: [id number] Cosigned by: [id number] Admin: 02/25/21 08:30 Dose: 20 mg Documented by: [id number] Cosigned by: [id number] Admin: 02/25/21 05:36 Dose: 20 mg Documented by: [id number] Cosigned by: [id number] Admin: 02/25/21 05:05 Dose: 20 mg Documented by: [id number] Cosigned by: [id number] Admin: 02/25/21 04:55 Dose: 20 mg Documented by: [id number] Cosigned by: [id number] Admin: 02/24/21 23:12 Dose: 20 mg Documented by: [id number] Cosigned by: [id number] Admin: 02/24/21 22:38 Dose: 20 mg Documented by: [id number] Cosigned by: [id number] Admin: 02/24/21 22:14 Dose: 20 mg Documented by: [id number] Cosigned by: [id number] Admin: 02/24/21 22:05 Dose: 20 mg Documented by: [id number] Cosigned by: [id number] Admin: 02/24/21 22:00 Dose: 20 mg Documented by: [id number] Cosigned by: [id number] Admin: 02/24/21 03:50 Dose: 20 mg Documented by: [id number] Cosigned by: [id number] Admin: 02/23/21 20:15 Dose: 20 mg Documented by: [id number] Cosigned by: [id number] Admin: 02/23/21 19:45 Dose: 20 mg Documented by: [id number] Cosigned by: [id number] Propofol (Propofol Iv Emulsion 10 Mg/Ml 100 Ml Vial) Confirm Administered Dose 1,000 mg IV .STK-MED ONE Stop: 02/26/21 21:39 Last Admin: 02/26/21 22:15 Dose: Not Given Documented by: [id number] Valproic Acid (Valproic Acid Soln 500 Mg/10 Ml Udc) 1,000 mg PO 0800 ONE Stop: 02/25/21 08:01 Last Admin: 02/25/21 08:56 Dose: 1,000 mg Documented by: [id number] Description This is a 21 electrode EEG with a single channel dedicated to limited EKG. The electrodes were placed in accordance with the International 10-20 system. There is fairly continuous, variable frequency, frontally predominant 3 to 4-1/2 Hz spike wave activity seen throughout the study. No significant change with photic stimulation. There is no obvious clinical accompaniment on the video portion of the study. The background rhythm is otherwise poorly organized and of low amplitude. Interpretation Significantly abnormal awake/drowsy EEG revealing evidence of seizure activity and severe encephalopathy. [facility] EEG Procedure Codes Indication for Procedure (1) Seizures: Neurology Neurology: 16602 EEG include record awake & drowsy
--- NOTE | 2021-02-27 12:13 | Pharmacy Report ---
Pharmacy Glycemic Short Note 2 - Date of Service February 27, 2021 - Glycemic Short BSG Results (Last 24 hours): 02/26/21 02/27/21 02/27/21 17:40 00:41 05:08 Glucose 175 H POC Glucose 157 H 195 H 02/27/21 02/27/21 06:17 11:55 Glucose POC Glucose 154 H 163 H OUTPATIENT ANTIDIABETIC REGIMEN: * metformin 1 gm PO BID ASSESSMENT: 02/27: * BSGs well controlled and within goal the last 48 hrs on correctional insulin alone. Patient received 0 units 02/25 and 2 units on 02/26. * Remains intubated and sedated. On amiodarone infusion in dextrose. Peptamen @ 20ml/hr. * Will tighten goal BSG range today given titration of tube feeds (and no carb coverage) to allow for slightly more correctional insulin. 02/25: * Patient was successfully transitioned off of insulin infusion and currently is maintained on novolog only. * Patient remains NPO 02/24 * Mr Nieves is a 65 y/o M with a PMH of T2DM on one oral medication who presents s/p unwitnessed cardiac arrest. * Patient was undergoing hypothermia protocol but this has been discontinued. * Patient initiated on insulin infusion due to critical illness. Will continue this for now. PLAN FOR INPATIENT GLYCEMIC CONTROL: * Correctional Insulin: Novolog Correction per scale q6 Goal Range: Low 110 mg/dL - High 140 mg/dL Correction Factor: 25 mg/dL/unit PLAN FOR DISCHARGE: * TBD
--- NOTE | 2021-02-27 12:23 | Neurology Progress Note ---
Date of Service February 27, 2021 Assessment & Plan (1) Status epilepticus: (2) Anoxic brain injury: Plan: Status epilepticus occurring in the context of anoxic brain injury. Prognosis poor. Would increase Depakote to 750 mg IV every 6 hours. Would increase Keppra to 1500 mg IV every 12 hours. Recommend repeat bedside EEG tomorrow morning. Continue supportive medical care. Admission and Anticipated Discharge Date Admission Date: February 23, 2021 Subjective Follow-up for status epilepticus, anoxic brain injury The patient remains unresponsive, in the ICU, on the ventilator. He had previously been exhibiting twitching movements of the limbs and trunk although these movements have resolved. I did review Dr. Jefferson's initial consultation note from yesterday indicating cardiac arrest, found down undetermined length of time. Likelihood of significant, severe generalized anoxic brain injury with burst suppression pattern on previous EEG. Patient is currently receiving Keppra and Depakote. Depakote level this morning 64. A CT of the head completed at the time of presentation on February 23 was negative for hemorrhage or acute process. Patient did have a repeat EEG completed this morning which I did review. There is frontally predominant 3 to 4-1/2 Hz spike wave activity seen throughout the study suggestive of status epilepticus. There is general suppression of the background rhythm. I do not think today's EEG looks significantly different from yesterday's study although yesterday's interpretation was more of a burst suppression pattern which could look similar. There was no associated jerking movements of the head and body with today's EEG. As above, the patient is unresponsive, sedated, on the ventilator and is unable to provide any information pertaining to signs or symptoms. Results & Data ([facility]) Vital Signs (Past 12 Hours) Vital Signs Temp Pulse Resp BP Pulse Ox 02/27/21 09:30 38.0 C H 68 30 H 133/63 91 02/27/21 09:00 37.6 C H 67 33 H 133/62 96 02/27/21 08:30 37.6 C H 63 28 H 115/57 L 96 02/27/21 08:00 37.5 C 73 19 94 02/27/21 07:45 64 31 H 96 02/27/21 07:30 38.0 C H 64 21 102/53 L 99 02/27/21 07:00 38.1 C H 68 26 H 118/57 L 98 02/27/21 04:00 37.0 C 69 34 H 148/84 H 86 L 02/27/21 03:29 62 29 H 98 02/27/21 03:00 37.0 C 60 30 H 109/53 L 99 02/27/21 02:00 37.3 C 66 29 H 110/58 L 99 02/27/21 01:00 37.7 C H 74 32 H 123/63 98 Exam (Neuro) Physical Exam: Patient is intubated, sedated, on the ventilator. He does not respond to voice, tactile, or noxious stimulation. Pupils are 3 mm, round and reactive to light. There is no gaze preference. I am unable to elicit oculocephalic or blink reflexes. There are no abnormal or spontaneous movements. There was no posturing. Patient does not withdraw the limbs to noxious stimulation. PG Care Time/CCT Total # of Minutes Spent Total Time Spent with Patient: Total time spent is greater than 50% in coordination of care (as documented) at patient's floor/unit and/or counseling patient: Coding Level of Care Code 91001 Subseq Hosp Care Lvl 2 Diagnoses Status epilepticus G40.901 Anoxic brain injury G93.1
[2021-02-27] MEDS: ACETAMINOPHEN 1,000 MG/100 ML VIAL IV PRN (13:39)
--- NOTE | 2021-02-27 16:22 | Billing Data ---
Date of Service February 27, 2021 Coding Level of Care Code 79849 Subseq Hosp Care Lvl 1
[2021-02-27] MEDS: VALPROATE SOD 750 MG in DEXTROSE 5% 50 ML IV SCH ×3 (18:33→23:27)
[2021-02-27] MEDS: levETIRAcetam 1,500 MG in 0.9 % SODIUM CHLORIDE 100 ML IV SCH (21:51)
[2021-02-28] MEDS: TUBE FEEDING WATER FLUSH OG SCH ×3 (02:12→12:46)
[2021-02-28] MEDS: propofoL 1,000 MG/100 ML VIAL IV SCH ×6 (02:51→15:30)
[2021-02-28] MEDS: NORMOSOL-R 1,000 ML IV SCH ×2 (03:50→14:13)
[2021-02-28] MEDS: VALPROATE SOD 750 MG in DEXTROSE 5% 50 ML IV SCH ×3 (05:23→18:23)
[2021-02-28] MEDS: INSULIN ASPART PER UNIT SC SCH ×2 (05:32→13:07)
[2021-02-28 05:52] LABS: Eosinophils # (auto) 0.02 K/uL (0-0.5); Eosinophils % (auto) 0.5 %; Hematocrit (blood only) 30.7 % (42-52); Hemoglobin 10.4 g/dL (14.0-18.0); Immature Granulocytes # (auto) 0.01 K/uL (0.00-0.02); Immature Granulocytes % (auto) 0.2 %; Lymphocytes # (auto) 0.32 K/uL (1.2-3.4); Lymphocytes % (auto) 7.8 %; Mean Corpuscular Hemoglobin 29.9 pg (25-34); Mean Corpuscular Hgb Conc 33.9 g/dL (32-36); Mean Corpuscular Volume 88.2 fL (80-100); Monocytes # (auto) 0.36 K/uL (0.11-0.59); Monocytes % (auto) 8.8 %; Neutrophils # (auto) 3.38 K/uL (1.4-6.5); Neutrophils % (auto) 82.7 %; Platelet Count 146 K/uL (130-400); RDW Standard Deviation 41.9 fL (36.4-46.3); Red Blood Count 3.48 M/uL (4.7-6.1); White Blood Count 4.09 K/uL (4.8-10.8)
[2021-02-28 06:22] LABS: BUN Creatinine Ratio 25.1 (10-20); Calcium 8.4 mg/dl (8.5-10.1); Creatinine Clr Calc Pharmacy 119.1 ml/min; Est GFR (African American) 113.9 ml/min; Est GFR (Non-African American) 98.2 ml/min; Magnesium 2.4 mg/dl (1.8-2.4); Potassium 3.8 mmol/L (3.5-5.1)
[2021-02-28 06:23] LABS: Phosphorus 2.1 mg/dl (2.5-4.9)
[2021-02-28] MEDS: ICU ELECTROLYTE REPLACEMENT PROTOCOL SCH (06:26)
--- NOTE | 2021-02-28 06:46 | Hospitalist Progress Note ---
Date of Service February 28, 2021 Assessment & Plan (1) Cardiac arrest: Plan: 65 yo M Hx schizoaffective disorder, HTN, DM2, HLD admitted to ICU post-cardiac arrest. Comfort Care -02/28 prolonged discussion with family regarding patient condition, goals of care, future steps. Family understands patient has extensive anoxic brain damage and is unlikely to recover to any meaningful degree, does not want patient to be in pain. Family agreed to pursue comfort care measures, would like to continue medication to control patient's seizures. will continue valproate, levetiracetam -Family insists on IV hydration and nutrition after extensive discussion on risks and benefits, patient to keep femoral line with IV Dextrose for now, family understands this is not a permenant solution and that care home feeding would require more invasive surgery, understand that IV nutrition will not assist in returning patient to any meaningful level of function. Family to discuss further with their neonatal intensive care unit nurse. -patient's status changed to DNR/DNI Cardiac arrest, ventricular tachycardia: -Initial EKG with evidence of ischemia however with resolution of such by arrival to ER. -Moderate nonobstructive disease on cardiac catheterization; no stents placed. -Ischemia possibly due to heart block vs QT prolongation vs other etiology. -Troponin 0.344 on admit, downtrending 0.177 -Echo 02/24: EF 55-60%, mild pulmonary hypertension, trace pericardial effusion, left atrium mildly dilated. -Triglycerides 201 otherwise lipid panel within normal limits, A1c 7.7. -Cardiology consulted, hemodynamically stable continue amiodarone drip. Given Lasix. -hypophosphatemia repleted -amiodarone dc'd, will not pursue further measures for bp control Anoxic brain injury: -Poor neurological exam following ROSC after cardiac arrest. -Patient with fasciculations resolved with propofol bolus. -Likely seizures 2/2 anoxic brain injury. -24 hour hypothermia protocol upon admission to ICU. Rewarming started. -EEG ordered --> burst suppression pattern which goes with very poor prognosis likely from underlying anoxic brain injury repeat EEG 02/27: There is frontally predominant 3 to 4-1/2 Hz spike wave activity seen throughout the study suggestive of status epilepticus. There is general suppression of the background rhythm. Subsequent EEGs unchanged -tube feeding started 02/26, transitioned to TPN 02/28 -Palliative care consulted -Neurology consulted, recommends increasing valproic acid, fentanyl -Patient spiking occasional central fever, tachypnea, no change in mental status over course of stay -patient extubated 02/28 breathing room air without assistance -patient's sister contacted, Ezequiel Kidd [phone], Code status updated to DNR/DNI. Family denied gift of life. Wants to continue IV nutrition and hydration, seizure control Intubated: -Patient was intubated for airway support during cardiac arrest. -sedation weaned for spontaneous trials of breathing as able. -breathing trial post extubation successful Leukocytosis -likely reactive to cardiac arrest, WBC 10.04 -Patient is spiking fever this also seems to be central, max 38.7 C not responsive to tylenol Transaminitis: -AST and ALT with mild elevation on ER labs; moreso than on prior labwork. -Suspect shock liver in the setting of cardiac arrest. -later downtrended DM2: -BSG range in mid-300s as of presentation to hospital. BHB mildly elevated. Presented in metabolic acidosis, but suspected to be secondary to cardiac arrest. -Holding outpatient metformin. -A1c 7.7 -Insulin gtt with moderate stress dosing started upon admission, with consideration for basal/bolus should patient's clinical condition improve. -ICU hyperglycemia protocol initiated. Pharmacy consulted. -glycemic control dc'd HTN, HLD: -LDL 29, total cholesterol 105, triglycerides 201. -no longer pursuing BP lipid control Schizoaffective disorder: -History of, not on medications for such at home per EMR. Code Status: DNR/DNI FEN/GI: IV Dextrose Dispo: med/surg with comfort care measures (2) Schizoaffective disorder, bipolar type: (3) Hyperlipidemia: (4) Hypertension: (5) Diabetes mellitus: Admission and Anticipated Discharge Date Admission Date: February 23, 2021 Supervising Physician Co-Signing Physician Notes Patient seen and examined, chart reviewed, case discussed with Dr. Hernandez and I agree with the assessment and plan as above except as otherwise noted Patient is a 65-year-old male who presented with cardiac arrest, initially reported was observed but with unclear downtime prior on further history. At bedside patient is obtunded, extubated, breathing spontaneously. Case discussed with family in ICU. extended discussion was had regarding goals of care. Family reports that they understand that Radhika has had permanent anoxic brain damage, and has not had an improvement in neurologic status. Repeat EEGs c onsistent with potential status epilepticus or for suppression with severe anoxic brain injury. Reports her goals of care are for Radhika to be comfortable, and understand that he could easily have a seizure in the past. Report they feel they have done everything to give him the best chance, but also understand that "it is in the Lord's hands." They agree with movement to comfort measures and transfer for comfort oriented care with discontinuation of medications not immediately related to his comfort. On review of his medications they would like his seizure medications continued and treatment with pain/anxiety medications as needed to maintain comfort even if these shorten his life at the cost of comfort. We did discuss at length his nutrition and IV fluids. They are aware that he has had a OG reduced previously receiving feeds, and currently with a femoral line in place. Family is adamant that they do not want hydration or nutrition stopped at this time. They recognize that Radhika may continue to spontaneously breathe and not wake up, and that artificial nutrition/fluids may prolong his life but not improve the quality of his life. Discussed that in the setting of critical illness the patient is not likely to experience hunger or thirst, and that these interventions would also not assist with this if he wants. Family reports that for nondenominational reasons they do not want to stop, and are adamant they should be continued and would like to talk with their neonatal intensive care unit nurse further before withdrawing these. Discussed that while he has a short-term central femoral catheter, this is not able to be left in long-term and TPN requires a central catheter, and tube feeds would likely require a procedure such as a PEG tube in order to be further pursued. In either case such nutrition is unlikely to improve his outcome, and would require a procedure in order to be pursued. Family stresses understanding of this, but also verbalizes that they would consider having this done even if patient were to stabilize without returning to consciousness and even if that required care home placement should he not pass from his acute illness. Report that they are comfortable with moving to comfort oriented goals otherwise and having patient moved out of the ICU, and will discuss with their family and neonatal intensive care unit nurse regarding artificial nutrition. If this was pursued PICC placement is an option and also for antiseizure medications as below. [employer] with the exception of removal of femoral catheter for nutrition as noted above. Continue Keppra and valproic acid, defer labs with the exception of valproic acid level trough to monitor for toxicity. If level greater than 100 decreased to 250-500 mg IV every 6 hours Converted from fentanyl to morphine for floor analgesia May use Versed 2 mg up to every 30 minutes as needed for breakthrough seizures Subjective 65yo Male seen at bedside, intubated, arrived post cardiac arrest resuscitation. PMH schizoaffective disorder, HTN, DM2, HLD. Garcia present. Patient unresponsive to name or noxious stimuli. Condition unchanged from yesterday. Garcia present. Femoral IV line present for nutrition. Family to arrive later today to evaluate condition. Patient extubated later in day, is able to breath without support. Family present, had extensive discussion over patient's condition, goals of care and current options. Family wants patient to be comfortable and not suffer unnecessarily, understand that patient has suffered extensive brain damage with low chance of meaningful recover. Family has nondenominational concerns over stopping nutrition and hydration, wants these to be continued at this time and will discuss this further with their neonatal intensive care unit nurse. Review of Systems 2 Review of Systems: Unobtainable due to reduced consciousness Physical Exam Constitutional: + obese Respiratory: + tachypneic Auscultation: lungs clear to auscultation bilaterally Cardiovascular: RRR, no murmur, no edema Heart Sounds: normal S1 and normal S2 Gastrointestinal (Abdomen): normal bowel sounds, soft, nontender, no hepatosplenomegaly Skin: no rashes, warm and dry Neurologic: Comatose Patient: + response to noxious stimuli absent Results & Data Results & Data ([facility]) Vital Signs (Past 12 Hours) Vital Signs Temp Pulse Pulse Resp BP BP Pulse Ox 02/28/21 06:04 62 23 132/59 L 93 02/28/21 05:00 65 25 H 120/77 93 02/28/21 04:00 37.1 C 60 24 113/57 L 92 02/28/21 03:55 61 23 92 02/28/21 03:00 37.2 C 64 26 H 165/66 H 91 02/28/21 02:00 37.1 C 62 23 119/60 94 02/28/21 01:00 37.1 C 71 26 H 161/77 H 91 02/28/21 00:00 37.1 C 68 33 H 139/76 90 02/27/21 23:16 71 38 H 92 02/27/21 23:00 70 30 H 156/69 H 93 02/27/21 22:00 68 26 H 145/69 H 91 02/27/21 21:00 38.0 C H 66 27 H 127/61 92 02/27/21 20:00 38.3 C H 70 30 H 147/65 H 90 02/27/21 19:32 71 31 H 96 02/27/21 19:00 38.5 C H 72 28 H 139/58 L 93 Laboratory Results 02/28/21 02/28/21 02/28/21 Range/Units 05:42 05:42 05:28 WBC 4.09 L (4.8-10.8) K/uL RBC 3.48 L (4.7-6.1) M/uL Hgb 10.4 L (14.0-18.0) g/dL Hct 30.7 L (42-52) % MCV 88.2 (80-100) fL MCH 29.9 (25-34) pg MCHC 33.9 (32-36) g/dL RDW Std Deviation 41.9 (36.4-46.3) fL RDW Coeff of Shanell 13.0 (11.5-14.5) % Plt Count 146 (130-400) K/uL MPV 10.0 (7.4-10.4) fL Immature Gran % (Auto) 0.2 % Neut % (Auto) 82.7 % Lymph % (Auto) 7.8 % [place] % (Auto) 8.8 % Eos % (Auto) 0.5 % Baso % (Auto) 0.0 % Neut # (Auto) 3.38 (1.4-6.5) K/uL Lymph # (Auto) 0.32 L (1.2-3.4) K/uL [place] # (Auto) 0.36 (0.11-0.59) K/uL Eos # (Auto) 0.02 (0-0.5) K/uL Baso # (Auto) 0.00 (0-0.2) K/uL Immature Gran # (Auto) 0.01 (0.00-0.02) K/uL Sodium 137 (136-145) mmol/L Potassium 3.8 (3.5-5.1) mmol/L Chloride 101 (98-107) mmol/L Carbon Dioxide 32 (21-32) mmol/L Anion Gap 4.0 (3-11) BUN 17 (7-18) mg/dl Creatinine 0.69 (0.6-1.4) mg/dl Est Cr Clr Drug Dosing 119.1 ml/min Est GFR ( Amer) 113.9 ml/min Est GFR (Non-Af Amer) 98.2 ml/min BUN/Creatinine Ratio 25.1 H (10-20) Glucose 176 H (70-99) mg/dl POC Glucose 134 H (70-99) mg/dl Calcium 8.4 L (8.5-10.1) mg/dl Phosphorus 2.1 L (2.5-4.9) mg/dl Magnesium 2.4 (1.8-2.4) mg/dl 02/27/21 02/27/21 02/27/21 Range/Units 22:57 18:20 11:55 WBC (4.8-10.8) K/uL RBC (4.7-6.1) M/uL Hgb (14.0-18.0) g/dL Hct (42-52) % MCV (80-100) fL MCH (25-34) pg MCHC (32-36) g/dL RDW Std Deviation (36.4-46.3) fL RDW Coeff of Shanell (11.5-14.5) % Plt Count (130-400) K/uL MPV (7.4-10.4) fL Immature Gran % (Auto) % Neut % (Auto) % Lymph % (Auto) % [place] % (Auto) % Eos % (Auto) % Baso % (Auto) % Neut # (Auto) (1.4-6.5) K/uL Lymph # (Auto) (1.2-3.4) K/uL [place] # (Auto) (0.11-0.59) K/uL Eos # (Auto) (0-0.5) K/uL Baso # (Auto) (0-0.2) K/uL Immature Gran # (Auto) (0.00-0.02) K/uL Sodium (136-145) mmol/L Potassium (3.5-5.1) mmol/L Chloride (98-107) mmol/L Carbon Dioxide (21-32) mmol/L Anion Gap (3-11) BUN (7-18) mg/dl Creatinine (0.6-1.4) mg/dl Est Cr Clr Drug Dosing ml/min Est GFR ( Amer) ml/min Est GFR (Non-Af Amer) ml/min BUN/Creatinine Ratio (10-20) Glucose (70-99) mg/dl POC Glucose 138 H 143 H 163 H (70-99) mg/dl Calcium (8.5-10.1) mg/dl Phosphorus (2.5-4.9) mg/dl Magnesium (1.8-2.4) mg/dl Diagnostic Findings Chest CTA 02/23/21 17:03 CT ANGIOGRAM OF THE CHEST CLINICAL HISTORY: Cardiac arrest. COMPARISON STUDY: Chest x-ray dated 02/23/2021. TECHNIQUE: Following the IV administration of 120 cc of Optiray 320, CT angiogram of the chest was performed from the upper abdomen to the thoracic inlet utilizing the pulmonary embolus protocol. Images are reviewed in the axial, sagittal, and coronal planes. 3-D MIPS images are created and assessed. IV contrast was administered without complication. A dose lowering technique was utilized adhering to the principles of ALARA. The examination is compromised by motion artifact, as well as streak artifact from the arms which could not be elevated above the chest. FINDINGS: Thyroid: Normal in size and heterogeneous in attenuation. Thoracic aorta: The thoracic aorta is normal in caliber and demonstrates standard 3-vessel arch anatomy. No dissection is seen. Pulmonary vasculature: The pulmonary trunk is normal in caliber. There are no filling defects identified in main, lobar, or segmental pulmonary branches to suggest pulmonary embolus. Heart: The heart is mildly enlarged and without pericardial effusion. Lungs and pleural spaces: An endotracheal tube terminates above the anish. Minimal secretions are noted in the trachea. Right greater than left dependent consolidation likely represents segmental atelectasis. No pleural effusion is identified. There are scattered calcified granulomas. Mediastinum: A prevascular node measures up to 11 mm in short axis. Connie: Mildly enlarged hilar nodes measure up to 14 mm in short axis. Axillae: There is no axillary lymphadenopathy. Upper abdomen: There are numerous hepatic cysts which measure up to 3.8 cm. A 1.6 cm exophytic cyst arises from the upper pole of left kidney. Skeletal structures: No lytic or blastic bony lesions are seen. IMPRESSION: 1. Streak and motion compromised examination. 2. There is no evidence of pulmonary embolus in the main, lobar, or segmental pulmonary arteries. 3. Mild cardiomegaly. 4. Right greater than left dependent airspace consolidation likely represents segmental atelectasis. Correlate clinically for evidence of superimposed pneumonia. 5. Mildly enlarged mediastinal and hilar lymph nodes are nonspecific and may be reactive. 6. Additional findings as above. ACT 112: Negative or not required by law. Electronically signed by: Nakul Jones M.D. 02/23/2021 5:[address] 02/23/21 17:03 CT SCAN OF THE BRAIN WITHOUT IV CONTRAST CLINICAL HISTORY: Cardiac arrest. COMPARISON STUDY: No priors. TECHNIQUE: Unenhanced axial CT scan of the brain is performed from the vertex to the skull base. A dose lowering technique was utilized adhering to the principles of ALARA. CT DOSE: 1464.58 mGy.cm FINDINGS: Brain parenchyma: The brain parenchyma is normal in appearance. There is no hemorrhage, mass effect, or evidence of acute territorial ischemia by CT criteria. Esteves-white matter differentiation is preserved. No extra-axial fluid collection is seen. Ventricles, sulci, cisterns: Normal in configuration. Intracranial vasculature: There is atherosclerotic calcification of the cavernous carotid arteries. Calvarium: Unremarkable. Sinuses and mastoids: There is trace fluid within the sphenoid sinuses. Trace mucosal thickening is noted in the frontal and ethmoid sinuses. The mastoid air cells are well pneumatized. Orbits: The bony orbits are grossly intact. IMPRESSION: There is no hemorrhage, mass effect, or evidence of acute territorial ischemia by CT criteria. ACT 112: Negative or not required by law. Electronically signed by: Nakul Jones M.D. 02/23/2021 5:42 PM Chest X-Ray 02/27/21 07:00 XR chest 1V portable CLINICAL HISTORY: Resp failure TECHNIQUE: Single frontal radiograph of the chest was obtained. Comparison: Comparison is made to chest one view 02/26/2021 FINDINGS: Lines and tubes are stable. The cardiomediastinal silhouette is stable. Bilateral lower lung predominant airspace opacities are seen. Small right and possible left pleural effusion. IMPRESSION: 1. Bilateral lower lung predominant airspace opacities which may represent atelectasis, pneumonia, and/or aspiration. These are increased from prior exam. 2. Small right and possible left pleural effusions. ACT 112: Negative or not required by law. Electronically signed by: Richie Hunter M.D. 02/27/2021 7:55 AM Medications Administered Current Inpatient Medications Acetaminophen (Acetaminophen 650 Mg Supp) 650 mg FL ONE PRN PRN Reason: Rebound Hyperthermia x 1 dose Stop: 03/25/21 19:44 Last Admin: 02/24/21 21:00 Dose: 650 mg Documented by: Buspirone HCl (Buspirone 15 Mg Tab) 60 mg NG ONCE PRN PRN Reason: For Shivering x 1 dose Stop: 03/25/21 19:44 Last Admin: 02/23/21 21:22 Dose: 60 mg Documented by: Dextrose (Dextrose 50% 50 Ml Syringe) 25 - 50 ml IV UD PRN; Protocol PRN Reason: Hypoglycemia Protocol Stop: 03/25/21 19:59 Last Admin: 02/24/21 07:43 Dose: 25 ml Documented by: Enoxaparin Sodium (Enoxaparin Inj 40 Mg/0.4 Ml Syr) 40 mg SQ QAM JEYSON Stop: 03/28/21 09:59 Last Admin: 02/28/21 08:01 Dose: 40 mg Documented by: Fentanyl Citrate (Fentanyl Bolus From Bag) 50 mcg IV Q60M PRN PRN Reason: Pain or Agitation Stop: 03/09/21 21:08 Last Admin: 02/24/21 22:38 Dose: 50 mcg Documented by: Glucagon (Glucagon For Inj 1 Mg Vial) 1 mg IM UD PRN; Protocol PRN Reason: Hypoglycemia Protocol Stop: 03/25/21 19:59 Glucose (Glucose 40% Gel 15 Gm Tube) 15 - 30 gm PO UD PRN; Protocol PRN Reason: Hypoglycemia Protocol Stop: 03/25/21 19:59 Glucose (Glucose 10 Tabs/Tube) 4 - 8 tabs PO UD PRN; Protocol PRN Reason: Hypoglycemia Protocol Stop: 03/25/21 19:59 Amiodarone HCl/Dextrose (Nexterone / D5w) 360 mg in 200 mls @ 16.667 mls/hr IV .Q12H JEYSON Stop: 03/25/21 23:14 Last Infusion: 02/28/21 07:00 Dose: 0.5 mg/min, 16.7 mls/hr Documented by: Parenteral Electrolytes (Normosol-R) 1,000 mls @ 125 mls/hr IV .Q8H [facility] Stop: 03/25/21 21:44 Last Admin: 02/28/21 03:50 Dose: 125 mls/hr Documented by: Propofol (Diprivan) 1,000 mg in 100 mls @ 0 mls/hr IV .Q0M [facility]; Protocol Stop: 03/01/21 21:29 Last Titration: 02/28/21 10:40 Dose: 0 mcg/kg/min, 0 mls/hr Documented by: Fentanyl Citrate (Fentanyl Citrate) 2,500 mcg in 250 mls @ 15 mls/hr IV .[id number] [facility]; Protocol Stop: 03/13/21 11:29 Last Titration: 02/28/21 11:10 Dose: 150 mcg/hr, 15 mls/hr Documented by: Levetiracetam 1,500 mg/ Sodium (Chloride) 115 mls @ 460 mls/hr IV Q12H [facility] Stop: 03/29/21 20:59 Last Infusion: 02/28/21 08:24 Dose: Infused Documented by: Valproic Acid 750 mg/ Dextrose 57.5 mls @ 57.5 mls/hr IV Q6H [facility] Stop: 03/29/21 17:59 Last Infusion: 02/28/21 06:30 Dose: Infused Documented by: Insulin Aspart (Insulin Aspart Per Unit) 0 units SC Q6 [facility] Stop: 03/28/21 11:59 Last Admin: 02/28/21 05:32 Dose: Not Given Documented by: Lansoprazole (Lansoprazole 30 Mg Soltab) 30 mg NG DAILY [facility] Stop: 03/29/21 10:59 Last Admin: 02/28/21 08:02 Dose: 30 mg Documented by: Midazolam HCl (Midazolam Hcl 1 Mg/Ml 2ml Vial) 2 mg IV Q2H PRN PRN Reason: Agitation Stop: 03/25/21 21:08 Last Admin: 02/26/21 08:32 Dose: 2 mg Documented by: Miscellaneous (Carbohydrates For Hypoglycemia ) 15 - 30 gm PO UD PRN PRN Reason: Hypoglycemia Treatment Stop: 03/25/21 19:59 Miscellaneous (Icu Electrolyte Replacement Protocol) 1 ea N/A BID@ [facility]; Protocol Stop: 03/05/21 17:59 Last Admin: 02/28/21 06:26 Dose: 1 ea Documented by: Nutritional Formula (Peptamen Intense Vhp 1.0 Saurabh 1,000 Ml Bag) 1,000 ml OG UD [facility]; Protocol Stop: 03/28/21 10:59 Last Admin: 02/26/21 13:36 Dose: 1,000 ml Documented by: Potassium Phosphate (Pot Phosphate Monobasic W/ Sod Tab) 1 tab NG Q4H [facility] Stop: 02/28/21 15:01 Last Admin: 02/28/21 08:05 Dose: 1 tab Documented by: Propofol (Propofol Bolus From Bag) 20 mg IV Q5M PRN PRN Reason: Sedation Stop: 03/01/21 21:28 Sterile Water (Tube Feeding Water Flush) 150 ml OG Q4H [facility] Stop: 03/28/21 10:59 Last Admin: 02/28/21 06:27 Dose: 150 ml Documented by: Resident Activity Tracking Resident Involvement: Resident Care Provided Care Provided: Adult Hospital Medicine
[2021-02-28] MEDS ORDERED: FUROSEMIDE 40 MG/4 ML VIAL IV ONE (07:41)
[2021-02-28] MEDS: ENOXAPARIN INJ 40 MG/0.4 ML SYR SQ SCH (08:01)
[2021-02-28] MEDS: levETIRAcetam 1,500 MG in 0.9 % SODIUM CHLORIDE 100 ML IV SCH ×2 (08:01→22:46)
[2021-02-28] MEDS: LANSOPRAZOLE 30 MG SOLTAB NG SCH (08:02)
[2021-02-28] MEDS: POTASSIUM CHLORIDE 20 MEQ/15 ML UDC NG SCH ×2 (08:05→11:53)
[2021-02-28] MEDS: POT PHOSPHATE MONOBASIC W/ SOD TAB NG SCH ×2 (08:05→11:53)
--- NOTE | 2021-02-28 09:35 | Neurology Progress Note ---
Date of Service February 28, 2021 Assessment & Plan (1) Anoxic brain injury: (2) Seizures: Plan: Cerebral anoxia, anoxic seizures. No significant improvement in patient's neurological status compared with yesterday. Prognosis remains very poor. Repeat EEG to be completed this morning. Would also check an up-to-date valproic acid level. Continue with Depakote and Keppra at the current dosages. Admission and Anticipated Discharge Date Admission Date: February 23, 2021 Subjective Follow-up for anoxic encephalopathy Patient remains unresponsive on life support, ventilator, in the intensive care unit. Yesterday's EEG revealed fairly persistent frontally predominant spike wave activity with suppression of the background rhythm worrisome for status epilepticus or a burst suppression pattern occurring in the context of severe anoxic brain injury. I had increased his dosages of his IV Depakote and Keppra. There has been no significant change in patient's clinical status compared with yesterday. He has not displayed obvious clinical seizure activity. Does not withdrawal to pain or make purposeful movements. Review of Systems Review of Systems: Unobtainable due to reduced consciousness Results & Data ([facility]) Vital Signs (Past 12 Hours) Vital Signs Temp Pulse Pulse Resp BP BP Pulse Ox 02/28/21 07:45 61 25 H 94 02/28/21 07:36 61 02/28/21 06:04 62 23 132/59 L 93 02/28/21 05:00 65 25 H 120/77 93 02/28/21 04:00 37.1 C 60 24 113/57 L 92 02/28/21 03:55 61 23 92 02/28/21 03:00 37.2 C 64 26 H 165/66 H 91 02/28/21 02:00 37.1 C 62 23 119/60 94 02/28/21 01:00 37.1 C 71 26 H 161/77 H 91 02/28/21 00:00 37.1 C 68 33 H 139/76 90 02/27/21 23:16 71 38 H 92 02/27/21 23:00 70 30 H 156/69 H 93 02/27/21 22:00 68 26 H 145/69 H 91 Laboratory Results WBC 4.09, hemoglobin 10.4, hematocrit 30.7, platelet count 146, sodium 137, potassium 3.8, BUN 17, creatinine 0.69, glucose 176, calcium 8.4, magnesium 2.4. Exam (Neuro) Physical Exam: Patient remains unresponsive, on the ventilator. Pupils are both round, 3 mm, sluggish response to light. Exhibits downgaze bilaterally. Unable to elicit blink or oculocephalic reflex. No abnormal movements observed. No posturing. Tone diffusely flaccid. Coding Level of Care Code 47183 Subseq Hosp Care Lvl 2 Diagnoses Anoxic brain injury G93.1 Seizures R56.9
--- NOTE | 2021-02-28 10:25 | Electroencephalogram ---
EEG Procedure Note Date of Service February 28, 2021 Start / End Times Start Time: 9:47 AM End Time: 10:[address] Nicole History Cerebral anoxia, seizures Home Medication List Medication Instructions Recorded Confirmed Type aspirin 81 mg tablet,delayed 81 mg PO DAILY 08/16/18 02/23/21 History release (Adult Aspirin Regimen) cholecalciferol (vitamin D3) 25 1,000 units PO DAILY 08/16/18 02/23/21 History mcg (1,000 unit) capsule multivitamin 1 tab PO DAILY 12/08/18 02/23/21 History Lactobacillus 1 cap PO .TAKE 1 CAPSULE Daily 06/17/19 02/23/21 History acidophilus-Bifidobac.animalis 31 billion cell capsule mecobalamin (vitamin B12) 1,000 500 mcg SL DAILY #90 tab 04/27/20 02/23/21 Rx mcg disintegrating tablet,sublingual lisinopril 40 mg tablet 40 mg PO DAILY #90 tab 05/08/20 02/23/21 Rx simvastatin 10 mg tablet 10 mg PO DAILY #90 tab 05/21/20 02/23/21 Rx amlodipine 5 mg tablet 5 mg PO DAILY #90 tab 12/11/20 02/23/21 Rx metformin 1,000 mg tablet 1,000 mg PO BID #180 tab 12/12/20 02/23/21 Rx lancets (OneTouch UltraSoft #300 ea 01/29/21 02/23/21 Rx Lancets) Inpatient Medication List Acetaminophen (Acetaminophen 650 Mg Supp) 650 mg ID ONE PRN PRN Reason: Rebound Hyperthermia x 1 dose Stop: 03/25/21 19:44 Last Admin: 02/24/21 21:00 Dose: 650 mg Documented by: [id number] Buspirone HCl (Buspirone 15 Mg Tab) 60 mg NG ONCE PRN PRN Reason: For Shivering x 1 dose Stop: 03/25/21 19:44 Last Admin: 02/23/21 21:22 Dose: 60 mg Documented by: [id number] Dextrose (Dextrose 50% 50 Ml Syringe) 25 - 50 ml IV UD PRN; Protocol PRN Reason: Hypoglycemia Protocol Stop: 03/25/21 19:59 Last Admin: 02/24/21 07:43 Dose: 25 ml Documented by: [id number] Enoxaparin Sodium (Enoxaparin Inj 40 Mg/0.4 Ml Syr) 40 mg SQ QAM [facility] Stop: 03/28/21 09:59 Last Admin: 02/28/21 08:01 Dose: 40 mg Documented by: [id number] Admin: 02/27/21 08:07 Dose: 40 mg Documented by: [id number] Admin: 02/26/21 10:45 Dose: 40 mg Documented by: [id number] Fentanyl Citrate (Fentanyl Bolus From Bag) 50 mcg IV Q60M PRN PRN Reason: Pain or Agitation Stop: 03/09/21 21:08 Last Admin: 02/24/21 22:38 Dose: 50 mcg Documented by: [id number] Admin: 02/24/21 22:12 Dose: 50 mcg Documented by: [id number] Admin: 02/24/21 05:01 Dose: 50 mcg Documented by: [id number] Admin: 02/23/21 21:30 Dose: 50 mcg Documented by: [id number] Amiodarone HCl/Dextrose (Nexterone / D5w) 360 mg in 200 mls @ 16.667 mls/hr IV .Q12H JEYSON Stop: 03/25/21 23:14 Last Infusion: 02/28/21 07:00 Dose: 0.5 mg/min, 16.7 mls/hr Documented by: [id number] Cosigned by: [id number] Admin: 02/27/21 21:48 Dose: 0.5 mg/min, 16.7 mls/hr Documented by: [id number] Cosigned by: [id number] Infusion: 02/27/21 21:48 Dose: 0.5 mg/min, 16.7 mls/hr Documented by: [id number] Cosigned by: [id number] Admin: 02/27/21 10:47 Dose: 0.5 mg/min, 16.7 mls/hr Documented by: [id number] Cosigned by: [id number] Infusion: 02/27/21 10:47 Dose: 0.5 mg/min, 16.7 mls/hr Documented by: [id number] Cosigned by: [id number] Admin: 02/26/21 22:56 Dose: 0.5 mg/min, 16.7 mls/hr Documented by: [id number] Cosigned by: [id number] Infusion: 02/26/21 22:20 Dose: 0.5 mg/min, 16.7 mls/hr Documented by: [id number] Cosigned by: [id number] Infusion: 02/26/21 19:08 Dose: 0.5 mg/min, 16.7 mls/hr Documented by: [id number] Cosigned by: [id number] Admin: 02/26/21 10:21 Dose: 0.5 mg/min, 16.7 mls/hr Documented by: [id number] Cosigned by: [id number] Infusion: 02/26/21 09:50 Dose: 0.5 mg/min, 16.7 mls/hr Documented by: [id number] Cosigned by: [id number] Infusion: 02/26/21 07:14 Dose: 0.5 mg/min, 16.7 mls/hr Documented by: [id number] Cosigned by: [id number] Admin: 02/25/21 21:51 Dose: 0.5 mg/min, 16.7 mls/hr Documented by: [id number] Cosigned by: [id number] Infusion: 02/25/21 21:51 Dose: 0.5 mg/min, 16.7 mls/hr Documented by: [id number] Cosigned by: [id number] Infusion: 02/25/21 19:06 Dose: 0.5 mg/min, 16.7 mls/hr Documented by: [id number] Cosigned by: [id number] Admin: 02/25/21 11:23 Dose: 0.5 mg/min, 16.7 mls/hr Documented by: [id number] Cosigned by: [id number] Infusion: 02/25/21 10:36 Dose: 0.5 mg/min, 16.7 mls/hr Documented by: [id number] Cosigned by: [id number] Infusion: 02/25/21 07:16 Dose: 0.5 mg/min, 16.7 mls/hr Documented by: [id number] Cosigned by: [id number] Admin: 02/24/21 22:37 Dose: 0.5 mg/min, 16.7 mls/hr Documented by: [id number] Cosigned by: [id number] Infusion: 02/24/21 22:37 Dose: 0.5 mg/min, 16.7 mls/hr Documented by: [id number] Cosigned by: [id number] Infusion: 02/24/21 18:59 Dose: 0.5 mg/min, 16.7 mls/hr Documented by: [id number] Cosigned by: [id number] Admin: 02/24/21 10:54 Dose: 0.5 mg/min, 16.7 mls/hr Documented by: [id number] Cosigned by: [id number] Infusion: 02/24/21 10:54 Dose: 0.5 mg/min, 16.7 mls/hr Documented by: [id number] Cosigned by: [id number] Infusion: 02/24/21 06:46 Dose: 0.5 mg/min, 16.7 mls/hr Documented by: [id number] Cosigned by: [id number] Admin: 02/24/21 00:36 Dose: 0.5 mg/min, 16.7 mls/hr Documented by: [id number] Cosigned by: [id number] Parenteral Electrolytes (Normosol-R) 1,000 mls @ 125 mls/hr IV .Q8H JEYSON Stop: 03/25/21 21:44 Last Admin: 02/28/21 03:50 Dose: 125 mls/hr Documented by: [id number] Infusion: 02/28/21 03:50 Dose: 125 mls/hr Documented by: [id number] Admin: 02/27/21 21:50 Dose: 125 mls/hr Documented by: [id number] Infusion: 02/27/21 20:54 Dose: 125 mls/hr Documented by: [id number] Admin: 02/27/21 12:54 Dose: 125 mls/hr Documented by: [id number] Infusion: 02/27/21 12:26 Dose: 125 mls/hr Documented by: [id number] Admin: 02/27/21 04:26 Dose: 125 mls/hr Documented by: [id number] Infusion: 02/27/21 04:26 Dose: 125 mls/hr Documented by: [id number] Admin: 02/26/21 21:24 Dose: 125 mls/hr Documented by: [id number] Infusion: 02/26/21 21:24 Dose: 125 mls/hr Documented by: [id number] Infusion: 02/26/21 19:08 Dose: 125 mls/hr Documented by: [id number] Admin: 02/26/21 13:38 Dose: 125 mls/hr Documented by: [id number] Infusion: 02/26/21 12:28 Dose: 125 mls/hr Documented by: [id number] Admin: 02/26/21 04:28 Dose: 125 mls/hr Documented by: [id number] Infusion: 02/26/21 04:10 Dose: 125 mls/hr Documented by: [id number] Admin: 02/25/21 20:10 Dose: 125 mls/hr Documented by: [id number] Infusion: 02/25/21 20:10 Dose: 125 mls/hr Documented by: [id number] Infusion: 02/25/21 19:06 Dose: 125 mls/hr Documented by: [id number] Admin: 02/25/21 12:43 Dose: 125 mls/hr Documented by: [id number] Infusion: 02/25/21 12:35 Dose: 125 mls/hr Documented by: [id number] Admin: 02/25/21 04:35 Dose: 125 mls/hr Documented by: [id number] Infusion: 02/25/21 04:35 Dose: 125 mls/hr Documented by: [id number] Admin: 02/24/21 21:00 Dose: 125 mls/hr Documented by: [id number] Infusion: 02/24/21 20:52 Dose: 125 mls/hr Documented by: [id number] Admin: 02/24/21 12:52 Dose: 125 mls/hr Documented by: [id number] Infusion: 02/24/21 12:52 Dose: 125 mls/hr Documented by: [id number] Admin: 02/24/21 05:06 Dose: 125 mls/hr Documented by: [id number] Infusion: 02/24/21 05:06 Dose: 125 mls/hr Documented by: [id number] Admin: 02/23/21 21:59 Dose: 125 mls/hr Documented by: [id number] Propofol (Diprivan) 1,000 mg in 100 mls @ 28.203 mls/hr IV .Q3H33M [facility]; Protocol Stop: 03/01/21 21:29 Last Admin: 02/28/21 08:02 Dose: 35 mcg/kg/min, 19.6 mls/hr Documented by: [id number] Cosigned by: [id number] Titration: 02/28/21 07:58 Dose: 35 mcg/kg/min, 19.6 mls/hr Documented by: [id number] Cosigned by: [id number] Titration: 02/28/21 07:00 Dose: 35 mcg/kg/min, 19.6 mls/hr Documented by: [id number] Cosigned by: [id number] Admin: 02/28/21 02:51 Dose: 35 mcg/kg/min, 19.6 mls/hr Documented by: [id number] Cosigned by: [id number] Titration: 02/28/21 02:51 Dose: 35 mcg/kg/min, 19.6 mls/hr Documented by: [id number] Cosigned by: [id number] Admin: 02/27/21 21:48 Dose: 35 mcg/kg/min, 19.6 mls/hr Documented by: [id number] Cosigned by: [id number] Titration: 02/27/21 21:34 Dose: 35 mcg/kg/min, 19.6 mls/hr Documented by: [id number] Cosigned by: [id number] Titration: 02/27/21 19:16 Dose: 35 mcg/kg/min, 19.6 mls/hr Documented by: [id number] Cosigned by: [id number] Admin: 02/27/21 16:27 Dose: 35 mcg/kg/min, 19.6 mls/hr Documented by: [id number] Cosigned by: [id number] Titration: 02/27/21 14:35 Dose: 35 mcg/kg/min, 19.6 mls/hr Documented by: [id number] Cosigned by: [id number] Titration: 02/27/21 12:00 Dose: 35 mcg/kg/min, 19.6 mls/hr Documented by: [id number] Cosigned by: [id number] Admin: 02/27/21 11:02 Dose: 50.38 mcg/kg/min, 28.2 mls/hr Documented by: [id number] Cosigned by: [id number] Titration: 02/27/21 11:02 Dose: 50.38 mcg/kg/min, 28.2 mls/hr Documented by: [id number] Cosigned by: [id number] Admin: 02/27/21 08:09 Dose: 50.38 mcg/kg/min, 28.2 mls/hr Documented by: [id number] Cosigned by: [id number] Titration: 02/27/21 07:59 Dose: 50.38 mcg/kg/min, 28.2 mls/hr Documented by: [id number] Cosigned by: [id number] Titration: 02/27/21 07:08 Dose: 50.38 mcg/kg/min, 28.2 mls/hr Documented by: [id number] Cosigned by: [id number] Admin: 02/27/21 04:26 Dose: 50.38 mcg/kg/min, 28.2 mls/hr Documented by: [id number] Cosigned by: [id number] Titration: 02/27/21 04:13 Dose: 50.38 mcg/kg/min, 28.2 mls/hr Documented by: [id number] Cosigned by: [id number] Admin: 02/27/21 00:40 Dose: 50.38 mcg/kg/min, 28.2 mls/hr Documented by: [id number] Cosigned by: [id number] Titration: 02/27/21 00:40 Dose: 50.38 mcg/kg/min, 28.2 mls/hr Documented by: [id number] Cosigned by: [id number] Titration: 02/26/21 21:45 Dose: 50.38 mcg/kg/min, 28.2 mls/hr Documented by: [id number] Admin: 02/26/21 21:30 Dose: 20 mcg/kg/min, 11.2 mls/hr Documented by: [id number] Cosigned by: [id number] Fentanyl Citrate (Fentanyl Citrate) 2,500 mcg in 250 mls @ 2.5 mls/hr IV .Q96H [facility]; Protocol Stop: 03/13/21 11:29 Last Titration: 02/28/21 07:00 Dose: 25 mcg/hr, 2.5 mls/hr Documented by: [id number] Cosigned by: [id number] Titration: 02/27/21 19:16 Dose: 25 mcg/hr, 2.5 mls/hr Documented by: [id number] Cosigned by: [id number] Admin: 02/27/21 13:39 Dose: 25 mcg/hr, 2.5 mls/hr Documented by: [id number] Cosigned by: [id number] Levetiracetam 1,500 mg/ Sodium (Chloride) 115 mls @ 460 mls/hr IV Q12H JEYSON Stop: 03/29/21 20:59 Last Infusion: 02/28/21 08:24 Dose: 0 mls/hr Documented by: [id number] Admin: 02/28/21 08:01 Dose: 460 mls/hr Documented by: [id number] Infusion: 02/27/21 22:14 Dose: 0 mls/hr Documented by: [id number] Admin: 02/27/21 21:51 Dose: 460 mls/hr Documented by: [id number] Valproic Acid 750 mg/ Dextrose 57.5 mls @ 57.5 mls/hr IV Q6H JEYSON Stop: 03/29/21 17:59 Last Infusion: 02/28/21 06:30 Dose: 0 mls/hr Documented by: [id number] Admin: 02/28/21 05:23 Dose: 57.5 mls/hr Documented by: [id number] Infusion: 02/28/21 00:30 Dose: 0 mls/hr Documented by: [id number] Admin: 02/27/21 23:27 Dose: 57.5 mls/hr Documented by: [id number] Infusion: 02/27/21 20:56 Dose: 0 mls/hr Documented by: [id number] Admin: 02/27/21 18:33 Dose: 57.5 mls/hr Documented by: [id number] Insulin Aspart (Insulin Aspart Per Unit) 0 units SC Q6 [facility] Stop: 03/28/21 11:59 Last Admin: 02/28/21 05:32 Dose: Not Given Documented by: [id number] Admin: 02/27/21 23:27 Dose: Not Given Documented by: [id number] Admin: 02/27/21 18:33 Dose: 1 units Documented by: [id number] Cosigned by: [id number] Admin: 02/27/21 12:07 Dose: 1 units Documented by: [id number] Cosigned by: [id number] Admin: 02/27/21 06:47 Dose: 1 units Documented by: [id number] Cosigned by: [id number] Admin: 02/27/21 00:46 Dose: 2 units Documented by: [id number] Cosigned by: [id number] Admin: 02/26/21 18:04 Dose: Not Given Documented by: [id number] Cosigned by: [id number] Admin: 02/26/21 10:56 Dose: Not Given Documented by: [id number] Cosigned by: [id number] Lansoprazole (Lansoprazole 30 Mg Soltab) 30 mg NG DAILY JEYSON Stop: 03/29/21 10:59 Last Admin: 02/28/21 08:02 Dose: 30 mg Documented by: [id number] Admin: 02/27/21 11:44 Dose: 30 mg Documented by: [id number] Midazolam HCl (Midazolam Hcl 1 Mg/Ml 2ml Vial) 2 mg IV Q2H PRN PRN Reason: Agitation Stop: 03/25/21 21:08 Last Admin: 02/26/21 08:32 Dose: 2 mg Documented by: [id number] Admin: 02/25/21 15:10 Dose: 2 mg Documented by: [id number] Admin: 02/24/21 22:39 Dose: 2 mg Documented by: [id number] Admin: 02/24/21 11:15 Dose: 2 mg Documented by: [id number] Admin: 02/24/21 05:00 Dose: 2 mg Documented by: [id number] Admin: 02/23/21 21:21 Dose: 2 mg Documented by: [id number] Miscellaneous (Icu Electrolyte Replacement Protocol) 1 ea N/A BID@18 [facility]; Protocol Stop: 03/05/21 17:59 Last Admin: 02/28/21 06:26 Dose: 1 ea Documented by: [id number] Admin: 02/27/21 18:24 Dose: Not Given Documented by: [id number] Admin: 02/27/21 06:47 Dose: 1 ea Documented by: [id number] Admin: 02/26/21 18:05 Dose: Not Given Documented by: [id number] Nutritional Formula (Peptamen Intense Vhp 1.0 Saurabh 1,000 Ml Bag) 1,000 ml OG UD [facility]; Protocol Stop: 03/28/21 10:59 Last Admin: 02/26/21 13:36 Dose: 1,000 ml Documented by: [id number] Potassium Chloride (Potassium Chloride 20 Meq/15 Ml Udc) 20 meq NG Q4H JEYSON Stop: 02/28/21 11:01 Last Admin: 02/28/21 08:05 Dose: 20 meq Documented by: [id number] Potassium Phosphate (Pot Phosphate Monobasic W/ Sod Tab) 1 tab NG Q4H JEYSON Stop: 02/28/21 15:01 Last Admin: 02/28/21 08:05 Dose: 1 tab Documented by: [id number] Sterile Water (Tube Feeding Water Flush) 150 ml OG Q4H JEYSON Stop: 03/28/21 10:59 Last Admin: 02/28/21 06:27 Dose: 150 ml Documented by: [id number] Admin: 02/28/21 02:12 Dose: 150 ml Documented by: [id number] Admin: 02/27/21 22:13 Dose: 150 ml Documented by: [id number] Admin: 02/27/21 18:33 Dose: 150 ml Documented by: [id number] Admin: 02/27/21 14:36 Dose: 150 ml Documented by: [id number] Admin: 02/27/21 10:44 Dose: 150 ml Documented by: [id number] Admin: 02/27/21 08:06 Dose: 150 ml Documented by: [id number] Admin: 02/27/21 04:27 Dose: 150 ml Documented by: [id number] Admin: 02/27/21 00:46 Dose: 150 ml Documented by: [id number] Admin: 02/26/21 19:15 Dose: 150 ml Documented by: [id number] Admin: 02/26/21 14:49 Dose: 150 ml Documented by: [id number] Admin: 02/26/21 13:38 Dose: 150 ml Documented by: [id number] Discontinued Medications Amiodarone HCl/Dextrose (Amiodarone 360mg / 200ml D5w) Confirm Administered Dose 360 mg IV .STK-MED ONE Stop: 02/23/21 17:06 Last Admin: 02/23/21 21:12 Dose: Not Given Documented by: [id number] Aspirin (Aspirin 300 Mg Supp) 300 mg ID ONE ONE Stop: 02/23/21 16:55 Last Admin: 02/23/21 21:26 Dose: 300 mg Documented by: [id number] Fentanyl Citrate (Fentanyl Citrate 100 Mcg/2 Ml Vial) Confirm Administered Dose 100 mcg .ROUTE .STK-MED ONE Stop: 02/23/21 17:07 Last Admin: 02/23/21 20:13 Dose: Not Given Documented by: [id number] Fentanyl Citrate (Fentanyl Citrate 100 Mcg/2 Ml Vial) 50 mcg IV Q2H PRN PRN Reason: Pain Stop: 03/11/21 11:21 Last Admin: 02/26/21 09:29 Dose: 50 mcg Documented by: [id number] Furosemide (Furosemide 40 Mg/4 Ml Vial) 40 mg IV ONE ONE Stop: 02/25/21 09:47 Last Admin: 02/25/21 11:24 Dose: 40 mg Documented by: [id number] Furosemide (Furosemide 40 Mg/4 Ml Vial) 40 mg IV ONE ONE Stop: 02/27/21 08:15 Last Admin: 02/27/21 08:52 Dose: 40 mg Documented by: [id number] Furosemide (Furosemide 40 Mg/4 Ml Vial) 40 mg IV ONE ONE Stop: 02/28/21 07:42 Last Admin: 02/28/21 08:05 Dose: 40 mg Documented by: [id number] Heparin Sodium (Porcine) (Heparin (Porcine) 1000 Unit/Ml 10 Ml (Swift Tender Use Only)) Confirm Administered Dose 10,000 units .ROUTE .STK-MED ONE Stop: 02/23/21 17:07 Last Admin: 02/23/21 20:23 Dose: Not Given Documented by: [id number] Heparin Sodium/Sodium Chloride (Heparin In Nss Infusion 1000 Unit/500 Ml (2 U/Ml) Bag) Confirm Administered Dose 3,000 units IV .STK-MED ONE Stop: 02/23/21 17:08 Last Admin: 02/23/21 20:24 Dose: Not Given Documented by: [id number] Amiodarone HCl/Dextrose (Nexterone / D5w) 360 mg in 200 mls @ 33.333 mls/hr IV .Q6H [facility] Stop: 02/23/21 23:14 Last Infusion: 02/24/21 00:36 Dose: 0 mg/min, 0 mls/hr Documented by: [id number] Cosigned by: [id number] Admin: 02/23/21 20:52 Dose: 1 mg/min, 33.3 mls/hr Documented by: [id number] Cosigned by: [id number] Propofol (Diprivan) 1,000 mg in 100 mls @ 28.17 mls/hr IV .Q3H33M [facility]; Protocol Stop: 02/26/21 17:14 Last Titration: 02/26/21 22:31 Dose: 0 mcg/kg/min, 0 mls/hr Documented by: [id number] Titration: 02/26/21 19:08 Dose: 50 mcg/kg/min, 28.2 mls/hr Documented by: [id number] Cosigned by: [id number] Admin: 02/26/21 17:35 Dose: 50 mcg/kg/min, 28.2 mls/hr Documented by: [id number] Cosigned by: [id number] Titration: 02/26/21 17:27 Dose: 50 mcg/kg/min, 28.2 mls/hr Documented by: [id number] Cosigned by: [id number] Admin: 02/26/21 13:54 Dose: 50 mcg/kg/min, 28.2 mls/hr Documented by: [id number] Cosigned by: [id number] Titration: 02/26/21 13:50 Dose: 50 mcg/kg/min, 28.2 mls/hr Documented by: [id number] Cosigned by: [id number] Admin: 02/26/21 10:54 Dose: Not Given Documented by: [id number] Admin: 02/26/21 10:17 Dose: 50 mcg/kg/min, 28.2 mls/hr Documented by: [id number] Cosigned by: [id number] Titration: 02/26/21 09:46 Dose: 50 mcg/kg/min, 28.2 mls/hr Documented by: [id number] Cosigned by: [id number] Titration: 02/26/21 09:34 Dose: 50 mcg/kg/min, 28.2 mls/hr Documented by: [id number] Titration: 02/26/21 09:00 Dose: 40 mcg/kg/min, 22.5 mls/hr Documented by: [id number] Titration: 02/26/21 07:14 Dose: 40 mcg/kg/min, 22.5 mls/hr Documented by: [id number] Cosigned by: [id number] Admin: 02/26/21 07:10 Dose: Not Given Documented by: [id number] Admin: 02/26/21 07:10 Dose: Not Given Documented by: [id number] Admin: 02/26/21 07:09 Dose: Not Given Documented by: [id number] Admin: 02/26/21 07:09 Dose: Not Given Documented by: [id number] Admin: 02/26/21 07:09 Dose: Not Given Documented by: [id number] Admin: 02/26/21 07:09 Dose: Not Given Documented by: [id number] Admin: 02/26/21 07:09 Dose: Not Given Documented by: [id number] Admin: 02/26/21 05:22 Dose: 40 mcg/kg/min, 22.5 mls/hr Documented by: [id number] Cosigned by: [id number] Titration: 02/26/21 05:17 Dose: 40 mcg/kg/min, 22.5 mls/hr Documented by: [id number] Cosigned by: [id number] Titration: 02/26/21 04:23 Dose: 40 mcg/kg/min, 22.5 mls/hr Documented by: [id number] Admin: 02/26/21 01:33 Dose: 50 mcg/kg/min, 28.2 mls/hr Documented by: [id number] Cosigned by: [id number] Titration: 02/26/21 01:23 Dose: 50 mcg/kg/min, 28.2 mls/hr Documented by: [id number] Cosigned by: [id number] Admin: 02/25/21 21:50 Dose: 50 mcg/kg/min, 28.2 mls/hr Documented by: [id number] Cosigned by: [id number] Titration: 02/25/21 21:48 Dose: 50 mcg/kg/min, 28.2 mls/hr Documented by: [id number] Cosigned by: [id number] Titration: 02/25/21 19:06 Dose: 50 mcg/kg/min, 28.2 mls/hr Documented by: [id number] Cosigned by: [id number] Admin: 02/25/21 18:15 Dose: 50 mcg/kg/min, 28.2 mls/hr Documented by: [id number] Cosigned by: [id number] Titration: 02/25/21 18:15 Dose: 50 mcg/kg/min, 28.2 mls/hr Documented by: [id number] Cosigned by: [id number] Admin: 02/25/21 15:10 Dose: 50 mcg/kg/min, 28.2 mls/hr Documented by: [id number] Cosigned by: [id number] Titration: 02/25/21 14:59 Dose: 50 mcg/kg/min, 28.2 mls/hr Documented by: [id number] Cosigned by: [id number] Admin: 02/25/21 11:26 Dose: 50 mcg/kg/min, 28.2 mls/hr Documented by: [id number] Cosigned by: [id number] Titration: 02/25/21 11:26 Dose: 50 mcg/kg/min, 28.2 mls/hr Documented by: [id number] Cosigned by: [id number] Admin: 02/25/21 08:40 Dose: 50 mcg/kg/min, 28.2 mls/hr Documented by: [id number] Cosigned by: [id number] Titration: 02/25/21 08:26 Dose: 50 mcg/kg/min, 28.2 mls/hr Documented by: [id number] Cosigned by: [id number] Titration: 02/25/21 07:16 Dose: 50 mcg/kg/min, 28.2 mls/hr Documented by: [id number] Cosigned by: [id number] Admin: 02/25/21 06:16 Dose: Not Given Documented by: [id number] Titration: 02/25/21 05:25 Dose: 50 mcg/kg/min, 28.2 mls/hr Documented by: [id number] Titration: 02/25/21 05:15 Dose: 40 mcg/kg/min, 22.5 mls/hr Documented by: [id number] Admin: 02/25/21 04:34 Dose: 30 mcg/kg/min, 16.9 mls/hr Documented by: [id number] Cosigned by: [id number] Titration: 02/25/21 04:34 Dose: 30 mcg/kg/min, 16.9 mls/hr Documented by: [id number] Cosigned by: [id number] Titration: 02/25/21 02:53 Dose: 30 mcg/kg/min, 16.9 mls/hr Documented by: [id number] Admin: 02/25/21 00:04 Dose: 40 mcg/kg/min, 22.5 mls/hr Documented by: [id number] Cosigned by: [id number] Titration: 02/25/21 00:04 Dose: 40 mcg/kg/min, 22.5 mls/hr Documented by: [id number] Cosigned by: [id number] Admin: 02/24/21 23:43 Dose: Not Given Documented by: [id number] Titration: 02/24/21 22:36 Dose: 40 mcg/kg/min, 22.5 mls/hr Documented by: [id number] Admin: 02/24/21 21:52 Dose: Not Given Documented by: [id number] Admin: 02/24/21 21:52 Dose: Not Given Documented by: [id number] Admin: 02/24/21 21:01 Dose: 30 mcg/kg/min, 16.9 mls/hr Documented by: [id number] Cosigned by: [id number] Titration: 02/24/21 18:59 Dose: 30 mcg/kg/min, 16.9 mls/hr Documented by: [id number] Cosigned by: [id number] Admin: 02/24/21 17:25 Dose: Not Given Documented by: [id number] Admin: 02/24/21 15:03 Dose: 50 mcg/kg/min, 28.2 mls/hr Documented by: [id number] Cosigned by: [id number] Titration: 02/24/21 14:38 Dose: 50 mcg/kg/min, 28.2 mls/hr Documented by: [id number] Cosigned by: [id number] Titration: 02/24/21 11:15 Dose: 50 mcg/kg/min, 28.2 mls/hr Documented by: [id number] Admin: 02/24/21 11:00 Dose: Not Given Documented by: [id number] Cosigned by: [id number] Admin: 02/24/21 10:54 Dose: 25 mcg/kg/min, 14.1 mls/hr Documented by: [id number] Cosigned by: [id number] Titration: 02/24/21 10:54 Dose: 30 mcg/kg/min, 16.9 mls/hr Documented by: [id number] Cosigned by: [id number] Titration: 02/24/21 09:39 Dose: 30 mcg/kg/min, 16.9 mls/hr Documented by: [id number] Titration: 02/24/21 08:30 Dose: 40 mcg/kg/min, 22.5 mls/hr Documented by: [id number] Titration: 02/24/21 06:46 Dose: 30 mcg/kg/min, 16.9 mls/hr Documented by: [id number] Cosigned by: [id number] Admin: 02/24/21 06:23 Dose: 30 mcg/kg/min, 16.9 mls/hr Documented by: [id number] Cosigned by: [id number] Titration: 02/24/21 05:06 Dose: 40 mcg/kg/min, 22.5 mls/hr Documented by: [id number] Cosigned by: [id number] Titration: 02/24/21 03:50 Dose: 40 mcg/kg/min, 22.5 mls/hr Documented by: [id number] Titration: 02/24/21 03:26 Dose: 30 mcg/kg/min, 16.9 mls/hr Documented by: [id number] Titration: 02/24/21 00:43 Dose: 40 mcg/kg/min, 22.5 mls/hr Documented by: [id number] Admin: 02/24/21 00:35 Dose: 50 mcg/kg/min, 28.2 mls/hr Documented by: [id number] Cosigned by: [id number] Titration: 02/24/21 00:24 Dose: 50 mcg/kg/min, 28.2 mls/hr Documented by: [id number] Cosigned by: [id number] Admin: 02/23/21 20:51 Dose: 50 mcg/kg/min, 28.2 mls/hr Documented by: [id number] Cosigned by: [id number] Sodium Chloride (Nss 1000ml) 1,000 mls @ 999 mls/hr IV .Q1H1M ONE Stop: 02/23/21 18:17 Last Admin: 02/23/21 20:26 Dose: Not Given Documented by: [id number] Pantoprazole Sodium 40 mg/ (Syringe) 10 mls @ 5 mls/min IV DAILY@1100 JEYSON Stop: 03/26/21 10:59 Last Admin: 02/26/21 10:20 Dose: 5 mls/min Documented by: [id number] Admin: 02/25/21 11:24 Dose: 5 mls/min Documented by: [id number] Admin: 02/24/21 10:54 Dose: 5 mls/min Documented by: [id number] Insulin Human Regular 250 (units/ Sodium Chloride) 250 mls @ 0 mls/hr IV .Q0M JEYSON; Protocol Stop: 03/25/21 19:59 Last Titration: 02/24/21 19:00 Dose: 0 units/hr, 0 mls/hr Documented by: [id number] Cosigned by: [id number] Titration: 02/24/21 18:59 Dose: 0 units/hr, 0 mls/hr Documented by: [id number] Cosigned by: [id number] Titration: 02/24/21 16:30 Dose: 0 units/hr, 0 mls/hr Documented by: [id number] Cosigned by: [id number] Titration: 02/24/21 15:00 Dose: 1.2 units/hr, 1.2 mls/hr Documented by: [id number] Cosigned by: [id number] Titration: 02/24/21 14:00 Dose: 1.2 units/hr, 1.2 mls/hr Documented by: [id number] Cosigned by: [id number] Titration: 02/24/21 13:00 Dose: 1 units/hr, 1 mls/hr Documented by: [id number] Cosigned by: [id number] Titration: 02/24/21 12:00 Dose: 1 units/hr, 1 mls/hr Documented by: [id number] Cosigned by: [id number] Titration: 02/24/21 11:00 Dose: 1.3 units/hr, 1.3 mls/hr Documented by: [id number] Cosigned by: [id number] Titration: 02/24/21 10:00 Dose: 1.6 units/hr, 1.6 mls/hr Documented by: [id number] Cosigned by: [id number] Titration: 02/24/21 09:00 Dose: 1.6 units/hr, 1.6 mls/hr Documented by: [id number] Cosigned by: [id number] Titration: 02/24/21 08:00 Dose: 2 units/hr, 2 mls/hr Documented by: [id number] Cosigned by: [id number] Titration: 02/24/21 07:44 Dose: 0 units/hr, 0 mls/hr Documented by: [id number] Cosigned by: [id number] Titration: 02/24/21 06:46 Dose: 2.6 units/hr, 2.6 mls/hr Documented by: [id number] Cosigned by: [id number] Titration: 02/24/21 06:15 Dose: 2.6 units/hr, 2.6 mls/hr Documented by: [id number] Cosigned by: [id number] Titration: 02/24/21 05:10 Dose: 3.3 units/hr, 3.3 mls/hr Documented by: [id number] Cosigned by: [id number] Titration: 02/24/21 04:10 Dose: 4.1 units/hr, 4.1 mls/hr Documented by: [id number] Cosigned by: [id number] Titration: 02/24/21 03:10 Dose: 4.1 units/hr, 4.1 mls/hr Documented by: [id number] Cosigned by: [id number] Titration: 02/24/21 02:10 Dose: 4.1 units/hr, 4.1 mls/hr Documented by: [id number] Cosigned by: [id number] Titration: 02/24/21 01:10 Dose: 4.1 units/hr, 4.1 mls/hr Documented by: [id number] Cosigned by: [id number] Titration: 02/24/21 00:15 Dose: 4.1 units/hr, 4.1 mls/hr Documented by: [id number] Cosigned by: [id number] Titration: 02/23/21 23:15 Dose: 3.4 units/hr, 3.4 mls/hr Documented by: [id number] Cosigned by: [id number] Titration: 02/23/21 22:15 Dose: 2.8 units/hr, 2.8 mls/hr Documented by: [id number] Cosigned by: [id number] Admin: 02/23/21 20:46 Dose: 2.3 units/hr, 2.3 mls/hr Documented by: [id number] Cosigned by: [id number] Lorazepam (Ativan) 4 mg in 8 mls @ 4 mls/min IV NOW STA Stop: 02/23/21 20:37 Last Admin: 02/23/21 21:13 Dose: Not Given Documented by: [id number] Levetiracetam 2,000 mg/ Sodium (Chloride) 270 mls @ 999 mls/hr IV NOW STA Stop: 02/23/21 21:24 Last Infusion: 02/23/21 21:37 Dose: 0 mls/hr Documented by: [id number] Admin: 02/23/21 21:20 Dose: 999 mls/hr Documented by: [id number] Levetiracetam 500 mg/ Sodium (Chloride) 105 mls @ 420 mls/hr IV Q12H JEYSON Stop: 03/26/21 08:59 Last Infusion: 02/25/21 09:30 Dose: 0 mls/hr Documented by: [id number] Admin: 02/25/21 08:48 Dose: 420 mls/hr Documented by: [id number] Infusion: 02/24/21 21:15 Dose: 0 mls/hr Documented by: [id number] Admin: 02/24/21 21:00 Dose: 420 mls/hr Documented by: [id number] Infusion: 02/24/21 08:42 Dose: 0 mls/hr Documented by: [id number] Admin: 02/24/21 07:43 Dose: 420 mls/hr Documented by: [id number] Fentanyl Citrate (Fentanyl Citrate) 2,500 mcg in 250 mls @ 2.5 mls/hr IV .Q96H JEYSON; Protocol Stop: 03/09/21 21:14 Last Titration: 02/25/21 10:00 Dose: 0 mcg/hr, 0 mls/hr Documented by: [id number] Cosigned by: [id number] Admin: 02/25/21 08:35 Dose: 75 mcg/hr, 7.5 mls/hr Documented by: [id number] Cosigned by: [id number] Titration: 02/25/21 08:35 Dose: 75 mcg/hr, 7.5 mls/hr Documented by: [id number] Cosigned by: [id number] Titration: 02/25/21 07:16 Dose: 75 mcg/hr, 7.5 mls/hr Documented by: [id number] Cosigned by: [id number] Titration: 02/24/21 22:38 Dose: 75 mcg/hr, 7.5 mls/hr Documented by: [id number] Cosigned by: [id number] Titration: 02/24/21 18:59 Dose: 50 mcg/hr, 5 mls/hr Documented by: [id number] Cosigned by: [id number] Titration: 02/24/21 09:39 Dose: 25 mcg/hr, 2.5 mls/hr Documented by: [id number] Cosigned by: [id number] Titration: 02/24/21 06:46 Dose: 75 mcg/hr, 7.5 mls/hr Documented by: [id number] Cosigned by: [id number] Titration: 02/24/21 05:01 Dose: 75 mcg/hr, 7.5 mls/hr Documented by: [id number] Cosigned by: [id number] Titration: 02/23/21 22:00 Dose: 50 mcg/hr, 5 mls/hr Documented by: [id number] Cosigned by: [id number] Admin: 02/23/21 21:21 Dose: 25 mcg/hr, 2.5 mls/hr Documented by: [id number] Cosigned by: [id number] Calcium Gluconate 1,000 mg/ (Sodium Chloride) 60 mls @ 240 mls/hr IV NOW ONE Stop: 02/23/21 22:03 Last Infusion: 02/23/21 22:29 Dose: 0 mls/hr Documented by: [id number] Admin: 02/23/21 22:14 Dose: 240 mls/hr Documented by: [id number] Acetaminophen (Ofirmev) 1,000 mg in 100 mls @ 400 mls/hr IV Q8H PRN PRN Reason: Fever Stop: 02/28/21 00:21 Last Infusion: 02/27/21 14:35 Dose: 0 mls/hr Documented by: [id number] Admin: 02/27/21 13:39 Dose: 400 mls/hr Documented by: [id number] Infusion: 02/26/21 20:12 Dose: 0 mls/hr Documented by: [id number] Admin: 02/26/21 19:56 Dose: 400 mls/hr Documented by: [id number] Infusion: 02/26/21 10:54 Dose: 0 mls/hr Documented by: [id number] Admin: 02/26/21 10:21 Dose: 400 mls/hr Documented by: [id number] Infusion: 02/26/21 01:48 Dose: 0 mls/hr Documented by: [id number] Admin: 02/26/21 01:33 Dose: 400 mls/hr Documented by: [id number] Infusion: 02/25/21 18:41 Dose: 0 mls/hr Documented by: [id number] Admin: 02/25/21 18:14 Dose: 400 mls/hr Documented by: [id number] Infusion: 02/25/21 10:03 Dose: 0 mls/hr Documented by: [id number] Admin: 02/25/21 08:54 Dose: 400 mls/hr Documented by: [id number] Infusion: 02/25/21 00:51 Dose: 0 mls/hr Documented by: [id number] Admin: 02/25/21 00:36 Dose: 400 mls/hr Documented by: [id number] Potassium Chloride (K Florian / Wtr) 20 meq in 100 mls @ 50 mls/hr IV ONE ONE; Protocol Stop: 02/25/21 08:44 Last Infusion: 02/25/21 10:34 Dose: 0 mls/hr Documented by: [id number] Admin: 02/25/21 08:34 Dose: 50 mls/hr Documented by: [id number] Levetiracetam 1,000 mg/ Sodium (Chloride) 110 mls @ 440 mls/hr IV Q12 JEYSON Stop: 03/27/21 20:59 Last Infusion: 02/27/21 08:52 Dose: 0 mls/hr Documented by: [id number] Admin: 02/27/21 08:10 Dose: 440 mls/hr Documented by: [id number] Infusion: 02/26/21 22:18 Dose: 0 mls/hr Documented by: [id number] Admin: 02/26/21 20:13 Dose: 440 mls/hr Documented by: [id number] Infusion: 02/26/21 08:37 Dose: 0 mls/hr Documented by: [id number] Admin: 02/26/21 08:14 Dose: 440 mls/hr Documented by: [id number] Infusion: 02/25/21 20:25 Dose: 0 mls/hr Documented by: [id number] Admin: 02/25/21 20:10 Dose: 440 mls/hr Documented by: [id number] Valproic Acid 250 mg/ Dextrose 52.5 mls @ 55 mls/hr IV Q6H JEYSON Stop: 03/27/21 15:59 Last Infusion: 02/26/21 10:58 Dose: 0 mls/hr Documented by: [id number] Admin: 02/26/21 09:33 Dose: 55 mls/hr Documented by: [id number] Infusion: 02/26/21 04:14 Dose: 0 mls/hr Documented by: [id number] Admin: 02/26/21 03:16 Dose: 55 mls/hr Documented by: [id number] Infusion: 02/25/21 22:47 Dose: 0 mls/hr Documented by: [id number] Admin: 02/25/21 21:49 Dose: 55 mls/hr Documented by: [id number] Infusion: 02/25/21 18:30 Dose: 0 mls/hr Documented by: [id number] Admin: 02/25/21 17:14 Dose: 55 mls/hr Documented by: [id number] Potassium Chloride (K Florian / Wtr) 20 meq in 100 mls @ 50 mls/hr IV Q2H JEYSON; Protocol Stop: 02/26/21 10:59 Last Infusion: 02/26/21 13:52 Dose: 0 mls/hr Documented by: [id number] Admin: 02/26/21 10:02 Dose: 50 mls/hr Documented by: [id number] Infusion: 02/26/21 09:54 Dose: 50 mls/hr Documented by: [id number] Admin: 02/26/21 07:54 Dose: 50 mls/hr Documented by: [id number] Valproic Acid 500 mg/ Dextrose 55 mls @ 55 mls/hr IV ONCE STA Stop: 02/26/21 15:21 Last Infusion: 02/26/21 16:00 Dose: 0 mls/hr Documented by: [id number] Admin: 02/26/21 14:49 Dose: 55 mls/hr Documented by: [id number] Valproic Acid 500 mg/ Dextrose 55 mls @ 55 mls/hr IV Q6 JEYSON Stop: 03/28/21 17:59 Last Infusion: 02/27/21 08:07 Dose: 0 mls/hr Documented by: [id number] Admin: 02/27/21 06:49 Dose: 55 mls/hr Documented by: [id number] Infusion: 02/27/21 02:38 Dose: 0 mls/hr Documented by: [id number] Admin: 02/27/21 00:41 Dose: 55 mls/hr Documented by: [id number] Infusion: 02/26/21 19:23 Dose: 0 mls/hr Documented by: [id number] Admin: 02/26/21 17:59 Dose: 55 mls/hr Documented by: [id number] Valproic Acid 750 mg/ Dextrose 57.5 mls @ 55 mls/hr IV ONCE ONE Stop: 02/27/21 13:02 Last Infusion: 02/27/21 13:40 Dose: 0 mls/hr Documented by: [id number] Admin: 02/27/21 11:44 Dose: 55 mls/hr Documented by: [id number] Insulin Aspart (Insulin Aspart Per Unit) 0 units SC ACHS JEYSON Stop: 03/25/21 20:59 Last Admin: 02/24/21 21:01 Dose: Not Given Documented by: [id number] Admin: 02/24/21 15:03 Dose: Not Given Documented by: [id number] Cosigned by: [id number] Admin: 02/24/21 10:55 Dose: Not Given Documented by: [id number] Cosigned by: [id number] Admin: 02/24/21 07:43 Dose: Not Given Documented by: [id number] Cosigned by: [id number] Admin: 02/23/21 21:13 Dose: Not Given Documented by: [id number] Insulin Aspart (Insulin Aspart Per Unit) 0 units SC Q4 JEYSON Stop: 03/27/21 00:00 Last Admin: 02/26/21 08:12 Dose: Not Given Documented by: [id number] Cosigned by: [id number] Admin: 02/26/21 04:23 Dose: Not Given Documented by: [id number] Admin: 02/26/21 00:01 Dose: Not Given Documented by: [id number] Admin: 02/25/21 20:04 Dose: Not Given Documented by: [id number] Admin: 02/25/21 16:24 Dose: Not Given Documented by: [id number] Cosigned by: [id number] Admin: 02/25/21 12:08 Dose: Not Given Documented by: [id number] Cosigned by: [id number] Admin: 02/25/21 08:34 Dose: Not Given Documented by: [id number] Cosigned by: [id number] Admin: 02/25/21 04:35 Dose: Not Given Documented by: [id number] Admin: 02/25/21 00:06 Dose: Not Given Documented by: [id number] Insulin Human Regular (Novolin-R Bolus From Bag) 2.5 units IV ONE ONE Stop: 02/23/21 20:31 Last Admin: 02/23/21 20:53 Dose: 2.5 units Documented by: [id number] Cosigned by: [id number] Ioversol (Optiray 320 125ml) 120 ml IV ONCE ONE Stop: 02/23/21 17:38 Last Admin: 02/23/21 17:37 Dose: 120 ml Documented by: [id number] Lorazepam (Lorazepam 2 Mg/4 Ml Vial) Confirm Administered Dose 4 mg .ROUTE .STK- MED ONE Stop: 02/23/21 20:39 Last Admin: 02/23/21 20:50 Dose: 4 mg Documented by: [id number] Meperidine HCl (Meperidine Hcl 25 Mg/Ml Carp/Vial) 25 mg IV Q2H PRN PRN Reason: Shivering Stop: 03/09/21 19:44 Last Admin: 02/24/21 03:51 Dose: 25 mg Documented by: [id number] Admin: 02/24/21 00:35 Dose: 25 mg Documented by: [id number] Midazolam HCl (Midazolam Hcl 1 Mg/Ml 2ml Vial) Confirm Administered Dose 2 mg .ROUTE .STK-MED ONE Stop: 02/23/21 17:07 Last Admin: 02/23/21 20:23 Dose: Not Given Documented by: [id number] Nomananeous (Stat Iv Infusion Titration Per Protocol) 1 ea N/A NOW STA Stop: 02/23/21 17:08 Last Admin: 02/23/21 20:25 Dose: Not Given Documented by: [id number] Nomananeous (Insulin Protocol Goal Range ) 1 ea N/A ONE ONE Stop: 02/23/21 20:01 Last Admin: 02/23/21 21:12 Dose: 1 ea Documented by: [id number] Monserrat (Moderate Stress Level ) 1 ea N/A ONE ONE Stop: 02/23/21 20:09 Last Admin: 02/23/21 21:13 Dose: 1 ea Documented by: [id number] Nicardipine HCl (Nicardipine Hcl Inj 2.5 Mg/Ml 10 Ml Amp) Confirm Administered Dose 25 mg .ROUTE .STK-MED ONE Stop: 02/23/21 17:07 Last Admin: 02/23/21 20:23 Dose: Not Given Documented by: [id number] Nitroglycerin/Dextrose (Nitroglycerin/D5w 100mcg/Ml 20ml Syr) Confirm Administered Dose 2,000 mcg .ROUTE .STK-MED ONE Stop: 02/23/21 17:08 Last Admin: 02/23/21 20:24 Dose: Not Given Documented by: [id number] Potassium Chloride (Potassium Chloride 20 Meq/15 Ml Udc) 40 meq PO NOW STA Stop: 02/26/21 06:27 Last Admin: 02/26/21 07:54 Dose: 40 meq Documented by: [id number] Potassium Chloride (Potassium Chloride 20 Meq/15 Ml Udc) 20 meq NG Q4H JEYSON Stop: 02/27/21 10:46 Last Admin: 02/27/21 10:44 Dose: 20 meq Documented by: [id number] Admin: 02/27/21 08:06 Dose: 20 meq Documented by: [id number] Potassium Phosphate (Pot Phosphate Monobasic W/ Sod Tab) 1 tab PO ONCE ONE Stop: 02/27/21 11:01 Last Admin: 02/27/21 12:07 Dose: 1 tab Documented by: [id number] Propofol (Propofol Iv Emulsion 10 Mg/Ml 100 Ml Vial) Confirm Administered Dose 1,000 mg IV .STK-MED ONE Stop: 02/23/21 17:07 Last Admin: 02/23/21 20:24 Dose: Not Given Documented by: [id number] Propofol (Propofol Bolus From Bag) 20 mg IV Q5M PRN PRN Reason: Sedation Stop: 02/26/21 17:06 Last Admin: 02/26/21 08:10 Dose: 20 mg Documented by: [id number] Cosigned by: [id number] Admin: 02/25/21 16:25 Dose: 20 mg Documented by: [id number] Cosigned by: [id number] Admin: 02/25/21 08:30 Dose: 20 mg Documented by: [id number] Cosigned by: [id number] Admin: 02/25/21 05:36 Dose: 20 mg Documented by: [id number] Cosigned by: [id number] Admin: 02/25/21 05:05 Dose: 20 mg Documented by: [id number] Cosigned by: [id number] Admin: 02/25/21 04:55 Dose: 20 mg Documented by: [id number] Cosigned by: [id number] Admin: 02/24/21 23:12 Dose: 20 mg Documented by: [id number] Cosigned by: [id number] Admin: 02/24/21 22:38 Dose: 20 mg Documented by: [id number] Cosigned by: [id number] Admin: 02/24/21 22:14 Dose: 20 mg Documented by: [id number] Cosigned by: [id number] Admin: 02/24/21 22:05 Dose: 20 mg Documented by: [id number] Cosigned by: [id number] Admin: 02/24/21 22:00 Dose: 20 mg Documented by: [id number] Cosigned by: [id number] Admin: 02/24/21 03:50 Dose: 20 mg Documented by: [id number] Cosigned by: [id number] Admin: 02/23/21 20:15 Dose: 20 mg Documented by: [id number] Cosigned by: [id number] Admin: 02/23/21 19:45 Dose: 20 mg Documented by: [id number] Cosigned by: [id number] Propofol (Propofol Iv Emulsion 10 Mg/Ml 100 Ml Vial) Confirm Administered Dose 1,000 mg IV .STK-MED ONE Stop: 02/26/21 21:39 Last Admin: 02/26/21 22:15 Dose: Not Given Documented by: [id number] Valproic Acid (Valproic Acid Soln 500 Mg/[address] [facility] [place]) 1,000 mg PO 0800 ONE Stop: 02/25/21 08:01 Last Admin: 02/25/21 08:56 Dose: 1,000 mg Documented by: [id number] Description This is a 21 electrode EEG with a single channel dedicated to limited EKG. The electrodes were placed in accordance with the International 10-20 system. There is a fairly continuous frontally predominant 3 to 4-1/2 Hz spike-wave abnormality, variable frequency, seen throughout the study. There is otherwise, general suppression of the background rhythm. No change with photic stimulation. Interpretation Abnormal awake/drowsy EEG consistent with severe cerebral anoxia and associated generalized periodic discharges. No significant change compared with yesterday's EEG. [facility] EEG Procedure Codes Indication for Procedure (1) Anoxic brain injury: (2) Seizures: Neurology Neurology: 65248 EEG include record awake & drowsy
[2021-02-28] MEDS: MIDAZOLAM HCL 1 MG/ML 2ML VIAL IV PRN ×6 (12:43→17:58)
[2021-02-28] MEDS: AMIODARONE / D5W 360 MG/200 ML BAG IV SCH (14:13)
[2021-02-28] MEDS ORDERED: DEXTROSE 10% 1,000 ML IV PRN (14:37)
[2021-02-28] MEDS ORDERED: TPN/PPN CONSULT PHARMACY PRN (14:39)
[2021-02-28] MEDS ORDERED: ONDANSETRON 4 MG OD TAB SL PRN (14:49)
[2021-02-28] MEDS ORDERED: GLYCOPYRROLATE 0.2 MG/ML VIAL IV PRN (14:49)
[2021-02-28] MEDS ORDERED: LORazepam 0.5 MG/1 ML VIAL IV PRN (14:49)
[2021-02-28] MEDS ORDERED: LORazepam 0.5 MG TAB PO PRN (14:49)
[2021-02-28] MEDS ORDERED: MoRPHine SULFATE 5 MG/0.25 ML UDP PO PRN (14:49)
[2021-02-28] MEDS ORDERED: ATROPINE SULFATE 1% OP SOLN 5 ML BTL SL PRN (14:49)
[2021-02-28] MEDS ORDERED: MoRPHine SULFATE 2 MG/ML CARP IV PRN (14:49)
[2021-02-28] MEDS ORDERED: ONDANSETRON INJ 2 MG/ML 2 ML VIAL IV PRN (14:49)
[2021-02-28] MEDS ORDERED: DEXTROSE 10% 1,000 ML IV SCH (16:00)
--- NOTE | 2021-02-28 16:17 | Billing Data ---
Date of Service February 28, 2021 Coding Level of Care Code 18220 Subseq Hosp Care Lvl 3
--- NOTE | 2021-02-28 16:18 | Billing Data ---
Date of Service February 28, 2021 Coding Level of Care Code 85216 Prolonged Care (int'l)
[2021-02-28] MEDS ORDERED: LORazepam 4 MG/8 ML VIAL IV PRN (18:05)
--- NOTE | 2021-02-28 18:31 | Critical Care Progress Note ---
Date of Service February 28, 2021 Assessment & Plan (1) Cardiac arrest: (2) Anoxic brain injury: (3) Ventricular tachycardia: (4) Metabolic acidosis: (5) Status epilepticus: Plan: Impression: 65-year-old male presents to the ICU following cardiac arrest. Patient underwent cath without intervention. Neurological exam poor following ROSC and currently mechanically ventilated. Patient to undergo 24-hour period of therapeutic hypothermia following presumed anoxic injury. 24-hour events: P patient had another EEG done today which showed burst suppression pattern. Patient seems to be having seizure-like activity. Recommendations Neuro - --Anoxic brain injury due to out of hospital cardiac arrest. Initial head CT was unrevealing EEG 02/25/2021 shows diffuse burst suppression pattern with generalized slowing going with anoxic brain injury Neurology on board. Will follow recommendations --Status epilepticus Secondary to above Cardiac - --Cardiac arrest out of hospital cardiac arrest. Status post cardiac cath --> borderline mid LAD disease, no intervention was done Hemodynamically stable currently. Continue with amiodarone drip Respiratory - -- VDRF Secondary to cardiac arrest Continue with ventilatory support GI - --Transaminitis Trending down Continue to monitor RENAL/LYTES - --NATHAN Improved Continue to monitor BUNs/creatinine - Foleystrict I's and O's ENDO -ICU hyperglycemia protocol HEME - H&H stable, monitor routine CBCs ID - Leukocytosis likely reactive to cardiac arrest Patient is spiking fever this also seems to be central --Prophylaxis VTE: Lovenox GI: Protonix Lines: Right femoral cooling catheter, positive Garcia Diet: Tube feeds Plan: Hypophosphatemia and potassium being replaced 40 mg of Lasix given to the patient today Patient's family is bringing gas attendant today. The plan of care would be for terminal extubation Keep the patient comfortable following that Patient Sister Ezequiel Kidd [phone] was called and updated regarding patient's status I have personally spent 35 minutes of critical care time in the direct management of this patient. This is a life/limb threatening event. This includes time spent evaluating patient, direct bedside care, chart review, placing orders, interpretation of diagnostic studies, discussion with consultants, patient, and family members, as well as other required patient management activities. This time is exclusive of all separately billable procedures, and teaching time and separate from and in addition to any other critical care service time. Please note the above document was generated using voice recognition software. It may contain grammatical, syntax or spelling errors. Admission and Anticipated Discharge Date Admission Date: February 23, 2021 Subjective Patient seen and examined at bedside. No acute distress, no adverse events overnight No seizure activity since yesterday. He was on fentanyl Has been on Keppra as well as valproic acid and his dose has been increased as per neurology recommendations Review of Systems Review of Systems: Unobtainable due to endotracheal tube Physical Exam Physical Exam: Constitutional: No acute distress HEENT: PERRLA, Clonus of the eyes is appreciated. Respiratory system: Good air entry bilaterally, no wheeze, no rhonchi, positive crackles bilateral CVS: S1-S2 positive, no murmurs or gallops Abdomen: Soft, nontender, nondistended, positive bowel sounds x4 Extremities: +2 pulses bilaterally radialis/ dorsalis pedis, no cyanosis, +1 edema bilateral lower extremity Neuro: Breathing over the vent, positive corneal, positive pupillary, no gag Psych: Unable to assess G/U: Positive Garcia Skin: no rashes, warm and dry Lymphatic: no cervical or axillary lymphadenopathy Results & Data Results & Data ([facility]) Vital Signs (Past 12 Hours) Vital Signs Pulse Resp Pulse Ox 02/28/21 16:00 61 02/28/21 07:45 61 25 H 94 02/28/21 07:36 61 02/28/21 05:42 02/28/21 05:42 Coding Level of Care Code Critical Care 1st 30-74 mins Diagnoses Cardiac arrest I46.9 Anoxic brain injury G93.1 Ventricular tachycardia I47.2 Metabolic acidosis E87.2 Status epilepticus G40.901 Time Spent (min) 35
[2021-02-28] MEDS ORDERED: MoRPHine SULFATE 4 MG/ML 1 ML CARP\\VIAL IV STA (19:02)
[2021-02-28] MEDS ORDERED: STAT IV Infusion **Titration per Protocol STA (19:04)
[2021-02-28] MEDS ORDERED: MoRPHine SULFATE 4 MG/ML 1 ML CARP\\VIAL ONE (19:05)
[2021-02-28] MEDS ORDERED: MoRPHine SULF/NSS 250 MG/250 ML BTL IV SCH (19:15)
--- NOTE | 2021-02-28 23:40 | Death Pronouncement Note ---
Date of Service February 28, 2021 Pronouncement Note Admission Date Admission Date: February 23, 2021 Date and Time of Date of : 02/28/21 Time of : 23:15 Contributing Factors (1) Cardiac arrest: (2) Schizoaffective disorder, bipolar type: (3) Hyperlipidemia: (4) Hypertension: (5) Diabetes mellitus: Additional Data Confirmation of : no pulse, no respirations, no heart sounds and pupils fixed and dilated Family: contacted Attending/PCP notified?: Yes Attending physician: Albino Cook MD Was code activated?: No Resident Activity Tracking Resident Involvement: Resident Care Provided Care Provided: Adult Hospital Medicine
--- NOTE | 2021-03-01 07:01 | Discharge Summary ---
Date of Service March 01, 2021 Admission HPI Per Admitting Provider 65 yo M Hx schizoaffective disorder, HTN, DM2, HLD presents following out of hospital arrest to ER. Patient was [place] at a local coffee shop and was waiting for pickup from his sister. On her arrival to pick him up, he was lying on the ground outside with EMS present. EMS performed defibrillation x1 and brief CPR before patient had ROSC. He was also intubated in the field. Initial EKG en route showed ST depressions with resolution of EKG changes on arrival to the ER. Had CT Head without contrast without abnormalities, and CXR without evidence of pneumonia or fluid overload.Patient was a heart alert and was taken to laborer pole crew by Dr. 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 Brought to ICU and hypothermia protocol was started. On my interview patient is not responsive to questions and is intubated. Admission Exam Per Admitting Provider Constitutional: WD/WN, vitals as above Eyes: PERRL, conjunctivae normal, anicteric sclerae eye deviation upward and to the left ENMT: external ear and nose normal, oropharynx normal (intubated) Neck: thick neck Respiratory: normal respiratory effort, lungs clear to auscultation (intubated) Cardiovascular: RRR, no murmur, no edema Gastrointestinal (Abdomen): normal bowel sounds, soft, nondistended Musculoskeletal: no cyanosis or clubbing, extremities motor strength 5/5 Skin: no rashes, warm and dry Neurologic: The patient is intubated and sedated. Unable to assess speech, mood, memory, mentation. Patient's eye exam reveals deviation upward and to the left. Pupils equally round and reactive to light. Intermittent myoclonic-like jerks noted. Patient does not localize to pain, decerebrate posture. GCS 4. Principal Diagnosis Cardiac Arrest Discharge Exam Discharge Data Allergies Allergy/AdvReac Type Severity Reaction Status Date / Time No Known Allergies Allergy Verified 02/23/21 17:21 Consultations 02/23/21 17:15 Consult Cardiac Catheterization Stat 02/23/21 19:05 Consult Machine Edge Bander Routine 02/23/21 19:33 Consult Cardiology Routine 02/25/21 15:01 Consult Palliative Care Routine 02/26/21 09:45 Consult Neurology Routine Procedures Performed Operation Date: 02/23/21 15:15 Actual Procedures p Cath, Left with Cors and Vent - Armando Jimenez MD s Cineradiography w/Routine Exam - Armando Jimenez MD s IVUS Coronary Single Vessel - Armando Jimenez MD s Ultrasound Vascular Access - Armando Jimenez MD Ordered Studies 02/23/21 17:03 CT angio chest PE protocol Stat CT head/brain wo con Stat 02/23/21 17:12 CL Cath Imgs for PACS use only Stat 02/23/21 19:13 CL IVUS Coronary Single Vessel Routine Hospital Course (1) Cardiac arrest: 65 yo M Hx schizoaffective disorder, HTN, DM2, HLD admitted to ICU post-cardiac arrest. Patient overnight 03/01/21 Comfort Care -02/28 prolonged discussion with family regarding patient condition, goals of care, future steps. Family understands patient has extensive anoxic brain damage and is unlikely to recover to any meaningful degree, does not want patient to be in pain. Family agreed to pursue comfort care measures, would like to continue medication to control patient's seizures. will continue valproate, levetiracetam -Family insisted on IV hydration and nutrition after extensive discussion on risks and benefits, patient to keep femoral line with IV Dextrose for now, family understands this is not a permenant solution and that intermediate feeding would require more invasive surgery, understand that IV nutrition will not assist in returning patient to any meaningful level of function. Family to discuss further with their cement paver. -patient's status changed to DNR/DNI, extubated 02/28 Cardiac arrest, ventricular tachycardia: -Initial EKG with evidence of ischemia however with resolution of such by arrival to ER. -Moderate nonobstructive disease on cardiac catheterization; no stents placed. -Ischemia possibly due to heart block vs QT prolongation vs other etiology. -Troponin 0.344 on admit, downtrending 0.177 -Echo 02/24: EF 55-60%, mild pulmonary hypertension, trace pericardial effusion, left atrium mildly dilated. -Triglycerides 201 otherwise lipid panel within normal limits, A1c 7.7. -Cardiology consulted, hemodynamically stable continue amiodarone drip. Given Lasix. -hypophosphatemia repleted -amiodarone stopped, will not pursue further measures for bp control Anoxic brain injury: -Poor neurological exam following ROSC after cardiac arrest. -Patient with fasciculations resolved with propofol bolus. -Likely seizures 2/2 anoxic brain injury. -24 hour hypothermia protocol upon admission to ICU. Rewarming started. -EEG ordered --> burst suppression pattern which goes with very poor prognosis likely from underlying anoxic brain injury repeat EEG 02/27: There is frontally predominant 3 to 4-1/2 Hz spike wave activity seen throughout the study suggestive of status epilepticus. There is general suppression of the background rhythm. Subsequent EEGs unchanged -tube feeding started 02/26, transitioned to TPN 02/28 -Palliative care consulted -Neurology consulted, recommends increasing valproic acid, fentanyl -Patient spiking occasional central fever, tachypnea, no change in mental status over course of stay -patient extubated 02/28 breathing room air without assistance -patient's sister contacted, Ezequiel Kidd [phone], Code status updated to DNR/DNI. Family denied gift of life. Wants to continue IV nutrition and hydration, seizure control Intubated: -Patient was intubated for airway support during cardiac arrest. -sedation weaned for spontaneous trials of breathing as able. -breathing trial post extubation successful Leukocytosis -likely reactive to cardiac arrest, WBC 10.04 -Patient spiked fever this also seems to be central, max 38.7 C not responsive to tylenol Transaminitis: -AST and ALT with mild elevation on ER labs, later downtrended; moreso than on prior labwork. -Suspect shock liver in the setting of cardiac arrest. DM2: -BSG range in mid-300s as of presentation to hospital. BHB mildly elevated. Presented in metabolic acidosis, but suspected to be secondary to cardiac arrest. -Holding outpatient metformin. -A1c 7.7 -Insulin gtt with moderate stress dosing started upon admission, with consideration for basal/bolus should patient's clinical condition improve. -ICU hyperglycemia protocol initiated. Pharmacy consulted. -glycemic control stopped HTN, HLD: -LDL 29, total cholesterol 105, triglycerides 201. -no longer pursuing BP lipid control Schizoaffective disorder: -History of, not on medications for such at home per EMR. (2) Schizoaffective disorder, bipolar type: (3) Hyperlipidemia: (4) Hypertension: (5) Diabetes mellitus: Total Time Total Time Spent Total Time Spent (In Minutes): see attending attestation Discharge Plan Discharge Items Patient Disposition: Other Date/Time: 02/28/21 23:15 Resident Activity Tracking Resident Involvement: Resident Care Provided Care Provided: Adult Hospital Medicine
--- NOTE | 2021-03-01 07:07 | Electrocardiogram Report ---
Test Reason : Blood Pressure : / mmHG Vent. Rate : 072 BPM Atrial Rate : 072 BPM P-R Int : 218 ms QRS Dur : 072 ms QT Int : 374 ms P-R-T Axes : -02 020 231 degrees QTc Int : 409 ms Sinus rhythm with 1st degree A-V block Abnormal ECG When compared with ECG of 25-FEB-2021 05:57, T wave inversion more evident in Anterolateral leads Confirmed by Alex Norwood ([id number]) on 03/01/2021 7:07:12 AM Referred By: REFERRED SELF Confirmed By:Alex Norwood
--- NOTE | 2021-03-14 14:46 | Coding Query ---
CODING QUERY To promote full compliance with coding requirements relating to patient care, provider participation is requested in all cases of risk management consultant uncertainty. Please assist us with the question(s) below: Coding Question(s): Please specify below, in your clinical opinion, regarding the most likely cause of the Cardia Arrest. ( x) Cardiac Arrest most likely due to Ventricular Tachycardia ( ) Cardiac Arrest most likely due to CAD ( ) Cardiac Arrest most likely due to heart block ( ) Cardiac Arrest most likely due to Other: Please Specify ( ) Cardiac Arrest with Unknown possible etiology Physician's Response(s): Thank you Ruma Wallace Principal Diagnosis: "that condition established after study, to be chiefly responsible for occasioning the admission of the patient to the hospital for care." Co-Existing Principal Diagnosis: "when two or more diagnoses equally meet the criteria for principal diagnosis as determined by the circumstances of admission, diagnostic work up, and/or therapy provided, and the Alphabetic Index, Tabular List, or another coding guideline does not provide sequencing direction, any one of the diagnoses may be sequenced first." "When the physician has documented what appears to be a current diagnosis in the body of the record, but has not included the diagnosis in the final diagnostic statement, the physician should be asked whether the diagnosis should be added." ([facility] 2 QTR90. p3-4) [facility]
== END 2021-02-28 23:15 | disposition expired | DRG 286 ==
LOC: ED 16:59 → CC 17:35 → SUATTDRO 19:05 → 1E 19:05 → 3E 02-28 18:48